=== PATIENT | male | born 1945 | race Caucasian/White ===

== ENCOUNTER 2020-05-30 10:22 | Outpatient (REF) | payer MEDICARE, SELFPAY ==
--- NOTE | ~2020-05-30 | US_ITS ---
EXAMINATION: US RETROPERITONEAL LIMITED (RENAL ONLY) CLINICAL INFORMATION: Cyst of kidney, acquired. COMPARISON: Renal ultrasound 07/13/2018 TECHNIQUE: Real-time imaging of the kidneys. FINDINGS: RIGHT KIDNEY: 12.0 x 6.3 x 5.0 cm (SAG x AP x TRV). The kidney is normal in size, contour, and echogenicity. Renal cortical thickness is normal. No renal calculi or hydronephrosis. There is a heterogeneous exophytic area in the upper pole measuring 1.2 x 1.0 x 0.95 cm avascular question exophytic lesion. It was not seen previously. Cyst seen within the lower pole on the previous exam is not seen at this time. 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 LEFT KIDNEY: 13.3 x 5.9 x 5.7 cm (SAG x AP x TRV). The kidney is normal in size, contour, and echogenicity. Renal cortical thickness is normal. No renal calculi or hydronephrosis. There are 2 anechoic cysts. The midpole cyst measuring 5.1 x 4.5 x 5.3 cm and lower pole cyst measuring 3.1 x 2.9 x 2.9 cm. US/US renal BI IMPRESSION: At least 2 left renal cysts. Heterogenous lesion upper pole right kidney, new. Question complex cyst versus lesion upper pole right kidney. It is avascular. No echogenic stones or hydronephrosis seen.
[2020-05-30 11:47] LABS: Estimated Average Glucose 131 mg/dL; Hemoglobin A1c % 6.2 %
[2020-05-30 12:15] LABS: PSA,Total (Free>4and<10) 2.19 ng/mL (0.00-4.00)
[2020-05-30 12:18] LABS: Alanine Aminotransferase 38 U/L (0-40); Anion Gap 14 (12-20); Aspartate Amino Transferase 27 U/L (5-37); Blood Urea Nitrogen 19 mg/dL (9-16); Calcium 9.2 mg/dL (8.4-10.2); Carbon Dioxide 31 mmol/L (22-29); Chloride 102 mmol/L (96-108); Cholesterol 178 mg/dL; Estimated Glomerular Filt Rate > 60; Glucose Fasting 111 mg/dL (60-99); HDL Cholesterol 45 mg/dL; LDL Cholesterol Calculated 74 mg/dl; Potassium 3.4 mmol/L (3.3-5.1); Sodium 144 mmol/L (135-145); Triglycerides 297 mg/dL
[2020-05-30 12:20] LABS: Creatinine Urine 117.01 mg/dL
== END 2020-05-30 10:23 | disposition home or self-care (01) ==
LOC: HO.HMGCX 10:22
PROVIDERS: PCP Internal Medicine; Visit Provider Internal Medicine
DX: Z12.5 Encounter for screening for malignant neoplasm of prostate (principal); N28.1 Cyst of kidney, acquired
CPT/HCPCS: 36415; 76775; 80048; 80061; 82043; 83036; 84153; 84450; 84460

== ENCOUNTER → 2020-06-21 10:34 | Outpatient (BNVA) | payer MEDICARE, SELFPAY | PROVIDERS: PCP Internal Medicine; Visit Provider Urology | DX: N28.1 Cyst of kidney, acquired (principal) | CPT/HCPCS: 99202 ==

== ENCOUNTER 2020-06-29 14:21 | Outpatient (REF) | payer MEDICARE, SELFPAY ==
--- NOTE | ~2020-06-29 | CT_ITS ---
EXAMINATION: CT ABDOMEN WITHOUT AND WITH CONTRAST CLINICAL INFORMATION: Cyst of kidney. COMPARISON: Renal ultrasound 05/30/2020. TECHNIQUE: Contiguous axial thin section helical images of the abdomen were performed before and after the administration of 76 mL of Omnipaque 350 intravenous contrast. The data set was reformatted in the coronal and sagittal planes and reviewed on an independent workstation. This CT examination was performed using dose optimization techniques as appropriate, variously including the following: *Automated exposure control *Adjustment of mA and/or kV according to patient size (this includes techniques or standardized protocols for targeted exams where dose is matched to indication/reason for exam; i.e. extremities or head) *Use of iterative reconstruction technique DLP: 1001 mGy-cm FINDINGS: LUNG BASES: The lung bases are clear. Coronary artery calcifications are noted. LIVER, GALLBLADDER, AND BILIARY TREE: The liver is normal in size, shape, and attenuation. No biliary ductal dilatation or focal hepatic lesion. Small stones are seen in the gallbladder lumen. No gallbladder wall thickening or pericholecystic fluid. PANCREAS: Normal. SPLEEN: Normal. ADRENAL GLANDS AND KIDNEYS: The right adrenal gland has a 3.2 cm fat attenuation nodule, consistent with a myolipoma. There is a left adrenal gland heterogeneous nodule which is fat attenuation, although has some areas of higher attenuation internally. This measures 7.1 cm. No enhancing component. The kidneys are normal in size, shape, and attenuation. No hydronephrosis or nephrolithiasis. In the left kidney, there is an exophytic upper pole posterior lesion measuring 3 cm. This shows no enhancement, consistent with a cyst. There is a midpole 4.8 cm cyst. There is a right lower pole hypoattenuating lesion. BOWEL LOOPS: The stomach is unremarkable. Normal caliber small bowel. There is no obstruction. Normal appendix. No colonic wall thickening or acute inflammatory change. Scattered colonic diverticulosis without diverticulitis. No free air or free fluid. LYMPH NODES: Normal. VASCULAR: Normal caliber aorta with mild atherosclerotic calcification. BONES: No acute or suspicious osseous abnormality. Altered level degenerative changes of the spine. CT/CT abdomen wo/w con IMPRESSION: No suspicious renal mass. Left renal cysts. Hypoattenuating lesions in the cortex of the right kidney are too small to characterize but likely represent cysts. Fat attenuation lesions are seen in both adrenal glands. The right adrenal lesion measures 3.2 cm and is fairly homogenous, consistent with a myelolipoma. The left adrenal lesion is more complex, also consistent with a myelolipoma, measuring up to 7.1 cm. IR consult could be considered, to evaluate for possibility of increased risk of bleeding.
[2020-06-29] MEDS: iohexoL 350 MG/ML 75 ML INFUS..BTL IV (14:59)
== END 2020-06-29 14:22 | disposition home or self-care (01) ==
LOC: HO.CT 14:21
PROVIDERS: Visit Provider Urology
DX: N28.1 Cyst of kidney, acquired (principal)
CPT/HCPCS: 74170; Q9967

== ENCOUNTER → 2020-07-27 10:43 | Outpatient (BNVA) | payer MEDICARE, SELFPAY | PROVIDERS: PCP Internal Medicine; Visit Provider Urology | CPT/HCPCS: Q3014 ==

== ENCOUNTER 2020-08-10 09:45 | Outpatient (REF) | payer MEDICARE, SELFPAY ==
--- NOTE | ~2020-08-10 | XR_ITS ---
EXAMINATION: XR CLAVICLE, LEFT CLINICAL INFORMATION: Left shoulder pain. COMPARISON: None TECHNIQUE: Two views of the left clavicle. FINDINGS: There is loss of left AC joint space with periarticular spurring. There are small enthesophytes along the lateral acromion. The glenohumeral joint space is normal. The soft tissues are normal. XR/XR clavicle LT IMPRESSION: Mild degenerative changes left AC joint. No visible acute fracture or dislocation left shoulder.
== END 2020-08-10 09:46 | disposition home or self-care (01) ==
LOC: HO.HMGCX 09:45
PROVIDERS: PCP Internal Medicine; Visit Provider Hospitalist
DX: M89.8X1 Other specified disorders of bone, shoulder (principal)
CPT/HCPCS: 73000

== ENCOUNTER 2020-11-21 16:00 | Outpatient (RCR) | payer MEDICARE, SELFPAY ==
[2020-10-09 11:01] VITALS: BP 140/82
--- NOTE | 2020-10-09 12:38 | MHC.PT.EP ---
[facility] [place] Office [place] Office [place] Office [address] Leon Bae [address] [phone] F: [phone] F: [phone] F: [phone] F: [phone] Physical Therapy Plan of Care Date of Evaluation: Date of Surgery: Diagnosis: B shoulder pain Assessment: 75 y/o RHD M referred for B shoulder pain with s/sx consistent with upper crossed syndrome. Pt complains of pain in the R supraclavicular region with lifting overhead, driving, putting shoes on, showering, and golfing, though pt reports pain has decreased significantly over last few weeks. Examination shows limited cervical ROM, limited strength of shoulder flexors/abductors and scapular retractors, increased pectoral tissue tension, and limited active shoulder ROM. Recommend PT 2x/week for 4 weeks to address impairments, implement HEP, and optimize functional mobility. Frequency and Duration: The patient will be seen 2x/week for 4 weeks Short Term Goals: 2 weeks: 1. I with HEP 2. 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 I with HEP and self-management of sx 2. Pt will be able to reach overhead with>3/10 pain in order to complete ADLs 3. Pt will be able to golf for >1 hours with <3/10 Treatment Plan: Modalities to reduce pain, spasms and effusion. Manual therapy to restore motion and function. Therapeutic exercise to improve strength and flexibility. Neuromuscular re-education for posture and balance. Therapeutic activities to return to functional activities of daily living. Electronically signed by: Arabella zuñiga PT Please sign and return to therapist. Thank you for your referral.
--- NOTE | 2020-12-13 13:25 | MHC.PT.DC ---
[facility] [place] Office [place] Office [place] Office [address] Leon Bae [address] [phone] F: [phone] F: [phone] F: [phone] F: [phone] Physical Therapy Discharge Report Diagnosis: B shoulder pain Date of Surgery: N/A Date of Evaluation: 10/09/20 Date of Discharge: 12/13/20 Treatments to Date: 11 Cancellations to Date: 0 No Shows to Date: 0 Discharge Status: Achieved Goals Improved Function Independent with HEP Patient Elected to Stop Discharge Summary: Pt demonstrating a lack in ROM but is functional and has improved his strength. He has an HEP to continue on his own. DC to HEP at this time. Electronically signed by: Mirian Plasencia PT Please sign and return to therapist. Thank you for your referral.
== END 2020-12-13 13:26 | disposition home or self-care (01) ==
LOC: HO.PTCHIC 16:00
PROVIDERS: PCP Internal Medicine; Visit Provider Internal Medicine
DX: M25.511 Pain in right shoulder (principal); M25.512 Pain in left shoulder
CPT/HCPCS: 97110; 97140; 97161

== ENCOUNTER 2020-11-30 06:22 | Outpatient (REF) | payer MEDICARE, SELFPAY ==
[2020-11-30 11:45] LABS: Alanine Aminotransferase 18 U/L (0-40); Anion Gap 15 (12-20); Aspartate Amino Transferase 18 U/L (5-37); Blood Urea Nitrogen 18 mg/dL (9-16); Calcium 9.9 mg/dL (8.4-10.2); Carbon Dioxide 28 mmol/L (22-29); Chloride 103 mmol/L (96-108); Cholesterol 151 mg/dL; Estimated Glomerular Filt Rate > 60; Glucose Fasting 123 mg/dL (60-99); HDL Cholesterol 44 mg/dL; LDL Cholesterol Calculated 74 mg/dl; Potassium 3.7 mmol/L (3.3-5.1); Sodium 142 mmol/L (135-145); Triglycerides 167 mg/dL
[2020-11-30 12:19] LABS: Estimated Average Glucose 131 mg/dL; Hemoglobin A1C 141.5787 umol/L; Hemoglobin A1c % 6.2 %
== END 2020-11-30 06:23 | disposition home or self-care (01) ==
LOC: HO.HMGCLDS 06:22
PROVIDERS: PCP Internal Medicine; Visit Provider Internal Medicine
DX: E11.9 Type 2 diabetes mellitus without complications (principal); E78.5 Hyperlipidemia, unspecified; I10 Essential (primary) hypertension
CPT/HCPCS: 36415; 80048; 80061; 83036; 84450; 84460

== ENCOUNTER 2021-04-26 11:41 | Outpatient (REF) | payer MEDICARE, SELFPAY ==
--- NOTE | ~2021-04-26 | XR_ITS ---
EXAMINATION: XR KNEE, RIGHT CLINICAL INFORMATION: Pain COMPARISON: None TECHNIQUE: Four views of the right knee. FINDINGS: Bone alignment is normal. No fracture or dislocation is seen. Joint spaces are normal. There is no joint effusion. There is an osteophyte at the quadriceps tendon insertion to the patella. XR/XR knee RT 4V IMPRESSION: Osteophyte at the quadriceps tendon insertion to the patella otherwise unremarkable exam.
== END 2021-04-26 11:42 | disposition home or self-care (01) ==
LOC: HO.HMGCX 11:41
PROVIDERS: PCP Internal Medicine; Visit Provider Internal Medicine
DX: M25.561 Pain in right knee (principal)
CPT/HCPCS: 73564

== ENCOUNTER 2021-05-16 11:36 | Outpatient (REF) | payer MEDICARE, SELFPAY ==
--- NOTE | ~2021-05-16 | XR_ITS ---
EXAMINATION: XR KNEE AP STANDING CLINICAL INFORMATION: Knee pain COMPARISON: Knee radiograph 04/26/2021 TECHNIQUE: AP bilateral standing view of the knees was obtained. XR/XR knee standing BI FINDINGS/IMPRESSION: No acute fracture or dislocation. Mild degenerative changes of the right knee with small medial compartment osteophytes and spurring of the tibial spines. Mild degenerative changes of the left knee with spurring of the tibial spines. Joint spaces are maintained. Soft tissues are unremarkable.
== END 2021-05-16 11:37 | disposition home or self-care (01) ==
LOC: HO.HOSX 11:36
PROVIDERS: Visit Provider Physician Assistant
DX: M17.11 Unilateral primary osteoarthritis, right knee (principal)
CPT/HCPCS: 20610; 73565; 99202; J1020

== ENCOUNTER 2021-05-30 08:04 | Outpatient (REF) | payer MEDICARE, SELFPAY ==
[2021-05-30 11:30] LABS: Estimated Average Glucose 148 mg/dL; Hemoglobin A1c % 6.8 %
[2021-05-30 11:55] LABS: Alanine Aminotransferase 34 U/L (0-40); Anion Gap 11 (12-20); Aspartate Amino Transferase 25 U/L (5-37); Blood Urea Nitrogen 15 mg/dL (9-16); Calcium 9.7 mg/dL (8.4-10.2); Carbon Dioxide 33 mmol/L (22-29); Chloride 105 mmol/L (96-108); Cholesterol 197 mg/dL; Estimated Glomerular Filt Rate > 60; Glucose Fasting 124 mg/dL (60-99); HDL Cholesterol 48 mg/dL; LDL Cholesterol Calculated 87 mg/dl; Potassium 3.6 mmol/L (3.3-5.1); Sodium 145 mmol/L (135-145); Triglycerides 310 mg/dL
== END 2021-05-30 08:05 | disposition home or self-care (01) ==
LOC: HO.HMGCLDS 08:04
PROVIDERS: PCP Internal Medicine; Visit Provider Internal Medicine
DX: E11.29 Type 2 diabetes mellitus with other diabetic kidney complication (principal); E78.5 Hyperlipidemia, unspecified; I10 Essential (primary) hypertension
CPT/HCPCS: 36415; 80048; 80061; 83036; 84450; 84460

== ENCOUNTER 2021-06-21 08:12 | Outpatient (REF) | payer MEDICARE, SELFPAY ==
--- NOTE | ~2021-06-21 | CT_ITS ---
EXAMINATION: CT ABDOMEN WITHOUT AND WITH CONTRAST CLINICAL INFORMATION: Kidney cyst. COMPARISON: Previous CT of the abdomen June 2020 TECHNIQUE: Contiguous axial thin section helical images of the abdomen were performed before and after the administration of oral contrast and 85 mL of Omnipaque 350 intravenous contrast. The data set was reformatted in the coronal and sagittal planes and reviewed on an independent workstation. This CT examination was performed using dose optimization techniques as appropriate, variously including the following: *Automated exposure control *Adjustment of mA and/or kV according to patient size (this includes techniques or standardized protocols for targeted exams where dose is matched to indication/reason for exam; i.e. extremities or head) *Use of iterative reconstruction technique DLP: 603 mGy-cm FINDINGS: LUNG BASES: Unremarkable. LIVER, GALLBLADDER, AND BILIARY TREE: Fatty infiltration of the liver. No focal liver lesion or biliary duct dilatation. Small gallstones in the gallbladder. PANCREAS: Unremarkable. SPLEEN: Unremarkable. ADRENAL GLANDS AND KIDNEYS: There are bilateral fatty adrenal lesions on the right measuring 3 cm and on the left measuring 7 cm that are stable. There are left renal simple cysts. There is a 1 cm complex lesion in the lateral mid right kidney. Difficult to visualize precontrast. This may be seen on axial image 79 series 3 with Hounsfield units precontrast measuring 16. This is seen axial image 109 postcontrast and Hounsfield units measure 49 suggestive of minimal enhancement. This is stable from previous CT and may represent a complex cyst. Alternatively, this may represent 2 adjacent small cysts. There is a smaller low-attenuation lesion in the anterior lower pole of the right kidney measuring approximately 0.5 x 1.2 cm axial image 117 series. This is stable as well. Lesions are difficult to characterize due to small size. BOWEL LOOPS: There is diverticulosis of the colon. LYMPH NODES: There are small retroperitoneal and small bowel mesentery lymph nodes. No enlarged lymph nodes are seen. VASCULAR: Unremarkable. BONES: There are degenerative changes of the spine. CT/CT abdomen wo/w con IMPRESSION: Stable bilateral fatty adrenal lesions probably representing myelolipomas. Left renal cysts. Stable smaller low-attenuation lesions in the mid and lower pole of the right kidney. Stable small low-attenuation lesions in the mid and lower pole of the right kidney. Fatty liver. Gallstones. Diverticulosis. Fleischner guidelines were followed.
[2021-06-21] MEDS: iohexoL 350 MG/ML 100 ML INFUS..BTL 85 ML IV (09:24)
== END 2021-06-21 08:13 | disposition home or self-care (01) ==
LOC: HO.CT 08:12
PROVIDERS: PCP Internal Medicine; Visit Provider Urology
DX: N28.1 Cyst of kidney, acquired (principal)
CPT/HCPCS: 74170; Q9967

== ENCOUNTER → 2021-07-10 08:26 | Outpatient (BNVA) | payer MEDICARE, SELFPAY | PROVIDERS: PCP Internal Medicine; Visit Provider Urology | DX: D17.79 Benign lipomatous neoplasm of other sites (principal); N28.1 Cyst of kidney, acquired; E11.29 Type 2 diabetes mellitus with other diabetic kidney complication; I10 Essential (primary) hypertension; E78.5 Hyperlipidemia, unspecified; Z88.4 Allergy status to anesthetic agent | CPT/HCPCS: Q3014 ==

== ENCOUNTER 2021-09-25 06:09 | Outpatient (REF) | payer MEDICARE, SELFPAY ==
[2021-09-25 12:11] LABS: Alanine Aminotransferase 18 U/L (0-40); Anion Gap 13 (12-20); Aspartate Amino Transferase 18 U/L (5-37); Blood Urea Nitrogen 19 mg/dL (9-16); Calcium 9.5 mg/dL (8.4-10.2); Carbon Dioxide 30 mmol/L (22-29); Chloride 105 mmol/L (96-108); Cholesterol 150 mg/dL; Estimated Glomerular Filt Rate > 60; Glucose Fasting 97 mg/dL (60-99); HDL Cholesterol 46 mg/dL; LDL Cholesterol Calculated 66 mg/dl; Potassium 3.5 mmol/L (3.3-5.1); Sodium 144 mmol/L (135-145); Triglycerides 191 mg/dL
[2021-09-25 12:25] LABS: Estimated Average Glucose 128 mg/dL; Hemoglobin A1C 151.5535 umol/L; Hemoglobin A1c % 6.1 %
[2021-09-25 12:52] LABS: Creatinine Urine 110.21 mg/dL; Microalbum/Creatinine Ratio Ur 255.8 ug/mg cr
== END 2021-09-25 06:10 | disposition home or self-care (01) ==
LOC: HO.HMGCLDS 06:09
PROVIDERS: Visit Provider Internal Medicine
DX: E11.29 Type 2 diabetes mellitus with other diabetic kidney complication (principal); E78.5 Hyperlipidemia, unspecified; I10 Essential (primary) hypertension
CPT/HCPCS: 36415; 80048; 80061; 82043; 83036; 84450; 84460

== ENCOUNTER 2022-04-04 08:02 | Outpatient (REF) | payer MEDICARE, SELFPAY ==
[2022-04-04 11:53] LABS: Estimated Average Glucose 140 mg/dL; Hemoglobin A1c % 6.5 %
[2022-04-04 12:13] LABS: Alanine Aminotransferase 23 U/L (0-40); Anion Gap 15 (12-20); Aspartate Amino Transferase 22 U/L (5-37); Blood Urea Nitrogen 24 mg/dL (9-16); Calcium 9.9 mg/dL (8.4-10.2); Carbon Dioxide 29 mmol/L (22-29); Chloride 104 mmol/L (96-108); Cholesterol 177 mg/dL; Estimated Glomerular Filt Rate > 60; Glucose Fasting 130 mg/dL (60-99); HDL Cholesterol 48 mg/dL; LDL Cholesterol Calculated 70 mg/dl; Potassium 3.7 mmol/L (3.3-5.1); Sodium 144 mmol/L (135-145); Triglycerides 297 mg/dL
[2022-04-04 12:19] LABS: Vitamin D 25-OH Total 24.5 ng/mL (>30)
== END 2022-04-04 08:03 | disposition home or self-care (01) ==
LOC: HO.HMGCLDS 08:02
PROVIDERS: PCP Internal Medicine; Visit Provider Internal Medicine
DX: E11.29 Type 2 diabetes mellitus with other diabetic kidney complication (principal); E78.5 Hyperlipidemia, unspecified; I10 Essential (primary) hypertension
CPT/HCPCS: 36415; 80048; 80061; 82306; 83036; 84450; 84460

== ENCOUNTER → 2022-05-08 08:04 | Outpatient (BNVA) | payer MEDICARE, SELFPAY | PROVIDERS: PCP Internal Medicine; Referring Provider Internal Medicine; Visit Provider Internal Medicine | DX: I45.10 Unspecified right bundle-branch block (principal); I49.8 Other specified cardiac arrhythmias; I10 Essential (primary) hypertension; E78.5 Hyperlipidemia, unspecified; E11.29 Type 2 diabetes mellitus with other diabetic kidney complication; R80.9 Proteinuria, unspecified | CPT/HCPCS: 99202 ==

== ENCOUNTER → 2022-05-22 07:49 | Outpatient (REF) | payer MEDICARE, SELFPAY ==
--- NOTE | 2022-05-22 08:01 | CA_ITS ---
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 Study Quality: Fair ECG Rhythm: Sinus Conclusions: - The left ventricular systolic function is normal. The calculated ejection fraction is 64% by biplane method. - Endocardium not very well defined. Probable moderate to severe concentric hypertrophy. - No obvious valvular pathology seen on this study. Findings Left Ventricle Normal left ventricular cavity size. The left ventricular systolic function is normal. The calculated ejection fraction is 64% by biplane method. There is no evidence of regional wall motion abnormalities. Diastolic function is normal for age. Endocardium not very well defined. Probable moderate to severe concentric hypertrophy. Right Ventricle Normal right ventricular cavity size and systolic function. Atria Both atria are normal in size. Aortic Valve There is mild calcification of the aortic valve. There is no aortic valve stenosis. There is no aortic valve regurgitation. Mitral Valve There is mild anterior and posterior mitral leaflet thickening. There is mild mitral annular calcification. There is no mitral valve regurgitation. There is no mitral valve stenosis. Pulmonic Valve The pulmonic valve is likely normal. Tricuspid Valve There is trace tricuspid valve regurgitation. There is no evidence of pulmonary hypertension. Great Vessels The asc aorta is normal in size. Small plaque is seen in the sino tubular ridge. Venous The inferior vena cava is normal in size and collapses greater than 50% with inspiration. Pericardium/Pleural Prominent epicardial adipose tissue noted. There is no evidence of pericardial effusion. Prior Study Comparison Changes noted compared to prior study dated: 08/16/2011. Progression of LVH. Recommendations, Care & Conclusions No obvious valvular pathology seen on this study. Measurements 2D Linear Measurements IVSd: 1.60 0.6-0.9/0.6-1.0 cm LVIDd: 4.36 3.9-5.3/4.2-5.9 cm LVIDd Index: 1.96 2.4-3.2/2.2-3.1 cm/m2 LVIDs: 2.52 2.0-3.6 cm LVPWd: 1.80 0.7-1.1 cm LA Diam: 3.90 2.7-3.8/3.0-4.0 cm LAIDs Index: 1.76 1.5-2.3 cm/m2 LV Mass: 399.78 67-162/88-224 g LV Mass Index: 180.08 43-95/49-115 g/m2 LVOT Diam: 2.10 3.0+(-)1.3 cm 2D Systolic Function EF 4C: 58.60 >55% EF 2C: 66.40 >55% EF BiP: 64.30 >55% Mitral Valve MV Pk E: 0.58 MV PK A: 0.92 MV Decel Time: 338.00 E/A: 0.60 E'Lateral: 6.96 E'Medial: 5.33 E/E' Med: 10.90 E/E' Lat: 8.40 PHT: 99.00 MVA PHT: 2.22 Decel Mitchell: 1.73 Aortic Valve AoV Pk Jerzy: 1.40 AoV Mn Jerzy: 1.00 AoV VTI: 0.26 AoV Pk Grad: 8.00 Aov Mn Grad: 5.00 RICHARD Cont.VTI: 2.73 LVOT LVOT Pk Jerzy: 0.98 LVOT Mn Jerzy: 0.69 LVOT VTI: 0.21 LVOT Pk Grad: 4.00 LVOT Mn Grad: 2.00 LVOT Diam: 2.10 LVOT Area: 3.46 Diastolic Function MV Pk E: 0.58 MV Pk A: 0.92 E/A: 0.60 E'Medial: 5.33 E/E' Med: 10.90 E' Laterial: 6.96 E/E' Lat: 8.40 Right Ventricle TAPSE (mm): 18.30 TVS' Jerzy: 12.70 Tricuspid Valve RA Press: 3.00 Great Vessels Aorta Sinus of Valsalva: 4.30 2.0-3.5 cm Ao Asc: 3.90 2.1-3.4 cm Pulmonary Valve PV Pk Jerzy: 0.90 Peak PV Grad: 3.00 Updated in Other Vendor System with Status of Final Bakari Bingham MD electronically signed on 05/24/2022 4:07:58 PM with status of Final
== END ==
LOC: HO.CARD 07:49
PROVIDERS: PCP Internal Medicine; Visit Provider Internal Medicine
DX: I25.10 Atherosclerotic heart disease of native coronary artery without angina pectoris (principal); I49.8 Other specified cardiac arrhythmias
CPT/HCPCS: 93306

== ENCOUNTER → 2022-05-23 08:00 | Outpatient (REF) | payer MEDICARE, SELFPAY ==
--- NOTE | ~2022-05-23 | NM_ITS ---
Exercise Myocardial perfusion study Indication: Precordial chest pain to evaluate for myocardial ischemia Technique: The patient was brought in for an exercise perfusion study on 05/23/2022. Patient performed exercise as per Melvin protocol and was injected 35 mCi of sestamibi was given intravenously one target HR was achieved. Images were obtained using the SPECT gamma camera interlaced with the gating device. Images were obtained in supine position. Resting perfusion study was performed on 05/24/2022. Patient was administered 35 mCi of sestamibi intravenously at rest. Images were then obtained in supine position. Images obtained with and without CT attenuation. Total DLP 160 mGy-cm. Images were processed with the software and compared side to side in short axis, horizontal long axis and vertical long axis views. Findings: The stress perfusion study showed non attenuated images show mildly reduced uptake in the basal lateral wall of the LV myocardium. Attenuation corrected images also shows minimally to mildly reduced uptake in the basal lateral wall with some thinning.. The gated study shows normal LV systolic function with visually estimated LVEF of greater than 55%. LV cavity is normal in size. The gated study shows normal systolic wall thickening and contraction of all segments. There is no transient ischemic dilation. Resting study shows normal uptake of radiotracer in all segments of LV myocardium. Gating at rest reveals normal systolic wall motion with ejection fraction at 60%. The findings are consistent with small area of mild intensity reversible defect of the basal lateral wall suggestive of ischemia.. NM/NM cardiolite stress test Impression: 1. Mild basal lateral wall ischemia 2. Gated LVEF is 60% 3. Transient ischemic dilatation not present Stress EKG is negative for ischemia
--- NOTE | 2022-05-23 08:03 | CA_ITS ---
Acquisition Time: 2022-05-23 08:23:45 Total Exercise Time: 00:06:42 Test Indications: ABN EKG Medications: SEE CHART Protocol: RADHA Max HR: 153 BPM 105% of Pred: 145 BPM Max BP: 190/048 mmHG Max Work Load: 8.0 METS Exercise stress test using Radha potocol. Total of 6 min 42 seconds, METS 8.00 and TAPHR up to 105%, Pt denies any SOB or CP. Test stopped d/t rapid HR. EKG with RBBB, PAC's and occasional PVC's. No ischemic changes noted. Nucleaar images pending. Hypertensive response to exercise. Test reviewed with Dr. Sharma Referred By: Bakari Bingham Overread By: Ping Mathis NP
== END ==
LOC: HO.CARD 08:00
PROVIDERS: Visit Provider Internal Medicine
DX: R07.2 Precordial pain (principal); I49.8 Other specified cardiac arrhythmias
CPT/HCPCS: 78452; 93017; A9500

== ENCOUNTER 2022-06-10 07:13 | Outpatient (REF) | payer MEDICARE, SELFPAY ==
[2022-06-10 12:18] LABS: Blood Urea Nitrogen 15 mg/dL (9-16); Estimated Glomerular Filt Rate > 60
== END 2022-06-10 07:14 | disposition home or self-care (01) ==
LOC: HO.HMGCLDS 07:13
PROVIDERS: PCP Internal Medicine; Visit Provider Urology
DX: N26.1 Atrophy of kidney (terminal) (principal); N28.1 Cyst of kidney, acquired
CPT/HCPCS: 36415; 82565; 84520

== ENCOUNTER 2022-06-21 07:44 | Outpatient (REF) | payer MEDICARE, SELFPAY ==
--- NOTE | ~2022-06-21 | CT_ITS ---
EXAMINATION: CT ABDOMEN WITHOUT AND WITH CONTRAST CLINICAL INFORMATION: Renal mass COMPARISON: Previous CT of the abdomen and pelvis most recent June 2020 TECHNIQUE: Contiguous axial thin section helical images of the abdomen were performed before and after the administration of oral contrast and 85 mL of Omnipaque 350 intravenous contrast. The data set was reformatted in the coronal and sagittal planes and reviewed on an independent workstation. This CT examination was performed using dose optimization techniques as appropriate, variously including the following: *Automated exposure control *Adjustment of mA and/or kV according to patient size (this includes techniques or standardized protocols for targeted exams where dose is matched to indication/reason for exam; i.e. extremities or head) *Use of iterative reconstruction technique DLP: 725 mGy-cm FINDINGS: LUNG BASES: Unremarkable LIVER, GALLBLADDER, AND BILIARY TREE: Mild fatty infiltration. No focal liver lesion. Gallstones. Normal caliber bile ducts. PANCREAS: Normal SPLEEN: Normal ADRENAL GLANDS AND KIDNEYS: There are bilateral fatty adrenal lesions suggestive of myelolipoma. These measure 2.7 x 3.7 cm on the right and 7 cm on the left. There is a 5 x 10 mm low-attenuation lesion in the lateral lower pole of the right kidney. This is difficult to appreciate precontrast. Hounsfield units postcontrast measure between 15 suggestive of a simple cyst. There may be additional smaller cysts in the lower pole of the right kidney as well. There is a 5 cm simple cyst in the lateral left kidney. There is a 7 mm lesion in the medial lower pole of the left kidney. This is slightly high attenuation precontrast Hounsfield units measuring 57. This does not demonstrate evidence of enhancement and likely represents a hyperdense cyst axial image 90 series 4. There is a 3 cm lesion exophytic to the medial upper pole of the left kidney. This is a small focus of peripheral calcification. Hounsfield units pre and postcontrast measure 50 without evidence of enhancement compatible with a complex cyst. No hydronephrosis or renal mass. BOWEL LOOPS: Diverticulosis of the colon. Large diverticulum adjacent to the pancreas. Small and large bowel is otherwise normal. Normal appendix. Normal stomach. Small umbilical hernia containing fat. LYMPH NODES: Normal. VASCULAR: Unremarkable. BONES: Degenerative changes of the spine. CT/CT abdomen wo/w IV con IMPRESSION: No evidence of enhancing renal mass. Simple and complex bilateral renal cysts similar to previous exam. Bilateral large adrenal myelolipomas. Vascular consultation for increased risk of bleeding should be considered given large size on the left. Gallstones. Diverticulosis. Mild fatty infiltration of the liver. Fleischner guidelines were followed.
[2022-06-21] MEDS: iohexoL 350 MG/ML 100 ML INFUS..BTL IV (08:13)
== END 2022-06-21 07:45 | disposition home or self-care (01) ==
LOC: HO.CT 07:44
PROVIDERS: PCP Internal Medicine; Visit Provider Urology
DX: N28.1 Cyst of kidney, acquired (principal)
CPT/HCPCS: 74170; Q9967

== ENCOUNTER 2022-07-10 06:23 | Outpatient (REF) | payer MEDICARE, SELFPAY ==
[2022-07-10 12:11] LABS: Estimated Average Glucose 143 mg/dL; Hemoglobin A1c % 6.6 %
[2022-07-10 12:12] LABS: Alanine Aminotransferase 33 U/L (0-40); Anion Gap 14 (12-20); Aspartate Amino Transferase 27 U/L (5-37); Blood Urea Nitrogen 16 mg/dL (9-16); Carbon Dioxide 28 mmol/L (22-29); Chloride 104 mmol/L (96-108); Cholesterol 175 mg/dL; Estimated Glomerular Filt Rate > 60; Glucose Fasting 123 mg/dL (60-99); HDL Cholesterol 47 mg/dL; LDL Cholesterol Calculated 79 mg/dl; Potassium 3.3 mmol/L (3.3-5.1); Sodium 143 mmol/L (135-145); Triglycerides 248 mg/dL
[2022-07-10 12:38] LABS: PSA,Total (Free>4and<10) 2.33 ng/mL (0.00-4.00); Vitamin D 25-OH Total 106.6 ng/mL (>30)
== END 2022-07-10 06:24 | disposition home or self-care (01) ==
LOC: HO.HMGCLDS 06:23
PROVIDERS: PCP Internal Medicine; Visit Provider Internal Medicine
DX: D35.00 Benign neoplasm of unspecified adrenal gland (principal); N28.1 Cyst of kidney, acquired; E11.29 Type 2 diabetes mellitus with other diabetic kidney complication; E78.5 Hyperlipidemia, unspecified; I10 Essential (primary) hypertension; Z12.5 Encounter for screening for malignant neoplasm of prostate
CPT/HCPCS: 36415; 80048; 80061; 82306; 83036; 84153; 84450; 84460; 99212

== ENCOUNTER → 2022-07-25 10:16 | Outpatient (BNVA) | payer MEDICARE, SELFPAY | PROVIDERS: PCP Internal Medicine; Referring Provider Internal Medicine; Visit Provider Internal Medicine | DX: I25.10 Atherosclerotic heart disease of native coronary artery without angina pectoris (principal); I49.8 Other specified cardiac arrhythmias; I45.10 Unspecified right bundle-branch block; I10 Essential (primary) hypertension; E11.29 Type 2 diabetes mellitus with other diabetic kidney complication; R80.9 Proteinuria, unspecified; E78.5 Hyperlipidemia, unspecified | CPT/HCPCS: 99212 ==

== ENCOUNTER 2022-08-15 13:23 | Outpatient (AMB) | payer MEDICARE, SELFPAY ==
--- NOTE | 2022-08-15 13:26 | MHC.PC.OV ---
Vital Signs 08/15/22 13:27 Height 5 ft 10 in Weight 233 lb BMI 33.4 BP 146/86 H Blood Pressure Location Lt brachial Position Sitting Pulse 79 Pulse Source Pulse Oximeter Pulse Oximetry (%) 95 Oxygen Delivery Method Room Air Intake Visit Reasons: 5 month follow up Intake Note: Pt is here today for 5 month f/u Allergies diphenhydramine [From BENADRYL ALLERGY] Allergy (Unknown, Verified 12/17/22 13:51) HEART RACING AND TIREDNESS Medication List - Last Reconciled 08/15/22 by Pebbles Mcarthur MD amlodipine 10 mg PO DAILY blood sugar diagnostic As directed blood sugar diagnostic check blood sugar twice a day as directed blood sugar diagnostic (Oceen Ultra Test strips) As directed twice a day ac losartan 100 mg PO DAILY metformin 1,000 mg PO BID simvastatin 20 mg PO BEDTIME triamterene-hydrochlorothiazid 37.5-25 mg 1 tab PO QAM 90 days Tobacco use date assessed: 08/15/22 Fall risk assessment: No Falls in past year Last assessed Fall Risk: 08/15/22 HPI 5 month follow up HPI Details 77-year-old male, here today for follow-up on his hypertension and diabetes and dyslipidemia. Has been feeling well with no complaints at present time. 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 Vitamin D deficiency Right bundle branch block (RBBB) Iglesias esophagus Squamous cell skin cancer, multiple sites Diabetes mellitus with kidney complication, without long-term current use of insulin Dyslipidemia Bilateral renal cysts Actinic keratosis Neuropathic arthritis Essential hypertension Renal cyst, acquired Surgical History Hx of LASIK Hx of colonoscopy Status post Mohs surgery Family History Mother Chronic kidney disease Cardiovascular disease Diabetes mellitus Brother Diabetes mellitus Skin cancer Social History Housing: House Alcohol intake: current Patient Tobacco Use Status: Never used Tobacco e-Cigarette/Vaping Use: Never Used service: No Current occupational status: retired Cognitive needs: No Hearing needs: No Vision needs: Yes Questionnaire PHQ-9 Over the last 2 weeks, how often have you been bothered by any of the following problems? Depression Screening Interpretation: Negative Source: Developed by Drs. Chapincito Livingston, Mynor Stewart and colleagues, with an educational pollo from [employer]. Thrive Questionnaire Date Thrive assessed: 04/15/22 AUDIT C Alcohol Use Questionnaire (AUDIT-C) 1. How often do you have a drink containing alcohol?: Never Total Score: 0 YAMILA-7 AMB Questionnaire YAMILA-7 Date YAMILA - 7 assessed: 04/15/22 Source: Developed by Drs. Chapincito Livingston, Mynor Stewart and colleagues, with an educational pollo from [employer]. Review of Systems Const Reports no additional complaints and Denies fatigue Eyes Reports no additional complaints ENT Reports no additional complaints Card Denies chest pain, Denies rapid heart rate, Denies irregular heart rhythm, Denies lightheadedness, Denies radiating jaw, neck or arm pain, Denies palpitations, Denies dyspnea and Denies dyspnea on exertion Resp Reports no additional complaints, Denies dyspnea and Denies dyspnea on exertion GI Reports no additional complaints Reports as per HPI Musc Reports no additional complaints Skin/Breast Details: Currently being followed by Dermatology, recently had basal cell CA removed from his scalp Neuro Reports no additional complaints Psych Reports no additional complaints Endo Denies fatigue, Denies polyphagia, Denies polydipsia, Denies polyuria and Denies palpitations Kp/Lymph Denies easy bleeding and Denies easy bruising Aller/Immun Reports no additional complaints Physical exam (Primary Care) Vital Signs: Last Vital Signs Pulse 79 08/15/22 13:27 BP 146/86 H 08/15/22 13:27 Pulse Ox 95 08/15/22 13:27 Oxygen Delivery Method Room Air 08/15/22 13:27 BMI result Body Mass Index 33.4 BMI Assessment/Plan discussion: High BMI High, discussed plan: lifestyle, weight reduction, dietary and physical activity Tobacco/Smoking Status: Tobacco use Status Tobacco use date assessed 08/15/22 08/15/22 13:31 Patient Tobacco Use Status Never used Tobacco 08/15/22 13:31 e-Cigarette/Vaping Use Never Used 08/15/22 13:31 Depression Screening Interpretation: Negative Thrive Assessment: Date of Thrive Assessment Date Thrive assessed 04/15/22 08/15/22 13:31 Const Other: Alert oriented x3, no acute distress noted ambulatory Orientation/consciousness: patient oriented x3 [facility] Head: Yes normocephalic Ears: hearing grossly normal bilaterally Face and sinus: Yes face symmetric Mouth: Normal oral and palatal mucosa present and moist mucous membranes Eyes General: appearance normal, both eyes and all related structures Neck Other: Supple, no lymphadenopathy, thyroid gland nonpalpable Resp Auscultation: clear to auscultation bilaterally Cardio Other: S1-S2 present regular rate and rhythm with frequent skipped beats GI Other: Normal bowel sounds, soft, nontender, no mass palpated Neuro General: patient oriented x3, gait normal, tone normal, Normal light touch and pain sensation, no focal motor deficits and CN's II-XI intact bilaterally Extrem General: Yes no joint enlargement, Yes no clubbing, cyanosis or edema, Yes no pedal edema and Yes no calf tenderness Immunizations pneumoc 20-elio conj-dip cr(PF) 0.5 mL IM syringe Performing Provider: Pebbles Mcarthur MD Performing Location: [facility] Administered by: Nubia Leon CMA on 08/15/22 14:56 Dose Route Admin Location Dispensed Lot Number Expiration Date NDC Ocular Care Technician 0.5 mL IM Left Deltoid 0.5 mL [id number] 08/29/23 5200-7015-41 [employer] VIS Given Date VIS Provided VIS Publication Date 08/15/22 Single Vaccine 21 Eligibility Eligibility Date Funding Source Not [facility] Eligible 08/15/22 Private Results Reviewed Results Reviewed: ENTERED: 07/10/22-[address]: ORDERED: Met Prof Fast, AST, ALT, Lipid Panel, PSA W/ REFLEX, Vitamin D 25-OH Test Result Flag Reference Site Sodium 143 135-145 mmol/L Potassium 3.3 3.3-5.1 mmol/L CL 104 96-108 mmol/L CO2 28 22-29 mmol/L Gap 14 12-20 BUN 16 9-16 mg/dL Creat 0.93 0.5-1.4 mg/dL EGFR > 60 NOTE: For -[place] individuals, multiply the result by 1.210. Chronic Kidney Disease: Estimated GFR < 60 mL/min/1.73m2 Severe Kidney Disease: Estimated GFR < 15 mL/min/1.73m2 FBS 123 H 60-99 mg/dL A fasting glucose from 100-125 mg/dl is considered impaired (pre-diabetes). CA 9.0 # 8.4-10.2 mg/dL AST (GOT) 27 5-37 U/L ALT (GPT) 33 0-40 U/L Triglyceride 248 mg/dL Desirable Triglyceride: less than 150 mg/dL Borderline High Triglyceride 150-199 mg/dL High Triglyceride: 200-499 mg/dL Very High Triglyceride: greater than or equal to 5OO mg/dL Chol 175 mg/dL Desirable Cholesterol: less than 200 mg/dL Borderline High Cholesterol: 200-239 mg/dL High Cholesterol: greater than 239 mg/dL LDL Calculated 79 mg/dl Desirable LDL: less than 100 mg/dL Near Optimal/Above Optimal LDL: 110-129 mg/dL Borderline High LDL: 130-159 mg/dL High LDL: 160-189 mg/dL Very High LDL: greater than or equal to 190 mg/dL HDL 47 mg/dL Desirable HDL: greater than 40 mg/dL Note: This HDL assay may give artificially low results in patients with liver disease. PSA W/ REFLEX 2.33 0.00-4.00 ng/mL A Free PSA was not performed: The percentage of Free PSA can be used to enhance the differentiation of prostate cancer from benign prostatic disease in subjects whose PSA levels are between 4.0 and 10.0 ng/mL. For subjects whose PSA levels are below 4.0 or above 10.0 ng/mL, the risk of prostate cancer is determined on the basis of the PSA alone. Therefore the % Free PSA is recommended only for those subjects whose PSA levels are between 4.0 and 10.0 ng/mL. PSA methodology: Schaffer Alinity i Chemiluminescent Microparticle Immunoassay (CMIA) Vit D 25-OH Tot 106.6 >30 ng/mL Health Based Reference Values* < 20 ng/mL Deficient 20-30 ng/mL Insufficient > 30 ng/mL Sufficient Laboratory Tests 07/10/22 06:44 Estimat Average Glucose 143 Hemoglobin A1c % 6.6 Assessment and Plan Assessment & Plan (1) Atherosclerotic cardiovascular disease: Code(s): I25.10 - Atherosclerotic heart disease of [place] coronary artery without angina pectoris Plan: Reinforced importance of controlling diabetes mellitus, blood pressure and cholesterol levels. Continue on present medications and treatment. Continue adherence to healthy eating habits, and getting regular exercise. (2) Diabetes mellitus with kidney complication, without long-term current use of insulin: Code(s): E11.29 - Type 2 diabetes mellitus with other diabetic kidney complication Qualifiers: Diabetes mellitus complication detail: with microalbuminuria Diabetes mellitus type: type 2 Qualified Code(s): E11.29 - Type 2 diabetes mellitus with other diabetic kidney complication; R80.9 - Proteinuria, unspecified Plan: Diabetes mellitus controlled with hemoglobin A1c at 6.6% continued on metformin a 1000 mg 1 tablet twice a day, goes to [facility] in [place] for his diabetes retinopathy screening (3) Dyslipidemia: Code(s): E78.5 - Hyperlipidemia, unspecified Plan: Reviewed recent fasting lipid profile with patient with elevated triglycerides, LDL cholesterol HDL at goal. Will continue on simvastatin 20 mg at bedtime in addition to adherence to low-cholesterol diet and regular exercise, at least 30 minutes 3 to 4 times a week. Advised patient to make healthy food choices, eat more fruits, vegetables, whole grains, wild caught fish and low-fat dairy. Limit amount of meat and fried or fatty food products, as well as processed foods and fast foods. Follow-up scheduled with repeat fasting lipid panel in 4 months. Orders: Orders Alanine Aminotransferase 11/29/22 I25.10 - Atherosclerotic heart disease of [place] coronary artery without angina pectoris, E55.9 - Vitamin D deficiency, unspecified, E11.29 - Type 2 diabetes mellitus with other diabetic kidney complication, E78.5 - Hyperlipidemia, unspecified Aspartate Amino Transferase 11/29/22 I25.10 - Atherosclerotic heart disease of [place] coronary artery without angina pectoris, E55.9 - Vitamin D deficiency, unspecified, E11.29 - Type 2 diabetes mellitus with other diabetic kidney complication, E78.5 - Hyperlipidemia, unspecified Basic Metabolic Panel Fasting 11/29/22 I25.10 - Atherosclerotic heart disease of [place] coronary artery without angina pectoris, E55.9 - Vitamin D deficiency, unspecified, E11.29 - Type 2 diabetes mellitus with other diabetic kidney complication, E78.5 - Hyperlipidemia, unspecified Lipid Panel 11/29/22 I25.10 - Atherosclerotic heart disease of [place] coronary artery without angina pectoris, E55.9 - Vitamin D deficiency, unspecified, E11.29 - Type 2 diabetes mellitus with other diabetic kidney complication, E78.5 - Hyperlipidemia, unspecified Pneumococcal 20 Immunization 08/15/22 Z23 - Encounter for immunization Hemoglobin A1c 11/29/22 I25.10 - Atherosclerotic heart disease of [place] coronary artery without angina pectoris, E55.9 - Vitamin D deficiency, unspecified, E11.29 - Type 2 diabetes mellitus with other diabetic kidney complication, E78.5 - Hyperlipidemia, unspecified Microalbumin, Random (w Creat) 11/29/22 I25.10 - Atherosclerotic heart disease of [place] coronary artery without angina pectoris, E55.9 - Vitamin D deficiency, unspecified, E11.29 - Type 2 diabetes mellitus with other diabetic kidney complication, E78.5 - Hyperlipidemia, unspecified Vitamin D 25-OH Total 11/29/22 I25.10 - Atherosclerotic heart disease of [place] coronary artery without angina pectoris, E55.9 - Vitamin D deficiency, unspecified, E11.29 - Type 2 diabetes mellitus with other diabetic kidney complication, E78.5 - Hyperlipidemia, unspecified Coding Level of Care Code Est Pt Level 3 (91981) Diagnoses Atherosclerotic cardiovascular disease I25.10 Type 2 diabetes mellitus with microalbuminuria, without long-term current use of insulin E11.29; R80.9 Diabetes mellitus complication detail: with microalbuminuria Diabetes mellitus type: type 2 Dyslipidemia E78.5
[2022-08-15 13:27] VITALS: BP 146/86; PULSE 79; O2SAT 95; BMI 33.4
== END 2022-08-15 14:44 | disposition home or self-care (01) ==
LOC: HO.HMGC 13:23
PROVIDERS: PCP Internal Medicine; Visit Provider Internal Medicine
DX: I25.10 Atherosclerotic heart disease of native coronary artery without angina pectoris (principal); E11.29 Type 2 diabetes mellitus with other diabetic kidney complication; R80.9 Proteinuria, unspecified; E78.5 Hyperlipidemia, unspecified; Z23 Encounter for immunization; E55.9 Vitamin D deficiency, unspecified
CPT/HCPCS: 90471; 90677; 99213

== ENCOUNTER 2022-12-10 06:06 | Outpatient (REF) | payer MEDICARE, SELFPAY ==
[2022-12-10 11:47] LABS: Estimated Average Glucose 134 mg/dL; Hemoglobin A1C 151.0168 umol/L; Hemoglobin A1c % 6.3 % (<6.0)
[2022-12-10 12:13] LABS: Alanine Aminotransferase 18 U/L (0-40); Anion Gap 13 (12-20); Aspartate Amino Transferase 19 U/L (5-37); Blood Urea Nitrogen 16 mg/dL (9-16); Calcium 10.2 mg/dL (8.4-10.2); Carbon Dioxide 29 mmol/L (22-29); Chloride 105 mmol/L (96-108); Cholesterol 155 mg/dL (<200); Estimated Glomerular Filt Rate > 60; Glucose Fasting 116 mg/dL (60-99); HDL Cholesterol 44 mg/dL (>40); LDL Cholesterol Calculated 73 mg/dL (<100); Potassium 3.2 mmol/L (3.3-5.1); Sodium 144 mmol/L (135-145); Triglycerides 190 mg/dL (<150)
[2022-12-10 12:14] LABS: Vitamin D 25-OH Total 69.7 ng/mL (>30)
[2022-12-10 12:20] LABS: Creatinine Urine 126.34 mg/dL
== END 2022-12-10 06:07 | disposition home or self-care (01) ==
LOC: HO.HMGCLDS 06:06
PROVIDERS: PCP Internal Medicine; Visit Provider Internal Medicine
DX: I25.10 Atherosclerotic heart disease of native coronary artery without angina pectoris (principal); E55.9 Vitamin D deficiency, unspecified; E11.29 Type 2 diabetes mellitus with other diabetic kidney complication; E78.5 Hyperlipidemia, unspecified
CPT/HCPCS: 36415; 80048; 80061; 82043; 82306; 82570; 83036; 84450; 84460

== ENCOUNTER 2022-12-17 13:00 | Outpatient (AMB) | payer MEDICARE, SELFPAY ==
--- NOTE | 2022-12-17 13:32 | A.OFFPC_ITS ---
Vital Signs 12/17/22 13:34 Height 5 ft 10 in Weight 223 lb BMI 32.0 BP 136/60 Blood Pressure Location Lt brachial Position Sitting Pulse 76 Pulse Source Pulse Oximeter Pulse Oximetry (%) 97 Oxygen Delivery Method Room Air Intake Visit Reasons: 4m follow up dm,lipids,htn Intake Note: Pt is here today for his 4 mo. f/u DM, lipids and HTN Allergies diphenhydramine [From BENADRYL ALLERGY] Allergy (Unknown, Verified 12/17/22 13:51) HEART RACING AND TIREDNESS Medication List - Last Reconciled 12/17/22 by Pebbles Mcarthur MD amlodipine 10 mg PO DAILY blood sugar diagnostic As directed blood sugar diagnostic check blood sugar twice a day as directed blood sugar diagnostic (Inspro Ultra Test strips) As directed twice a day ac losartan 100 mg PO DAILY metformin 1,000 mg PO BID simvastatin 20 mg PO BEDTIME triamterene-hydrochlorothiazid 37.5-25 mg 1 tab PO QAM 90 days Tobacco use date assessed: 12/17/22 Fall risk assessment: No Falls in past year Last assessed Fall Risk: 12/17/22 Dental Screening Dental Screen Date: 12/17/22 Did you have a dental visit in the last 12 months?: Yes Did you have a dental problem in the last 6 months where you did not have access to dental care?: Yes Was dental information given to patient?: Patient has dentist HPI 4m follow up dm,lipids,htn HPI Details 77-year-old male with diabetes mellitus, hypertension, dyslipidemia, here today for his follow-up. He has been feeling well, has no complaints at present time. 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 Jina Reilly referred him to have shave biopsy of lesions on his scalp, Moh's surgery for BCC, and cryotherapy for actinic keratoses. Patient states that he just finished taking prescribed antibiotics a ago, had some diarrhea while taking antibiotics , which has now resolved. He has been compliant with taking his medications, tries to follow recommended diet and stays active. His fasting labs done showed slightly elevated triglycerides with normal LDL cholesterol and normal hemoglobin A1c at 6.3%. His blood pressure has been stable well controlled on present treatment. Noted to have mild hypokalemia on recent labs, likely due to episodes of diarrh ea. Patient denies any numbness tingling, no weakness in extremities reported. 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 Vitamin D deficiency Right bundle branch block (RBBB) Iglesias esophagus Squamous cell skin cancer, multiple sites Diabetes mellitus with kidney complication, without long-term current use of insulin Dyslipidemia Bilateral renal cysts Actinic keratosis Neuropathic arthritis Essential hypertension Renal cyst, acquired Surgical History Hx of LASIK Hx of colonoscopy Status post Mohs surgery Family History Mother Chronic kidney disease Cardiovascular disease Diabetes mellitus Brother Diabetes mellitus Skin cancer Social History Housing: House Alcohol intake: current Patient Tobacco Use Status: Never used Tobacco e-Cigarette/Vaping Use: Never Used service: No Current occupational status: retired Cognitive needs: No Hearing needs: No Vision needs: Yes Questionnaire PHQ-9 Over the last 2 weeks, how often have you been bothered by any of the following problems? Depression Screening Interpretation: Negative Source: Developed by Drs. Chapincito Livingston, Natalie Shaw, Mynor Nino and colleagues, with an educational pollo from [employer] [facility]. Thrive Questionnaire Date Thrive assessed: 04/15/22 YAMILA-7 AMB Questionnaire YAMILA-7 Date YAMILA - 7 assessed: 04/15/22 Source: Developed by Drs. Chapincito Livingston, Natalie Shaw, Mynor Nino and colleagues, with an educational pollo from [facility]. Review of Systems Const Denies weakness Eyes Reports no additional complaints and Denies change in vision ENT Denies dizziness Card Denies chest pain, Denies chest pain with activity, Denies syncope, Denies rapid heart rate, Denies pedal edema, Denies leg edema, Denies lightheadedness, Denies palpitations, Denies dyspnea and Denies dyspnea on exertion Resp Denies cough, Denies dyspnea and Denies dyspnea on exertion GI Denies change in stool character Denies urinary frequency, Denies urinary hesitancy and Denies urinary incontinence Musc Denies abnormal gait, Denies muscle cramps, Denies muscle weakness, Denies numbness, Denies radiating pain into limb and Denies tingling Skin/Breast Reports as per HPI Neuro Denies abnormal gait, Denies dizziness, Denies syncope, Denies numbness, Denies tingling and Denies weakness Endo Denies palpitations Kp/Lymph Denies easy bleeding and Denies easy bruising Physical exam (Primary Care) Vital Signs: Last Vital Signs Pulse 76 12/17/22 13:34 BP 136/60 12/17/22 13:34 Pulse Ox 97 12/17/22 13:34 Oxygen Delivery Method Room Air 12/17/22 13:34 BMI result Body Mass Index 32.0 BMI Assessment/Plan discussion: High BMI High, discussed plan: lifestyle, weight reduction, dietary and physical activity Tobacco/Smoking Status: Tobacco use Status Tobacco use date assessed 12/17/22 12/17/22 13:39 Patient Tobacco Use Status Never used Tobacco 12/17/22 13:32 e-Cigarette/Vaping Use Never Used 12/17/22 13:32 Depression Screening Interpretation: Negative Thrive Assessment: Date of Thrive Assessment Date Thrive assessed 04/15/22 12/17/22 13:32 Const Other: Alert oriented x3, no acute distress noted ambulatory Orientation/consciousness: patient oriented x3 HENMT Head: Yes normocephalic and Yes atraumatic Ears: hearing grossly normal bilaterally Face and sinus: Yes sinuses nontender and Yes face symmetric Mouth: Normal oral and palatal mucosa present and moist mucous membranes Eyes General: appearance normal, both eyes and all related structures Neck Other: Supple, no lymphadenopathy, thyroid gland nonpalpable Resp Auscultation: clear to auscultation bilaterally Cardio Other: S1-S2 present regular rate and rhythm with frequent skipped beats GI Other: Normal bowel sounds, soft, nontender, no mass palpated Neuro General: patient oriented x3, gait normal, tone normal, Normal light touch and pain sensation, no focal motor deficits and CN's II-XI intact bilaterally Extrem General: Yes no joint enlargement, Yes no clubbing, cyanosis or edema, Yes no pedal edema and Yes no calf tenderness Results Reviewed Results Reviewed: COMP: 12/10/22-1214 ENTERED: 12/10/22 OTHR : ORDERED: Met Prof Fast, AST, ALT, Lipid Panel, Vitamin D 25-OH Test Result Flag Reference Site Sodium 144 135-145 mmol/L Potassium 3.2 L 3.3-5.1 mmol/L CL 105 96-108 mmol/L CO2 29 22-29 mmol/L Gap 13 12-20 BUN 16 9-16 mg/dL Creat 0.88 0.5-1.4 mg/dL EGFR > 60 NOTE: For -[place] individuals, multiply the result by 1.210. Chronic Kidney Disease: Estimated GFR < 60 mL/min/1.73m2 Severe Kidney Disease: Estimated GFR < 15 mL/min/1.73 m2 FBS 116 H 60-99 mg/dL A fasting glucose from 100-125 mg/dl is considered impaired (pre-diabetes). CA 10.2 # 8.4-10.2 mg/dL AST (GOT) 19 5-37 U/L ALT (GPT) 18 0-40 U/L Triglyceride 190 H <150 mg/dL Desirable Triglyceride: less than 150 mg/dL Borderline High Triglyceride 150-199 mg/dL High Triglyceride: 200-499 mg/dL Very High Triglyceride: greater than or equal to 5OO mg/dL Cholesterol 155 <200 mg/dL Desirable Cholesterol: less than 200 mg/dL Borderline High Cholesterol: 200-239 mg/dL High Cholesterol: greater than 239 mg/dL LDL Calculated 73 <100 mg/dL Desirable LDL: less than 100 mg/dL Near Optimal/Above Optimal LDL: 110-129 mg/dL Borderline High LDL: 130-159 mg/dL High LDL: 160-189 mg/dL Very High LDL: greater than or equal to 190 mg/dL HDL 44 >40 mg/dL Desirable HDL: greater than 40 mg/dL Note: This HDL assay may give artificially low results in patients with liver disease. Vit D 25-OH Tot 69.7 >30 ng/mL Health Based Reference Values* < 20 ng/mL Deficient 20-30 ng/mL Insufficient > 30 ng/mL Sufficient Laboratory Tests 12/10/22 06:23 Estimat Average Glucose 134 Hemoglobin A1c % 6.3 H Urine Creatinine 126.34 Urine Microalbumin 259.0 Microalb/Creat Ratio 205.0 H Assessment and Plan Assessment & Plan (1) Essential hypertension: Code(s): I10 - Essential (primary) hypertension Plan: Blood pressure at goal of less than 130/80. Continue with losartan, amlodipine, and triamterene-hydrochlorothiazide. Reinforced importance of following a low sodium diet, getting regular exercise, and lowering stress levels. (2) Dyslipidemia: Code(s): E78.5 - Hyperlipidemia, unspecified Plan: Recent fasting lipids showed LDL within normal limits but mildly elevated trigl ycerides. Continue simvastatin 20 mg at bedtime, and reinforced adherence to healthy eating habits and getting regular exercise. (3) Diabetes mellitus with kidney complication, without long-term current use of insulin: Code(s): E11.29 - Type 2 diabetes mellitus with other diabetic kidney complication Qualifiers: Diabetes mellitus type: type 2 Diabetes mellitus complication detail: with microalbuminuria Qualified Code(s): E11.29 - Type 2 diabetes mellitus with other diabetic kidney complication; R80.9 - Proteinuria, unspecified Plan: Recent lab results reviewed with patient, with sugar and hemoglobin A1c stable and at goal. continue with metformin a 1000 mg 1 tablet twice a day, Reinforced diabetic diet and regular exercise with patient. He is up-to-date with his yearly diabetes retinopathy screening. Patient advised to inspect feet daily, for any signs of injury, callus or infection. Compliance with diet and regular exercise again stressed. Blood pressure goal is less than 130/80, goal LDL is less than 100 and goal hemoglobin A1c is less than 7% follow-up appointment made in-6--months, after fasting labs done. (4) Hypokalemia: Code(s): E87.6 - Hypokalemia Plan: Mild hypokalemia likely due to recent episode of diarrhea from antibiotic use. Advised to increase potassium intake for this week, from dietary sources like bananas. 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, E78.5 - Hyperlipidemia, unspecified, I10 - Essential (primary) hypertension Alanine Aminotransferase 05/30/23 E11.29 - Type 2 diabetes mellitus with other diabetic kidney complication, E78.5 - Hyperlipidemia, unspecified, I10 - Essential (primary) hypertension Basic Metabolic Panel Fasting 05/30/23 E11.29 - Type 2 diabetes mellitus with other diabetic kidney complication, E78.5 - Hyperlipidemia, unspecified, I10 - Essential (primary) hypertension Lipid Panel 05/30/23 E11.29 - Type 2 diabetes mellitus with other diabetic kid willi complication, E78.5 - Hyperlipidemia, unspecified, I10 - Essential (primary) hypertension Microalbumin, Random (w Creat) 05/30/23. - Type 2 diabetes mellitus with other diabetic kidney complication, E78.5 - Hyperlipidemia, unspecified, I10 - Essential (primary) hypertension Vitamin D 25-OH Total 05/30/23. - Type 2 diabetes mellitus with other diabetic kidney complication, E78.5 - Hyperlipidemia, unspecified, I10 - Essential (primary) hypertension Coding Level of Care Code Est Pt Level 4 (00272) Diagnoses Essential hypertension I10 Dyslipidemia E78.5 Type 2 diabetes mellitus with microalbuminuria, without long-term current use of insulin E11.; R80.9 Diabetes mellitus type: type 2 Diabetes mellitus complication detail: with microalbuminuria Hypokalemia E87.6
[2022-12-17 13:34] VITALS: BP 136/60; PULSE 76; O2SAT 97; BMI 32.0
== END 2022-12-17 14:14 | disposition home or self-care (01) ==
PROVIDERS: Visit Provider Internal Medicine
DX: I10 Essential (primary) hypertension (principal); E78.5 Hyperlipidemia, unspecified; E11.29 Type 2 diabetes mellitus with other diabetic kidney complication; R80.9 Proteinuria, unspecified; E87.6 Hypokalemia
CPT/HCPCS: 99214

== ENCOUNTER 2023-01-28 10:07 | Outpatient (AMB) | payer MEDICARE, SELFPAY ==
--- NOTE | 2023-01-28 10:24 | A.OFFVIS_ITS ---
Intake Vital Signs 01/28/23 10:25 Height 5 ft 10 in Weight 231 lb 7.766 oz BMI 33.2 BP 130/66 Blood Pressure Location Lt brachial Position Sitting Pulse 86 Intake Visit Reasons: 6 mth f/up Intake Note: 6 month follow up Human Resources Benefits Specialist Required: No Accompanied by: Self / Same As Patient Allergies diphenhydramine [From BENADRYL ALLERGY] Allergy (Unknown, Verified 01/28/23 10:26) HEART RACING AND TIREDNESS Medication List - Last Reconciled 01/28/23 by Bakari Bingham MD amlodipine 10 mg PO DAILY blood sugar diagnostic As directed blood sugar diagnostic check blood sugar twice a day as directed blood sugar diagnostic ([employer] Ultra Test strips) As directed twice a day ac losartan 100 mg PO DAILY metformin 1,000 mg PO BID simvastatin 20 mg PO BEDTIME triamterene-hydrochlorothiazid 37.5-25 mg 1 tab PO QAM HPI HPI Comments History of Present Illness Details Sadiq returns for follow-up. To recall, he was initially seen in consultation regarding abnormal EKG. EKG from primary care physician's office had shown frequent PACs as well as right bundle-branch block and he was referred here. Patient himself does not have any clear cardiac complaints. No angina or shortness of breath within limits of his activity. Multiple cardiovascular risk factors including type 2 diabetes, hypertension, dyslipidemia. No previous history of any coronary artery disease or myocardial infarction or cardiomyopathy. Overall, he is feeling good. No concerns whatsoever. No symptoms. 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 Vitamin D deficiency Right bundle branch block (RBBB) Iglesias esophagus Squamous cell skin cancer, multiple sites Diabetes mellitus with kidney complication, without long-term current use of insulin Dyslipidemia Bilateral renal cysts Actinic keratosis Neuropathic arthritis Essential hypertension Renal cyst, acquired Surgical History Hx of LASIK Hx of colonoscopy Status post Mohs surgery Family History Mother Chronic kidney disease Cardiovascular disease Diabetes mellitus Brother Diabetes mellitus Skin cancer Social History Housing: House Alcohol intake: current Patient Tobacco Use Status: Never used Tobacco e-Cigarette/Vaping Use: Never Used service: No Current occupational status: retired Cognitive needs: No Hearing needs: No Vision needs: Yes Review of Systems Const Denies weakness ENT Denies dizziness Card Denies chest pain, Denies chest pain with activity, Denies syncope, Denies rapid heart rate, Denies pedal edema, Denies edema, Denies leg edema, Denies lightheadedness, Denies palpitations, Denies dyspnea, Denies dyspnea on exertion and Denies orthopnea Resp Denies cough, Denies dyspnea and Denies dyspnea on exertion GI Denies hematochezia and Denies change in stool character Musc Denies abnormal gait, Denies muscle cramps, Denies muscle weakness, Denies numbness, Denies radiating pain into limb and Denies tingling Neuro Denies abnormal gait, Denies dizziness, Denies syncope, Denies numbness, Denies tingling and Denies weakness Endo Denies palpitations Physical Exam Vital Signs: Last Vital Signs Pulse 86 01/28/23 10:25 BP 130/66 01/28/23 10:25 BMI result Body Mass Index 33.2 Const General: comfortable and no acute distress Orientation/consciousness: patient oriented x3 HEENT Other: Unremarkable Head: Yes normal to inspection Neck Neck: Yes normal visual inspection Chest Chest palpation & inspection: normal inspection of the chest Resp Auscultation: clear to auscultation bilaterally Cardio Palpation: normal PMI Heart sounds: S1 normal heart sound present, S2 normal heart sound present, no gallops, no murmurs and no rubs GI Palpation (GI): Soft to palpation Back/Spine/Pelvis Other: unremarkable Skin General skin exam: no rashes or lesions noted Neuro General: patient oriented x3 Extrem General: Yes normal to inspection Psych Mental Status: mental status grossly normal Office Procedures EKG Details: EKG with sinus rhythm at 70/Min; premature supraventricular ectopy; right bundle-branch block pattern; [place] [id number], Complete Assessment & Plan Assessment & Plan (1) Atherosclerotic cardiovascular disease: Code(s): I25.10 - Atherosclerotic heart disease of [place] coronary artery without angina pectoris (2) Atrial arrhythmia: Code(s): I49.8 - Other specified cardiac arrhythmias (3) Right bundle branch block (RBBB): Code(s): I45.10 - Unspecified right bundle-branch block (4) Diabetes mellitus with kidney complication, without long-term current use of insulin: Code(s): E11.29 - Type 2 diabetes mellitus with other diabetic kidney complication Qualifiers: Diabetes mellitus complication detail: with microalbuminuria Diabetes mellitus type: type 2 Qualified Code(s): E11.29 - Type 2 diabetes mellitus with other diabetic kidney complication; R80.9 - Proteinuria, unspecified (5) Essential hypertension: Code(s): I10 - Essential (primary) hypertension (6) Dyslipidemia: Code(s): E78.5 - Hyperlipidemia, unspecified Plan Cardiac studies reviewed. Echocardiogram with LVEF of 65%. Suspected moderate to severe LVH. Mild aortic and mitral calcification. Unremarkable valves. In the perfusion imaging, mild basal lateral wall ischemia. Clinically, no angina whatsoever. Hence, may just remain on medical therapy. Low-dose aspirin; blood pressure medications including amlodipine/losartan; statins. Stable lipids. If any symptoms like chest pain, advised him to contact us. Follow-up in 6 months. Medications: Changed From triamterene-hydrochlorothiazid 37.5-25 mg 1 tab PO QAM 90 tabs 3RF I10 - Essential (primary) hypertension To triamterene-hydrochlorothiazid 37.5-25 mg 1 tab PO QAM I10 - Essential (primary) hypertension Coding Level of Care Code Est Pt Level 4 (61833) Diagnoses Atherosclerotic cardiovascular disease I25.10 Atrial arrhythmia I49.8 Right bundle branch block (RBBB) I45.10 Type 2 diabetes mellitus with microalbuminuria, without long-term current use of insulin E11.29; R80.9 Diabetes mellitus complication detail: with microalbuminuria Diabetes mellitus type: type 2 Essential hypertension I10 Dyslipidemia E78.5 CPT Codes EKG - CPT: 57664-[id number], Complete ([id number])
[2023-01-28 10:25] VITALS: BP 130/66; PULSE 86; BMI 33.2
== END 2023-01-28 10:45 | disposition home or self-care (01) ==
PROVIDERS: Visit Provider Internal Medicine
DX: I25.10 Atherosclerotic heart disease of native coronary artery without angina pectoris (principal); I49.8 Other specified cardiac arrhythmias; I45.10 Unspecified right bundle-branch block; E11.29 Type 2 diabetes mellitus with other diabetic kidney complication; R80.9 Proteinuria, unspecified; I10 Essential (primary) hypertension; E78.5 Hyperlipidemia, unspecified
CPT/HCPCS: 93010; 99214

== ENCOUNTER → 2023-01-28 10:07 | Outpatient (BNVA) | payer MEDICARE, SELFPAY | PROVIDERS: Visit Provider Internal Medicine | DX: I25.10 Atherosclerotic heart disease of native coronary artery without angina pectoris (principal); I49.8 Other specified cardiac arrhythmias; I45.10 Unspecified right bundle-branch block; I10 Essential (primary) hypertension; E78.5 Hyperlipidemia, unspecified; R80.9 Proteinuria, unspecified; E11.29 Type 2 diabetes mellitus with other diabetic kidney complication | CPT/HCPCS: 93005; 99212 ==

== ENCOUNTER 2023-06-03 08:47 | Outpatient (REF) | payer MEDICARE, SELFPAY ==
[2023-06-03 12:04] LABS: Estimated Average Glucose 143 mg/dL; Hemoglobin A1c % 6.6 % (<6.0)
[2023-06-03 12:47] LABS: Creatinine Urine 141.12 mg/dL; Microalbum/Creatinine Ratio Ur 223.9 ug/mg cr (<30)
[2023-06-03 13:20] LABS: Alanine Aminotransferase 30 U/L (0-40); Anion Gap 12 (12-20); Aspartate Amino Transferase 27 U/L (5-37); Blood Urea Nitrogen 15 mg/dL (9-16); Calcium 9.5 mg/dL (8.4-10.2); Carbon Dioxide 31 mmol/L (22-29); Chloride 103 mmol/L (96-108); Cholesterol 170 mg/dL (<200); Estimated Glomerular Filt Rate > 60; Glucose Fasting 122 mg/dL (60-99); HDL Cholesterol 45 mg/dL (>40); LDL Cholesterol Calculated 83 mg/dL (<100); Potassium 2.8 mmol/L (3.3-5.1); Sodium 143 mmol/L (135-145); Triglycerides 212 mg/dL (<150); Vitamin D 25-OH Total 51.4 ng/mL (>30)
== END 2023-06-03 08:48 | disposition home or self-care (01) ==
LOC: HO.HMGCLDS 08:47
PROVIDERS: PCP Internal Medicine; Visit Provider Internal Medicine
DX: E11.29 Type 2 diabetes mellitus with other diabetic kidney complication (principal); E78.5 Hyperlipidemia, unspecified; I10 Essential (primary) hypertension
CPT/HCPCS: 36415; 80048; 80061; 82043; 82306; 82570; 83036; 84450; 84460

== ENCOUNTER 2023-06-06 08:07 | Outpatient (REF) | payer MEDICARE, SELFPAY ==
[2023-06-06 11:50] LABS: Potassium 3.3 mmol/L (3.3-5.1)
== END 2023-06-06 08:08 | disposition home or self-care (01) ==
LOC: HO.HMGCLDS 08:07
PROVIDERS: PCP Internal Medicine; Visit Provider Internal Medicine
DX: E87.6 Hypokalemia (principal)
CPT/HCPCS: 36415; 84132

== ENCOUNTER 2023-06-17 08:19 | Outpatient (AMB) | payer MEDICARE, SELFPAY ==
--- NOTE | 2023-06-17 08:39 | MHC.PC.OV ---
Vital Signs 06/17/23 08:50 Height 5 ft 10 in Weight 231 lb BMI 33.1 BP 164/70 H Blood Pressure Location Lt brachial Position Sitting Pulse 98 Pulse Source Pulse Oximeter Pulse Oximetry (%) 96 Oxygen Delivery Method Room Air Intake Visit Reasons: Annual PE Intake Note: Pt is here today for his PE: last cologuard 05/21/18 Allergies diphenhydramine [From BENADRYL ALLERGY] Allergy (Unknown, Verified 06/17/23 09:17) HEART RACING AND TIREDNESS Medication List - Last Reconciled 06/17/23 by Pebbles Mcarthur MD amlodipine 10 mg PO DAILY blood sugar diagnostic As directed blood sugar diagnostic check blood sugar twice a day as directed blood sugar diagnostic ([employer] Ultra Test strips) As directed twice a day ac losartan 100 mg PO DAILY metformin 1,000 mg PO BID simvastatin 20 mg PO BEDTIME Tobacco use date assessed: 06/17/23 Fall risk assessment: No Falls in past year Last assessed Fall Risk: 06/17/23 Dental Screening Dental Screen Date: 06/17/23 Did you have a dental visit in the last 12 months?: Yes Did you have a dental problem in the last 6 months where you did not have access to dental care?: No Was dental information given to patient?: Patient has dentist HPI Annual PE HPI Details 78-year-old male with diabetes mellitus, macular degeneration, osteoarthritis, dyslipidemia, essential hypertension, and history of squamous cell CA of skin with atherosclerotic cardiovascular disease with atrial arrhythmia, here today for physical exam. He has been feeling well, compliant with his medications and diet. Admits however not getting any regular exercise this past few months. Latest fasting labs showed a hemoglobin A1c at 6.6%, potassium now within normal limits after receiving potassium replacements. Fasting lipids, serum electrolytes, renal function are within normal limits except for elevated triglycerides. He has been feeling well otherwise with no complaints at present time. He had a negative Cologuard screening test done in 2019. Blood pressure noted to be elevated on this visit. Denies any accompanying chest pain, no headache or lightheadedness, no shortness of breath, palpitations . 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, without long-term current use of insulin Dyslipidemia Bilateral renal cysts Actinic keratosis Neuropathic arthritis Essential hypertension Surgical History Hx of LASIK Hx of colonoscopy Status post Mohs surgery Family History Mother Chronic kidney disease Cardiovascular disease Diabetes mellitus Brother Diabetes mellitus Skin cancer Social History Housing: House Alcohol intake: current Patient Tobacco Use Status: Never used Tobacco e-Cigarette/Vaping Use: Never Used service: No Current occupational status: retired Cognitive needs: No Hearing needs: No Vision needs: Yes Questionnaire PHQ-9 Over the last 2 weeks, how often have you been bothered by any of the following problems? 1. Little interest or pleasure in doing things: not at all 2. Feeling down, depressed, or hopeless: not at all 3. Trouble falling or staying asleep, or sleeping too much: not at all 4. Feeling tired or having little energy: not at all 5. Poor appetite or overeating: not at all 6. Feeling bad about yourself - or that you are a failure or have let yourself or your family down: not at all 7. Trouble concentrating on things, such as reading the newspaper or watching television: not at all 8. Moving or speaking so slowly that other people could have noticed. Or the opposite - being so fidgety or restless that you have been moving around a lot more than usual: not at all 9. Thoughts that you would be better off or of hurting yourself in some way: not at all Total score: 0 Depression Screening Interpretation: Negative Depression Screening Done: Yes 90798 - PHQ-9 Billing: Yes Source: Developed by Drs. Chapincito Livingston, Natalie Shaw, Mynor Nino and colleagues, with an educational pollo from [employer]. Thrive Questionnaire Date Thrive assessed: 06/17/23 I am a: Patient What is your living situation today?: I have a steady place to live Within the past 12 months, did the food you bought not last and you didn't have the money to get more?: Never true Within the past 12 months, did you worry whether your food would run out before you got money to buy more?: Never true Do you have trouble paying for medicines?: No Do you have trouble getting transportation to medical appointments?: No Do you have trouble paying your heating and electricity bill?: No Do you have trouble taking care of your child, family member or friend?: No Do you have trouble with day-to-day activities such as bathing, preparing meals, shopping, managing finances, etc.?: No Are you currently unemployed and looking for a job?: No Are you interested in more education?: No THRIVE Score: 0 AUDIT C Alcohol Use Questionnaire (AUDIT-C) 1. How often do you have a drink containing alcohol?: Monthly or less 2. How many drinks containing alcohol do you have on a typical day when you are drinking?: 1 or 2 3. How often do you have six or more drinks on one occasion?: Never Total Score: 1 YAMILA-7 AMB Questionnaire YAMILA-7 Date YAMILA - 7 assessed: 06/17/23 Feeling nervous, anxious, or on edge: 0 = Not at all Not being able to stop or control worryin = Not at all Worrying too much about different things: 0 = Not at all Trouble relaxin = Not at all Being so restless that it is hard to sit still: 0 = Not at all Becoming easily annoyed or irritable: 0 = Not at all Feeling afraid as if something awful might happen: 0 = Not at all Total YAMILA-7 score (0-4 normal; 5-9 mild; 10-14 moderate; 15-21 severe): 0 Source: Developed by Drs. Chapincito Livingston, Natalie Shaw, Mynor Nino and colleagues, with an educational pollo from [employer]. YAMILA-7 Assessment Billing YAMILA-7 Assessment Tool: YAMILA-7 Assessment 22005 Review of Systems Const Denies headache(s) and Denies weakness Eyes Denies change in vision ENT Denies dizziness and Denies headache(s) Card Denies chest pain, Denies chest pain with activity, Denies syncope, Denies rapid heart rate, Denies pedal edema, Denies lightheadedness, Denies palpitations, Denies dyspnea and Denies dyspnea on exertion Resp Denies cough, Denies dyspnea and Denies dyspnea on exertion GI Reports no additional complaints Reports no additional complaints Musc Denies abnormal gait, Denies muscle cramps, Denies muscle weakness, Denies numbness, Denies radiating pain into limb, Reports stiffness and Denies tingling Skin/Breast Details: Followed yearly by Dr. Allen Reports system reviewed and no additional complaints, except as documented Neuro Denies abnormal gait, Denies dizziness, Denies syncope, Denies headache(s), Denies numbness, Denies tingling and Denies weakness Psych Reports no additional complaints Endo Denies palpitations Kp/Lymph Reports no additional complaints Aller/Immun Reports no additional complaints Physical exam (Primary Care) Vital Signs: Last Vital Signs Pulse 98 06/17/23 08:50 BP 164/70 H 06/17/23 08:50 Pulse Ox 96 06/17/23 08:50 Oxygen Delivery Method Room Air 06/17/23 08:50 BMI result Body Mass Index 33.1 BMI Assessment/Plan discussion: High BMI High, discussed plan: lifestyle, weight reduction, dietary and physical activity Tobacco/Smoking Status: Tobacco use Status Tobacco use date assessed 06/17/23 06/17/23 08:41 Patient Tobacco Use Status Never used Tobacco 06/17/23 08:39 e-Cigarette/Vaping Use Never Used 06/17/23 08:39 Depression Screening Interpretation: Negative Thrive Assessment: Date of Thrive Assessment Date Thrive assessed 04/15/22 06/17/23 08:39 Const Other: Alert oriented x3, no acute distress noted ambulatory Orientation/consciousness: patient oriented x3 [facility] Head: Yes normocephalic and Yes atraumatic Ears: hearing grossly normal bilaterally Face and sinus: Yes face symmetric Mouth: Normal oral and palatal mucosa present and moist mucous membranes Eyes General: appearance normal, both eyes and all related structures Neck Other: Supple, no lymphadenopathy, thyroid gland nonpalpable Chest Chest palpation & inspection: normal inspection of the chest and normal palpation of entire chest wall Resp Auscultation: clear to auscultation bilaterally Cardio Other: S1-S2 present regular rate and rhythm with frequent skipped beats GI Other: Normal bowel sounds, soft, nontender, no mass palpated General: Yes no CVA tenderness Back/Spine/Pelvis Back: no CVA tenderness Neuro General: patient oriented x3, gait normal, tone normal, Normal light touch and pain sensation, no focal motor deficits and CN's II-XI intact bilaterally Extrem General: Yes no joint enlargement, Yes no clubbing, cyanosis or edema, Yes no pedal edema and Yes no calf tenderness Psych Appearance: grossly normal and well kempt Mental Status: mental status grossly normal Speech and movement: Normal speech and movement present Affect: normal affect Results Reviewed Results Reviewed: Laboratory Tests 06/03/23 06/03/23 06/06/23 08:51 08:57 08:14 Potassium 3.3 Estimat Average Glucose 143 Hemoglobin A1c % 6.6 H Urine Creatinine 141.12 Urine Microalbumin 316.0 Microalb/Creat Ratio 223.9 H Name: Sadiq Middleton Age/Sex: 78/M : 1945 Unit#: [id number] Attend Dr: Pebbles Mcarthur MD Re06/03/23 Status: DEP REF Location: [facility] Disch: SPEC : [id number] SUMMER: 06/03/23 STATUS: COMP REQ : [id number] RECD: 06/03/23-[address]: Pebbles Mcarthur MD COMP: 06/03/23-1319 ENTERED: 06/03/23-[address]: ORDERED: Met Prof Fast, AST, ALT, Lipid Panel, Vitamin D 25-OH Test Result Flag Reference Sodium 143 135-145 mmol/L Potassium 2.8 *L 3.3-5.1 mmol/L Critical value for test(s): POTASSIUM Results called to and read back by:VINCENT Person calling:BRANDEN Date:06/03/23 Time:1319 CL 103 96-108 mmol/L CO2 31 H 22-29 mmol/L Gap 12 12-20 BUN 15 9-16 mg/dL Creat 0.92 0.5-1.4 mg/dL EGFR > 60 NOTE: For -[place] individuals, multiply the result by 1.210. Chronic Kidney Disease: Estimated GFR < 60 mL/min/1.73m2 Severe Kidney Disease: Estimated GFR < 15 mL/min/1.73m2 FBS 122 H 60-99 mg/dL A fasting glucose from 100-125 mg/dl is considered impaired (pre-diabetes). CA 9.5 # 8.4-10.2 mg/dL AST (GOT) 27 5-37 U/L ALT (GPT) 30 0-40 U/L Triglyceride 212 H <150 mg/dL Desirable Triglyceride: less than 150 mg/dL Borderline High Triglyceride 150-199 mg/dL High Triglyceride: 200-499 mg/dL Very High Triglyceride: greater than or equal to 5OO mg/dL Cholesterol 170 <200 mg/dL Desirable Cholesterol: less than 200 mg/dL Borderline High Cholesterol: 200-239 mg/dL High Cholesterol: greater than 239 mg/dL LDL Calculated 83 <100 mg/dL Desirable LDL: less than 100 mg/dL Near Optimal/Above Optimal LDL: 110-129 mg/dL Borderline High LDL: 130-159 mg/dL High LDL: 160-189 mg/dL Very High LDL: greater than or equal to 190 mg/dL HDL 45 >40 mg/dL Desirable HDL: greater than 40 mg/dL Note: This HDL assay may give artificially low results in patients with liver disease. Vit D 25-OH Tot 51.4 >30 ng/mL Health Based Reference Values* < 20 ng/mL Deficient 20-30 ng/mL Insufficient > 30 ng/mL Sufficient Assessment and Plan Assessment & Plan (1) Annual visit for general adult medical examination with abnormal findings: Code(s): Z00.01 - Encounter for general adult medical examination with abnormal findings Plan: Recent fasting labs reviewed with patient. Continue with regular dental visit every 6 months and regular eye exam. Take adequate calcium in diet and vitamin-D 3 at 2000 IU per cap once a day, in addition to weight-bearing exercises to help maintain good muscle tone and weight control. Instructed to do self testicular exam to check for any mass. Up-to-date with all his vaccinations, repeat Cologuard testing ordered (2) Essential hypertension: Code(s): I10 - Essential (primary) hypertension Plan: Blood pressure elevated today, will add metoprolol succinate ER 25 mg take 1 tablet at the night in addition to losartan 100 mg once a day and amlodipine 10 mg daily. Scheduled visit with nurse navigator in 2 weeks to check blood pressure Maxzide was discontinued due to development of hypokalemia, (3) Diabetes mellitus with kidney complication, without long-term current use of insulin: Code(s): E11.29 - Type 2 diabetes mellitus with other diabetic kidney complication Qualifiers: Diabetes mellitus type: type 2 Diabetes mellitus complication detail: with microalbuminuria Qualified Code(s): E11.29 - Type 2 diabetes mellitus with other diabetic kidney complication; R80.9 - Proteinuria, unspecified Plan: Recent lab results reviewed with patient, with sugar and hemoglobin A1c stable and at goal. Continue with metformin 1000 mg per tablet taken 1 tablet twice a day with meals, continue to check fasting blood sugar at home, maintain log and bring to next appointment for review. Reinforced diabetic diet and regular exercise with patient. Up-to-date with his yearly diabetes retinopathy screening. Patient advised to inspect feet daily, for any signs of injury, callus or infection. Compliance with diet and regular exercise again stressed. Blood pressure goal is less than 130/80, goal LDL is less than 100 and goal hemoglobin A1c is less than 7% follow-up appointment made in--4-months, after fasting labs done. 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 Code(s): H35.3190 - Nonexudative age-related macular degeneration, unspecified eye, stage unspecified Plan: Followed by Dr. Haq at [facility] (6) Atherosclerotic cardiovascular disease: Code(s): I25.10 - Atherosclerotic heart disease of [place] coronary artery without angina pectoris Plan: Continue low-dose aspirin and current blood pressure medication. Followed by cardiology Orders: Referrals Cologuard Test Z12.11 - Encounter for screening for malignant neoplasm of colon, Z12.12 - Encounter for screening for malignant neoplasm of rectum Medications: New metoprolol succinate ER 25 mg PO DAILY 30 tabs 0RF Coding Level of Care Code Est Pt Prev Care >65y(44852) Diagnoses Annual visit for general adult medical examination with abnormal findings Z00.01 Essential hypertension I10 Type 2 diabetes mellitus with microalbuminuria, without long-term current use of insulin E11.29; R80.9 Diabetes mellitus type: type 2 Diabetes mellitus complication detail: with microalbuminuria Dyslipidemia E78.5 Dry age-related macular degeneration H35.3190 Atherosclerotic cardiovascular disease I25.10 Additional Codes YAMILA-7 Assessment Billing - YAMILA-7 Assessment Tool: YAMILA-7 Assessment 31029 ([id number])
[2023-06-17 08:50] VITALS: BP 164/70; PULSE 98; O2SAT 96; BMI 33.1
== END 2023-06-17 09:36 | disposition home or self-care (01) ==
PROVIDERS: PCP Internal Medicine; Visit Provider Internal Medicine
DX: Z00.01 Encounter for general adult medical examination with abnormal findings (principal); I10 Essential (primary) hypertension; E11.29 Type 2 diabetes mellitus with other diabetic kidney complication; R80.9 Proteinuria, unspecified; E78.5 Hyperlipidemia, unspecified; H35.3190 Nonexudative age-related macular degeneration, unspecified eye, stage unspecified; I25.10 Atherosclerotic heart disease of native coronary artery without angina pectoris
CPT/HCPCS: 99397

== ENCOUNTER 2023-07-14 14:31 | Outpatient (REF) | payer MEDICARE, SELFPAY ==
--- NOTE | ~2023-07-14 | MR_ITS ---
EXAMINATION: MR ABDOMEN WITHOUT AND WITH CONTRAST CLINICAL INFORMATION: Renal cyst COMPARISON: CT abdomen 06/21/2022 TECHNIQUE: MRI of the abdomen before and after the IV administration of 10 mL of Gadavist was obtained using routine sequences. FINDINGS: LUNG BASES: The visualized lung bases are unremarkable. KIDNEYS AND URETERS: Bosniak 1 bilateral renal cysts and a Bosniak 2 intermediate T1 signal left renal cyst measuring 3.4 cm, previously 3.4 cm, no follow-up imaging recommended for Bosniak 1 and 2 renal cysts. GALLBLADDER: Cholelithiasis without evidence of acute cholecystitis. LIVER AND BILIARY TREE: Loss of signal on opposed phase imaging compatible with hepatic steatosis. No intra or extrahepatic biliary duct dilatation. PANCREAS: Unremarkable SPLEEN: Unremarkable ADRENAL GLANDS: A 3.8 cm macroscopic fat containing right adrenal nodule and a 7.5 cm macroscopic fat-containing left adrenal nodule compatible with adrenal myelolipomas, previously 3.4 cm and 7.4 cm respectively. GASTROINTESTINAL TRACT: Colonic diverticulosis without evidence of diverticulitis. LYMPH NODES: No lymphadenopathy. VASCULAR: Unremarkable ABDOMINAL WALL: 1.8 cm T2 bright exophytic subcutaneous lesion in the left paraspinal soft tissues which may reflect a sebaceous cyst. OSSEOUS STRUCTURES: T2 bright lesion in the L1 vertebral body which saturates out on fat suppressed sequences suggesting focal fat. MR/MR abdomen wo/w con IMPRESSION: 1. Bosniak 1 bilateral renal cysts and a Bosniak 2 left renal cyst, no follow-up imaging recommended for Bosniak 1 and 2 renal cysts. 2. A 3.8 cm macroscopic fat containing right adrenal nodule and a 7.5 cm macroscopic fat-containing left adrenal nodule compatible with adrenal myelolipomas, as detailed above. Recommend surgical consultation given the size of the largest nodule. Consider biochemical lab evaluation for functional status and pheochromocytoma prior to resection. 3. Hepatic steatosis. 4. Cholelithiasis without evidence of acute cholecystitis.
[2023-07-14] MEDS: gadobutroL 10 ML VIAL IVPUSH (15:10)
== END 2023-07-14 14:32 | disposition home or self-care (01) ==
LOC: HO.MRI 14:31
PROVIDERS: PCP Internal Medicine; Visit Provider Urology
DX: N28.1 Cyst of kidney, acquired (principal)
CPT/HCPCS: 74183; A9585

== ENCOUNTER 2023-07-22 14:51 | Outpatient (AMB) | payer MEDICARE, SELFPAY ==
--- NOTE | 2023-07-22 14:53 | MHC.OFFVIS ---
Intake Visit Reasons: 1Y MRI(set)Confirmed Intake Note: Patient is Present for Telephone Follow Up Urology Med: Home Antibiotic Allergy: None Blood Thinner: None Allergies diphenhydramine [From BENADRYL ALLERGY] Allergy (Unknown, Verified 07/22/23 14:54) HEART RACING AND TIREDNESS HPI Comments Details: Sadiq is a pleasant male. He is a patient of Dr. Mcarthur. He is seen for the following urologic conditions - renal cyst - adrenal myelolipoma Telemedicine Evaluation 15 min Consultation [employer] [place] [facility] finding - stable compared to prior imaging Follow-up p.r.n. 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, without long-term current use of insulin Dyslipidemia Bilateral renal cysts Actinic keratosis Neuropathic arthritis Essential hypertension Surgical History Hx of LASIK Hx of colonoscopy Status post Mohs surgery Family History Mother Chronic kidney disease Cardiovascular disease Diabetes mellitus Brother Diabetes mellitus Skin cancer Social History Housing: House Alcohol intake: current Patient Tobacco Use Status: Never used Tobacco e-Cigarette/Vaping Use: Never Used service: No Current occupational status: retired Cognitive needs: No Hearing needs: No Vision needs: Yes Review of Systems Const All systems reviewed & are unremarkable except as noted in HPI and below Reports no additional complaints Resp Reports no additional complaints GI Reports no additional complaints Reports as per HPI Musc Reports no additional complaints Physical Exam Telemedicine evaluation Appropriate responses Regular breathing rate and rhythm HEENT Head: Yes normal to inspection Ears: hearing grossly normal bilaterally Eyes General: appearance normal, both eyes and all related structures Neck Neck: Yes normal visual inspection Chest Chest palpation & inspection: normal inspection of the chest Resp Effort & Inspection: normal respiratory effort and able to speak in complete sentences Telehealth Telehealth Location of provider rendering services: practice address Location of patient: address on file Patient Identification confirmed using: Name, : Yes Telehealth method: video Patient verbally consented to treatment: Yes Patient verbally consented to billing insurance company: Yes Patient informed of any privacy concerns related to visit: Yes Minutes spent on Phone/Video with Pt.: 15 Assessment & Plan Assessment & Plan (1) Adrenal benign neoplasm: Code(s): D35.00 - Benign neoplasm of unspecified adrenal gland Category: Medical (2) Bilateral renal cysts: Comment: 2020 CT - left 7 cm myelolipoma adrenal, cyst left kidney Code(s): N28.1 - Cyst of kidney, acquired Category: Medical Plan P.r.n. follow-up Patient Instructions: Imaging studies, laboratory and physical exam results were discussed and reviewed in detail. No major barriers to patient understanding were identified. An opportunity to ask questions regarding the treatment plan was provided. All questions were answered. The patient expressed understanding and agreement with the above treatment plan. The patient is aware they should contact our office by phone for worsening of their current condition or the appearance of new urologic symptoms. Compliance is encouraged with any medications and followup testing that is ordered. It is a privilege to participate in the urologic care of your patient. If you have any questions or concerns regarding treatment for the above conditions, or other urologic issues, please do not hesitate to contact me. The office telephone contact is [phone]. This note is constructed using voice recognition software. While every effort has been made to ensure accuracy green chain off bearer errors may have been included. Yours sincerely, Dr Sony Villafana MD, [facility] - Urology Providers of Expert, Compassionate Care for the Genitourinary System Coding Level of Care Code Tele Est Pt Level 4 (88655) Diagnoses Adrenal benign neoplasm D35.00 Bilateral renal cysts N28.1
== END 2023-07-22 15:22 | disposition home or self-care (01) ==
LOC: HO.HUSH 14:52
PROVIDERS: PCP Internal Medicine; Visit Provider Urology
DX: D35.00 Benign neoplasm of unspecified adrenal gland (principal); N28.1 Cyst of kidney, acquired
CPT/HCPCS: 99213

== ENCOUNTER → 2023-07-22 14:51 | Outpatient (BNVA) | payer MEDICARE, SELFPAY | PROVIDERS: PCP Internal Medicine; Visit Provider Urology ==

== ENCOUNTER 2023-08-11 08:43 | Outpatient (AMB) | payer MEDICARE, SELFPAY ==
[2023-08-11 08:47] VITALS: BP 150/72; PULSE 78; O2SAT 99; BMI 33.2
--- NOTE | 2023-08-11 08:47 | MHC.OFFVIS ---
Vital Signs 08/11/23 08:47 Height 5 ft 10 in Weight 231 lb 7.766 oz BMI 33.2 BP 150/72 H Blood Pressure Location Lt brachial Position Sitting Pulse 78 Pulse Source Pulse Oximeter Pulse Oximetry (%) 99 Oxygen Delivery Method Room Air Intake Visit Reasons: 6 mth fu Allergies diphenhydramine [From BENADRYL ALLERGY] Allergy (Unknown, Verified 07/22/23 14:54) HEART RACING AND TIREDNESS Medication List - Last Reconciled 08/11/23 by Bakari Bingham MD amlodipine 10 mg PO DAILY blood sugar diagnostic As directed blood sugar diagnostic check blood sugar twice a day as directed blood sugar diagnostic (AmpliSenseuch Ultra Test strips) As directed twice a day ac losartan 100 mg PO DAILY metformin 1,000 mg PO BID simvastatin 20 mg PO BEDTIME triamterene-hydrochlorothiazid 37.5-25 mg 1 cap PO DAILY vitamins A,C,D-jbeu-xmjgsp 4,296 mcg-226 mg-90 mg (PreserVision AREDS) 1 cap PO BID HPI Comments Details: Sadiq returns for follow-up. To recall, he was initially seen in consultation regarding abnormal EKG. EKG from primary care physician's office had shown frequent PACs as well as right bundle-branch block and he was referred here. Patient himself does not have any clear cardiac complaints. No angina or shortness of breath within limits of his activity. Multiple cardiovascular risk factors including type 2 diabetes, hypertension, dyslipidemia. No previous history of any coronary artery disease or myocardial infarction or cardiomyopathy. Overall, blood pressure still seems to be an issue. Home diary shows that readings are on the higher side. Otherwise, no clear-cut symptoms. 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, without long-term current use of insulin Dyslipidemia Bilateral renal cysts Actinic keratosis Neuropathic arthritis Essential hypertension Surgical History Hx of LASIK Hx of colonoscopy Status post Mohs surgery Family History Mother Chronic kidney disease Cardiovascular disease Diabetes mellitus Brother Diabetes mellitus Skin cancer Social History Housing: House Alcohol intake: current Patient Tobacco Use Status: Never used Tobacco e-Cigarette/Vaping Use: Never Used service: No Current occupational status: retired Cognitive needs: No Hearing needs: No Vision needs: Yes Review of Systems Const Denies weakness ENT Denies dizziness Card Denies chest pain, Denies chest pain with activity, Denies syncope, Denies rapid heart rate, Denies pedal edema, Denies edema, Denies leg edema, Denies lightheadedness, Denies palpitations, Denies dyspnea, Denies dyspnea on exertion and Denies orthopnea Resp Denies cough, Denies dyspnea and Denies dyspnea on exertion GI Denies hematochezia and Denies change in stool character Musc Denies abnormal gait, Denies muscle cramps, Denies muscle weakness, Denies numbness, Denies radiating pain into limb and Denies tingling Neuro Denies abnormal gait, Denies dizziness, Denies syncope, Denies numbness, Denies tingling and Denies weakness Endo Denies palpitations Physical Exam Vital Signs: Last Vital Signs Pulse 78 08/11/23 08:47 BP 150/72 H 08/11/23 08:47 Pulse Ox 99 08/11/23 08:47 Oxygen Delivery Method Room Air 08/11/23 08:47 BMI result Body Mass Index 33.2 Const General: comfortable and no acute distress Orientation/consciousness: patient oriented x3 HEENT Other: Unremarkable Head: Yes normal to inspection Neck Neck: Yes normal visual inspection Chest Chest palpation & inspection: normal inspection of the chest Resp Auscultation: clear to auscultation bilaterally Cardio Palpation: normal PMI Heart sounds: S1 normal heart sound present, S2 normal heart sound present, no gallops, no murmurs and no rubs GI Palpation (GI): Soft to palpation Back/Spine/Pelvis Other: unremarkable Skin General skin exam: no rashes or lesions noted Neuro General: patient oriented x3 Extrem General: Yes normal to inspection Psych Mental Status: mental status grossly normal Assessment & Plan Assessment & Plan (1) Atherosclerotic cardiovascular disease: Code(s): I25.10 - Atherosclerotic heart disease of [place] coronary artery without angina pectoris Category: Medical (2) Atrial arrhythmia: Code(s): I49.8 - Other specified cardiac arrhythmias Category: Medical (3) Right bundle branch block (RBBB): Code(s): I45.10 - Unspecified right bundle-branch block Category: Medical (4) Diabetes mellitus with kidney complication, without long-term current use of insulin: Code(s): E11.29 - Type 2 diabetes mellitus with other diabetic kidney complication Category: Medical Qualifiers: Diabetes mellitus complication detail: with microalbuminuria Diabetes mellitus type: type 2 Qualified Code(s): E11.29 - Type 2 diabetes mellitus with other diabetic kidney complication; R80.9 - Proteinuria, unspecified (5) Essential hypertension: Code(s): I10 - Essential (primary) hypertension Category: Medical (6) Dyslipidemia: Code(s): E78.5 - Hyperlipidemia, unspecified Category: Medical Plan Cardiac studies reviewed. Echocardiogram with LVEF of 65%. Suspected moderate to severe LVH. Mild aortic and mitral calcification. Unremarkable valves. In the perfusion imaging, mild basal lateral wall ischemia. Clinically, he has got absolutely no angina. Hence we will treat this as stable coronary disease. Continue low-dose aspirin. With regard to blood pressure, still high. Currently on amlodipine/losartan. He states he tried beta-blockers through his own PCP but had a lot of side effects and had to stop. Hence try carvedilol. In the abdominal MRI, there is a question of pheochromocytoma. It seems nephrology appointment is pending for this week. With regard to the atrial arrhythmias, obtain Holter. We will also obtain a screening sleep study. He states he used to have sleep apnea several years ago but not been recently checked. Not on CPAP. Also referred to pulmonology to address this. Follow-up after the above. Plan discussed with significant other. Orders: Orders ECG 3 day holter monitor Today I49.8 - Other specified cardiac arrhythmias RT home sleep study Today G47.33 - Obstructive sleep apnea (adult) (pediatric) Referrals Pulmonary Medicine Referral G47.9 - Sleep disorder, unspecified Medications: New carvedilol (Coreg) must administer with a meal/food 6.25 mg PO BID 180 tabs 3RF 90 days Coding Level of Care Code Est Pt Level 4 (77699) Diagnoses Atherosclerotic cardiovascular disease I25.10 Atrial arrhythmia I49.8 Right bundle branch block (RBBB) I45.10 Type 2 diabetes mellitus with microalbuminuria, without long-term current use of insulin E11.29; R80.9 Diabetes mellitus complication detail: with microalbuminuria Diabetes mellitus type: type 2 Essential hypertension I10 Dyslipidemia E78.5
== END 2023-08-11 09:20 | disposition home or self-care (01) ==
PROVIDERS: PCP Internal Medicine; Visit Provider Internal Medicine
DX: I25.10 Atherosclerotic heart disease of native coronary artery without angina pectoris (principal); I49.8 Other specified cardiac arrhythmias; I45.10 Unspecified right bundle-branch block; E11.29 Type 2 diabetes mellitus with other diabetic kidney complication; R80.9 Proteinuria, unspecified; I10 Essential (primary) hypertension; E78.5 Hyperlipidemia, unspecified
CPT/HCPCS: 99214

== ENCOUNTER → 2023-08-11 08:43 | Outpatient (BNVA) | payer MEDICARE, SELFPAY | PROVIDERS: PCP Internal Medicine; Visit Provider Internal Medicine | DX: I25.10 Atherosclerotic heart disease of native coronary artery without angina pectoris (principal); I49.8 Other specified cardiac arrhythmias; I45.10 Unspecified right bundle-branch block; I10 Essential (primary) hypertension; E11.29 Type 2 diabetes mellitus with other diabetic kidney complication; R80.9 Proteinuria, unspecified; E78.5 Hyperlipidemia, unspecified | CPT/HCPCS: 99212 ==

== ENCOUNTER 2023-08-12 09:38 | Outpatient (AMB) | payer MEDICARE, SELFPAY ==
[2023-08-12 09:43] VITALS: BP 152/74; PULSE 70; O2SAT 97; BMI 33.0
--- NOTE | 2023-08-12 09:43 | HO.NEPHOV ---
Vital Signs 08/12/23 09:43 Height 5 ft 10 in Weight 230 lb BMI 33.0 BP 152/74 H Blood Pressure Location Rt brachial Position Sitting Pulse 70 Pulse Source Pulse Oximeter Pulse Oximetry (%) 97 Oxygen Delivery Method Room Air Intake Visit Reasons: Hypertension/ Confirmed Physical Therapist Technician Required: No Accompanied by: Spouse Allergies diphenhydramine [From BENADRYL ALLERGY] Allergy (Unknown, Verified 08/12/23 09:44) HEART RACING AND TIREDNESS HPI Comments Details: Sadiq is a pleasant 78-year-old man with a history of hypertension for several years. Galen is on 3 anti hypertensives Until about 6 months ago, BP was acceptable Recently BP has been difficult to control Home SBP is aroud 150-160 mmHG Metoprolol was switched to Coreg yesterday due to nightmares Other meds include Amlodipine 10 mg and Losartan 100 mg QD He was on triamterene and this was stopped recently he has a h/o bilateral adrenal adenoma measuring 7.4 and 3.6 cm This was being followe dby urology for the past 4 years There has been a mild increase in size over the past few years Did not under go any biochemical work up thus far Interestingly he has unprovoked hypokalemia of 2.6 mmol in May 2023 with Alkalosis of 31 One episode of sweating while on Metoprolol. 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, without long-term current use of insulin Dyslipidemia Bilateral renal cysts Actinic keratosis Neuropathic arthritis Essential hypertension Surgical History Hx of LASIK Hx of colonoscopy Status post Mohs surgery Family History Mother Chronic kidney disease Cardiovascular disease Diabetes mellitus Brother Diabetes mellitus Skin cancer Social History Housing: House Alcohol intake: current Patient Tobacco Use Status: Never used Tobacco e-Cigarette/Vaping Use: Never Used service: No Current occupational status: retired Cognitive needs: No Hearing needs: No Vision needs: Yes Physical Exam Vital Signs: Last Vital Signs Pulse 70 08/12/23 09:43 BP 152/74 H 08/12/23 09:43 Pulse Ox 97 08/12/23 09:43 Oxygen Delivery Method Room Air 08/12/23 09:43 BMI result Body Mass Index 33.0 Const General: comfortable Nutritional Appearance: well nourished Orientation/consciousness: patient oriented x3 HEENT Head: No normal to inspection Mouth: moist mucous membranes Neck Neck: Yes supple and Yes no JVD Resp Auscultation: clear to auscultation bilaterally, no rales and rub present Cardio Jugular venous distension: no JVD Palpation: no palpable S3 and no palpable S4 Heart sounds: no rubs GI Palpation (GI): Soft to palpation and nontender Percussion: No Fluid wave present General: Yes no CVA tenderness Back/Spine/Pelvis Back: no CVA tenderness Skin General skin exam: no rashes or lesions noted Neuro General: patient oriented x3 Extrem General: Yes no pedal edema and No clubbing Results Reviewed Nephrology Results: Sodium 142 mmol/L (135-145) 08/12/23 Potassium 3.3 mmol/L (3.3-5.1) 08/12/23 Chloride 102 mmol/L (96-108) 08/12/23 Carbon Dioxide 30 mmol/L (22-29) H 08/12/23 BUN 13 mg/dL (9-16) 08/12/23 Creatinine 0.94 mg/dL (0.5-1.4) 08/12/23 Calcium 10.0 mg/dL (8.4-10.2) 08/12/23 Urine Creatinine 88.79 mg/dL 08/12/23 Assessment & Plan Assessment & Plan (1) Uncontrolled hypertension: Code(s): I10 - Essential (primary) hypertension Category: Medical (2) Adrenal adenoma: Code(s): D35.00 - Benign neoplasm of unspecified adrenal gland Category: Medical Plan Sadiq has longstanding hypertension. He is bilateral adrenal adenoma. The adenomas have gradually increased in size over the last 4 years. It is unclear if these renal masses or biochemically active. Interestingly he has had spontaneous hypokalemia and metabolic alkalosis in the setting of hypertension. This raises the suspicion for primary hyperaldosteronism. Pheochromocytoma seems less likely based on the clinical picture I have initiated a workup We will start with a spot urine test along with basic metabolic profile. If he continues to have hypokalemia with alkalosis and also based on the plasma renin and plasma aldosterone levels we might have to hold the losartan and recheck PA/PRA ratio. If aldosterone is elevated or if the PA/PRA ratio is elevated he would require adrenal vein sampling. Today I have not made any changes to his antihypertensive medications we will continue with the same. Further management will be based on the outcome of the above investigations. Orders: Orders Sodium Urine Random Today I10 - Essential (primary) hypertension, N18.9 - Chronic kidney disease, unspecified Creatinine Urine Today I10 - Essential (primary) hypertension, N05.9 - Unspecified nephritic syndrome with unspecified morphologic changes Renin Today I10 - Essential (primary) hypertension VMA Today I10 - Essential (primary) hypertension Potassium Urine Random Today I10 - Essential (primary) hypertension Chloride Urine Random Today I10 - Essential (primary) hypertension Comprehensive Met. Panel Today I10 - Essential (primary) hypertension, N18.9 - Chronic kidney disease, unspecified Osmolality, Serum Today I10 - Essential (primary) hypertension Osmolality Urine Today I10 - Essential (primary) hypertension Aldost/Renin Today I10 - Essential (primary) hypertension Aldosterone Today I10 - Essential (primary) hypertension Coding Level of Care Code New Pt Level 4 (10426) Diagnoses Uncontrolled hypertension I10 Adrenal adenoma D35.00
== END 2023-08-12 10:17 | disposition home or self-care (01) ==
PROVIDERS: PCP Internal Medicine; Referring Provider Internal Medicine; Visit Provider Internal Medicine Hypertension Specialist
DX: I10 Essential (primary) hypertension (principal); D35.00 Benign neoplasm of unspecified adrenal gland
CPT/HCPCS: 99204

== ENCOUNTER 2023-08-12 10:21 | Outpatient (REF) | payer MEDICARE, SELFPAY ==
[2023-08-12 11:36] LABS: Creatinine Urine 88.79 mg/dL; Potassium Urine Random 23.3 mmol/L
[2023-08-12 11:48] LABS: Alanine Aminotransferase 20 U/L (0-40); Albumin Level 4.4 g/dL (3.5-5.0); Alkaline Phosphatase 40 U/L (39-117); Anion Gap 13 (12-20); Aspartate Amino Transferase 20 U/L (5-37); Bilirubin Total 0.4 mg/dL (0.0-1.0); Blood Urea Nitrogen 13 mg/dL (9-16); Carbon Dioxide 30 mmol/L (22-29); Chloride 102 mmol/L (96-108); Estimated Glomerular Filt Rate > 60; Glucose Random 179 mg/dL (60-115); Potassium 3.3 mmol/L (3.3-5.1); Sodium 142 mmol/L (135-145); Total Protein 7.6 g/dL (6.5-8.0)
[2023-08-12 13:13] LABS: Osmolality, Serum 308 mosm/kg (281-305)
[2023-08-12 13:13] LABS: Osmolality Urine 423 mosm/kg (373-1093)
[2023-08-16 13:38] LABS: Renin 0.27 ng/mL/h (0.25-5.82)
[2023-08-16 17:44] LABS: Aldosterone/Renin Ratio 51.9 Ratio (0.9-28.9); Plasma Renin Activity 0.27 ng/mL/h (0.25-5.82)
== END 2023-08-12 10:22 | disposition home or self-care (01) ==
LOC: HO.LAB 10:21
PROVIDERS: Visit Provider Internal Medicine Hypertension Specialist
DX: I12.9 Hypertensive chronic kidney disease with stage 1 through stage 4 chronic kidney disease, or unspecified chronic kidney disease (principal); N18.9 Chronic kidney disease, unspecified; D35.00 Benign neoplasm of unspecified adrenal gland; Z79.899 Other long term (current) drug therapy
CPT/HCPCS: 36415; 80053; 82088; 82436; 82570; 83930; 83935; 84133; 84244; 84300; 99202

== ENCOUNTER 2023-08-14 11:32 | Outpatient (REF) | payer MEDICARE, SELFPAY ==
[2023-08-15 13:53] LABS: Gliadin Deamidated IgA Ab <1.0 U/mL; Gliadin Deamidated IgG Ab <1.0 U/mL; Transglutaminase Ab IgG <1.0 U/mL; Transglutaminase IgA <1.0 U/mL
[2023-08-15 18:08] LABS: Immunoglobulin A 398 mg/dL (70-320)
[2023-08-17 15:29] LABS: Endomysial IgA Antibody Negative (Negative)
== END 2023-08-14 11:33 | disposition home or self-care (01) ==
LOC: HO.10HDL 11:32
PROVIDERS: Visit Provider Internal Medicine
DX: K52.9 Noninfective gastroenteritis and colitis, unspecified (principal)
CPT/HCPCS: 36415; 82784; 86231; 86258; 86364

== ENCOUNTER 2023-08-19 11:23 | Outpatient (AMB) | payer MEDICARE, SELFPAY ==
--- NOTE | 2023-08-19 11:36 | HO.NEPHOV_ITS ---
Vital Signs 08/19/23 11:37 Height 5 ft 10 in Weight 232 lb BMI 33.3 BP 158/80 H Blood Pressure Location Lt brachial Position Sitting Pulse 68 Pulse Source Pulse Oximeter Pulse Oximetry (%) 98 Oxygen Delivery Method Room Air Intake Visit Reasons: Hypertension/ 1 week fu/ LVM Cooling Room Attendant Required: No Accompanied by: Spouse Allergies diphenhydramine [From BENADRYL ALLERGY] Allergy (Unknown, Verified 08/19/23 11:38) HEART RACING AND TIREDNESS HPI Comments Details: Sadiq is a pleasant 78-year-old man with a history of hypertension for several years. Galen is on 3 anti hypertensives Until about 6 months ago, BP was acceptable Recently BP has been difficult to control Home SBP is aroud 150-160 mmHG Metoprolol was switched to Coreg yesterday due to nightmares Other meds include Amlodipine 10 mg and Losartan 100 mg QD He was on triamterene and this was stopped recently he has a h/o bilateral adrenal adenoma measuring 7.4 and 3.6 cm This was being followe dby urology for the past 4 years There has been a mild increase in size over the past few years Did not under go any biochemical work up thus far Interestingly he has unprovoked hypokalemia of 2.6 mmol in May 2023 with Alkalosis of 31 One episode of sweating while on Metoprolol. No significant palpitations or unexplained sweating h/o occational lightheadedness No h/o smoking Retired , used to work for [employer] 08/19/2023 Overall doing well from his previous visit. He has been monitoring blood pressure at home. Systolic blood pressure is I40 - 150 mm Hg despite 3 antihypertensives. 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, without long-term current use of insulin Dyslipidemia Bilateral renal cysts Actinic keratosis Neuropathic arthritis Essential hypertension Surgical History Hx of LASIK Hx of colonoscopy Status post Mohs surgery Family History Mother Chronic kidney disease Cardiovascular disease Diabetes mellitus Brother Diabetes mellitus Skin cancer Social History Housing: House Alcohol intake: current Patient Tobacco Use Status: Never used Tobacco e-Cigarette/Vaping Use: Never Used service: No Current occupational status: retired Cognitive needs: No Hearing needs: No Vision needs: Yes Physical Exam Vital Signs: Last Vital Signs Pulse 68 08/19/23 11:37 BP 158/80 H 08/19/23 11:37 Pulse Ox 98 08/19/23 11:37 Oxygen Delivery Method Room Air 08/19/23 11:37 BMI result Body Mass Index 33.3 Const General: comfortable Nutritional Appearance: well nourished Orientation/consciousness: patient oriented x3 HEENT Head: No normal to inspection Mouth: moist mucous membranes Neck Neck: Yes supple and Yes no JVD Resp Auscultation: clear to auscultation bilaterally, no rales and rub present Cardio Jugular venous distension: no JVD Palpation: no palpable S3 and no palpable S4 Heart sounds: no rubs GI Palpation (GI): Soft to palpation and nontender Percussion: No Fluid wave present General: Yes no CVA tenderness Back/Spine/Pelvis Back: no CVA tenderness Skin General skin exam: no rashes or lesions noted Neuro General: patient oriented x3 Extrem General: Yes no pedal edema and No clubbing Results Reviewed Results Reviewed: Plasma aldosterone is 14 Plasma renin activity 0.27 PA/PRA is 52 Nephrology Results: Sodium 142 mmol/L (135-145) 08/12/23 Potassium 3.3 mmol/L (3.3-5.1) 08/12/23 Chloride 102 mmol/L (96-108) 08/12/23 Carbon Dioxide 30 mmol/L (22-29) H 08/12/23 BUN 13 mg/dL (9-16) 08/12/23 Creatinine 0.94 mg/dL (0.5-1.4) 08/12/23 Calcium 10.0 mg/dL (8.4-10.2) 08/12/23 Urine Creatinine 88.79 mg/dL 08/12/23 Assessment & Plan Assessment & Plan (1) Adrenal adenoma: Code(s): D35.00 - Benign neoplasm of unspecified adrenal gland Category: Medical (2) Hypokalemia: Code(s): E87.6 - Hypokalemia Category: Medical (3) Uncontrolled hypertension: Code(s): I10 - Essential (primary) hypertension Category: Medical Plan Sadiq has longstanding hypertension. He is bilateral adrenal adenoma. The adenomas have gradually increased in size over the last 4 years. He has spontaneous hypokalemia and metabolic alkalosis in the setting of hypertension. PA/PRA is 52 ( elevated) suspicious for primary hyperaldosteronism. Pheochromocytoma seems less likely based on the clinical picture Aldosterone is elevated and PA/PRA ratio is elevated ; would require adrenal vein sampling to see if there is any lateralization. However since he has ad enomas on both sides I am not sure if this will be of any clinical relevance. At this point I would try an aldosterone omega and monitor the adrenal adenomas closely. He has tenderness on the left breast therefore I will not add spironolactone. I have started eplerenone 25 mg once a day. Decrease amlodipine from 10 mg to 5 mg daily. Monitor blood pressure at home and we should be able to lower amlodipine further. scheduled for colonoscopy next week Further treatment plan will be based on the outcome of the colonoscopy as well. I have answered all his questions Orders: Orders Complete Blood Count Auto Diff Today D35.00 - Benign neoplasm of unspecified adrenal gland, E87.6 - Hypokalemia, N18.30 - Chronic kidney disease, stage 3 unspecified Basic Metabolic Panel Today D35.00 - Benign neoplasm of unspecified adrenal gland, E87.6 - Hypokalemia Medications: New eplerenone 25 mg PO DAILY 30 tabs 0RF Coding Level of Care Code Est Pt Level 4 (62146) Diagnoses Adrenal adenoma D35.00 Hypokalemia E87.6 Uncontrolled hypertension I10
[2023-08-19 11:37] VITALS: BP 158/80; PULSE 68; O2SAT 98; BMI 33.3
== END 2023-08-19 12:06 | disposition home or self-care (01) ==
PROVIDERS: PCP Internal Medicine; Visit Provider Internal Medicine Hypertension Specialist
DX: D35.00 Benign neoplasm of unspecified adrenal gland (principal); E87.6 Hypokalemia; I10 Essential (primary) hypertension
CPT/HCPCS: 99214

== ENCOUNTER → 2023-08-19 11:23 | Outpatient (BNVA) | payer MEDICARE, SELFPAY | PROVIDERS: PCP Internal Medicine; Visit Provider Internal Medicine Hypertension Specialist | DX: D35.00 Benign neoplasm of unspecified adrenal gland (principal); E87.6 Hypokalemia; I10 Essential (primary) hypertension | CPT/HCPCS: 99212 ==

== ENCOUNTER 2023-08-26 06:20 | Outpatient (REF) | payer MEDICARE, SELFPAY ==
[2023-08-26 10:22] LABS: MANUAL DIFF FLAG NO
[2023-08-26 10:39] LABS: Basophils Percent Auto 0.6 % (0-2); Eosinophils Absolute Auto 0.1 X10*3/uL (0.0-0.4); Imm Gran Abs Auto 0.02 X10*3/uL (0.00-0.03); Imm Gran Pct Auto 0.3 % (0.0-0.4); Lymphocytes Absolute Auto 0.9 X10*3/uL (1.2-4.9); Lymphocytes Percent Auto 14.1 % (20-40); Mean Corpuscular HGB Conc 34.2 g/dl (31.0-36.0); Mean Corpuscular Hemoglobin 31.9 pg (27.0-33.0); Mean Corpuscular Volume 93.1 fL (80.0-98.0); Mean Platelet Volume 9.6 fL (9.4-12.4); Monocytes Absolute Auto 0.7 X10*3/uL (0.1-1.2); Monocytes Percent Auto 10.1 % (2-11); Neutrophils Absolute Auto 4.7 x10*3/uL (2.0-8.3); Neutrophils Percent Auto 72.9 % (45-73); Platelet Count 291 X10*3/uL (160-400); Red Blood Count 4.08 X10*6/uL (4.60-5.80); Red Cell Distribution Width 13.1 % (11.0-16.0); White Blood Count 6.5 X10*3/uL (4.8-10.8)
[2023-08-26 10:58] LABS: Anion Gap 13 (12-20); Blood Urea Nitrogen 14 mg/dL (9-16); Calcium 9.4 mg/dL (8.4-10.2); Carbon Dioxide 27 mmol/L (22-29); Chloride 107 mmol/L (96-108); Estimated Glomerular Filt Rate > 60; Glucose Random 115 mg/dL (60-115); Potassium 3.5 mmol/L (3.3-5.1); Sodium 143 mmol/L (135-145)
== END 2023-08-26 06:21 | disposition home or self-care (01) ==
LOC: HO.HMGCLDS 06:20
PROVIDERS: PCP Internal Medicine; Visit Provider Internal Medicine Hypertension Specialist
DX: D35.00 Benign neoplasm of unspecified adrenal gland (principal); E87.6 Hypokalemia; I12.9 Hypertensive chronic kidney disease with stage 1 through stage 4 chronic kidney disease, or unspecified chronic kidney disease; N18.30 Chronic kidney disease, stage 3 unspecified
CPT/HCPCS: 36415; 80048; 85025

== ENCOUNTER 2023-08-28 06:17 | Day surgery (SDC) | payer MEDICARE, SELFPAY ==
[2023-08-26 09:01] VITALS: BMI 73.9
--- NOTE | 2023-08-27 09:35 | HO.ANESPROP2 ---
Documented by User: Sherrill Jorge NP 08/27/23 09:37 HPI - Anesthesia Eval Consult details Narrative: 78yo M for?Colonoscopy Cardiac cleared Follows [facility] cardiology for hx abnormal EKG. Echocardiogram with LVEF of 65%. Suspected moderate to severe LVH. Mild aortic and mitral calcification. Unremarkable valves. In the perfusion imaging, mild basal lateral wall ischemia. Clinically, he has got absolutely no angina. Hence we will treat this as stable coronary disease. 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 (Acute) Right bundle branch block (RBBB) (Acute) Diabetes mellitus with kidney complication, without long-term current use of insulin (Acute) Dyslipidemia (Acute) Bilateral renal cysts (Acute) Actinic keratosis (Acute) Neuropathic arthritis (Acute) Essential hypertension (Acute) Past Medical History Medical History Sleep apnea History of ETT Kidney stones Diverticulosis Uncontrolled hypertension Positive colorectal cancer screening using Cologuard test 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 Right bundle branch block (RBBB) 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, without long-term current use of insulin Dyslipidemia Bilateral renal cysts Actinic keratosis Neuropathic arthritis Essential hypertension Family History Family History Mother Chronic kidney disease Cardiovascular disease Diabetes mellitus Brother Diabetes mellitus Skin cancer Surgical History Surgical History Hx of bilateral cataract extraction Hx of cervical discectomy History of esophagogastroduodenoscopy (EGD) Hx of LASIK Hx of colonoscopy Status post Mohs surgery Social History Social History Housing: House Alcohol intake: current Patient Tobacco Use Status: Never used Tobacco e-Cigarette/Vaping Use: Never Used Use of substances other than those prescribed or required for medical reasons: No Are you DNR?: No Advance Directives: No Advance Directives Information Provided: Yes service: No Current occupational status: retired Cognitive needs: No Hearing needs: No Vision needs: Yes Meds Allergies Allergy/AdvReac Type Severity Reaction Status Date / Time diphenhydramine Allergy Unknown HEART Verified 08/19/23 11:38 [From BENADRYL ALLERGY] RACING AND TIREDNESS Home Medications ?Medication ?Instructions ?Recorded ?Confirmed ?Last Taken ?Type blood sugar diagnostic #10 ea 05/29/20 07/03/23 Unknown History vitamins A,C,M-scgy-yxdqnp 4,296 1 cap PO BID 07/03/23 08/11/23 Unknown History mcg-226 mg-90 mg capsule (PreserVision AREDS) amlodipine 10 mg tablet 5 mg PO DAILY 08/26/23 08/26/23 08/28/23 History metformin 1,000 mg tablet 1,000 mg PO DAILY 08/26/23 08/26/23 Unknown History Exam Height,Weight and Vital Signs: Height 5 ft 9.75 in Weight 232 kg Assessment and Plan Assessment Anesthesia Assessment: Chart Reviewed Documented by User: Zana Yusuf MD 08/28/23 07:32 [facility] Past Medical History Medical History Sleep apnea History of ETT Kidney stones Diverticulosis Uncontrolled hypertension Positive colorectal cancer screening using Cologuard test 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 Right bundle branch block (RBBB) 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, without long-term current use of insulin Dyslipidemia Bilateral renal cysts Actinic keratosis Neuropathic arthritis Essential hypertension Family History Family History Mother Chronic kidney disease Cardiovascular disease Diabetes mellitus Brother Diabetes mellitus Skin cancer Family history of problems with anesthesia: No Surgical History Surgical History Hx of bilateral cataract extraction Hx of cervical discectomy History of esophagogastroduodenoscopy (EGD) Hx of LASIK Hx of colonoscopy Status post Mohs surgery History of Problems with Anesthesia: No Social History Social History Housing: House Alcohol intake: current Patient Tobacco Use Status: Never used Tobacco e-Cigarette/Vaping Use: Never Used Use of substances other than those prescribed or required for medical reasons: No Are you DNR?: No Advance Directives: No Advance Directives Information Provided: Yes service: No Current occupational status: retired Cognitive needs: No Hearing needs: No Vision needs: Yes Meds Allergies Allergy/AdvReac Type Severity Reaction Status Date / Time diphenhydramine Allergy Unknown HEART Verified 08/19/23 11:38 [From BENADRYL ALLERGY] RACING AND TIREDNESS Home Medications ?Medication ?Instructions ?Recorded ?Confirmed ?Last Taken ?Type blood sugar diagnostic #10 ea 05/29/20 07/03/23 Unknown History vitamins A,C,A-zidl-nfrcqe 4,296 1 cap PO BID 07/03/23 08/11/23 Unknown History mcg-226 mg-90 mg capsule (PreserVision AREDS) amlodipine 10 mg tablet 5 mg PO DAILY 08/26/23 08/26/23 08/28/23 History metformin 1,000 mg tablet 1,000 mg PO DAILY 08/26/23 08/26/23 Unknown History Exam Airway Mallampati Class: IV TM Dist: <=3cm Neck ROM: Full Loose/Missing/Broken Teeth: No Heart: rrr Lungs: cta Assessment and Plan Assessment Anesthesia Assessment: Anesthesia Plan Discussed Final Anesthetic Review Family History of Problems with Anesthesia: No History of Problems with Anesthesia: No NPO: Yes ASA Class: III Final Preanesthetic Review: No Changes in Pt Med Stat, Meds/Allgs Chart Reviewed, Consent Obtained/Reviewed and Anes Risks/Benef Reviewed Patient Risk: Intermediate Procedure Risk: Intermediate Anesthetic Plan Anesthetic Plan: TIVA Disposition: Standard PACU
[2023-08-28 06:45] VITALS: BP 157/92; PULSE 65; RESP 18; TEMP 36.1; O2SAT 98; BMI 32.1
[2023-08-28 08:33] VITALS: BP 147/87; PULSE 70; RESP 18; TEMP 36.6; O2SAT 95
--- NOTE | 2023-08-28 08:41 | P.BOP_ITS ---
Brief Operative Note Date of Service: 08/28/23 Pre-op diagnosis: + Cologuard Post-op diagnosis: other (Polyps) Procedure: Colonoscopy to the cecum and TI with hot snare polypectomy x 2, and biopsies Surgeon: Chapincito Rico MD Anesthesia: MAC Was an Technical Cable Jointer used for this Procedure?: No Estimated blood loss (mL): 2.0 Pathology: other (A. Ascending colon polyps B. Biopsy from ICV C. Ascending colon biopsies D. Descending colon biopsies) Condition: stable Disposition: PACU
[2023-08-28 08:48] VITALS: BP 150/90; PULSE 55; RESP 16; TEMP 36.6; O2SAT 96
[2023-08-28 09:01] LABS: Glucose, Whole Blood 100 mg/dL (60-115)
--- NOTE | 2023-08-28 09:16 | OP_ITS ---
DATE OF SERVICE: 08/28/2023 SURGEON: Chapincito Rico MD INDICATIONS: The patient presents for evaluation of a positive Cologuard test and diarrhea. Full consent has been obtained from him for this, including risks of bleeding and perforation. PREOPERATIVE DIAGNOSIS: POSTOPERATIVE DIAGNOSIS: PROCEDURE PERFORMED: Colonoscopy to the cecum and terminal ileum with hot snare polypectomy x2, and biopsies. ESTIMATED BLOOD LOSS: COMPLICATIONS: ANESTHESIA: Monitored anesthesia care. ASSISTANTS: SPECIMENS: PREOPERATIVE DIAGNOSES: Positive Cologuard test and diarrhea. POSTOPERATIVE DIAGNOSES: Positive Cologuard test, diarrhea, colon polyps, probable lipomatous ileocecal valve, rule out microscopic colitis, diverticulosis, and internal hemorrhoids. DESCRIPTION OF PROCEDURE: The patient was placed in the left lateral decubitus position. The digital rectal exam revealed a somewhat tight anal sphincter, which limited the exam. There was no perianal disease. The [employer] video pediatric colonoscope was then entered into the rectum and advanced easily to the cecum. Once in the cecum, I did identify normal-appearing cecal pouch with appendiceal orifice. The terminal ileum was cannulated and appeared normal. The scope was withdrawn back in the colon. The ileocecal valve appeared normal other than some portions of it that appeared to be somewhat lipomatous and quite soft when probed with a biopsy forceps. Biopsies were obtained from that area. The scope was then slowly withdrawn assessing all mucosal surfaces carefully. Preparation was excellent. In the ascending colon, were 2 approximately 8 to 10 mm polyps, which were both removed by hot snare polypectomy and recovered by suction. Both polypectomy sites appeared clean, without any sign of residual polyp nor bleeding. I did not visualize any other polyps, colitis, nor angiodysplasia. Biopsies were obtained in the ascending and descending colon. There was a moderate amount of diverticulosis in the sigmoid colon. In the rectum, scope was retroflexed, visualizing internal hemorrhoids, but no other pathology. The rectal mucosa appeared normal. The scope was straightened and withdrawn from the patient. He tolerated the procedure well and was returned to the recovery area in stable condition. IMPRESSION: 1. Colon polyps. 2. Diverticulosis. 3. Rule out microscopic colitis. 4. Lipomatous ileocecal valve. 5. Small internal hemorrhoids. PLAN: The results of the biopsies will be checked. Given these findings and his age, I do not think he would need any further screening colonoscopies. He was advised not to use any aspirin and NSAIDs for at least 1 week. He was advised to start using Imodium as needed for diarrhea to see if that helps. He was advised to try to limit his caffeine and dairy. He was advised that if the diarrhea persists, he should speak with his primary care physician regarding perhaps switching the metformin to another medication in the event metformin is causing some diarrhea. He will be seen in followup as well. This has all been discussed with his . MD DELL Farrell/HAZEL / [phone]
== END 2023-08-28 09:17 | disposition home or self-care (01) ==
PROVIDERS: PCP Internal Medicine; Visit Provider Internal Medicine
PROC: 0DJD8ZZ Inspection of Lower Intestinal Tract, Via Natural or Artificial Opening Endoscopic (ICD-10-PCS; CPT 45378; principal; 2023-08-28 07:30)
DX: R19.5 Other fecal abnormalities (principal); K52.9 Noninfective gastroenteritis and colitis, unspecified; D12.2 Benign neoplasm of ascending colon; D13.30 Benign neoplasm of unspecified part of small intestine; K57.30 Diverticulosis of large intestine without perforation or abscess without bleeding; K64.8 Other hemorrhoids; Z86.010 Personal history of colon polyps; I10 Essential (primary) hypertension; E11.9 Type 2 diabetes mellitus without complications; Z79.84 Long term (current) use of oral hypoglycemic drugs; Z79.899 Other long term (current) drug therapy
CPT/HCPCS: 45385; 45380; 82947; 88305; J2704

== ENCOUNTER → 2023-09-01 08:15 | Outpatient (REF) | payer MEDICARE, SELFPAY ==
--- NOTE | 2023-09-01 08:18 | HM_ITS ---
Conclusion: 1. Patient was monitored for total period of 3 days 2. Baseline was normal sinus rhythm with average heart of 64 beats 3. Short run of SVT noted which could represent very short episode of atrial fibrillation 4. Frequent PACs noted with total burden of about 2% 5. Frequent PVCs noted with total burden of 1.1% 6. No patient reported events MTDD
== END ==
LOC: HO.CARD 08:15
PROVIDERS: PCP Internal Medicine; Visit Provider Internal Medicine
DX: I49.8 Other specified cardiac arrhythmias (principal)
CPT/HCPCS: 93242

== ENCOUNTER → 2023-09-01 08:18 | Outpatient (BNV) | payer MEDICARE, SELFPAY | PROVIDERS: PCP Internal Medicine; Visit Provider Internal Medicine Cardiovascular Disease | DX: I49.1 Atrial premature depolarization (principal); I49.3 Ventricular premature depolarization | CPT/HCPCS: 93244 ==

== ENCOUNTER 2023-09-08 09:33 | Outpatient (AMB) | payer MEDICARE, SELFPAY ==
[2023-09-08 09:45] VITALS: BP 156/78; PULSE 66; O2SAT 97; BMI 32.8
--- NOTE | 2023-09-08 09:45 | MHC.OFFVIS ---
Vital Signs 09/08/23 09:45 Height 5 ft 9.75 in Weight 227 lb BMI 32.8 BP 156/78 H Blood Pressure Location Rt brachial Position Sitting Pulse 66 Pulse Source Doppler Pulse Oximetry (%) 97 Oxygen Delivery Method Room Air Intake Visit Reasons: sleep disorder Allergies diphenhydramine [From BENADRYL ALLERGY] Allergy (Unknown, Verified 09/08/23 09:48) HEART RACING AND TIREDNESS HPI HPI sleep disorder: Details: 78-year-old gentleman, nonsmoker, with prior history of TAURUS with last sleep study over 20 years prior, currently not on CPAP, referred by Cardiology for evaluation of likely underlying obstructive sleep apnea component to resistant hypertension. Patient is interested in retrying CPAP therapy. [facility] Medical History Sleep apnea History of ETT Kidney stones Diverticulosis Uncontrolled hypertension Positive colorectal cancer screening using Cologuard test 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 Right bundle branch block (RBBB) 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, without long-term current use of insulin Dyslipidemia Bilateral renal cysts Actinic keratosis Neuropathic arthritis Essential hypertension Surgical History Hx of bilateral cataract extraction Hx of cervical discectomy History of esophagogastroduodenoscopy (EGD) Hx of LASIK Hx of colonoscopy Status post Mohs surgery Family History Mother Chronic kidney disease Cardiovascular disease Diabetes mellitus Brother Diabetes mellitus Skin cancer Social History Housing: House Alcohol intake: current Patient Tobacco Use Status: Never used Tobacco e-Cigarette/Vaping Use: Never Used service: No Current occupational status: retired Cognitive needs: No Hearing needs: No Vision needs: Yes Review of Systems Const Denies daytime sleepiness, Denies excessive sweating, Denies fatigue, Denies fever(s), Denies lethargy, Denies malaise, Denies night sweats, Denies snoring and Denies weight loss Eyes Denies blurry vision and Denies itchy eyes ENT Denies nasal congestion, Denies post nasal drip, Denies sinus pain, Denies sinus pressure and Denies other ( Thrush) Card Denies chest pain, Denies pedal edema, Denies dyspnea, Denies orthopnea and Denies paroxysmal nocturnal dyspnea Resp Denies cough, Denies hemoptysis, Denies excessive phlegm production, Denies dyspnea, Denies snoring and Denies wheezing GI Denies abdominal pain and Denies heartburn Musc Denies myalgias, Denies arthralgias and Denies joint swelling Skin/Breast Denies rash Neuro Denies memory loss and Denies seizure-like activity Psych Denies abnormal sleep pattern, Denies anxiety and Denies memory loss Endo Denies excessive sweating, Denies fatigue and Denies heat intolerance Kp/Lymph Denies easy bruising Aller/Immun Denies itchy eyes, Denies seasonal rhinorrhea and Denies wheezing Physical Exam Vital Signs: Last Vital Signs Pulse 66 09/08/23 09:45 BP 156/78 H 09/08/23 09:45 Pulse Ox 97 09/08/23 09:45 Oxygen Delivery Method Room Air 09/08/23 09:45 BMI result Body Mass Index 32.8 Const General: no acute distress and alert Nutritional Appearance: obese Orientation/consciousness: Other orientation findings ( oriented) HEENT Head: Yes atraumatic Eyes General: appearance normal, both eyes and all related structures Sclerae: sclerae normal EOM: EOMs intact bilaterally Neck Neck: Yes supple Lymphatic: no lymphadenopathy noted Resp Effort & Inspection: normal respiratory effort and no use of accessory muscles Auscultation: clear to auscultation bilaterally Cardio Rate: regular rate Rhythm: regular rhythm Heart sounds: no gallops, no murmurs and no rubs Skin General skin exam: other ( warm) Extrem General: No clubbing, No cyanosis and No edema Assessment & Plan Assessment & Plan (1) TAURUS (obstructive sleep apnea): Code(s): G47.33 - Obstructive sleep apnea (adult) (pediatric) Category: Medical Plan: Daytime somnolence, unrestful sleep. Likely underlying obstructive sleep apnea. Ravenel Sleepiness Scale score of 14. Will obtain home sleep study. Orders: Orders RT home sleep study Today G47.33 - Obstructive sleep apnea (adult) (pediatric) Coding Level of Care Code New Pt Level 3 (80228) Diagnoses TAURUS (obstructive sleep apnea) G47.33
== END 2023-09-08 10:05 | disposition home or self-care (01) ==
PROVIDERS: PCP Internal Medicine; Referring Provider Internal Medicine; Visit Provider Internal Medicine Pulmonary Disease
DX: G47.33 Obstructive sleep apnea (adult) (pediatric) (principal)
CPT/HCPCS: 99203

== ENCOUNTER → 2023-09-08 09:33 | Outpatient (BNVA) | payer MEDICARE, SELFPAY | PROVIDERS: PCP Internal Medicine; Referring Provider Internal Medicine; Visit Provider Internal Medicine Pulmonary Disease | DX: G47.33 Obstructive sleep apnea (adult) (pediatric) (principal) | CPT/HCPCS: 99202 ==

== ENCOUNTER 2023-09-09 11:31 | Outpatient (AMB) | payer MEDICARE, SELFPAY ==
[2023-09-09 11:33] VITALS: BP 144/70; PULSE 67; O2SAT 99; BMI 32.7
--- NOTE | 2023-09-09 11:33 | HO.NEPHOV_ITS ---
Vital Signs 09/09/23 11:33 Height 5 ft 9.75 in Weight 226 lb BMI 32.7 BP 144/70 H Blood Pressure Location Lt brachial Position Sitting Pulse 67 Pulse Source Pulse Oximeter Pulse Oximetry (%) 99 Oxygen Delivery Method Room Air Intake Visit Reasons: Hypertension/ 3 weeks fu/ Conf [employer] Person Required: No Accompanied by: Spouse Allergies diphenhydramine [From BENADRYL ALLERGY] Allergy (Unknown, Verified 09/09/23 11:35) HEART RACING AND TIREDNESS Medication List - Last Reconciled 09/09/23 by Jin Sun MD amlodipine 5 mg PO DAILY blood sugar diagnostic As directed blood sugar diagnostic check blood sugar twice a day as directed blood sugar diagnostic ([employer] Ultra Test strips) As directed twice a day ac carvedilol (Coreg) 6.25 mg PO BID 90 days eplerenone 25 mg PO BID losartan 100 mg PO DAILY metformin 1,000 mg PO DAILY simvastatin 20 mg PO BEDTIME vitamins A,C,K-pxkn-yvwjoj 4,296 mcg-226 mg-90 mg (PreserVision AREDS) 1 cap PO BID HPI Comments Details: Sadiq is a pleasant 78-year-old man with a history of hypertension for several years. Galen is on 3 anti hypertensives Until about 6 months ago, BP was acceptable Recently BP has been difficult to control Home SBP is aroud 150-160 mmHG Metoprolol was switched to Coreg yesterday due to nightmares Other meds include Amlodipine 10 mg and Losartan 100 mg QD He was on triamterene and this was stopped recently he has a h/o bilateral adrenal adenoma measuring 7.4 and 3.6 cm This was being followe dby urology for the past 4 years There has been a mild increase in size over the past few years Did not under go any biochemical work up thus far Interestingly he has unprovoked hypokalemia of 2.6 mmol in May 2023 with Alkalosis of 31 One episode of sweating while on Metoprolol. No significant palpitations or unexplained sweating h/o occational lightheadedness No h/o smoking Retired , used to work for [employer] 08/19/2023 Overall doing well from his previous visit. He has been monitoring blood pressure at home. Systolic blood pressure is I40 - 150 mm Hg despite 3 antihypertensives. 09/09/2023. Home blood pressure readings revealed systolic blood pressure in the range of 140-150. He is on eplerenone 25 mg. He underwent colonoscopy. Metformin has been decreased to 1000 mg a day. Diarrhea is improved. Colonoscopy did reveal microscopic colitis. 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 Right bundle branch block (RBBB) 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, without long-term current use of insulin Dyslipidemia Bilateral renal cysts Actinic keratosis Neuropathic arthritis Essential hypertension Surgical History Hx of bilateral cataract extraction Hx of cervical discectomy History of esophagogastroduodenoscopy (EGD) Hx of LASIK Hx of colonoscopy Status post Mohs surgery Family History Mother Chronic kidney disease Cardiovascular disease Diabetes mellitus Brother Diabetes mellitus Skin cancer Social History Housing: House Alcohol intake: current Patient Tobacco Use Status: Never used Tobacco e-Cigarette/Vaping Use: Never Used service: No Current occupational status: retired Cognitive needs: No Hearing needs: No Vision needs: Yes Physical Exam Vital Signs: Last Vital Signs Pulse 67 09/09/23 11:33 BP 144/70 H 09/09/23 11:33 Pulse Ox 99 09/09/23 11:33 Oxygen Delivery Method Room Air 09/09/23 11:33 BMI result Body Mass Index 32.7 Const General: no acute distress and alert Nutritional Appearance: obese Orientation/consciousness: Other orientation findings ( oriented) HEENT Head: Yes atraumatic Eyes General: appearance normal, both eyes and all related structures Sclerae: sclerae normal EOM: EOMs intact bilaterally Neck Neck: Yes supple Lymphatic: no lymphadenopathy noted Resp Effort & Inspection: normal respiratory effort and no use of accessory muscles Auscultation: clear to auscultation bilaterally Cardio Rate: regular rate Rhythm: regular rhythm Heart sounds: no gallops, no murmurs and no rubs Skin General skin exam: other ( warm) Extrem General: No clubbing, No cyanosis and No edema Results Reviewed Nephrology Results: Hgb 13.0 g/dl (14.0-18.0) L 08/26/23 WBC 6.5 X10*3/uL (4.8-10.8) 08/26/23 Plt Count 291 X10*3/uL (160-400) 08/26/23 Sodium 143 mmol/L (135-145) 08/26/23 Potassium 3.5 mmol/L (3.3-5.1) 08/26/23 Chloride 107 mmol/L (96-108) 08/26/23 Carbon Dioxide 27 mmol/L (22-29) 08/26/23 BUN 14 mg/dL (9-16) 08/26/23 Creatinine 0.83 mg/dL (0.5-1.4) 08/26/23 Calcium 9.4 mg/dL (8.4-10.2) 08/26/23 Urine Creatinine 88.79 mg/dL 08/12/23 Assessment & Plan Assessment & Plan (1) Adrenal adenoma: Code(s): D35.00 - Benign neoplasm of unspecified adrenal gland Category: Medical (2) Hypokalemia: Code(s): E87.6 - Hypokalemia Category: Medical (3) Uncontrolled hypertension: Code(s): I10 - Essential (primary) hypertension Category: Medical Plan Sadiq has longstanding hypertension. He is bilateral adrenal adenoma. The adenomas have gradually increased in size over the last 4 years. He has spontaneous hypokalemia and metabolic alkalosis in the setting of hy pertension. PA/PRA is 52 ( elevated) suspicious for primary hyperaldosteronism. Pheochromocytoma seems less likely based on the clinical picture Aldosterone is elevated and PA/PRA ratio is elevated ; would require adrenal vein sampling to see if there is any lateralization. However since he has adenomas on both sides I am not sure if this will be of any clinical relevance. At this point I would try an aldosterone omega and monitor the adrenal adenomas closely. He has tenderness on the left breast therefore I will not use spironolactone. Based on home blood pressure readings I would increase eplerenone to 25 mg twice a day He has been taking amlodipine 10 mg a day since he was unable to break it. He still has some edema. Decrease amlodipine from 10 mg to 5 mg daily. Monitor blood pressure at home and we should be able to lower amlodipine further. Orders: Orders Basic Metabolic Panel 6 Weeks E87.6 - Hypokalemia, I10 - Essential (primary) hypertension Hemoglobin A1c 6 Weeks E87.6 - Hypokalemia, I10 - Essential (primary) hypertension Medications: Changed From eplerenone 25 mg PO DAILY 30 tabs 0RF To eplerenone 25 mg PO BID 180 tabs 1RF From amlodipine 5 mg PO DAILY To amlodipine 5 mg PO DAILY 90 tabs 0RF Coding Level of Care Code Est Pt Level 4 (25179) Diagnoses Adrenal adenoma D35.00 Hypokalemia E87.6 Uncontrolled hypertension I10
== END 2023-09-09 11:52 | disposition home or self-care (01) ==
PROVIDERS: PCP Internal Medicine; Visit Provider Internal Medicine Hypertension Specialist
DX: D35.00 Benign neoplasm of unspecified adrenal gland (principal); E87.6 Hypokalemia; I10 Essential (primary) hypertension
CPT/HCPCS: 99214

== ENCOUNTER → 2023-09-09 11:31 | Outpatient (BNVA) | payer MEDICARE, SELFPAY | PROVIDERS: PCP Internal Medicine; Visit Provider Internal Medicine Hypertension Specialist | DX: I10 Essential (primary) hypertension (principal); D35.00 Benign neoplasm of unspecified adrenal gland; E87.6 Hypokalemia | CPT/HCPCS: 99212 ==

== ENCOUNTER 2023-09-30 06:12 | Outpatient (REF) | payer MEDICARE, SELFPAY ==
[2023-09-30 11:04] LABS: MANUAL DIFF FLAG NO
[2023-09-30 11:17] LABS: Basophils Percent Auto 0.5 % (0-2); Eosinophils Absolute Auto 0.1 X10*3/uL (0.0-0.4); Eosinophils Percent Auto 1.8 % (0-4); Hematocrit 38.5 % (42.0-52.0); Imm Gran Abs Auto 0.02 X10*3/uL (0.00-0.03); Imm Gran Pct Auto 0.3 % (0.0-0.4); Lymphocytes Percent Auto 16.6 % (20-40); Mean Corpuscular HGB Conc 33.8 g/dl (31.0-36.0); Mean Corpuscular Hemoglobin 31.6 pg (27.0-33.0); Mean Corpuscular Volume 93.4 fL (80.0-98.0); Mean Platelet Volume 9.9 fL (9.4-12.4); Monocytes Absolute Auto 0.7 X10*3/uL (0.1-1.2); Monocytes Percent Auto 11.5 % (2-11); Neutrophils Absolute Auto 4.3 x10*3/uL (2.0-8.3); Neutrophils Percent Auto 69.3 % (45-73); Platelet Count 246 X10*3/uL (160-400); Red Blood Count 4.12 X10*6/uL (4.60-5.80); Red Cell Distribution Width 12.9 % (11.0-16.0); White Blood Count 6.2 X10*3/uL (4.8-10.8)
[2023-09-30 11:27] LABS: Alanine Aminotransferase 17 U/L (0-40); Anion Gap 14 (12-20); Aspartate Amino Transferase 20 U/L (5-37); Blood Urea Nitrogen 18 mg/dL (9-16); Carbon Dioxide 27 mmol/L (22-29); Chloride 106 mmol/L (96-108); Cholesterol 170 mg/dL (<200); Estimated Glomerular Filt Rate > 60; Glucose Fasting 139 mg/dL (60-99); Glucose Random 139 mg/dL (60-115); HDL Cholesterol 48 mg/dL (>40); LDL Cholesterol Calculated 86 mg/dL (<100); Potassium 3.9 mmol/L (3.3-5.1); Sodium 143 mmol/L (135-145); Triglycerides 181 mg/dL (<150)
[2023-09-30 11:45] LABS: Vitamin D 25-OH Total 59.7 ng/mL (>30)
[2023-09-30 11:54] LABS: Estimated Average Glucose 140 mg/dL; Hemoglobin A1c % 6.5 % (<6.0)
== END 2023-09-30 06:13 | disposition home or self-care (01) ==
LOC: HO.HMGCLDS 06:12
PROVIDERS: PCP Internal Medicine; Referring Provider Internal Medicine; Visit Provider Internal Medicine Hypertension Specialist
DX: E11.29 Type 2 diabetes mellitus with other diabetic kidney complication (principal); E87.6 Hypokalemia; I10 Essential (primary) hypertension; E78.5 Hyperlipidemia, unspecified
CPT/HCPCS: 36415; 80048; 80061; 82306; 83036; 84450; 84460; 85025

== ENCOUNTER 2023-10-07 10:51 | Outpatient (AMB) | payer MEDICARE, SELFPAY ==
[2023-10-07 10:49] VITALS: BP 146/70; PULSE 67; O2SAT 97; BMI 32.4
--- NOTE | 2023-10-07 10:49 | HO.NEPHOV ---
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 Accompanied by: Spouse Allergies diphenhydramine [From BENADRYL ALLERGY] Allergy (Unknown, Verified 10/07/23 10:52) HEART RACING AND TIREDNESS Medication List - Last Reconciled 10/07/23 by Jin Sun MD amlodipine 5 mg PO DAILY blood sugar diagnostic As directed blood sugar diagnostic check blood sugar twice a day as directed blood sugar diagnostic ([employer] Ultra Test strips) As directed twice a day ac carvedilol (Coreg) 6.25 mg PO BID 90 days eplerenone 50 mg PO BID losartan 100 mg PO DAILY metformin 1,000 mg PO DAILY simvastatin 20 mg PO BEDTIME vitamins A,C,V-vmwk-ulvbce 4,296 mcg-226 mg-90 mg (PreserVision AREDS) 1 cap PO BID HPI Comments Details: Sadiq is a pleasant 78-year-old man with a history of hypertension for several years. Galen is on 3 anti hypertensives Until about 6 months ago, BP was acceptable Recently BP has been difficult to control Home SBP is aroud 150-160 mmHG Metoprolol was switched to Coreg yesterday due to nightmares Other meds include Amlodipine 10 mg and Losartan 100 mg QD He was on triamterene and this was stopped recently he has a h/o bilateral adrenal adenoma measuring 7.4 and 3.6 cm This was being followe dby urology for the past 4 years There has been a mild increase in size over the past few years Did not under go any biochemical work up thus far Interestingly he has unprovoked hypokalemia of 2.6 mmol in May 2023 with Alkalosis of 31 One episode of sweating while on Metoprolol. No significant palpitations or unexplained sweating h/o occational lightheadedness No h/o smoking Retired , used to work for [employer] 08/19/2023 Overall doing well from his previous visit. He has been monitoring blood pressure at home. Systolic blood pressure is I40 -150 mm Hg despite 3 antihypertensives. 09/09/2023. Home blood pressure readings revealed systolic blood pressure in the range of 140-150. He is on eplerenone 25 mg. He underwent colonoscopy. Metformin has been decreased to 1000 mg a day. Diarrhea is improved. Colonoscopy did reveal microscopic colitis. 10/07/2023. Overall is doing well. Tolerating eplerenone 25 mg twice a day. Potassium is in normal range. All home blood pressure readings were reviewed in average systolic blood pressure around 140 mm Hg. 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 Right bundle branch block (RBBB) 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, without long-term current use of insulin Dyslipidemia Bilateral renal cysts Actinic keratosis Neuropathic arthritis Essential hypertension Surgical History Hx of bilateral cataract extraction Hx of cervical discectomy History of esophagogastroduodenoscopy (EGD) Hx of LASIK Hx of colonoscopy Status post Mohs surgery Family History Mother Chronic kidney disease Cardiovascular disease Diabetes mellitus Brother Diabetes mellitus Skin cancer Social History Housing: House Alcohol intake: current Patient Tobacco Use Status: Never used Tobacco e-Cigarette/Vaping Use: Never Used service: No Current occupational status: retired Cognitive needs: No Hearing needs: No Vision needs: Yes Physical Exam Vital Signs: Last Vital Signs Pulse 67 10/07/23 10:49 BP 146/70 H 10/07/23 10:49 Pulse Ox 97 10/07/23 10:49 Oxygen Delivery Method Room Air 10/07/23 10:49 BMI result Body Mass Index 32.4 Const General: comfortable; No acute distress Orientation/consciousness: patient oriented x3 Eyes General: appearance normal, both eyes and all related structures Visual Dillon: normal visual dillon by confrontation Neck Neck: Yes supple and Yes no JVD Resp Effort & Inspection: normal respiratory effort and respiratory effort not decreased Auscultation: rhonchi Cardio Palpation: no palpable S3 and no palpable S4 Heart sounds: no rubs GI Inspection: Yes normal to inspection Palpation (GI): Soft to palpation Percussion: Yes normal to percussion Auscultation: normal bowel sounds General: Yes no CVA tenderness Back/Spine/Pelvis Back: no CVA tenderness Skin General skin exam: no petechiae and no purpura Neuro General: patient oriented x3 and no focal motor deficits Extrem General: No clubbing and No edema Results Reviewed Nephrology Results: Hgb 13.0 g/dl (14.0-18.0) L 09/30/23 WBC 6.2 X10*3/uL (4.8-10.8) 09/30/23 Plt Count 246 X10*3/uL (160-400) 09/30/23 Sodium 143 mmol/L (135-145) 09/30/23 Potassium 3.9 mmol/L (3.3-5.1) 09/30/23 Chloride 106 mmol/L (96-108) 09/30/23 Carbon Dioxide 27 mmol/L (22-29) 09/30/23 BUN 18 mg/dL (9-16) H 09/30/23 Creatinine 1.02 mg/dL (0.5-1.4) 09/30/23 Calcium 10.0 mg/dL (8.4-10.2) 09/30/23 Urine Creatinine 88.79 mg/dL 08/12/23 Assessment & Plan Assessment & Plan (1) Adrenal adenoma: Code(s): D35.00 - Benign neoplasm of unspecified adrenal gland Category: Medical (2) Hypokalemia: Code(s): E87.6 - Hypokalemia Category: Medical (3) Uncontrolled hypertension: Code(s): I10 - Essential (primary) hypertension Category: Medical Plan Sadiq has longstanding hypertension. He is bilateral adrenal adenoma. The adenomas have gradually increased in size over the last 4 years. He has spontaneous hypokalemia and metabolic alkalosis in the setting of hypertension. PA/PRA is 52 ( elevated) suspicious for primary hyperaldosteronism. Pheochromocytoma seems less likely based on the clinical picture Aldosterone is elevated and PA/PRA ratio is elevated ; would require adrenal vein sampling to see if there is any lateralization. However since he has adenomas on both sides I am not sure if this will be of any clinical relevance. At this point I would try an aldosterone omega and monitor the adrenal adenomas closely. He has tenderness on the left breast therefore I will not use spironolactone. Based on home blood pressure readings I would increase eplerenone to 50 mg twice a day Leg edema due to amlodipine 10 mg. Edema significantly improved after lowering to 5 mg. Keep amlodipine at 5 mg daily. Monitor blood pressure at home and we should be able to lower amlodipine further since I have increased the eplerenone. Shall will monitor potassium in the next few weeks Orders: Orders Basic Metabolic Panel 4 Weeks D35.00 - Benign neoplasm of unspecified adrenal gland, E87.6 - Hypokalemia Medications: Changed From eplerenone 25 mg PO BID 180 tabs 1RF To eplerenone 50 mg PO BID Coding Level of Care Code Est Pt Level 4 (63461) Diagnoses Adrenal adenoma D35.00 Hypokalemia E87.6 Uncontrolled hypertension I10
== END 2023-10-07 11:08 | disposition home or self-care (01) ==
PROVIDERS: PCP Internal Medicine; Visit Provider Internal Medicine Hypertension Specialist
DX: D35.00 Benign neoplasm of unspecified adrenal gland (principal); E87.6 Hypokalemia; I10 Essential (primary) hypertension
CPT/HCPCS: 99214

== ENCOUNTER → 2023-10-07 10:51 | Outpatient (BNVA) | payer MEDICARE, SELFPAY | PROVIDERS: PCP Internal Medicine; Visit Provider Internal Medicine Hypertension Specialist | DX: I10 Essential (primary) hypertension (principal); E87.6 Hypokalemia; D35.01 Benign neoplasm of right adrenal gland; D35.02 Benign neoplasm of left adrenal gland | CPT/HCPCS: 99212 ==

== ENCOUNTER 2023-10-14 10:35 | Outpatient (AMB) | payer MEDICARE, SELFPAY ==
[2023-10-14 10:48] VITALS: BP 146/70; PULSE 61; O2SAT 96; BMI 32.4
--- NOTE | 2023-10-14 10:48 | MHC.PC.OV ---
Vital Signs 10/14/23 10:48 Height 5 ft 9.75 in Weight 224 lb BMI 32.4 BP 146/70 H Blood Pressure Location Lt brachial Position Sitting Pulse 61 Pulse Source Pulse Oximeter Pulse Oximetry (%) 96 Oxygen Delivery Method Room Air Intake Visit Reasons: Follow up Intake Note: Pt is here today for his f/u DM Allergies diphenhydramine [From BENADRYL ALLERGY] Allergy (Unknown, Verified 10/14/23 11:11) HEART RACING AND TIREDNESS Medication List - Last Reconciled 10/14/23 by Pebbles Mcarthur MD amlodipine 5 mg PO DAILY blood sugar diagnostic As directed blood sugar diagnostic check blood sugar twice a day as directed blood sugar diagnostic ([employer] Ultra Test strips) As directed twice a day ac carvedilol (Coreg) 6.25 mg PO BID 90 days eplerenone 50 mg PO BID losartan 100 mg PO DAILY metformin 1,000 mg PO DAILY simvastatin 20 mg PO BEDTIME vitamins A,C,V-wkzt-pvknkt 4,296 mcg-226 mg-90 mg (PreserVision AREDS) 1 cap PO BID Tobacco use date assessed: 10/14/23 Fall risk assessment: No Falls in past year Last assessed Fall Risk: 10/14/23 Dental Screening Dental Screen Date: 10/14/23 Did you have a dental visit in the last 12 months?: Yes Did you have a dental problem in the last 6 months where you did not have access to dental care?: Yes Was dental information given to patient?: Patient has dentist HPI Follow up HPI Details 78-year-old male here today for follow-up on his diabetes mellitus. He is currently taking metformin a 1000 mg 1 tablet twice a day, with latest hemoglobin A1c at 6.7%. Fasting lipids are also within normal limits. Has been feeling well with no complaints at present time. Currently being seen by up-to-date for uncontrolled hypertension, recently started on eplerenone 50 mg 1 tablet twice a day in addition to his losartan 100 mg daily and amlodipine 5 mg daily. 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, without long-term current use of insulin Dyslipidemia Bilateral renal cysts Actinic keratosis Neuropathic arthritis Essential hypertension Surgical History Hx of bilateral cataract extraction Hx of cervical discectomy History of esophagogastroduodenoscopy (EGD) Hx of LASIK Hx of colonoscopy Status post Mohs surgery Family History Mother Chronic kidney disease Cardiovascular disease Diabetes mellitus Brother Diabetes mellitus Skin cancer Social History Housing: House Alcohol intake: current Patient Tobacco Use Status: Never used Tobacco e-Cigarette/Vaping Use: Never Used service: No Current occupational status: retired Cognitive needs: No Hearing needs: No Vision needs: Yes Questionnaire PHQ-9 Over the last 2 weeks, how often have you been bothered by any of the following problems? 1. Little interest or pleasure in doing things: not at all 2. Feeling down, depressed, or hopeless: not at all 3. Trouble falling or staying asleep, or sleeping too much: not at all 4. Feeling tired or having little energy: not at all 5. Poor appetite or overeating: not at all 6. Feeling bad about yourself - or that you are a failure or have let yourself or your family down: not at all 7. Trouble concentrating on things, such as reading the newspaper or watching television: not at all 8. Moving or speaking so slowly that other people could have noticed. Or the opposite - being so fidgety or restless that you have been moving around a lot more than usual: not at all 9. Thoughts that you would be better off or of hurting yourself in some way: not at all Total score: 0 Depression Screening Interpretation: Negative Depression Screening Done: Yes Source: Developed by Drs. Chapincito Livingston, Natalie Shaw, Mynor Nino and colleagues, with an educational pollo from [employer]. Thrive Questionnaire Date Thrive assessed: 10/14/23 I am a: Patient What is your living situation today?: I have a steady place to live Within the past 12 months, did the food you bought not last and you didn't have the money to get more?: I choose not to answer this question Within the past 12 months, did you worry whether your food would run out before you got money to buy more?: I choose not to answer this question Do you have trouble paying for medicines?: I choose not to answer this question Do you have trouble getting transportation to medical appointments?: No Do you have trouble paying your heating and electricity bill?: No Do you have trouble taking care of your child, family member or friend?: No Do you have trouble with day-to-day activities such as bathing, preparing meals, shopping, managing finances, etc.?: No Are you currently unemployed and looking for a job?: No Are you interested in more education?: No Please select the resources that you would like help with: Housing/Nursing Home Currently or been in a relationship where the following occur: No concerns reported THRIVE Score: 0 AUDIT C Alcohol Use Questionnaire (AUDIT-C) 1. How often do you have a drink containing alcohol?: Monthly or less 2. How many drinks containing alcohol do you have on a typical day when you are drinking?: 1 or 2 3. How often do you have six or more drinks on one occasion?: Never Total Score: 1 YAMILA-7 AMB Questionnaire YAMILA-7 Date YAMILA - 7 assessed: 10/14/23 Feeling nervous, anxious, or on edge: 0 = Not at all Not being able to stop or control worryin = Not at all Worrying too much about different things: 0 = Not at all Trouble relaxin = Not at all Being so restless that it is hard to sit still: 0 = Not at all Becoming easily annoyed or irritable: 0 = Not at all Feeling afraid as if something awful might happen: 0 = Not at all Total YAMILA-7 score (0-4 normal; 5-9 mild; 10-14 moderate; 15-21 severe): 0 Source: Developed by Drs. Chapincito Livingston, Natalie Shaw, Mynor Nino and colleagues, with an educational pollo from [employer]. Review of Systems Const Denies headache(s) and Denies weakness Eyes Denies change in vision ENT Denies dizziness and Denies headache(s) Card Denies chest pain, Denies chest pain with activity, Denies syncope, Denies rapid heart rate, Denies pedal edema, Denies lightheadedness, Denies palpitations, Denies dyspnea and Denies dyspnea on exertion Resp Denies cough, Denies dyspnea and Denies dyspnea on exertion GI Reports no additional complaints Reports no additional complaints Musc Denies abnormal gait, Denies muscle cramps, Denies muscle weakness, Denies numbness, Denies radiating pain into limb, Reports stiffness and Denies tingling Skin/Breast Details: Followed yearly by Dr. Allen Reports system reviewed and no additional complaints, except as documented Neuro Denies abnormal gait, Denies dizziness, Denies syncope, Denies headache(s), Denies numbness, Denies tingling and Denies weakness Psych Reports no additional complaints Endo Denies palpitations Kp/Lymph Reports no additional complaints Aller/Immun Reports no additional complaints Physical exam (Primary Care) Vital Signs: Last Vital Signs Pulse 61 10/14/23 10:48 BP 146/70 H 10/14/23 10:48 Pulse Ox 96 10/14/23 10:48 Oxygen Delivery Method Room Air 10/14/23 10:48 BMI result Body Mass Index 32.4 Tobacco/Smoking Status: Tobacco use Status Tobacco use date assessed 10/14/23 10/14/23 10:54 Patient Tobacco Use Status Never used Tobacco 10/14/23 10:54 e-Cigarette/Vaping Use Never Used 10/14/23 10:54 PHQ-9: PHQ-9 Score PHQ-9: Total score 0 10/14/23 11:12 Depression Screening Interpretation: Negative Thrive Assessment: Date of Thrive Assessment Date Thrive assessed 10/14/23 10/14/23 10:54 Currently or been in a relationship where the following occur: No concerns reported Const Other: Alert oriented x3, no acute distress noted ambulatory Orientation/consciousness: patient oriented x3 [facility] Head: Yes normocephalic and Yes atraumatic Ears: hearing grossly normal bilaterally Face and sinus: Yes face symmetric Mouth: Normal oral and palatal mucosa present and moist mucous membranes Eyes General: appearance normal, both eyes and all related structures Neck Other: Supple, no lymphadenopathy, thyroid gland nonpalpable Resp Auscultation: clear to auscultation bilaterally Cardio Other: S1-S2 present regular rate and rhythm with frequent skipped beats GI Other: Normal bowel sounds, soft, nontender, no mass palpated General: Yes no CVA tenderness Back/Spine/Pelvis Back: no CVA tenderness Skin General skin exam: no rashes or lesions noted Neuro General: patient oriented x3, gait normal, tone normal, Normal light touch and pain sensation, no focal motor deficits and CN's II-XI intact bilaterally Extrem General: Yes no joint enlargement, Yes no clubbing, cyanosis or edema, Yes no pedal edema and Yes no calf tenderness Psych Appearance: grossly normal and well kempt Mental Status: mental status grossly normal Speech and movement: Normal speech and movement present Affect: normal affect Results Reviewed Results Reviewed: Laboratory Tests 09/30/23 06:42 Estimat Average Glucose 140 Hemoglobin A1c % 6.5 H Name: Sadiq Middleton Jr Age/Sex: 78/M : 1945 Unit#: [id number] Attend Dr: Jni Sun MD Re09/30/23 Status: DEP REF Location: [facility] Disch: SPEC : [id number] SUMMER: 09/30/23 STATUS: COMP REQ : [id number] RECD: 09/30/23-[address]: Jin Sun MD COMP: 09/30/23 ENTERED: 09/30/23-[address]: Pebbles Mcarthur MD ORDERED: BMP, Met Prof Fast, AST, ALT, Lipid Panel Test Result Flag Reference Sodium 143 135-145 mmol/L Potassium 3.9 3.3-5.1 mmol/L CL 106 96-108 mmol/L CO2 27 22-29 mmol/L Gap 14 12-20 BUN 18 H 9-16 mg/dL Creat 1.02 0.5-1.4 mg/dL EGFR > 60 NOTE: For -[place] individuals, multiply the result by 1.210. Chronic Kidney Disease: Estimated GFR < 60 mL/min/1.73m2 Severe Kidney Disease: Estimated GFR < 15 mL/min/1.73m2 Glucose, Random 139 H 60-115 mg/dL FBS 139 H 60-99 mg/dL A fasting glucose of 126 mg/dl or greater on more than one occasion is considered diagnostic of diabetes. CA 10.0 # 8.4-10.2 mg/dL AST (GOT) 20 5-37 U/L ALT (GPT) 17 0-40 U/L Triglyceride 181 H <150 mg/dL Desirable Triglyceride: less than 150 mg/dL Borderline High Triglyceride 150-199 mg/dL High Triglyceride: 200-499 mg/dL Very High Triglyceride: greater than or equal to 5OO mg/dL Cholesterol 170 <200 mg/dL Desirable Cholesterol: less than 200 mg/dL Borderline High Cholesterol: 200-239 mg/dL High Cholesterol: greater than 239 mg/dL LDL Calculated 86 <100 mg/dL Desirable LDL: less than 100 mg/dL Near Optimal/Above Optimal LDL: 110-129 mg/dL Borderline High LDL: 130-159 mg/dL High LDL: 160-189 mg/dL Very High LDL: greater than or equal to 190 mg/dL HDL 48 >40 mg/dL Desirable HDL: greater than 40 mg/dL Note: This HDL assay may give artificially low results in patients with liver disease. Assessment and Plan Assessment & Plan (1) Dyslipidemia: Code(s): E78.5 - Hyperlipidemia, unspecified Plan: Lipids are within normal limits continue with simvastatin 20 mg daily (2) Diabetes mellitus with kidney complication, without long-term current use of insulin: Code(s): E11.29 - Type 2 diabetes mellitus with other diabetic kidney complication Qualifiers: Diabetes mellitus complication detail: with microalbuminuria Diabetes mellitus type: type 2 Qualified Code(s): E11.29 - Type 2 diabetes mellitus with other diabetic kidney complication; R80.9 - Proteinuria, unspecified Plan: Hemoglobin A1c is at 6.5 %, will continue on metformin 1000 mg 1 tablet twice a day Orders: Orders Hemoglobin A1c 01/30/24 E11.29 - Type 2 diabetes mellitus with other diabetic kidney complication, E78.5 - Hyperlipidemia, unspecified, R80.9 - Proteinuria, unspecified Aspartate Amino Transferase 01/30/24 E11.29 - Type 2 diabetes mellitus with other diabetic kidney complication, E78.5 - Hyperlipidemia, unspecified, R80.9 - Proteinuria, unspecified Lipid Panel 01/30/24 E11.29 - Type 2 diabetes mellitus with other diabetic kidney complication, E78.5 - Hyperlipidemia, unspecified, R80.9 - Proteinuria, unspecified Alanine Aminotransferase 01/30/24 E11.29 - Type 2 diabetes mellitus with other diabetic kidney complication, E78.5 - Hyperlipidemia, unspecified, R80.9 - Proteinuria, unspecified Coding Level of Care Code Est Pt Level 4 (45509) Complex EM visit Add On G2211 Diagnoses Dyslipidemia E78.5 Type 2 diabetes mellitus with microalbuminuria, without long-term current use of insulin E11.29; R80.9 Diabetes mellitus complication detail: with microalbuminuria Diabetes mellitus type: type 2
== END 2023-10-14 11:57 | disposition home or self-care (01) ==
PROVIDERS: PCP Internal Medicine; Visit Provider Internal Medicine
DX: E78.5 Hyperlipidemia, unspecified (principal); E11.29 Type 2 diabetes mellitus with other diabetic kidney complication; R80.9 Proteinuria, unspecified
CPT/HCPCS: 99214; G2211

== ENCOUNTER 2023-11-13 06:04 | Outpatient (REF) | payer MEDICARE, SELFPAY ==
[2023-11-13 10:19] LABS: Anion Gap 14 (12-20); Blood Urea Nitrogen 18 mg/dL (9-16); Calcium 9.9 mg/dL (8.4-10.2); Carbon Dioxide 24 mmol/L (22-29); Chloride 106 mmol/L (96-108); Estimated Glomerular Filt Rate > 60; Glucose Random 129 mg/dL (60-115); Sodium 140 mmol/L (135-145)
== END 2023-11-13 06:05 | disposition home or self-care (01) ==
LOC: HO.HMGCLDS 06:04
PROVIDERS: PCP Internal Medicine; Visit Provider Internal Medicine Hypertension Specialist
DX: E87.6 Hypokalemia (principal); D35.00 Benign neoplasm of unspecified adrenal gland; E87.5 Hyperkalemia
CPT/HCPCS: 36415; 80048

== ENCOUNTER 2023-11-17 08:51 | Outpatient (AMB) | payer MEDICARE, SELFPAY ==
[2023-11-17 09:05] VITALS: BP 138/60; PULSE 62; BMI 32.8
--- NOTE | 2023-11-17 09:05 | MHC.OFFVIS ---
Vital Signs 11/17/23 09:05 Height 5 ft 9 in Weight 222 lb BMI 32.8 BP 138/60 Blood Pressure Location Lt brachial Position Sitting Pulse 62 Pulse Source Pulse Oximeter Intake Visit Reasons: 3m follow up Allergies diphenhydramine [From BENADRYL ALLERGY] Allergy (Unknown, Verified 10/14/23 11:11) HEART RACING AND TIREDNESS Medication List - Last Reconciled 11/17/23 by Bakari Bingham MD amlodipine 5 mg PO DAILY aspirin (Adult Aspirin Regimen) 81 mg PO DAILY blood sugar diagnostic As directed blood sugar diagnostic check blood sugar twice a day as directed blood sugar diagnostic ([email or web address] Ultra Test strips) As directed twice a day ac carvedilol (Coreg) 6.25 mg PO BID 90 days eplerenone 50 mg (2 x 25 mg) PO BID 90 days losartan 100 mg PO DAILY metformin 1,000 mg PO DAILY simvastatin 20 mg PO BEDTIME vitamins A,C,V-wvau-htomxp 4,296 mcg-226 mg-90 mg (PreserVision AREDS) 1 cap PO BID HPI Comments Details: Sadiq returns for follow-up. To recall, he was initially seen in consultation regarding abnormal EKG. EKG from primary care physician's office had shown frequent PACs as well as right bundle-branch block and he was referred here. Patient himself does not have any clear cardiac complaints. No angina or shortness of breath within limits of his activity. He even plays golf regularly, several times a week with absolutely no issues. Multiple cardiovascular risk factors including type 2 diabetes, hypertension, dyslipidemia. No previous history of any coronary artery disease or myocardial infarction or cardiomyopathy. With regard to blood pressure, seems slightly better but still not ideal. It seems that he is seeing Nephrology and has been diagnosed with possibly primary hyperaldosteronism. 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, without long-term current use of insulin Dyslipidemia Bilateral renal cysts Actinic keratosis Neuropathic arthritis Essential hypertension Surgical History Hx of bilateral cataract extraction Hx of cervical discectomy History of esophagogastroduodenoscopy (EGD) Hx of LASIK Hx of colonoscopy Status post Mohs surgery Family History Mother Chronic kidney disease Cardiovascular disease Diabetes mellitus Brother Diabetes mellitus Skin cancer Social History Housing: House Alcohol intake: current Patient Tobacco Use Status: Never used Tobacco e-Cigarette/Vaping Use: Never Used service: No Current occupational status: retired Cognitive needs: No Hearing needs: No Vision needs: Yes Review of Systems Const Denies weakness ENT Denies dizziness Card Denies chest pain, Denies chest pain with activity, Denies syncope, Denies rapid heart rate, Denies pedal edema, Denies edema, Denies leg edema, Denies lightheadedness, Denies palpitations, Denies dyspnea, Denies dyspnea on exertion and Denies orthopnea Resp Denies cough, Denies dyspnea and Denies dyspnea on exertion GI Denies hematochezia and Denies change in stool character Musc Denies abnormal gait, Denies muscle cramps, Denies muscle weakness, Denies numbness, Denies radiating pain into limb and Denies tingling Neuro Denies abnormal gait, Denies dizziness, Denies syncope, Denies numbness, Denies tingling and Denies weakness Endo Denies palpitations Physical Exam Vital Signs: Last Vital Signs Pulse 62 11/17/23 09:05 BP 138/60 11/17/23 09:05 BMI result Body Mass Index 32.8 Const General: comfortable and no acute distress Orientation/consciousness: patient oriented x3 HEENT Other: Unremarkable Head: Yes normal to inspection Neck Neck: Yes normal visual inspection Chest Chest palpation & inspection: normal inspection of the chest Resp Auscultation: clear to auscultation bilaterally Cardio Palpation: normal PMI Heart sounds: S1 normal heart sound present, S2 normal heart sound present, no gallops, no murmurs and no rubs GI Palpation (GI): Soft to palpation Back/Spine/Pelvis Other: unremarkable Skin General skin exam: no rashes or lesions noted Neuro General: patient oriented x3 Extrem General: Yes normal to inspection Psych Mental Status: mental status grossly normal Assessment & Plan Assessment & Plan (1) Atherosclerotic cardiovascular disease: Code(s): I25.10 - Atherosclerotic heart disease of [place] coronary artery without angina pectoris Category: Medical (2) Atrial arrhythmia: Code(s): I49.8 - Other specified cardiac arrhythmias Category: Medical (3) Right bundle branch block (RBBB): Code(s): I45.10 - Unspecified right bundle-branch block Category: Medical (4) Diabetes mellitus with kidney complication, without long-term current use of insulin: Code(s): E11.29 - Type 2 diabetes mellitus with other diabetic kidney complication Category: Medical Qualifiers: Diabetes mellitus complication detail: with microalbuminuria Diabetes mellitus type: type 2 Qualified Code(s): E11.29 - Type 2 diabetes mellitus with other diabetic kidney complication; R80.9 - Proteinuria, unspecified (5) Essential hypertension: Code(s): I10 - Essential (primary) hypertension Category: Medical (6) Dyslipidemia: Code(s): E78.5 - Hyperlipidemia, unspecified Category: Medical Plan Cardiac studies reviewed. Echocardiogram with LVEF of 65%. Suspected moderate to severe LVH. Mild aortic and mitral calcification. Unremarkable valves. In the perfusion imaging, mild basal lateral wall ischemia. Holter monitor shows underlying sinus rhythm with an average rate of 64/Min. Frequent PACs and PVCs. Very short run of SVT thought to be possible atrial fibrillation-seems to be rather a short run of possibly just PACs. Clinically, he has got absolutely no angina. Hence we will treat this as stable coronary disease. Continue low-dose aspirin. With regard to blood pressure, nephrology notes reviewed. There is suspicion for primary hyperaldosteronism. Current meds listed include amlodipine, carvedilol, eplerenone, losartan. No changes. We also ordered a sleep study but he would rather not do it as it is apparently costing at least 100s of dollars even to get the test. He is not willing to pursue. Follow-up in 6 months. In the interim, he will call with concerns. Coding Level of Care Code Est Pt Level 4 (87315) Diagnoses Atherosclerotic cardiovascular disease I25.10 Atrial arrhythmia I49.8 Right bundle branch block (RBBB) I45.10 Type 2 diabetes mellitus with microalbuminuria, without long-term current use of insulin E11.29; R80.9 Diabetes mellitus complication detail: with microalbuminuria Diabetes mellitus type: type 2 Essential hypertension I10 Dyslipidemia E78.5
== END 2023-11-17 09:30 | disposition home or self-care (01) ==
PROVIDERS: PCP Internal Medicine; Referring Provider Internal Medicine; Visit Provider Internal Medicine
DX: I25.10 Atherosclerotic heart disease of native coronary artery without angina pectoris (principal); I49.8 Other specified cardiac arrhythmias; I45.10 Unspecified right bundle-branch block; E11.29 Type 2 diabetes mellitus with other diabetic kidney complication; R80.9 Proteinuria, unspecified; I10 Essential (primary) hypertension; E78.5 Hyperlipidemia, unspecified
CPT/HCPCS: 99214

== ENCOUNTER → 2023-11-17 08:51 | Outpatient (BNVA) | payer MEDICARE, SELFPAY | PROVIDERS: PCP Internal Medicine; Visit Provider Internal Medicine | DX: I10 Essential (primary) hypertension (principal); I25.10 Atherosclerotic heart disease of native coronary artery without angina pectoris; I49.8 Other specified cardiac arrhythmias; I45.10 Unspecified right bundle-branch block; E11.29 Type 2 diabetes mellitus with other diabetic kidney complication; E78.5 Hyperlipidemia, unspecified; R80.9 Proteinuria, unspecified | CPT/HCPCS: 99212 ==

== ENCOUNTER 2023-11-18 15:37 | Outpatient (AMB) | payer MEDICARE, SELFPAY ==
[2023-11-18 15:51] VITALS: BP 148/88; PULSE 67; O2SAT 96; BMI 33.5
--- NOTE | 2023-11-18 15:51 | HO.NEPHOV ---
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 by: Self / Same As Patient Allergies diphenhydramine [From BENADRYL ALLERGY] Allergy (Unknown, Verified 11/18/23 15:52) HEART RACING AND TIREDNESS Medication List - Last Reconciled 11/18/23 by Jin Sun MD amlodipine 5 mg PO DAILY aspirin (Adult Aspirin Regimen) 81 mg PO DAILY blood sugar diagnostic As directed blood sugar diagnostic check blood sugar twice a day as directed blood sugar diagnostic ([employer] Ultra Test strips) As directed twice a day ac carvedilol (Coreg) 6.25 mg PO BID 90 days losartan 100 mg PO DAILY metformin 1,000 mg PO DAILY simvastatin 20 mg PO BEDTIME vitamins A,C,A-pixa-ezfqix 4,296 mcg-226 mg-90 mg (PreserVision AREDS) 1 cap PO BID HPI Comments Details: Sadiq is a pleasant 78-year-old man with a history of hypertension for several years. Galen is on 3 anti hypertensives Until about 6 months ago, BP was acceptable Recently BP has been difficult to control Home SBP is aroud 150-160 mmHG Metoprolol was switched to Coreg yesterday due to nightmares Other meds include Amlodipine 10 mg and Losartan 100 mg QD He was on triamterene and this was stopped recently he has a h/o bilateral adrenal adenoma measuring 7.4 and 3.6 cm This was being followe dby urology for the past 4 years There has been a mild increase in size over the past few years Did not under go any biochemical work up thus far Interestingly he has unprovoked hypokalemia of 2.6 mmol in May 2023 with Alkalosis of 31 One episode of sweating while on Metoprolol. No significant palpitations or unexplained sweating h/o occational lightheadedness No h/o smoking Retired , used to work for [employer] 08/19/2023 Overall doing well from his previous visit. He has been monitoring blood pressure at home. Systolic blood pressure is I40 -150 mm Hg despite 3 antihypertensives. 09/09/2023. Home blood pressure readings revealed systolic blood pressure in the range of 140-150. He is on eplerenone 25 mg. He underwent colonoscopy. Metformin has been decreased to 1000 mg a day. Diarrhea is improved. Colonoscopy did reveal microscopic colitis. 10/07/2023. Overall is doing well. Tolerating eplerenone 25 mg twice a day. Potassium is in normal range. All home blood pressure readings were reviewed in average systolic blood pressure around 140 mm Hg. COUNTS INCLUDE 234 BEDS AT THE [facility] Medical History (Updated 10/14/23 @ 11:33 by Pebbles Mcarthur MD) Age-related macular degeneration, wet, right eye Sleep apnea History of ETT Kidney stones Diverticulosis Uncontrolled hypertension Positive colorectal cancer screening using Cologuard test 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 Right bundle branch block (RBBB) 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, without long-term current use of insulin Dyslipidemia Bilateral renal cysts Actinic keratosis Neuropathic arthritis Essential hypertension Surgical History Hx of bilateral cataract extraction Hx of cervical discectomy History of esophagogastroduodenoscopy (EGD) Hx of LASIK Hx of colonoscopy Status post Mohs surgery Family History Mother Chronic kidney disease Cardiovascular disease Diabetes mellitus Brother Diabetes mellitus Skin cancer Social History Housing: House Alcohol intake: current Patient Tobacco Use Status: Never used Tobacco e-Cigarette/Vaping Use: Never Used service: No Current occupational status: retired Cognitive needs: No Hearing needs: No Vision needs: Yes Physical Exam Vital Signs: Last Vital Signs Pulse 67 11/18/23 15:51 BP 148/88 H 11/18/23 15:51 Pulse Ox 96 11/18/23 15:51 Oxygen Delivery Method Room Air 11/18/23 15:51 BMI result Body Mass Index 33.5 Const General: comfortable; No acute distress Orientation/consciousness: patient oriented x3 Eyes General: appearance normal, both eyes and all related structures Visual Dillon: normal visual dillon by confrontation Neck Neck: Yes supple and Yes no JVD Resp Effort & Inspection: normal respiratory effort and respiratory effort not decreased Auscultation: rhonchi Cardio Palpation: no palpable S3 and no palpable S4 Heart sounds: no rubs GI Inspection: Yes normal to inspection Palpation (GI): Soft to palpation Percussion: Yes normal to percussion Auscultation: normal bowel sounds General: Yes no CVA tenderness Back/Spine/Pelvis Back: no CVA tenderness Skin General skin exam: no petechiae and no purpura Neuro General: patient oriented x3 and no focal motor deficits Extrem General: No clubbing and No edema Results Reviewed Nephrology Results: Hgb 13.0 g/dl (14.0-18.0) L 09/30/23 WBC 6.2 X10*3/uL (4.8-10.8) 09/30/23 Plt Count 246 X10*3/uL (160-400) 09/30/23 Sodium 140 mmol/L (135-145) 11/13/23 Potassium 4.0 mmol/L (3.3-5.1) 11/13/23 Chloride 106 mmol/L (96-108) 11/13/23 Carbon Dioxide 24 mmol/L (22-29) 11/13/23 BUN 18 mg/dL (9-16) H 11/13/23 Creatinine 1.08 mg/dL (0.5-1.4) 11/13/23 Calcium 9.9 mg/dL (8.4-10.2) 11/13/23 Assessment & Plan Assessment & Plan (1) Adrenal adenoma: Code(s): D35.00 - Benign neoplasm of unspecified adrenal gland Category: Medical (2) Hypokalemia: Code(s): E87.6 - Hypokalemia Category: Medical (3) Uncontrolled hypertension: Code(s): I10 - Essential (primary) hypertension Category: Medical Plan Sadiq has longstanding hypertension. He is bilateral adrenal adenoma. The adenomas have gradually increased in size over the last 4 years. He has spontaneous hypokalemia and metabolic alkalosis in the setting of hypertension. PA/PRA is 52 ( elevated) suspicious for primary hyperaldosteronism. Pheochromocytoma seems less likely based on the clinical picture Aldosterone is elevated and PA/PRA ratio is elevated ; would require adrenal vein sampling to see if there is any lateralization. However since he has adenomas on both sides I am not sure if this will be of any clinical relevance. At this point I would try an aldosterone omega and monitor the adrenal adenomas closely. He has tenderness on the left breast therefore I will not use spironolactone. Based on home blood pressure readings Keep Eplerenone 50 mg twice a day Leg edema due to amlodipine 10 mg. Edema significantly improved after lowering to 5 mg. Keep amlodipine at 5 mg daily. Monitor blood pressure at home and we should be able to lower amlodipine further since I have increased the eplerenone. Shall will monitor potassium in the next few weeks Orders: Orders Basic Metabolic Panel 6 Weeks D35.00 - Benign neoplasm of unspecified adrenal gland Medications: New eplerenone 50 mg PO BID 180 tabs 3RF Coding Level of Care Code Est Pt Level 4 (39578) Diagnoses Adrenal adenoma D35.00 Hypokalemia E87.6 Uncontrolled hypertension I10
== END 2023-11-18 16:07 | disposition home or self-care (01) ==
PROVIDERS: PCP Internal Medicine; Visit Provider Internal Medicine Hypertension Specialist
DX: D35.00 Benign neoplasm of unspecified adrenal gland (principal); E87.6 Hypokalemia; I10 Essential (primary) hypertension
CPT/HCPCS: 99214

== ENCOUNTER → 2023-11-18 15:37 | Outpatient (BNVA) | payer MEDICARE, SELFPAY | PROVIDERS: PCP Internal Medicine; Visit Provider Internal Medicine Hypertension Specialist | DX: D35.01 Benign neoplasm of right adrenal gland (principal); D35.02 Benign neoplasm of left adrenal gland; I10 Essential (primary) hypertension; E87.6 Hypokalemia; E87.3 Alkalosis | CPT/HCPCS: 99212 ==

== ENCOUNTER 2024-01-19 07:22 | Outpatient (REF) | payer MEDICARE, SELFPAY ==
[2024-01-19 11:24] LABS: Alanine Aminotransferase 22 U/L (0-40); Anion Gap 12 (12-20); Aspartate Amino Transferase 28 U/L (5-37); Blood Urea Nitrogen 18 mg/dL (9-16); Calcium 9.9 mg/dL (8.4-10.2); Carbon Dioxide 23 mmol/L (22-29); Chloride 109 mmol/L (96-108); Cholesterol 160 mg/dL (<200); Estimated Glomerular Filt Rate > 60; Glucose Random 126 mg/dL (60-115); HDL Cholesterol 40 mg/dL (>40); LDL Cholesterol Calculated 84 mg/dL (<100); Potassium 4.2 mmol/L (3.3-5.1); Sodium 140 mmol/L (135-145); Triglycerides 184 mg/dL (<150)
[2024-01-19 11:50] LABS: Estimated Average Glucose 140 mg/dL; Hemoglobin A1C 152.4391 umol/L; Hemoglobin A1c % 6.5 % (<6.0); Total Hemoglobin (HGBA1C) 3216.9909 umol/L
== END 2024-01-19 07:23 | disposition home or self-care (01) ==
LOC: HO.HMGCLDS 07:22
PROVIDERS: PCP Internal Medicine; Referring Provider Internal Medicine Hypertension Specialist; Visit Provider Internal Medicine
DX: E11.29 Type 2 diabetes mellitus with other diabetic kidney complication (principal); E78.5 Hyperlipidemia, unspecified; R80.9 Proteinuria, unspecified; D35.00 Benign neoplasm of unspecified adrenal gland
CPT/HCPCS: 36415; 80048; 80061; 83036; 84450; 84460

== ENCOUNTER 2024-01-22 14:39 | Outpatient (AMB) | payer MEDICARE, SELFPAY ==
--- NOTE | 2024-01-22 14:42 | HO.NEPHOV ---
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 Galen is on 3 anti hypertensives Until about 6 months ago, BP was acceptable Recently BP has been difficult to control Home SBP is aroud 150-160 mmHG Metoprolol was switched to Coreg yesterday due to nightmares Other meds include Amlodipine 10 mg and Losartan 100 mg QD He was on triamterene and this was stopped recently he has a h/o bilateral adrenal adenoma measuring 7.4 and 3.6 cm This was being followe dby urology for the past 4 years There has been a mild increase in size over the past few years Did not under go any biochemical work up thus far Interestingly he has unprovoked hypokalemia of 2.6 mmol in May 2023 with Alkalosis of 31 One episode of sweating while on Metoprolol. No significant palpitations or unexplained sweating h/o occational lightheadedness No h/o smoking Retired , used to work for [employer] 08/19/2023 Overall doing well from his previous visit. He has been monitoring blood pressure at home. Systolic blood pressure is I40 -150 mm Hg despite 3 antihypertensives. 09/09/2023. Home blood pressure readings revealed systolic blood pressure in the range of 140-150. He is on eplerenone 25 mg. He underwent colonoscopy. Metformin has been decreased to 1000 mg a day. Diarrhea is improved. Colonoscopy did reveal microscopic colitis. 10/07/2023. Overall is doing well. Tolerating eplerenone 25 mg twice a day. Potassium is in normal range. All home blood pressure readings were reviewed in average systolic blood pressure around 140 mm Hg. [facility] Medical History (Updated 10/14/23 @ 11:33 by Pebbles Mcarthur MD) Age-related macular degeneration, wet, right eye Sleep apnea History of ETT Kidney stones Diverticulosis Uncontrolled hypertension Positive colorectal cancer screening using Cologuard test 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 Right bundle branch block (RBBB) 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, without long-term current use of insulin Dyslipidemia Bilateral renal cysts Actinic keratosis Neuropathic arthritis Essential hypertension Surgical History Hx of bilateral cataract extraction Hx of cervical discectomy History of esophagogastroduodenoscopy (EGD) Hx of LASIK Hx of colonoscopy Status post Mohs surgery Family History Mother Chronic kidney disease Cardiovascular disease Diabetes mellitus Brother Diabetes mellitus Skin cancer Social History Housing: House Alcohol intake: current Patient Tobacco Use Status: Never used Tobacco e-Cigarette/Vaping Use: Never Used service: No Current occupational status: retired Cognitive needs: No Hearing needs: No Vision needs: Yes Physical Exam Vital Signs: Last Vital Signs Pulse 70 01/22/24 14:43 BP 138/78 01/22/24 14:43 Pulse Ox 96 01/22/24 14:43 Oxygen Delivery Method Room Air 01/22/24 14:43 BMI result Body Mass Index 33.5 Const General: comfortable; No acute distress Orientation/consciousness: patient oriented x3 Eyes General: appearance normal, both eyes and all related structures Visual Dillon: normal visual dillon by confrontation Neck Neck: Yes supple and Yes no JVD Resp Effort & Inspection: normal respiratory effort and respiratory effort not decreased Auscultation: rhonchi Cardio Palpation: no palpable S3 and no palpable S4 Heart sounds: no rubs GI Inspection: Yes normal to inspection Palpation (GI): Soft to palpation Percussion: Yes normal to percussion Auscultation: normal bowel sounds General: Yes no CVA tenderness Back/Spine/Pelvis Back: no CVA tenderness Skin General skin exam: no petechiae and no purpura Neuro General: patient oriented x3 and no focal motor deficits Extrem General: No clubbing and No edema Results Reviewed Nephrology Results: Hgb 13.0 g/dl (14.0-18.0) L 09/30/23 WBC 6.2 X10*3/uL (4.8-10.8) 09/30/23 Plt Count 246 X10*3/uL (160-400) 09/30/23 Sodium 140 mmol/L (135-145) 01/19/24 Potassium 4.2 mmol/L (3.3-5.1) 01/19/24 Chloride 109 mmol/L (96-108) H 01/19/24 Carbon Dioxide 23 mmol/L (22-29) 01/19/24 BUN 18 mg/dL (9-16) H 01/19/24 Creatinine 1.02 mg/dL (0.5-1.4) 01/19/24 Calcium 9.9 mg/dL (8.4-10.2) 01/19/24 Assessment & Plan Assessment & Plan (1) Adrenal adenoma: Code(s): D35.00 - Benign neoplasm of unspecified adrenal gland Category: Medical (2) Hypokalemia: Code(s): E87.6 - Hypokalemia Category: Medical (3) Uncontrolled hypertension: Code(s): I10 - Essential (primary) hypertension Category: Medical (4) Essential hypertension: Code(s): I10 - Essential (primary) hypertension Category: Medical Plan Sadiq has longstanding hypertension. He is bilateral adrenal adenoma. The adenomas have gradually increased in size over the last 4 years. He has spontaneous hypokalemia and metabolic alkalosis in the setting of hypertension. PA/PRA is 52 ( elevated) suspicious for primary hyperaldosteronism. Pheochromocytoma seems less likely based on the clinical picture Aldosterone is elevated and PA/PRA ratio is elevated ; would require adrenal vein sampling to see if there is any lateralization. However since he has adenomas on both sides I am not sure if this will be of any clinical relevance. At this point I would try an aldosterone omega and monitor the adrenal adenomas closely. He has tenderness on the left breast therefore I will not use spironolactone. Based on home blood pressure readings Keep Eplerenone 50 mg twice a day Leg edema due to amlodipine 10 mg. Edema significantly improved after lowering to 5 mg. Keep amlodipine at 5 mg daily. Monitor blood pressure at home and we should be able to lower amlodipine further since I have increased the eplerenone. Shall will monitor potassium in the next few weeks Orders: Orders Basic Metabolic Panel 4 Months D35.00 - Benign neoplasm of unspecified adrenal gland, I10 - Essential (primary) hypertension Coding Level of Care Code Est Pt Level 4 (10589) Diagnoses Adrenal adenoma D35.00 Hypokalemia E87.6 Uncontrolled hypertension I10 Essential hypertension I10
[2024-01-22 14:43] VITALS: BP 138/78; PULSE 70; O2SAT 96; BMI 33.5
== END 2024-01-22 14:55 | disposition home or self-care (01) ==
PROVIDERS: PCP Internal Medicine; Visit Provider Internal Medicine Hypertension Specialist
DX: D35.00 Benign neoplasm of unspecified adrenal gland (principal); E87.6 Hypokalemia; I10 Essential (primary) hypertension
CPT/HCPCS: 99214

== ENCOUNTER → 2024-01-22 14:39 | Outpatient (BNVA) | payer MEDICARE, SELFPAY | PROVIDERS: PCP Internal Medicine; Visit Provider Internal Medicine Hypertension Specialist | DX: I10 Essential (primary) hypertension (principal); D35.00 Benign neoplasm of unspecified adrenal gland; E87.6 Hypokalemia | CPT/HCPCS: 99212 ==

== ENCOUNTER 2024-02-04 11:21 | Outpatient (AMB) | payer MEDICARE, SELFPAY ==
[2024-02-04 12:40] VITALS: BP 132/80; PULSE 60; O2SAT 97; BMI 33.4
--- NOTE | 2024-02-04 12:40 | A.OFFPC_ITS ---
Vital Signs 02/04/24 12:40 Height 5 ft 9 in Weight 226 lb BMI 33.4 BP 132/80 Blood Pressure Location Lt brachial Position Sitting Pulse 60 Pulse Source Pulse Oximeter Pulse Oximetry (%) 97 Oxygen Delivery Method Room Air Intake Visit Reasons: F/U Intake Note: Pt is here today for his f/u DM Allergies diphenhydramine [From BENADRYL ALLERGY] Allergy (Unknown, Verified 02/04/24 12:53) HEART RACING AND TIREDNESS Medication List - Last Reconciled 02/04/24 by Pebbles Mcarthur MD amlodipine 5 mg PO DAILY aspirin (Adult Aspirin Regimen) 81 mg PO DAILY blood sugar diagnostic As directed blood sugar diagnostic check blood sugar twice a day as directed blood sugar diagnostic ([employer] Ultra Test strips) As directed twice a day ac carvedilol (Coreg) 6.25 mg PO BID 90 days eplerenone 50 mg PO BID losartan 100 mg PO DAILY metformin 1,000 mg PO DAILY simvastatin 20 mg PO BEDTIME vitamins A,C,Q-lieq-sucflp 4,296 mcg-226 mg-90 mg (PreserVision AREDS) 1 cap PO BID Tobacco use date assessed: 10/14/23 Fall risk assessment: No Falls in past year Last assessed Fall Risk: 02/04/24 Dental Screening Dental Screen Date: 02/04/24 Did you have a dental visit in the last 12 months?: Yes Did you have a dental problem in the last 6 months where you did not have access to dental care?: Yes Was dental information given to patient?: Patient has dentist HPI F/U HPI Details 78-year-old male here today for follow-u p on his diabetes mellitus and dyslipidemia. Currently taking metformin a 1000 mg 1 tablet once a day and simvastatin 20 mg at bedtime. Has been feeling well, compliant with taking his medications, up-to-date with his diabetes retinopathy screening. 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, without long-term current use of insulin Dyslipidemia Bilateral renal cysts Actinic keratosis Neuropathic arthritis Essential hypertension Surgical History Hx of bilateral cataract extraction Hx of cervical discectomy History of esophagogastroduodenoscopy (EGD) Hx of LASIK Hx of colonoscopy Status post Mohs surgery Family History Mother Chronic kidney disease Cardiovascular disease Diabetes mellitus Brother Diabetes mellitus Skin cancer Social History Housing: House Alcohol intake: current Patient Tobacco Use Status: Never used Tobacco e-Cigarette/Vaping Use: Never Used service: No Current occupational status: retired Cognitive needs: No Hearing needs: No Vision needs: Yes Questionnaire Thrive Questionnaire Date Thrive assessed: 10/14/23 I am a: Patient What is your living situation today?: I have a steady place to live Within the past 12 months, did the food you bought not last and you didn't have the money to get more?: I choose not to answer this question Within the past 12 months, did you worry whether your food would run out before you got money to buy more?: I choose not to answer this question Do you have trouble paying for medicines?: I choose not to answer this question Do you have trouble getting transportation to medical appointments?: No Do you have trouble paying your heating and electricity bill?: No Do you have trouble taking care of your child, family member or friend?: No Do you have trouble with day-to-day activities such as bathing, preparing meals, shopping, managing finances, etc.?: No Are you currently unemployed and looking for a job?: No Are you interested in more education?: No Please select the resources that you would like help with: None Currently or been in a relationship where the following occur: No concerns reported THRIVE Score: 0 YAMILA-7 AMB Questionnaire YAMILA-7 Date YAMILA - 7 assessed: 10/14/23 Source: Developed by Drs. Chapincito Livingston, Natalie Shaw, Mynor Nino and colleagues, with an educational pollo from [employer]. Review of Systems Const Denies weakness Eyes Reports no additional complaints ENT Denies dizziness Card Denies chest pain, Denies chest pain with activity, Denies syncope, Denies rapid heart rate, Denies pedal edema, Denies edema, Denies leg edema, Denies lightheadedness, Denies dyspnea, Denies dyspnea on exertion and Denies orthopnea Resp Denies cough, Denies dyspnea and Denies dyspnea on exertion GI Denies hematochezia and Denies change in stool character Reports no additional complaints Musc Denies abnormal gait, Denies muscle cramps, Denies muscle weakness, Denies numbness, Denies radiating pain into limb and Denies tingling Neuro Denies abnormal gait, Denies dizziness, Denies syncope, Denies numbness, Denies tingling and Denies weakness Endo Reports no additional complaints Physical exam (Primary Care) Vital Signs: Last Vital Signs Pulse 60 02/04/24 12:40 BP 132/80 02/04/24 12:40 Pulse Ox 97 02/04/24 12:40 Oxygen Delivery Method Room Air 02/04/24 12:40 BMI result Body Mass Index 33.4 Tobacco/Smoking Status: Tobacco use Status Tobacco use date assessed 10/14/23 02/04/24 12:43 Patient Tobacco Use Status Never used Tobacco 02/04/24 12:43 e-Cigarette/Vaping Use Never Used 02/04/24 12:43 Thrive Assessment: Date of Thrive Assessment Date Thrive assessed 10/14/23 02/04/24 12:43 Currently or been in a relationship where the following occur: No concerns reported Const Other: Alert oriented x3, no acute distress noted ambulatory [facility] Head: Yes normocephalic Face and sinus: Yes face symmetric Mouth: Normal oral and palatal mucosa present and moist mucous membranes Eyes General: appearance normal, both eyes and all related structures Neck Other: Supple, no lymphadenopathy, thyroid gland nonpalpable Resp Auscultation: clear to auscultation bilaterally Cardio Other: S1-S2 present regular rate and rhythm with frequent skipped beats GI Other: Normal bowel sounds, soft, nontender, no mass palpated General: Yes no CVA tenderness Back/Spine/Pelvis Back: no CVA tenderness Skin Other: Scaly, nodular lesion on finger Neuro General: gait normal, tone normal, Normal light touch and pain sensation, no focal motor deficits and CN's II-XI intact bilaterally Extrem General: Yes no joint enlargement, Yes no clubbing, cyanosis or edema, Yes no pedal edema and Yes no calf tenderness Results Reviewed Results Reviewed: Name: Sadiq Middleton Jr Age/Sex: 78/M : 1945 [facility] [id number] Unit#: [id number] Attend Dr: Pebbles Mcarthur MD Re01/19/24 Status: DEP REF Location: [facility] Disch: SPEC : [id number] SUMMER: 01/19/24 STATUS: COMP REQ : [id number] RECD: 01/19/[address]: Jin Sun MD COMP: 01/19/24 ENTERED: 01/19/[address]: Pebbles Mcarthur MD ORDERED: BMP, AST, ALT, Lipid Panel Test Result Flag Reference Sodium 140 135-145 mmol/L Potassium 4.2 3.3-5.1 mmol/L CL 109 H 96-108 mmol/L CO2 23 22-29 mmol/L Gap 12 12-20 BUN 18 H 9-16 mg/dL Creat 1.02 0.5-1.4 mg/dL EGFR > 60 NOTE: For -Swazi individuals, multiply the result by 1.210. Chronic Kidney Disease: Estimated GFR < 60 mL/min/1.73m2 Severe Kidney Disease: Estimated GFR < 15 mL/min/1.73m2 Glucose, Random 126 H 60-115 mg/dL CA 9.9 8.4-10.2 mg/dL AST (GOT) 28 5-37 U/L ALT (GPT) 22 0-40 U/L Triglyceride 184 H <150 mg/dL Desirable Triglyceride: less than 150 mg/dL Borderline High Triglyceride 150-199 mg/dL High Triglyceride: 200-499 mg/dL Very High Triglyceride: greater than or equal to 5OO mg/dL Cholesterol 160 <200 mg/dL Desirable Cholesterol: less than 200 mg/dL Borderline High Cholesterol: 200-239 mg/dL High Cholesterol: greater than 239 mg/dL LDL Calculated 84 <100 mg/dL Desirable LDL: less than 100 mg/dL Near Optimal/Above Optimal LDL: 110-129 mg/dL Borderline High LDL: 130-159 mg/dL High LDL: 160-189 mg/dL Very High LDL: greater than or equal to 190 mg/dL HDL 40 L >40 mg/dL Desirable HDL: greater than 40 mg/dL Note: This HDL assay may give artificially low results in patients with liver disease. Laboratory Tests 01/19/24 07:32 Estimat Average Glucose 140 Hemoglobin A1c % 6.5 H Coding Level of Care Code Est Pt Level 4 (89375) Complex EM visit Add On G2211 Diagnoses Dyslipidemia E78.5 Type 2 diabetes mellitus with microalbuminuria, without long-term current use of insulin E11.29; R80.9 Diabetes mellitus complication detail: with microalbuminuria Diabetes mellitus type: type 2 Skin lesion of hand L98.9 Essential hypertension I10 Encounter for screening for malignant neoplasm of prostate Z12.5 Assessment & Plan Assessment & Plan (1) Dyslipidemia: Code(s): E78.5 - Hyperlipidemia, unspecified Category: Medical Plan: Reviewed recent fasting lipid profile with patient with levels within normal limits except for a slightly elevated triglycerides. . Continue simvastatin 20 mg at bedtime , in addition to adherence to low-cholesterol diet and regular exercise, at least 30 minutes 3 to 4 times a week. Advised patient to make healthy food choices, eat more fruits, vegetables, whole grains, wild caught fish and low-fat dairy. Limit amount of meat and fried or fatty food products, as well as processed foods and fast foods. Follow-up scheduled with repeat fasting lipid panel in 4 months. (2) Diabetes mellitus with kidney complication, without long-term current use of insulin: Code(s): E11.29 - Type 2 diabetes mellitus with other diabetic kidney complication Category: Medical Qualifiers: Diabetes mellitus complication detail: with microalbuminuria Diabetes mellitus type: type 2 Qualified Code(s): E11.29 - Type 2 diabetes mellitus with other diabetic kidney complication; R80.9 - Proteinuria, unspecified Plan: Recent lab results reviewed with patient, with sugar and hemoglobin A1c stable and at goal. Continue with metformin 1000 mg once a day. Reinforced diabetic diet and regular exercise with patient. Continue with yearly diabetes retinopathy screening. Patient advised to inspect feet daily, for any signs of injury, callus or infection. Compliance with diet and regular exercise again stressed. Blood pressure goal is less than 130/80, goal LDL is less than 100 and goal hemoglobin A1c is less than 7% follow-up appointment made in-4--months, after fasting labs done. (3) Skin lesion of hand: Code(s): L98.9 - Disorder of the skin and subcutaneous tissue, unspecified Plan: General surgery consult ordered (4) Essential hypertension: Code(s): I10 - Essential (primary) hypertension Category: Medical Plan: Blood pressure at goal of less than 130/80. Continue with current medication. Followed by Nephrology, (5) Encounter for screening for malignant neoplasm of prostate: Code(s): Z12.5 - Encounter for screening for malignant neoplasm of prostate Plan: Ordered total PSA on next visit Orders: Orders Lipid Panel 05/29/24 E11.29 - Type 2 diabetes mellitus with other diabetic kidney complication, E78.5 - Hyperlipidemia, unspecified, I10 - Essential (primary) hypertension, R80.9 - Proteinuria, unspecified Hemoglobin A1c 05/29/24. - Type 2 diabetes mellitus with other diabetic kidney complication, E78.5 - Hyperlipidemia, unspecified, I10 - Essential (primary) hypertension, R80.9 - Proteinuria, unspecified Vitamin D 25-OH Total 05/29/24 E11.29 - Type 2 diabetes mellitus with other diabetic kidney complication, E78.5 - Hyperlipidemia, unspecified, I10 - Essential (primary) hypertension, R80.9 - Proteinuria, unspecified Alanine Aminotransferase 05/29/24 E11.29 - Type 2 diabetes mellitus with other diabetic kidney complication, E78.5 - Hyperlipidemia, unspecified, I10 - Essential (primary) hypertension, R80.9 - Proteinuria, unspecified Aspartate Amino Transferase 05/29/24 E11.29 - Type 2 diabetes mellitus with other diabetic kidney complication, E78.5 - Hyperlipidemia, unspecified, I10 - Essential (primary) hypertension, R80.9 - Proteinuria, unspecified Basic Metabolic Panel Fasting 05/29/24 E11.29 - Type 2 diabetes mellitus with other diabetic kidney complication, E78.5 - Hyperlipidemia, unspecified, I10 - Essential (primary) hypertension, R80.9 - Proteinuria, unspecified Microalbumin, Random (w Creat) 05/29/24.29 - Type 2 diabetes mellitus with other diabetic kidney complication, E78.5 - Hyperlipidemia, unspecified, I10 - Essential (primary) hypertension, R80.9 - Proteinuria, unspecified PSA,Total (Free>4and<10) 05/29/24 Z12.5 - Encounter for screening for malignant neoplasm of prostate Referrals General Surgery Referral L98.9 - Disorder of the skin and subcutaneous tissue, unspecified Medications: Refilled simvastatin 20 mg PO BEDTIME 90 tabs 4RF E78.5 - Hyperlipidemia, unspecified
== END 2024-02-04 14:20 | disposition home or self-care (01) ==
LOC: HO.HMCC 11:22
PROVIDERS: PCP Internal Medicine; Visit Provider Internal Medicine
DX: E78.5 Hyperlipidemia, unspecified (principal); E11.29 Type 2 diabetes mellitus with other diabetic kidney complication; R80.9 Proteinuria, unspecified; L98.9 Disorder of the skin and subcutaneous tissue, unspecified; I10 Essential (primary) hypertension; Z12.5 Encounter for screening for malignant neoplasm of prostate

== ENCOUNTER → 2024-02-04 11:21 | Outpatient (BNVA) | payer MEDICARE, SELFPAY | PROVIDERS: PCP Internal Medicine; Visit Provider Internal Medicine | DX: E78.5 Hyperlipidemia, unspecified (principal); E11.29 Type 2 diabetes mellitus with other diabetic kidney complication; L98.9 Disorder of the skin and subcutaneous tissue, unspecified; I10 Essential (primary) hypertension | CPT/HCPCS: 99212 ==

== ENCOUNTER 2024-02-09 09:08 | Outpatient (AMB) | payer MEDICARE, SELFPAY ==
--- NOTE | 2024-02-09 09:09 | A.OFFVIS_ITS ---
Vital Signs 02/09/24 09:10 Height 5 ft 9 in Weight 226 lb 0.004 oz BMI 33.4 Intake Visit Reasons: Enlarging skin lesioin Intake Note: This patient presents for enlarging skin lesion. Pt c/o; right hand, reports pain and burning sensation. 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 Accompanied by: Self / Same As Patient Allergies diphenhydramine [From BENADRYL ALLERGY] Allergy (Unknown, Verified 02/09/24 09:15) HEART RACING AND TIREDNESS Medication List - Last Reconciled 02/09/24 by Pedro Barrientos MD amlodipine 5 mg PO DAILY aspirin (Adult Aspirin Regimen) 81 mg PO DAILY blood sugar diagnostic As directed blood sugar diagnostic check blood sugar twice a day as directed blood sugar diagnostic ([employer] Ultra Test strips) As directed twice a day ac carvedilol (Coreg) 6.25 mg PO BID 90 days eplerenone 50 mg PO BID losartan 100 mg PO DAILY metformin 1,000 mg PO DAILY simvastatin 20 mg PO BEDTIME vitamins A,C,D-xwbm-ubsqtx 4,296 mcg-226 mg-90 mg (PreserVision AREDS) 1 cap PO BID HPI HPI Enlarging skin lesioin: Details: 78-year-old male referred for a skin lesion on the right hand. He says he has had multiple skin cancers for the past 20 years. He usually follows [facility] for his many squamous cell carcinomas in the past He says he has had this lesion on the right hand he which she has noticed for about 2-3 months now. This has been increasing in size. He therefore wants this removed. He says that this has been painful and has been bothering him. 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, without long-term current use of insulin Dyslipidemia Bilateral renal cysts Actinic keratosis Neuropathic arthritis Essential hypertension Surgical History Hx of bilateral cataract extraction Hx of cervical discectomy History of esophagogastroduodenoscopy (EGD) Hx of LASIK Hx of colonoscopy Status post Mohs surgery Family History Mother Chronic kidney disease Cardiovascular disease Diabetes mellitus Brother Diabetes mellitus Skin cancer Social History Housing: House Alcohol intake: current Patient Tobacco Use Status: Never used Tobacco e-Cigarette/Vaping Use: Never Used service: No Current occupational status: retired Cognitive needs: No Hearing needs: No Vision needs: Yes Review of Systems Const Denies chills and Denies fever(s) Card Denies chest pain, Denies dyspnea and Denies dyspnea on exertion Resp Denies cough, Denies dyspnea and Denies dyspnea on exertion GI Denies hematochezia and Denies change in bowel habits Denies hematuria and Denies difficulty urinating Musc Denies back pain and Denies limited range of motion Neuro Denies focal weakness and Denies convulsions Psych Denies depression and Denies mood swings Physical Exam Vital Signs: BMI result Body Mass Index 33.4 Const General: comfortable and no acute distress Orientation/consciousness: patient oriented x3 Neck Neck: Yes no lymphadenopathy Resp Auscultation: clear to auscultation bilaterally Cardio Rhythm: regular rhythm GI Palpation (GI): Soft to palpation, nontender and no guarding Neuro General: patient oriented x3 Extrem Other: On the posterior aspect of the right hand is note of a skin lesion, minimally elevated, with ulceration in the middle, with the lesion about 1 cm in diameter, irregular Assessment & Plan Assessment & Plan (1) Skin lesion of hand: Code(s): L98.9 - Disorder of the skin and subcutaneous tissue, unspecified Category: Medical Plan: He has this in lesion on the right hand as described above. He wants to proceed with excision. I explained the technique of excision under local anesthesia. I reviewed the risks including but not limited to bleeding and infection, as well as the benefits and alternatives. He wants to proceed. This will be done in [facility] office under local anesthesia on his next visit. Coding Level of Care Code New Pt Level 3 (83276) Diagnoses Skin lesion of hand L98.9
[2024-02-09 09:10] VITALS: BMI 33.4
== END 2024-02-09 09:43 | disposition home or self-care (01) ==
PROVIDERS: PCP Internal Medicine; Visit Provider Surgery
DX: L98.9 Disorder of the skin and subcutaneous tissue, unspecified (principal)
CPT/HCPCS: 99203

== ENCOUNTER → 2024-02-09 09:08 | Outpatient (BNVA) | payer MEDICARE, SELFPAY | PROVIDERS: PCP Internal Medicine; Visit Provider Surgery | DX: L98.499 Non-pressure chronic ulcer of skin of other sites with unspecified severity (principal); Z85.828 Personal history of other malignant neoplasm of skin | CPT/HCPCS: 99202 ==

== ENCOUNTER 2024-02-12 08:09 | Outpatient (REF) | payer MEDICARE, SELFPAY | END 2024-02-12 08:10 | disposition home or self-care (01) | LOC: HO.LNP 08:09 | PROVIDERS: PCP Internal Medicine; Visit Provider Surgery | DX: C44.622 Squamous cell carcinoma of skin of right upper limb, including shoulder (principal) | CPT/HCPCS: 11603; 88304; 88305 ==

== ENCOUNTER 2024-02-12 08:09 | Outpatient (AMB) | payer MEDICARE, SELFPAY ==
--- NOTE | 2024-02-12 08:15 | MHC.OFFVIS ---
Intake Visit Reasons: excision lesion on (R) hand Intake Note: Office procedure: excision lesion right hand. [employer] Consultant Required: No Accompanied by: Self / Same As Patient Allergies diphenhydramine [From BENADRYL ALLERGY] Allergy (Unknown, Verified 02/12/24 08:15) HEART RACING AND TIREDNESS HPI HPI excision lesion on (R) hand: Details: He is here for excision of a lesion in the right hand [facility] Medical History Skin lesion of hand Age-related macular degeneration, wet, right eye Sleep apnea History of ETT Kidney stones Diverticulosis Uncontrolled hypertension Positive colorectal cancer screening using Cologuard test 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 Right bundle branch block (RBBB) 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, without long-term current use of insulin Dyslipidemia Bilateral renal cysts Actinic keratosis Neuropathic arthritis Essential hypertension Surgical History Hx of bilateral cataract extraction Hx of cervical discectomy History of esophagogastroduodenoscopy (EGD) Hx of LASIK Hx of colonoscopy Status post Mohs surgery Family History Mother Chronic kidney disease Cardiovascular disease Diabetes mellitus Brother Diabetes mellitus Skin cancer Social History Housing: House Alcohol intake: current Patient Tobacco Use Status: Never used Tobacco e-Cigarette/Vaping Use: Never Used service: No Current occupational status: retired Cognitive needs: No Hearing needs: No Vision needs: Yes Office Procedures Excision Details: He was in reclining position. The area of the skin lesion of the right hand was prepped and draped. This was on the posterior aspect of the hand. This was flat with irregular borders, non pigmented, with flaking and dermatitic changes. Lidocaine 1% was used for local anesthesia. I made an elliptical incision on the skin surrounding this skin lesion. I carried this down through the full-thickness of the skin to excise this entire area. This was sent as a specimen. I closed the incision with multiple nylon 3-0 simple interrupted sutures. The area excised was about 2.8 cm x 1.8 cm Dressings were applied. The procedure was completed. He tolerated procedure well. There were no immediate complications. 79274-mvsve/arms/legs 2.1-3cm Procedure code (CPT) selection complete Assessment & Plan Assessment & Plan (1) Skin lesion of hand: Code(s): L98.9 - Disorder of the skin and subcutaneous tissue, unspecified Category: Medical Plan: Excision was done without under local anesthesia here in the office. He was given wound care instructions. I will see him in the office in about 2 weeks for removal of sutures. Coding Level of Care Code Procedure Only Diagnoses Skin lesion of hand L98.9 CPT Codes Trunk/Arms/Legs - CPT: 56437-kgxqa/arms/legs 2.1-3cm ([id number])
== END 2024-02-12 08:55 | disposition home or self-care (01) ==
PROVIDERS: PCP Internal Medicine; Visit Provider Surgery
DX: C44.622 Squamous cell carcinoma of skin of right upper limb, including shoulder (principal)
CPT/HCPCS: 11603

== ENCOUNTER 2024-03-01 11:08 | Outpatient (AMB) | payer MEDICARE, SELFPAY ==
--- NOTE | 2024-03-01 11:13 | A.OFFVIS_ITS ---
Vital Signs 03/01/24 11:14 Height 5 ft 9 in Weight 226 lb 0.004 oz BMI 33.4 Intake Visit Reasons: s/p excision lesion on (R) hand suture removal Intake Note: This patient presents for suture removal status post excision lesion right hand (02/12/2024). Pt c/o; reports no complaints. Assisted Living Manager Required: No Accompanied by: Self / Same As Patient Allergies diphenhydramine [From BENADRYL ALLERGY] Allergy (Unknown, Verified 03/01/24 11:14) HEART RACING AND TIREDNESS HPI HPI s/p excision lesion on (R) hand suture removal: Details: He underwent excision of a skin lesion for an bright hand under local anesthesia last 02/13/2024. He tolerated the procedure well and currently denies significant complaints. 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, without long-term current use of insulin Dyslipidemia Bilateral renal cysts Actinic keratosis Neuropathic arthritis Essential hypertension Surgical History History of surgical removal of skin lesion (~02/12/24) Hx of bilateral cataract extraction Hx of cervical discectomy History of esophagogastroduodenoscopy (EGD) Hx of LASIK Hx of colonoscopy Status post Mohs surgery Family History Mother Chronic kidney disease Cardiovascular disease Diabetes mellitus Brother Diabetes mellitus Skin cancer Social History Housing: House Alcohol intake: current Patient Tobacco Use Status: Never used Tobacco e-Cigarette/Vaping Use: Never Used service: No Current occupational status: retired Cognitive needs: No Hearing needs: No Vision needs: Yes Review of Systems Const Denies chills and Denies fever(s) Physical Exam Vital Signs: BMI result Body Mass Index 33.4 Const General: comfortable and no acute distress Resp Effort & Inspection: normal respiratory effort Extrem Other: Excision site on the right hand is well healed, not infected, sutures intact Assessment & Plan Assessment & Plan (1) Skin cancer, upper extremity: Code(s): C44.601 - Unspecified malignant neoplasm of skin of unspecified upper limb, including shoulder Category: Medical Plan: Status post excision of a skin lesion from the right hand. 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 His incision is well healed. His sutures were removed. He can follow up on a p.r.n. basis. Coding Level of Care Code Global (42201) Diagnoses Skin cancer, upper extremity C44.601
[2024-03-01 11:14] VITALS: BMI 33.4
== END 2024-03-01 11:31 | disposition home or self-care (01) ==
PROVIDERS: PCP Internal Medicine; Visit Provider Surgery
DX: C44.601 Unspecified malignant neoplasm of skin of unspecified upper limb, including shoulder (principal)
CPT/HCPCS: 99024

== ENCOUNTER → 2024-03-01 11:08 | Outpatient (BNVA) | payer MEDICARE, SELFPAY | PROVIDERS: PCP Internal Medicine; Visit Provider Surgery | DX: C44.601 Unspecified malignant neoplasm of skin of unspecified upper limb, including shoulder (principal); Z48.02 Encounter for removal of sutures; Z98.890 Other specified postprocedural states | CPT/HCPCS: 99212 ==

== ENCOUNTER 2024-05-17 07:43 | Outpatient (REF) | payer MEDICARE, SELFPAY ==
--- OUTSIDE RECORDS SUMMARY | 2024-05-17 07:48 | XMS_ITS ---
Author Organization [facility] Address [address] [place] [address] Care Team Providers Care Mixer Blender Name Role Phone Lyubov PICKARD, Pebbles Primary Care Provider [place] Charles Unavailable [phone] REASON FOR VISIT positive cologuard PROBLEMS Problem Type ICD Code Onset Dates Problem Status W/U Status Risk SNOMED Code Notes Problem Diverticulosis of large intestine without perforation or abscess without bleeding (K57.30) Active confirmed Diverticul ar disease of colon (641908172) Encounters Encounter Location Date Provider Diagnosis [facility] Outpatient [address] [place] [phone] 08/28/2023 [place] Rico Colon polyps K63.5 ; Heme positive stool R19.5 ; Diarrhea R19.7 ; Diverticulosis of large intestine without perforation or abscess without bleeding K57.30 and Other hemorrhoids K64.8 ASSESSMENTS Encounter Date Diagnosis Assessment Notes Treatment Notes Treatment Clinical Notes 08/28/2023 Colon polyps (ICD-10 - K63.5) 08/28/2023 Heme positive stool (ICD-10 - R19.5) 08/28/2023 Diarrhea (ICD-10 - R19.7) 08/28/2023 Diverticulosis of large intestine without perforation or abscess without bleeding (ICD-10 - K57.30) 08/28/2023 Other hemorrhoids (ICD-10 - K64.8) PLAN OF TREATMENT No Information
--- OUTSIDE RECORDS SUMMARY | 2024-05-17 07:48 | XMS_ITS | Patient Health Record ---
Author Organization [facility] Address [address] [place] [address] Care Team Providers Care Nuclear Medicine Technologist Name Role Phone Lyubov PICKARD, Pebbles Primary Care Provider [place] Charles [phone] ALLERGIES Allergen (clinical drug ingredient) Drug/Non Drug Allergy documented on EMR Reaction Allergy Type Onset Date Status diphenhydramine Benadryl (uncoded) Unknown Allergy Active RESULTS Component Value Reference Range Notes Immunoglobulin A Reviewed date:08/18/2023 09:34:54 PM Interpretation: Performing Lab:[address] [phone] Notes/Report: Immunoglobulin A 398 70-320 mg/dL THIS TEST WAS PERFORMED AT: [facility] [address] [place] [phone] LIAM BRYSON MD Transglutaminase Ab IgG Reviewed date:08/18/2023 09:35:27 PM Interpretation: Performing Lab:[address] [address] Notes/Report: Transglutaminase Ab IgG <1.0 Value Interpretation ----- <15.0 Antibody not detected > or = 15.0 Antibody detected THIS TEST WAS PERFORMED AT: [facility] [address] [place] [phone] LIAM BRYSON MD Transglutaminase IgA Reviewed date:08/18/2023 09:35:34 PM Interpretation: Performing Lab:[address], [place] [address] Notes/Report: Transglutaminase IgA <1.0 Value Interpretation ----- <15.0 Antibody not detected > or = 15.0 Antibody detected THIS TEST WAS PERFORMED AT: [facility] [address] [place] [phone] LIAM BRYSON MD Gliadin Ab Panel Reviewed date:08/18/2023 09:35:46 PM Interpretation: Performing Lab:[facility], [address] [place] [phone] Notes/Report: Gliadin Deamidated IgA Ab <1.0 Value Interpretation ----- <15.0 Antibody not detected > or = 15.0 Antibody detected Gliadin Deamidated IgG Ab <1.0 Value Interpretation ----- <15.0 Antibody not detected > or = 15.0 Antibody detected THIS TEST WAS PERFORMED AT: [facility] [address] [place] [phone] LIAM BRYSON MD Endomysial IgA rflx Titer Reviewed date:08/25/2023 04:00:09 PM Interpretation: Performing Lab:[facility], [address] [place] [phone] Notes/Report: Endomysial IgA Antibody Negative Negative THIS TEST WAS PERFORMED AT: [facility]/[address] [address] LASHAWN DICKSON MD,PHD Endomysial Titer TNP Glucose, Whole Blood Reviewed date:08/28/2023 11:08:36 AM Interpretation: Performing Lab:[facility], [address] [place] [phone] Notes/Report: Glucose, Whole Blood 100 60-115 mg/dL METER # : [id number] Pathology Reviewed date:09/08/2023 08:50:30 AM Interpretation: Performing Lab:[address] [address] Notes/Report: REASON FOR REFERRAL No Information MEDICATIONS Medication SIG (Take, Route, Frequency, Duration) Notes Start Date End Date Status Losartan Potassium 100 MG 1 tablet Orally Once a day Active Simvastatin 20 MG 1 tablet in the even ing Orally Once a day Active amLODIPine Besylate 5 MG 1 tablet Orally Once a day Active Eplerenone 25 MG 1 tablet Orally Once a day for 30 day(s) Active Carvedilol 6.25 MG 1 tablet with food O rally Twice a day Active metFORMIN HCl 1000 MG 1 tablet with a me al Orally Once a day Active SOCIAL HISTORY Sex Assigned At : Social History Observation Description Sex Assigned At Unknown PROBLEMS Problem Type ICD Code Onset Dates Problem Status W/U Status Risk SNOMED Code Notes Problem Gastro-esophageal reflux disease without esophagitis (K21.9) Active confirmed 941379532 Problem Encounter for screening for malignant neoplasm of colon (Z12.11) Active confirmed 843314403 Problem History of adenomatous polyp of colon (Z86.010) Active confirmed 090390954 Problem Diverticulosis of large intestine without perforation or abscess without bleeding (K57.30) Active confirmed Diverticul ar disease of colon (449104173) Problem Preprocedural examination (Z01.818) Active confirmed 600164242125085 Problem Barretts esophagus without dysplasia (K22.70) Active confirmed 308903344 Problem Hx of adenomatous colonic polyps (Z86.010) Active confirmed 203565955 Problem Chronic diarrhea (K52.9) Active confirmed Chronic diarrhe a (315373869) Problem Positive colorectal cancer screening using Cologuard test (R19.5) Active confirmed Abnormal feces (035121882) VITAL SIGNS Blood pressure diastolic 00 mm Hg 01/29/2024 Height 69.75 in 01/29/2024 Blood pressure systolic 00 mm Hg 01/29/2024 Weight 229 lbs 01/29/2024 BMI 33.09 kg/m2 01/29/2024 Encounters Encounter Location Date Provider Diagnosis [facility] Out[facility] [address] [place], [place] [phone] 08/28/2023 [place] Rico Colon polyps K63.5 ; Heme positive stool R19.5 ; Diarrhea R19.7 ; Diverticulosis of large intestine without perforation or abscess without bleeding K57.30 and Other hemorrhoids K64.8 [facility] [address] [place] [address] 08/14/2023 [place] Rico Chronic diarrhea K52 .9 and Positive colorectal cancer screening using Cologuard test R19.5 [facility] [address] [place] [phone] 01/29/2024 [place] Rico Colon polyps K63.5 a nd Diarrhea R19.7 [facility] [address] [place] [phone] 08/12/2023 Chap[place] Rico [facility] [address] [place] [phone] 08/14/2023 [place] Rico [facility] [address] [place] [phone] 09/02/2023 Chap[place] Rico ASSESSMENTS Encounter Date Diagnosis Assessment Notes Treatment Notes Treatment Clinical Notes 08/28/2023 Colon polyps (ICD-10 - K63.5) 08/28/2023 Heme positive stool (ICD-10 - R19.5) 08/14/2023 Chronic diarrhea (ICD-10 - K52.9) Don't use any Metformin the night before nor on the morning of the colonoscopy 08/14/2023 Positive colorectal cancer screening using Cologuard test (ICD-10 - R19.5) 01/29/2024 Diarrhea (ICD-10 - R19.7) 01/29/2024 Colon polyps (ICD-10 - K63.5) Call if the diarrhea recurs 08/28/2023 Diarrhea (ICD-10 - R19.7) 08/28/2023 Diverticulosis of large intestine without perforation or abscess without bleeding (ICD-10 - K57.30) 08/28/2023 Other hemorrhoids (ICD-10 - K64.8) PLAN OF TREATMENT Pending Test Test Name Order Date IRON + IBC (FE) 10/25/2011 FERRITIN 10/25/2011 VITAMIN B12 AND FOLATE 10/25/2011 CBC w DIFF 10/25/2011 Celiac Panel 10 08/14/2023 Future Test Test Name Order Date UPPER GI ENDOSCOPY 03/16/2015 COLONOSCOPY 12/11/2017 COLONOSCOPY 08/14/2023 Insurance Providers Payer Name Payer Address Payer Phone Subscriber Number Group Number Insured Name Patient Relationship to Insured Coverage Start Date Coverage End Date [employer] [address] [place] [phone] [id number] KERI SANTIAGO Self - patient is the insured MEDICAL (GENERAL) HISTORY Medical History History ICD Code Tubular adenoma removed in --neg. colonoscopies in 2000 and 2005 except for hyperplastic polyps. Diverticulosis HTN Hyperlipidemia NIDDM Skin cancers-basal cell/squa mous cell-required XRT for one on the back of his neck Denies [place],CVA,Lung disease,renal disease Kidney stones Negative ETT in 09/[address] Lakhani Sleep apnea-has CPAP machine, but doesn' t use it EGD 12/2011--small hiatal he rnia, small area of Iglesias's esophagus without dysplasia, H. pylori, normal duodenal biopsies, and no evidence of ulcer disease or gastritis--- the H. pylori was not treated Colonoscopy in 12/2011--nega tive except for diverticulosis and internal hemorrhoids EGD in 03/2015--minimal HH, no Iglesias's, no esophagitis RIGHT BUNDLE RANCH BLOCK Sees Renal for HTN-- Atrial fibrillation Diarrhea in relation to metf ormin 2023; laboratories were negative for celiac disease Colonoscopy in July of 2023 r evealed a lipomatous ileocecal valve and 2 tubular adenomas that were removed, but no evidence of any inflammatory bowel disease or microscopic colitis in relation to his diarrhea at that time. The diarrhea resolved by decreasing his dose of metformin. Asymptomatic gallstones seen June 2023 MRI. Surgical History Surgery Date(Month/Year) Neck surgery-C--spine disc Skin cancers on face, neck, and ear Left cataract 02/2015 and th e right is scheduled in 03/2015-Dr. Hernandez
--- OUTSIDE RECORDS SUMMARY | 2024-05-17 07:48 | XMS_ITS ---
Author Organization [facility] Address [address] [place] [phone] Care Team Providers Care Children'S Attendant Name Role Phone Lyubov PICKARD, Pebbles Primary Care Provider [place] Charles [phone] REASON FOR VISIT please schedule f/u with Dr. Rico Encounters Encounter Location Date Provider Diagnosis [facility] [address] [place] [address] 09/02/2023 Chap[place]ito Rico PLAN OF TREATMENT No Information
--- OUTSIDE RECORDS SUMMARY | 2024-05-17 07:48 | XMS_ITS ---
Author Organization [facility] Address [address] [place] [phone] Care Team Providers Care Avionics Systems Engineer Name Role Phone Lyubov PICKARD, Pebbles Primary Care Provider [place] Charles [phone] ALLERGIES Allergen (clinical drug ingredient) Drug/Non Drug Allergy documented on EMR Reaction Allergy Type Onset Date Status diphenhydramine Benadryl (uncoded) Unknown Allergy Active REASON FOR VISIT Patient presents today for a hx of colon polyps MEDICATIONS Medication SIG (Take, Route, Frequency, Duration) [...] me al Orally Once a day Active VITAL SIGNS BMI 33.09 kg/m2 01/29/2024 Blood pressure systolic 00 mm Hg 01/29/20 24 Blood pressure diastolic 00 mm Hg 024 Height 69.75 in 01/29/2024 Weight 229 lbs 01/29/2024 Encounters Encounter Location Date Provider Diagnosis [facility] [address] [place] [phone] 01/29/2024 Chap[place]ito Rico Colon polyps K63.5 and Diarrhea R19.7 ASSESSMENTS Encounter Date Diagnosis Assessment Notes Treatment Notes Treatment Clinical Notes 01/29/2024 Colon polyps (ICD-10 - K63.5) Call if the diarrhea recurs 01/29/2024 Diarrhea (ICD-10 - R19.7) PLAN OF TREATMENT Treatment Notes Assessment Notes Colon polyps Call if the diarrhea recurs Next Appt Details Follow Up: prn, Reason: Progress Notes * Examination Category Sub-Category Detail Notes General Examination GENERAL APPEARANCE: pleasant , well nourished, well developed, in no acute distress EYES: sclera non-icteric NECK/THYROID: no cervical lymphade nopathy, neck supple HEART: S1, S2 normal LUNGS: clear to auscultatio n bilaterally ABDOMEN: normal bowel sounds, no guarding or rigidity, no hepatosplenomegaly, no masses palpable, soft, nontender, nondistended. NEUROLOGIC: alert and oriented SKIN: nonjaundiced, no spi gerson angiomata. EXTREMITIES: no edema ORAL CAVITY: mucosa moist
[2024-05-17 10:35] LABS: Anion Gap 14 (12-20); Blood Urea Nitrogen 27 mg/dL (9-16); Calcium 9.4 mg/dL (8.4-10.2); Carbon Dioxide 24 mmol/L (22-29); Chloride 108 mmol/L (96-108); Estimated Glomerular Filt Rate > 60; Glucose Random 134 mg/dL (60-115); Potassium 4.1 mmol/L (3.3-5.1); Sodium 142 mmol/L (135-145)
== END 2024-05-17 07:44 | disposition home or self-care (01) ==
LOC: HO.HMGCLDS 07:43
PROVIDERS: PCP Internal Medicine; Visit Provider Internal Medicine Hypertension Specialist
DX: I10 Essential (primary) hypertension (principal); D35.00 Benign neoplasm of unspecified adrenal gland
CPT/HCPCS: 36415; 80048

== ENCOUNTER 2024-05-24 10:11 | Outpatient (AMB) | payer MEDICARE, SELFPAY ==
--- NOTE | 2024-05-24 10:11 | HO.NEPHOV_ITS ---
Vital Signs 05/24/24 10:12 Height 5 ft 9 in Weight 232 lb BMI 34.3 BP 132/70 Blood Pressure Location Lt brachial Position Sitting Pulse 70 Pulse Source Pulse Oximeter Pulse Oximetry (%) 95 Oxygen Delivery Method Room Air Intake Visit Reasons: Adrenal adenoma Supervisor Travel Information Center Required: No Accompanied by: Self / Same As Patient Allergies diphenhydramine [From BENADRYL ALLERGY] Allergy (Unknown, Verified 05/24/24 10:13) HEART RACING AND TIREDNESS Medication List - Last Reconciled 05/24/24 by Jin Sun MD amlodipine 5 mg PO DAILY aspirin (Adult Aspirin Regimen) 81 mg PO DAILY blood sugar diagnostic As directed blood sugar diagnostic check blood sugar twice a day as directed blood sugar diagnostic (Contemporary Analysis Ultra Test strips) As directed twice a day ac carvedilol (Coreg) 6.25 mg PO BID 90 days eplerenone 50 mg PO BID losartan 100 mg PO DAILY metformin 1,000 mg PO DAILY simvastatin 20 mg PO BEDTIME vitamins A,C,L-eqdt-mnpwcw 4,296 mcg-226 mg-90 mg (PreserVision AREDS) 1 cap PO BID HPI Comments Details: Sadiq is a pleasant 78-year-old man with a history of hypertension for several years. Galen is on 3 anti hypertensives Until about 6 months ago, BP was acceptable Recently BP has been difficult to control Home SBP is aroud 150-160 mmHG Metoprolol was switched to Coreg yesterday due to nightmares Other meds include Amlodipine 10 mg and Losartan 100 mg QD He was on triamterene and this was stopped recently he has a h/o bilateral adrenal adenoma measuring 7.4 and 3.6 cm This was being followe dby urology for the past 4 years There has been a mild increase in size over the past few years Did not under go any biochemical work up thus far Interestingly he has unprovoked hypokalemia of 2.6 mmol in May 2023 with Alkalosis of 31 One episode of sweating while on Metoprolol. No significant palpitations or unexplained sweating h/o occational lightheadedness No h/o smoking Retired , used to work for [employer] 08/19/2023 Overall doing well from his previous visit. He has been monitoring blood pressure at home. Systolic blood pressure is I40 - 150 mm Hg despite 3 antihypertensives. 09/09/2023. Home blood pressure readings revealed systolic blood pressure in the range of 140-150. He is on eplerenone 25 mg. He underwent colonoscopy. Metformin has been decreased to 1000 mg a day. Diarrhea is improved. Colonoscopy did reveal microscopic colitis. 10/07/2023. Overall is doing well. Tolerating eplerenone 25 mg twice a day. Potassium is in normal range. All home blood pressure readings were reviewed in average systolic blood pressure around 140 mm Hg. [facility] Medical History (Updated 03/01/24 @ 11:24 by Pedro Barrientos MD) Skin cancer, upper extremity Skin lesion of hand Age-related macular degeneration, wet, right eye Sleep apnea History of ETT Kidney stones Diverticulosis Uncontrolled hypertension Positive colorectal cancer screening using Cologuard test 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 Right bundle branch block (RBBB) 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, without long-term current use of insulin Dyslipidemia Bilateral renal cysts Actinic keratosis Neuropathic arthritis Essential hypertension Surgical History History of surgical removal of skin lesion (~02/12/24) Hx of bilateral cataract extraction Hx of cervical discectomy History of esophagogastroduodenoscopy (EGD) Hx of LASIK Hx of colonoscopy Status post Mohs surgery Family History Mother Chronic kidney disease Cardiovascular disease Diabetes mellitus Brother Diabetes mellitus Skin cancer Social History Housing: House Alcohol intake: current Patient Tobacco Use Status: Never used Tobacco e-Cigarette/Vaping Use: Never Used service: No Current occupational status: retired Cognitive needs: No Hearing needs: No Vision needs: Yes Physical Exam Vital Signs: Last Vital Signs Pulse 70 05/24/24 10:12 BP 132/70 05/24/24 10:12 Pulse Ox 95 05/24/24 10:12 Oxygen Delivery Method Room Air 05/24/24 10:12 BMI result Body Mass Index 34.3 Const General: comfortable; No acute distress Orientation/consciousness: patient oriented x3 Eyes General: appearance normal, both eyes and all related structures Visual Dillon: normal visual dillon by confrontation Neck Neck: Yes supple and Yes no JVD Resp Effort & Inspection: normal respiratory effort and respiratory effort not decreased Auscultation: rhonchi Cardio Palpation: no palpable S3 and no palpable S4 Heart sounds: no rubs GI Inspection: Yes normal to inspection Palpation (GI): Soft to palpation Percussion: Yes normal to percussion Auscultation: normal bowel sounds General: Yes no CVA tenderness Back/Spine/Pelvis Back: no CVA tenderness Skin General skin exam: no petechiae and no purpura Neuro General: patient oriented x3 and no focal motor deficits Extrem General: No clubbing and No edema Results Reviewed Nephrology Results: Sodium 142 mmol/L (135-145) 05/17/24 Potassium 4.1 mmol/L (3.3-5.1) 05/17/24 Chloride 108 mmol/L (96-108) 05/17/24 Carbon Dioxide 24 mmol/L (22-29) 05/17/24 BUN 27 mg/dL (9-16) H 05/17/24 Creatinine 1.07 mg/dL (0.5-1.4) 05/17/24 Calcium 9.4 mg/dL (8.4-10.2) 05/17/24 Assessment & Plan Assessment & Plan (1) Adrenal adenoma: Code(s): D35.00 - Benign neoplasm of unspecified adrenal gland Category: Medical (2) Hypokalemia: Code(s): E87.6 - Hypokalemia Category: Medical (3) Uncontrolled hypertension: Code(s): I10 - Essential (primary) hypertension Category: Medical (4) Essential hypertension: Code(s): I10 - Essential (primary) hypertension Category: Medical Plan Sadiq has longstanding hypertension. He is bilateral adrenal adenoma. The adenomas have gradually increased in size over the last 4 years. He has spontaneous hypokalemia and metabolic alkalosis in the setting of hypertension. PA/PRA is 52 ( elevated) suspicious for primary hyperaldosteronism. Pheochromocytoma seems less likely based on the clinical picture Aldosterone is elevated and PA/PRA ratio is elevated ; would require adrenal vein sampling to see if there is any lateralization. However since he has adenomas on both sides I am not sure if this will be of any clinical relevance. At this point I would try an aldosterone omega and monitor the adrenal adenomas closely. He has tenderness on the left breast therefore I will not use spironolactone. Based on home blood pressure readings Keep Eplerenone 50 mg twice a day Leg edema due to amlodipine 10 mg. Edema significantly improved after lowering to 5 mg. Keep amlodipine at 5 mg daily. Orders: Orders Basic Metabolic Panel 6 Months D35.00 - Benign neoplasm of unspecified adrenal gland, I10 - Essential (primary) hypertension Coding Level of Care Code Est Pt Level 4 (21686) Diagnoses Adrenal adenoma D35.00 Hypokalemia E87.6 Uncontrolled hypertension I10 Essential hypertension I10
[2024-05-24 10:12] VITALS: BP 132/70; PULSE 70; O2SAT 95; BMI 34.3
--- OUTSIDE RECORDS SUMMARY | 2024-05-24 11:22 | XMS_ITS | Patient Health Record ---
Author Organization [facility] Address [address] [place] [address] Care Team Providers Care Senior Cyber Intelligence Analyst Name Role Phone Lyubov IPCKARD, Pebbles Primary Care Provider Chapincito Charles [phone] ALLERGIES Allergen (clinical drug ingredient) Drug/Non Drug Allergy documented on EMR Reaction Allergy Type Onset Date Status diphenhydramine Benadryl (uncoded) Unknown Allergy Active RESULTS Component Value Reference Range Notes Immunoglobulin A Reviewed date:08/18/2023 09:34:54 PM Interpretation: Performing Lab:[address] [address] Notes/Report: Immunoglobulin A 398 70-320 mg/dL THIS TEST WAS PERFORMED AT: [facility] [address] [place] [phone] LIAM BRYSON MD Transglutaminase Ab IgG Reviewed date:08/18/2023 09:35:27 PM Interpretation: Performing Lab:[address] [address] Notes/Report: Transglutaminase Ab IgG <1.0 Value Interpretation ----- <15.0 Antibody not detected > or = 15.0 Antibody detected THIS TEST WAS PERFORMED AT: [facility] [address] [place] [phone] LIAM BRYSON MD Transglutaminase IgA Reviewed date:08/18/2023 09:35:34 PM Interpretation: Performing Lab:[address], [place] [address] Notes/Report: Transglutaminase IgA <1.0 Value Interpretation ----- <15.0 Antibody not detected > or = 15.0 Antibody detected THIS TEST WAS PERFORMED AT: [facility] [address] [place] [phone] LIAM BRYSON MD Gliadin Ab Panel Reviewed date:08/18/2023 09:35:46 PM Interpretation: Performing Lab:[facility], [address] [place] [phone] Notes/Report: Gliadin Deamidated IgA Ab <1.0 Value Interpretation ----- <15.0 Antibody not detected > or = 15.0 Antibody detected Gliadin Deamidated IgG Ab <1.0 Value Interpretation ----- <15.0 Antibody not detected > or = 15.0 Antibody detected THIS TEST WAS PERFORMED AT: [facility] [address] [place] [phone] LIAM BRYSON MD Endomysial IgA rflx Titer Reviewed date:08/25/2023 04:00:09 PM Interpretation: Performing Lab:[facility], [address] [place] [phone] Notes/Report: Endomysial IgA Antibody Negative Negative THIS TEST WAS PERFORMED AT: [employer]/[address] [address] LASHAWN DICKSON MD,PHD Endomysial Titer TNP Glucose, Whole Blood Reviewed date:08/28/2023 11:08:36 AM Interpretation: Performing Lab:[facility], [address] [place] [phone] Notes/Report: Glucose, Whole Blood 100 60-115 mg/dL METER # : [id number] Pathology Reviewed date:09/08/2023 08:50:30 AM Interpretation: Performing Lab:[address] [address] Notes/Report: REASON FOR REFERRAL No Information MEDICATIONS [...] reflux disease without esophagitis (K21.9) Active confirmed 381827232 Problem Encounter for screening for malignant neoplasm of colon (Z12.11) Active confirmed 224528204 Problem History of adenomatous polyp of colon (Z86.010) Active confirmed 555578487 Problem Diverticulosis of large intestine without perforation or abscess without bleeding (K57.30) Active confirmed Diverticul ar disease of colon (808301955) Problem Preprocedural examination (Z01.818) Active confirmed 331655421590655 Problem Barretts esophagus without dysplasia (K22.70) Active confirmed 681537133 Problem Hx of adenomatous colonic polyps (Z86.010) Active confirmed 957307884 Problem Chronic diarrhea (K52.9) Active confirmed Chronic diarrhe a (097703929) Problem Positive colorectal cancer screening using Cologuard test (R19.5) Active confirmed Abnormal feces (327743917) VITAL SIGNS Blood pressure diastolic 00 mm Hg 01/29/2024 Height 69.75 in 01/29/2024 Blood pressure systolic 00 mm Hg 01/29/2024 Weight 229 lbs 01/29/2024 BMI 33.09 kg/m2 01/29/2024 Encounters Encounter Location Date Provider Diagnosis [facility] [place] [address] [place], [place] [phone] 08/28/2023 [place] Rico Colon polyps K63.5 ; Heme positive stool R19.5 ; Diarrhea R19.7 ; Diverticulosis of large intestine without perforation or abscess without bleeding K57.30 and Other hemorrhoids K64.8 [facility] [address] [place] [address] 08/14/2023 Chapincito Rico Chronic diarrhea K52 .9 and Positive colorectal cancer screening using Cologuard test R19.5 [facility] [address] [place] [address] 01/29/2024 Chapincito Rico Colon polyps K63.5 a nd Diarrhea R19.7 [facility] [address] [place] [address] 08/12/2023 Chapincito Rico [facility] [address] [place] [address] 08/14/2023 Chapincito Rico [facility] [address] [place] [address] 09/02/2023 Chapincito Rico ASSESSMENTS Encounter Date Diagnosis [...] Date [employer] [address] [place] [phone] [id number] KERI SANTIAGO Self - patient is the insured MEDICAL (GENERAL) HISTORY Medical History History ICD Code Tubular adenoma removed in --neg. colonoscopies in 2000 and 2005 except for hyperplastic polyps. Diverticulosis HTN Hyperlipidemia NIDDM Skin cancers-basal cell/squa mous cell-required XRT for one on the back of his neck Denies [place],CVA,Lung disease,renal disease Kidney stones Negative ETT in [...]
--- OUTSIDE RECORDS SUMMARY | 2024-05-24 11:22 | XMS_ITS ---
Author Organization [facility] Address [address] [place] [address] Care Team Providers Care Psych Therapist Name Role Phone Lyubov PICKARD, Pebbles Primary Care Provider Chapincito Charles [phone] ALLERGIES Allergen (clinical drug ingredient) Drug/Non Drug [...] Orally Once a day Active VITAL SIGNS Blood pressure systolic 00 mm Hg 01/29/20 24 Blood pressure diastolic 00 mm Hg 024 Height 69.75 in 01/29/2024 Weight 229 lbs 01/29/2024 BMI 33.09 kg/m2 01/29/2024 Encounters Encounter Location Date Provider Diagnosis [facility] [address] [place] [phone] 01/29/2024 Chapincito Rico Colon polyps K63.5 and [...]
== END 2024-05-24 10:24 | disposition home or self-care (01) ==
PROVIDERS: PCP Internal Medicine; Visit Provider Internal Medicine Hypertension Specialist
DX: D35.00 Benign neoplasm of unspecified adrenal gland (principal); E87.6 Hypokalemia; I10 Essential (primary) hypertension
CPT/HCPCS: 99214

== ENCOUNTER → 2024-05-24 10:11 | Outpatient (BNVA) | payer MEDICARE, SELFPAY | PROVIDERS: PCP Internal Medicine; Visit Provider Internal Medicine Hypertension Specialist | DX: D35.01 Benign neoplasm of right adrenal gland (principal); D35.02 Benign neoplasm of left adrenal gland; E87.6 Hypokalemia; I10 Essential (primary) hypertension | CPT/HCPCS: 99212 ==

== ENCOUNTER 2024-06-17 07:50 | Outpatient (REF) | payer MEDICARE, SELFPAY ==
--- OUTSIDE RECORDS SUMMARY | 2024-06-17 07:52 | XMS_ITS ---
Author Organization [facility] Address [address] [place] [address] Care Team Providers Care Chip Mucker Name Role Phone Lyubov PICKARD, Pebbles Primary Care Provider Chapincito Charles [phone] REASON FOR VISIT positive cologuard Problems Problem Type SNOMED Code ICD Code Onset Dates Problem Status W/U Status Risk Notes Problem Diverticular disease of colon (100325179) Diverticulosis of large intestine without perforation or abscess without bleeding (K57.30) Active confirmed Encounters Encounter Location Date Provider Diagnosis [facility] [place] [address] [place], [place] [phone] 08/28/2023 Chapincito Rico Colon polyps K63.5 ; [...] KERI SANTIAGO JrDOB: [birth year] (79 yo M)Acc No.[id number]:08/28/2023 COLON WITH MAC Patient:?KERI SANTIAGO Jr Provider:?Chapincito Rico MD :1945???Age:78 Y???Sex:Male Obey e:08/28/2023 Address:[address] [place] [address] Pcp:Pebbles Mcarthur MD Subjective: * Chief Complaints: * ???1. Positive cologuard. * Medical History:? Objective: * Vitals:? Assessment: * Assessment: 1.?Colon polyps - K63.5 (Mireya justin)???2.?Heme positive stool - R19.5???3.?Diarrhea - R19.7???4.?Diverticulosis of large intestine without perforation or abscess without bleeding - K57.30???5.?Other hemorrhoids - K64.8??? Plan: * Treatment: * Procedure Codes:?15283 LESIO N REMOVAL COLONOSCOPY, Modifiers: PT , 85070 COLONOSCOPY AND BIOPSY, Modifiers: 59 , PT, 0529F INTRVL 3+YRS PTS CLNSCP DOCD, Modifiers: 8P , 0528F RCMND FLW-UP 10 YRS DOCD, Modifiers: 1P * * The named appointment provid er may or may not be the originator of this progress note, and it is not deemed complete until electronically signed by the appointment provider. Sign off status: Pending * Provider:?Chapincito Rico MD Date:? 024 Generated for Bigg jovel/Zamzam/eTransmitting on:?06/17/2024 07:52 AM EDT
--- OUTSIDE RECORDS SUMMARY | 2024-06-17 07:52 | XMS_ITS | Patient Health Record ---
Author Organization [facility] Address [address] [place] [address] Care Team Providers Care Filler Shredder Helper Name Role Phone Lyubov PICKARD, Pebbles Primary Care Provider Chapincito Charles [phone] Allergies Allergen (clinical drug ingredient) Drug/Non Drug Allergy documented on EMR Reaction Allergy Type Onset Date Status diphenhydramine Benadryl (uncoded) Unknown Allergy Active Results Component Value Reference Range Notes Immunoglobulin A Reviewed date:08/18/2023 09:34:54 PM Interpretation: Performing Lab:[address] [address] Notes/Report: Immunoglobulin A 398 70-320 mg/dL THIS TEST WAS PERFORMED AT: [facility] [address] [place] [phone] LIAM BRYSON MD Transglutaminase Ab IgG Reviewed date:08/18/2023 09:35:27 PM Interpretation: Performing Lab:[address] [address] Notes/Report: Transglutaminase Ab IgG <1.0 Value Interpretation ----- <15.0 Antibody not detected > or = 15.0 Antibody detected THIS TEST WAS PERFORMED AT: [facility] [address] [place] [phone] LIAM BRYSON MD Transglutaminase IgA Reviewed date:08/18/2023 09:35:34 PM Interpretation: Performing Lab:[address], [place] [address] Notes/Report: Transglutaminase IgA <1.0 Value Interpretation ----- <15.0 Antibody not detected > or = 15.0 Antibody detected THIS TEST WAS PERFORMED AT: [facility] [address] [place] [phone] LIAM BRYSON MD Gliadin Ab Panel Reviewed date:08/18/2023 09:35:46 PM Interpretation: Performing Lab:[facility], [address] [place] [phone] Notes/Report: Gliadin Deamidated IgA Ab <1.0 Value Interpretation ----- <15.0 Antibody not detected > or = 15.0 Antibody detected Gliadin Deamidated IgG Ab <1.0 Value Interpretation ----- <15.0 Antibody not detected > or = 15.0 Antibody detected THIS TEST WAS PERFORMED AT: [facility] [address] [place] [phone] LIAM BRYSON MD Endomysial IgA rflx Titer Reviewed date:08/25/2023 04:00:09 PM Interpretation: Performing Lab:[facility], [address] [place] [phone] Notes/Report: Endomysial IgA Antibody Negative Negative THIS TEST WAS PERFORMED AT: [facility]/[address] [address] LASHAWN DICKSON MD,PHD Endomysial Titer TNP Glucose, Whole Blood Reviewed date:08/28/2023 11:08:36 AM Interpretation: Performing Lab:[facility], [address] [place] [phone] Notes/Report: Glucose, Whole Blood 100 60-115 mg/dL METER # : [id number] Pathology Reviewed date:09/08/2023 08:50:30 AM Interpretation: Performing Lab:[facility], [address] [place] [phone] Notes/Report: ---- Name: Sadiq Middleton Age/Sex: 78/M : 1945 Unit#: [id number] Attend Dr: Chapincito Rico Re08/28/23 Status : [facility] Location: [facility] Disch: ---- SPEC : [id number] RECD : 08/28/23 STATUS: [facility] NUM: [id number] SUMMER: 08/28/23-[address] [facility] [address]: Chapincito Rico ENTERED: 08/28/23- 14 SP TYPE: Surgical OTHR DR: Pebbles Mcarthur MD ORDERED: HE Stain/12 , Gross Micro L4/4 Diagnosis A. Colon, ascending, polypectomies: Fragments of tubular adenomata; negative for high- grade dysplasia or carcinoma. B. Ileocecal valve, biopsy: Ileocolonic mucosa within normal limits. C. Colon, ascending, biopsy: Colonic mucosa within normal limits; negative for microscopic colitis. D. Colon, descending , biopsy: Colonic mucosa within normal limits; negative for microscopic colitis. Clinical History Pre-Op Dx: Noninfect alejandra gastroenteritis and colitis, unspecified Post-Op Dx: Diverticulosis, polyps, hemorrhoids Microscopic Description A-D. Microscopic sections reviewed. Material Received A. Ascending colon polyps B. Ileocecal valve bx's C. Ascending colon, r/o microscopic colitis D. Descending colon, r/o microscopic colitis Gross Description Received in four parts. Part A: Received in formalin labeled ?ascending colon polyps? are 6 quijano-pink and quijano-red irregular and papula r tissue fragments ranging from 0.25 to 0.45 cm, submitted in toto in a cassette labeled A. Part B: Received in formalin labeled ?ileocecal valve bx's? are 2 quijano-pink irregular tissue fragments measuring 0.15 and 0.25 cm, submitted in toto in a cassette labeled B. Part C: Received in formalin labeled ?ascending colon, rule out microscopic colitis? are 4 quijano irregular tissue fragments ranging from 0.1-0.2 cm, submitted in toto in a cassette labeled C. CONTINUED ON NEXT PAGE ---- Name: EmiSadiq Age/Sex: 78/M : 1945 Unit#: [id number] Attend Dr: Chapincito Rico Re08/28/23 Status : [facility] Location: [facility] Disch: ---- SPEC : [id number] RECD : 08/28/23 STATUS: [facility] NUM: [id number] SUMMER: 08/28/[address] [facility] [address]: Chapincito Rico ENTERED: 08/28/23- 14 SP TYPE: Surgical OTHR DR: Pebbles Mcarthur MD ORDERED: HE Stain/12 , Gross Micro L4/4 Gross Description (Continued) Part D: Received in formalin labeled ?descending colon, rule out microscopic colitis are 2 quijano irregular tissue fragments each measuring 0.3 cm, submitted in toto in a cassette labeled D. CEDS Copies To: Pebbles Mcarthur MD [address] [place], [place] [id number] [address] [place], [place] [phone] ---- Signed (signature on file) Suhas Allison MD 09/01/23 0957 ---- END OF REPORT Reason For Referral No Information Medications Medication SIG (Take, Route, Frequency, Duration) Notes [...] me al Orally Once a day Active Problems Problem Type SNOMED Code ICD Code Onset Dates Problem Status W/U Status Risk Notes Problem 523063117 Gastro-esophagea l reflux disease without esophagitis (K21.9) Active confirmed Problem 627696224 Encounter for screening for malignant neoplasm of colon (Z12.11) Active confirmed Problem 743114547 History of adenomatous polyp of colon (Z86.010) Active confirmed Problem Diverticular disease of colon (375252047) Diverticulosis of large intestine without perforation or abscess without bleeding (K57.30) Active confirmed Problem 758997678266104 Preprocedural examination (Z01.818) Active confirmed Problem 047690423 Barretts esophagus without dysplasia (K22.70) Active confirmed Problem 264244828 Hx of adenomatou s colonic polyps (Z86.010) Active confirmed Problem Chronic diarrhea (154949176) Chronic diarrhea (K52.9) Active confirmed Problem Abnormal feces (607516864) Positive colorectal cancer screening using Cologuard test (R19.5) Active confirmed Vital Signs Blood pressure diastolic 00 mm Hg 01/29/2024 Height 69.75 in 01/29/2024 Blood pressure systolic 00 mm Hg 01/29/2024 Weight 229 lbs 01/29/2024 BMI 33.09 kg/m2 01/29/2024 Encounters Encounter Location Date Provider Diagnosis [facility] [place] [address] [place] [phone] 08/28/2023 Chapincito Rico Colon polyps K63.5 ; Heme positive stool R19.5 ; Diarrhea R19.7 ; Diverticulosis of large intestine without perforation or abscess without bleeding K57.30 and Other hemorrhoids K64.8 [facility] [address] [place] [phone] 08/14/2023 Chapincito Rico Chronic diarrhea K52 .9 and Positive colorectal cancer screening using Cologuard test R19.5 [facility] [address] [place] [phone] 01/29/2024 Chapincito Rico Colon polyps K63.5 a nd Diarrhea R19.7 [facility] [address] [place] [phone] 08/12/2023 Chapincito Rico [facility] [address] [place] [phone] 08/14/2023 Chapincito Rico [facility] [address] [place] [phone] 09/02/2023 Chapincito Rico Assessments Encounter Date Diagnosis (ICD Code) Assessment Notes Treatment Notes Treatment Clinical Notes Section Notes 08/28/2023 Colon polyps (ICD-10 - K63.5) 08/28/2023 Heme positive stool (ICD-10 - R19.5) 08/14/2023 Chronic diarrhea (ICD-10 - K52.9) Don't use any Metformin the night before nor on the morning of the colonoscopy Overall, Mr. Middleton appears well. However, given his persistent change in bowel habits and the recent positive Cologuard test, I did recommend a colonoscopy for evaluation to rule out anything such as inflammatory bowel disease, colorectal cancer, or microscopic colitis. Full consent was obtained from him for this, including risks of bleeding and perforation. I shall check laboratories for celiac disease in the meantime. He was given the below instructions regarding adjustment of his metformin for the procedure. We did review that metformin can cause diarrhea but that would be unlikely in this case given that he has been on it for many years without previous problems. We did discuss that if the workup of the diarrhea is completely negative and symptoms persist then we might need to have the metformin changed to a different medication to see if that would give him any relief. Mr. Middleton and his were comfortable with this plan. Thank you again for allowing me to participate in Mr. Middleton's care. I shall continue to keep you advised of his progress. 08/14/2023 Positive colorectal cancer screening using Cologuard test (ICD-10 - R19.5) Overall, Mr. Middleton appears well. However, given his persistent change in bowel habits and the recent positive Cologuard test, I did recommend a colonoscopy for evaluation to rule out anything such as inflammatory bowel disease, colorectal cancer, or microscopic colitis. Full consent was obtained from him for this, including risks of bleeding and perforation. I shall check laboratories for celiac disease in the meantime. He was given the below instructions regarding adjustment of his metformin for the procedure. We did review that metformin can cause diarrhea but that would be unlikely in this case given that he has been on it for many years without previous problems. We did discuss that if the workup of the diarrhea is completely negative and symptoms persist then we might need to have the metformin changed to a different medication to see if that would give him any relief. Mr. Middleton and his were comfortable with this plan. Thank you again for allowing me to participate in Mr. Middleton's care. I shall continue to keep you advised of his progress. 01/29/2024 Diarrhea (ICD-10 - R19.7) Overall, Mr. Middleton appears quite well. He is no longer having any significant or worrisome GI complaints. It does appear that having been able to decrease his metformin has given him good relief of the previous diarrhea. As such, he does not need any particular treatment or further workup of that issue. I did advise him to let me know if it becomes problematic again. Given the findings of the small tubular adenomas on a colonoscopy earlier this year and his age, I don't think he will need any further screening colonoscopies. At this point, if things are stable, I advised him to see me on a p.r.n. basis Mr. Middleton was comfortable with this plan. Thank you again for allowing me to have participated in Mr. Middleton's care. Please do not hesitate to contact me if I can be of any further assistance in the future. 01/29/2024 Colon polyps (ICD-10 - K63.5) Call if the diarrhea recurs Overall, Mr. Middleton appears quite well. He is no longer having any significant or worrisome GI complaints. It does appear that having been able to decrease his metformin has given him good relief of the previous diarrhea. As such, he does not need any particular treatment or further workup of that issue. I did advise him to let me know if it becomes problematic again. Given the findings of the small tubular adenomas on a colonoscopy earlier this year and his age, I don't think he will need any further screening colonoscopies. At this point, if things are stable, I advised him to see me on a p.r.n. basis Mr. Middleton was comfortable with this plan. Thank you again for allowing me to have participated in Mr. Middleton's care. Please do not hesitate to contact me if I can be of any further assistance in the future. 08/28/2023 Diarrhea (ICD-10 - R19.7) 08/28/2023 Diverticulosis of large intestine without perforation or abscess without bleeding (ICD-10 - K57.30) 08/28/2023 Other hemorrhoids (ICD-10 - K64.8) Plan Of Treatment Pending Test Test Name Order Date IRON [...] Date [employer] [address] [place] [phone] [id number] SADIQ MIDDLETON Self - patient is the insured Medical (General) History Medical History History ICD Code Tubular adenoma removed in --neg. colonoscopies in 2000 and 2005 except for hyperplastic polyps. 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
--- OUTSIDE RECORDS SUMMARY | 2024-06-17 07:53 | XMS_ITS ---
Author Organization [facility] Address [address] [place] [phone] Care Team Providers Care Ground Mixer Name Role Phone Lyubov PICKARD, Pebbles Primary Care Provider [place] Charles [phone] Allergies Allergen (clinical drug ingredient) Drug/Non Drug Allergy documented on EMR Reaction Allergy Type Onset Date Status diphenhydramine Benadryl (uncoded) Unknown Allergy Active REASON FOR VISIT Patient presents today for a hx of colon polyps Medications Medication SIG (Take, Route, Frequency, Duration) [...] me al Orally Once a day Active Vital Signs Blood pressure systolic 00 mm Hg 01/29/20 24 Blood pressure diastolic 00 mm Hg 024 Height 69.75 in 01/29/2024 Weight 229 lbs 01/29/2024 BMI 33.09 kg/m2 01/29/2024 Encounters Encounter Location Date Provider Diagnosis [facility] [address] [place] [phone] 01/29/2024 Chapincito Rico Colon polyps K63.5 and Diarrhea R19.7 Assessments Encounter Date Diagnosis (ICD Code) Assessment Notes Treatment Notes Treatment Clinical Notes Section Notes 01/29/2024 Colon polyps (ICD-10 - K63.5) [...] any further assistance in the future. 01/29/2024 Diarrhea (ICD-10 - R19.7) Overall, Mr. [...] of any further assistance in the future. Plan Of Treatment Treatment Notes Assessment Notes Colon polyps Call if the diarrhea recurs Next Appt Details Follow Up: prn, Reason: Progress Notes * MIDDLETON, KERI J JrDOB: [birth year] (78 yo M)Acc No.[id number]:01/29/2024 Progress Notes Patient:?JACK KERI Glynn Provider:?Chapincito Rico MD :1945???Age:78 Y???Sex:Male Obey e:01/29/2024 Address:[address] [place], [place] [phone] Pcp:Pebbles Mcarthur MD Subjective: * Chief Complaints: * ???Patient presents today fo r a hx of colon polyps * HPI: ???incontinence:? I saw Mr. Middleton followup today in regard to his previous diarrhea. ?I last saw Mr. Middleton in July, at which time he underwent a colonoscopy for evaluation of his ongoing issues with diarrhea. This revealed some tubular adenomas that were removed, but there was no evidence for inflammatory bowel disease and biopsies were negative for microscopic colitis. His previous workup included negative laboratories for celiac disease. After his colonoscopy I advised to try using Imodium on a p.r.n. basis and I advised him to speak with you about either decreasing or stopping the metformin. He advised me that he was able to decrease the metformin and this significantly helped his diarrhea and he is no longer no longer having any problems. He never needed to use the Imodium once he decreased his metformin. He currently reports his bowel movements have been regular and formed. There's been no sign of bleeding. He enjoys a good appetite and denies any significant heartburn or dysphagia. He denies abdominal pain, jaundice, nor unintentional weight loss. * ROS:?General/Constitutional:?Change in appetite?denies.?Chills?denies.?Fatigue?denies.?Ophthalmologic:?Patient denies? Negative..?ENT:?Patient denies?Negative..?Respiratory:?Patient denies?No coughing/hemoptysis..?Cardiovascular:?Patient denies? No chest pain/orthopnea..?Gastrointestinal:?Comments?See HPI for details.?Genitourinary:?Patient denies? No dysuria/hematuria..?Musculoskeletal:?Patient denies? No specific arthralgias/myalgias..?Skin:?Patient denies?No rash/pruritus..?Neurologic:?Patient denies? No headaches/seizures..?Psychiatric:?Patient denies?Negative..? * Medical History:? * Surgical History:?Neck surge ry-C--spine disc Skin cancers on face, neck, and ear Left cataract 02/2015 and the right is scheduled in 03/2015-Dr. Hernandez * Hospitalization/Major Diagno stic Procedure:?No Hospitalization History. * Family History:?Father: dece ased, bleeding ulcers /heartattack, diagnosed with Heart disease.?Mother: , diabetes/dialosis.? No family history of colorectal cancer, IBD, celiac disease. * Social History:?Tobacco Use:?Tobacco Use/Smoking?Are you a: nonsmoker.?Drugs/Alcohol:?Alcohol Screen?Points: 1, Interpretation: Negative.?Miscellaneous:?Marital status: . 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 ???Nonsmoker; 1 Beer QD. * Medications:?TakingEplerenon e 25 MG Tablet 1 tablet Orally Once a dayamLODIPine Besylate 5 MG Tablet 1 tablet Orally Once a daySimvastatin 20 MG Tablet 1 tablet in the evening Orally Once a dayLosartan Potassium 100 MG Tablet 1 tablet Orally Once a daymetFORMIN HCl 1000 MG Tablet 1 tablet with a meal Orally Once a dayCarvedilol 6.25 MG Tablet 1 tablet with food Orally Twice a dayMedication List reviewed and reconciled with the patientTaking Eplerenone 25 MG Tablet 1 tablet Orally Once a dayTaking amLODIPine Besylate 5 MG Tablet 1 tablet Orally Once a dayTaking Simvastatin 20 MG Tablet 1 tablet in the evening Orally Once a dayTaking Losartan Potassium 100 MG Tablet 1 tablet Orally Once a dayTaking metFORMIN HCl 1000 MG Tablet 1 tablet with a meal Orally Once a dayTaking Carvedilol 6.25 MG Tablet 1 tablet with food Orally Twice a dayMedication List reviewed and reconciled with the patient * Allergies:?Benadrylyes[Aller gies Verified] Objective: * Vitals:?Wt: 229 lbs, Ht: 69. 75 in, BMI:33.09 Index, BP: 00/00 mm Hg. * Examination: ???General Examination: ?GENERAL APPEARANCE:?pleasant, well nourished, well developed, in no acute distress.?EYES:?sclera non-icteric.?ORAL CAVITY:?mucosa moist.?NECK/THYROID:?no cervical lymphadenopathy, neck supple.?SKIN:?nonjaundiced, no spider angiomata..?HEART:?S1, S2 normal.?LUNGS:?clear to auscultation bilaterally.?ABDOMEN:?normal bowel sounds, no guarding or rigidity, no hepatosplenomegaly, no masses palpable, soft, nontender, nondistended..?EXTREMITIES:?no edema.?NEUROLOGIC:?alert and oriented.? Assessment: * Assessment: 1.?Diarrhea - R19.7 (Primary )?2.?Colon polyps - K63.5? Overall, Mr. Middleton appears qu ite well. He is no longer having any [...] of any further assistance in the future. Plan: * Treatment: * Procedure Codes:?1036F TOBAC CO [id number] BP SCR NOT PRFRM REC REASON NOS * Preventive Medicine:? ??Counseling:?Care goal follow-up plan:?Above Normal BMI Follow-up?Giving encouragement to exercise,?BMI management provided?Yes.? ??Screenings:?Fall Risk Screening?Fall Risk Assessment:?No falls in the past year,?Screening:?No falls in the past year,?Assessment:?Not performed, no reason specified,?Plan of Care:?Not documented, no reason specified.? * Follow Up:?prn * * Sign off status: Completed true * Provider:?Chapincito Rico MD Date:? 024 Generated for Bigg jovel/Zamzam/Genesis on:?06/17/2024 07:52 AM EDT History and Physical Notes * HPI (History of Present Illness) Category Sub-Category Detail Notes Category Not es incontinence I saw Mr. Middleton followup today in regard to his previous diarrhea. I last saw Mr. Middleton in July, at which time he underwent a colonoscopy for evaluation of his ongoing issues with diarrhea. This revealed some tubular adenomas that were removed, but there was no evidence for inflammatory bowel disease and biopsies were negative for microscopic colitis. His previous workup included negative laboratories for celiac disease. After his colonoscopy I advised to try using Imodium on a p.r.n. basis and I advised him to speak with you about either decreasing or stopping the metformin. He advised me that he was able to decrease the metformin and this significantly helped his diarrhea and he is no longer no longer having any problems. He never needed to use the Imodium once he decreased his metformin. He currently reports his bowel movements have been regular and formed. There's been no sign of bleeding. He enjoys a good appetite and denies any significant heartburn or dysphagia. He denies abdominal pain, jaundice, nor unintentional weight loss. Examination Category Sub-Category Detail Notes Category Not es General Examination GENERAL APPEARANCE: pleasant , well [...]
--- OUTSIDE RECORDS SUMMARY | 2024-06-17 07:53 | XMS_ITS ---
Author Organization [facility] Address [address] [place] [phone] Care Team Providers Care Environment Friendly Landscape Designer Name Role Phone Lyubov PICKARD, Pebbles Primary Care Provider Chap[place]ito Charles [phone] REASON FOR VISIT please schedule f/u with Dr. Rico Encounters Encounter Location Date Provider Diagnosis [facility] [address] [place] [phone] 09/02/2023 Chapincito Rico Plan Of Treatment No Information Progress Notes * KERI SANTIAGO JrDOB: [birth year] (78 yo M)Acc No.[id number]:09/02/2023 Patient:?KERI SANTIAGO :1945???Age:78 Y???Sex:Male Address:[address] [place] [phone] * true * Date:? Generated for Bigg jovel/Zamzam/eTransmitting on:?06/17/2024 07:52 AM EDT
[2024-06-17 10:25] LABS: Estimated Average Glucose 146 mg/dL; Hemoglobin A1C 176.8139 umol/L; Hemoglobin A1c % 6.7 % (<6.0); Total Hemoglobin (HGBA1C) 3561.5218 umol/L
[2024-06-17 10:42] LABS: Alanine Aminotransferase 23 U/L (0-40); Anion Gap 12 (12-20); Aspartate Amino Transferase 30 U/L (5-37); Blood Urea Nitrogen 16 mg/dL (9-16); Carbon Dioxide 27 mmol/L (22-29); Chloride 106 mmol/L (96-108); Cholesterol 171 mg/dL (<200); Estimated Glomerular Filt Rate > 60; Glucose Fasting 129 mg/dL (60-99); HDL Cholesterol 40 mg/dL (>40); LDL Cholesterol Calculated 87 mg/dL (<100); Sodium 141 mmol/L (135-145); Triglycerides 224 mg/dL (<150)
[2024-06-17 10:58] LABS: Creatinine Urine 120.94 mg/dL; Microalbum/Creatinine Ratio Ur 55.3 ug/mg cr (<30); PSA,Total (Free>4and<10) 2.86 ng/mL (0.00-4.00)
[2024-06-17 10:59] LABS: Vitamin D 25-OH Total 36.1 ng/mL (>30)
== END 2024-06-17 07:51 | disposition home or self-care (01) ==
LOC: HO.HMGCLDS 07:50
PROVIDERS: PCP Internal Medicine; Visit Provider Internal Medicine
DX: Z12.5 Encounter for screening for malignant neoplasm of prostate (principal); E11.29 Type 2 diabetes mellitus with other diabetic kidney complication; R80.9 Proteinuria, unspecified; I10 Essential (primary) hypertension; E78.5 Hyperlipidemia, unspecified
CPT/HCPCS: 36415; 80048; 80061; 82043; 82306; 82570; 83036; 84153; 84450; 84460

== ENCOUNTER 2024-06-24 10:45 | Outpatient (REF) | payer MEDICARE, SELFPAY ==
--- NOTE | ~2024-06-24 | XR_ITS ---
EXAMINATION: XR KNEE, LEFT CLINICAL INFORMATION: M25.562 - Pain in left knee COMPARISON: May 16, 2021 TECHNIQUE: Four views of the left knee. FINDINGS: Joint space narrowing involving mostly the medial compartment. Sclerosis of the articular surface of the medial tibial plateau. Subtle chondrocalcinosis in the lateral compartment. Exostosis at the quadriceps tendon insertion and the patellar tendon. No suprapatellar bursa joint effusion. 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 Probable CPPD. Enthesopathy/tendinopathy, patella and quadriceps tendon. Electronically signed by: Dangelo Luke MD 06/25/2024 08:06 AM EDT
== END 2024-06-24 10:46 | disposition home or self-care (01) ==
LOC: HO.HMGCX 10:45
PROVIDERS: PCP Internal Medicine; Visit Provider Internal Medicine
DX: Z00.01 Encounter for general adult medical examination with abnormal findings (principal); M25.562 Pain in left knee; E78.5 Hyperlipidemia, unspecified; E11.29 Type 2 diabetes mellitus with other diabetic kidney complication; R80.9 Proteinuria, unspecified; I10 Essential (primary) hypertension; D35.01 Benign neoplasm of right adrenal gland; D35.02 Benign neoplasm of left adrenal gland; H35.3210 Exudative age-related macular degeneration, right eye, stage unspecified; Z85.828 Personal history of other malignant neoplasm of skin; Z79.84 Long term (current) use of oral hypoglycemic drugs; Z79.899 Other long term (current) drug therapy; Z71.89 Other specified counseling
CPT/HCPCS: 73564; 96127; 99212; 99497

== ENCOUNTER 2024-06-24 10:45 | Outpatient (AMB) | payer MEDICARE, SELFPAY ==
[2024-06-24 11:33] VITALS: BP 134/72; PULSE 66; RESP 14; TEMP 36.7; O2SAT 97; BMI 34.3
--- NOTE | 2024-06-24 11:33 | A.OFFPC_ITS ---
Vital Signs 06/24/24 11:33 Height 5 ft 9 in Weight 232 lb BMI 34.3 BP 134/72 Blood Pressure Location Lt brachial Position Sitting Respiration 14 Pulse 66 Pulse Source Pulse Oximeter Temp 98.0 F Temp Source Oral Pulse Oximetry (%) 97 Oxygen Delivery Method Room Air Intake Visit Reasons: Annual PE Intake Note: Pt is here today for his PE Allergies diphenhydramine [From BENADRYL ALLERGY] Allergy (Unknown, Verified 06/27/24 15:18) HEART RACING AND TIREDNESS Medication List - Last Reconciled 06/27/24 by Pebbles Mcarthur MD amlodipine 5 mg PO DAILY aspirin (Adult Aspirin Regimen) 81 mg PO DAILY blood sugar diagnostic As directed blood sugar diagnostic check blood sugar twice a day as directed blood sugar diagnostic ([employer] Ultra Test strips) As directed twice a day ac carvedilol (Coreg) 6.25 mg PO BID 90 days eplerenone 50 mg PO BID losartan 100 mg PO DAILY metformin 1,000 mg PO DAILY simvastatin 20 mg PO BEDTIME vitamins A,C,X-mpqj-vbibiz 4,296 mcg-226 mg-90 mg (PreserVision AREDS) 1 cap PO BID Tobacco use date assessed: 06/24/24 Fall risk assessment: No Falls in past year Last assessed Fall Risk: 06/24/24 Dental Screening Dental Screen Date: 06/24/24 HPI Annual PE HPI Details 9-year-old male with history of diabetes mellitus, dyslipidemia, hypertension , bilateral adenoma, suspicious for primary hyperaldosteronism followed by Nephrology, microscopic colitis seen on colonoscopy, history of skin cancer followed by dermatology, age related macular degeneration wet on right eye and dry AMD on left eye followed by [facility], here today for his physical exam. Blood pressure is better controlled now on present treatment currently on amlodipine 5 mg daily, eplerenone 50 mg 1 tablet twice a day, carvedilol 6.25 mg twice a day and losartan 100 mg daily. Latest fasting labs showed hemoglobin A1c at 6.7% with presence of microalbuminuria, currently on metformin a 1000 mg twice a day, and fasting lipids, electrolytes renal function and vitamin-D level are within normal limits except for elevated triglycerides. Patient currently on simvastatin 20 mg at bedtime. He has been feeling well except for recurrent pain and stiffness in left knee joint. No history of trauma. 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, without long-term current use of insulin Dyslipidemia Bilateral renal cysts Actinic keratosis Neuropathic arthritis Essential hypertension Surgical History History of surgical removal of skin lesion (~02/12/24) Hx of bilateral cataract extraction Hx of cervical discectomy History of esophagogastroduodenoscopy (EGD) Hx of LASIK Hx of colonoscopy Status post Mohs surgery Family History Mother Chronic kidney disease Cardiovascular disease Diabetes mellitus Brother Diabetes mellitus Skin cancer Social History Housing: House Alcohol intake: current Patient Tobacco Use Status: Never used Tobacco e-Cigarette/Vaping Use: Never Used service: No Current occupational status: retired Cognitive needs: No Hearing needs: No Vision needs: Yes Questionnaire PHQ-9 Over the last 2 weeks, how often have you been bothered by any of the following problems? 1. Little interest or pleasure in doing things: not at all 2. Feeling down, depressed, or hopeless: not at all 3. Trouble falling or staying asleep, or sleeping too much: not at all 4. Feeling tired or having little energy: not at all 5. Poor appetite or overeating: not at all 6. Feeling bad about yourself - or that you are a failure or have let yourself or your family down: not at all 7. Trouble concentrating on things, such as reading the newspaper or watching television: not at all 8. Moving or speaking so slowly that other people could have noticed. Or the opposite - being so fidgety or restless that you have been moving around a lot more than usual: not at all 9. Thoughts that you would be better off or of hurting yourself in some way: not at all Total score: 0 Depression Screening Interpretation: Negative Depression Screening Done: Yes 22412 - PHQ-9 Billing: Yes Source: Developed by Drs. Chapincito Livingston, Natalie Shaw, Mynor Nino and colleagues, with an educational pollo from [employer]. Thrive Questionnaire Date Thrive assessed: 06/17/24 I am a: Patient What is your living situation today?: I have a steady place to live Within the past 12 months, did the food you bought not last and you didn't have the money to get more?: Never true Within the past 12 months, did you worry whether your food would run out before you got money to buy more?: Never true Do you have trouble paying for medicines?: No Do you have trouble getting transportation to medical appointments?: No Do you have trouble paying your heating and electricity bill?: No Do you have trouble taking care of your child, family member or friend?: No Do you have trouble with day-to-day activities such as bathing, preparing meals, shopping, managing finances, etc.?: No Are you currently unemployed and looking for a job?: No Are you interested in more education?: No Please select the resources that you would like help with: None Currently or been in a relationship where the following occur: No concerns reported THRIVE Score: 0 AUDIT C Alcohol Use Questionnaire (AUDIT-C) 1. How often do you have a drink containing alcohol?: Monthly or less 2. How many drinks containing alcohol do you have on a typical day when you are drinking?: 1 or 2 3. How often do you have six or more drinks on one occasion?: Never Total Score: 1 YAMILA-7 AMB Questionnaire YAMILA-7 Date YAMILA - 7 assessed: 06/24/24 Feeling nervous, anxious, or on edge: 0 = Not at all Not being able to stop or control worryin = Not at all Worrying too much about different things: 0 = Not at all Trouble relaxin = Not at all Being so restless that it is hard to sit still: 0 = Not at all Becoming easily annoyed or irritable: 0 = Not at all Feeling afraid as if something awful might happen: 0 = Not at all Total YAMILA-7 score (0-4 normal; 5-9 mild; 10-14 moderate; 15-21 severe): 0 Source: Developed by Drs. Chapincito Livingston, Natalie Shaw, Mynor Nino and colleagues, with an educational pollo from [employer]. YAMILA-7 Assessment Billing YAMILA-7 Assessment Tool: YAMILA-7 Assessment 00176 Review of Systems Const Denies weakness Eyes Reports no additional complaints ENT Denies dizziness Card Denies chest pain, Denies syncope, Denies rapid heart rate, Denies pedal edema, Denies edema, Denies leg edema, Denies lightheadedness, Denies dyspnea, Denies dyspnea on exertion and Denies orthopnea Resp Denies cough, Denies dyspnea and Denies dyspnea on exertion GI Denies hematochezia and Denies change in stool character Reports no additional complaints Musc Reports as per HPI, Denies abnormal gait, Denies muscle cramps, Denies muscle weakness, Denies numbness, Denies radiating pain into limb and Denies tingling Skin/Breast Details: Followed by dermatology for skin cancer screening, no new lesion Neuro Denies abnormal gait, Denies dizziness, Denies syncope, Denies numbness, Denies tingling and Denies weakness Psych Reports no additional complaints Endo Reports no additional complaints Kp/Lymph Reports no additional complaints Aller/Immun Reports no additional complaints Physical exam (Primary Care) Vital Signs: Last Vital Signs Temp 98.0 F 06/24/24 11:33 Pulse 66 06/24/24 11:33 Resp 14 06/24/24 11:33 BP 134/72 06/24/24 11:33 Pulse Ox 97 06/24/24 11:33 Oxygen Delivery Method Room Air 06/24/24 11:33 BMI result Body Mass Index 34.3 Tobacco/Smoking Status: Tobacco use Status Tobacco use date assessed 06/24/24 06/24/24 11:36 Patient Tobacco Use Status Never used Tobacco 06/24/24 11:36 e-Cigarette/Vaping Use Never Used 06/24/24 11:36 PHQ-9: PHQ-9 Score PHQ-9: Total score 0 06/24/24 12:28 Depression Screening Interpretation: Negative Thrive Assessment: Date of Thrive Assessment Date Thrive assessed 06/17/24 06/24/24 11:36 Currently or been in a relationship where the following occur: No concerns reported Advance Care Planning discussion: Completed/Scanned Date of discussion: 06/24/24 Who was present: Patient Forms completed: Health Care Proxy and MOLST Time spent: 16-45 minutes Actual minutes spent: 3 Const Other: Alert oriented x3, no acute distress noted ambulatory [facility] Head: Yes normocephalic Face and sinus: Yes face symmetric Mouth: Normal oral and palatal mucosa present and moist mucous membranes Eyes General: appearance normal, both eyes and all related structures Neck Other: Supple, no lymphadenopathy, thyroid gland nonpalpable Resp Auscultation: clear to auscultation bilaterally Cardio Other: S1-S2 present regular rate and rhythm with frequent skipped beats GI Other: Normal bowel sounds, soft, nontender, no mass palpated General: Yes no CVA tenderness Back/Spine/Pelvis Back: no CVA tenderness Skin General skin exam: no rashes or lesions noted Neuro General: gait normal, tone normal, Normal light touch and pain sensation, no focal motor deficits and CN's II-XI intact bilaterally Extrem Other: Slight tenderness on palpation over medial aspect of left knee joint, positive crepitus, no joint effusion seen General: Yes no joint enlargement, Yes no clubbing, cyanosis or edema, Yes no pedal edema and Yes no calf tenderness Results Reviewed Results Reviewed: Name: Sadiq Middleton Jr Age/Sex: 79/M : 1945 Unit#: [id number] Attend Dr: Pebbles Mcarthur MD Re06/17/24 Status: DEP REF Location: [facility] Disch: SPEC : [id number] SUMMER: 06/17/24 STATUS: COMP REQ : [id number] RECD: 06/17/24-[address]: Pebbles Mcarthur MD COMP: 06/17/24-1058 ENTERED: 06/17/24-[address]: ORDERED: Met Prof Fast, AST, ALT, Lipid Panel, Vitamin D 25-OH Test Result Flag Reference Sodium 141 135-145 mmol/L Potassium 4.0 3.3-5.1 mmol/L CL 106 96-108 mmol/L CO2 27 22-29 mmol/L Gap 12 12-20 BUN 16 9-16 mg/dL Creat 0.89 0.5-1.4 mg/dL eGFR > 60 Chronic Kidney Disease: Estimated GFR < 60 mL/min/1.73m2 Severe Kidney Disease: Estimated GFR < 15 mL/min/1.73m2 FBS 129 H 60-99 mg/dL A fasting glucose of 126 mg/dl or greater on more than one occasion is considered diagnostic of diabetes. CA 10.0 # 8.4-10.2 mg/dL AST (GOT) 30 5-37 U/L ALT (GPT) 23 0-40 U/L Triglyceride 224 H <150 mg/dL Desirable Triglyceride: less than 150 mg/dL Borderline High Triglyceride 150-199 mg/dL High Triglyceride: 200-499 mg/dL Very High Triglyceride: greater than or equal to 5OO mg/dL Cholesterol 171 <200 mg/dL Desirable Cholesterol: less than 200 mg/dL Borderline High Cholesterol: 200-239 mg/dL High Cholesterol: greater than 239 mg/dL LDL Calculated 87 <100 mg/dL Desirable LDL: less than 100 mg/dL Near Optimal/Above Optimal LDL: 110-129 mg/dL Borderline High LDL: 130-159 mg/dL High LDL: 160-189 mg/dL Very High LDL: greater than or equal to 190 mg/dL HDL 40 L >40 mg/dL Desirable HDL: greater than 40 mg/dL Note: This HDL assay may give artificially low results in patients with liver disease. Vitamin D 25-OH 36.1 >30 ng/mL Health Based Reference Values* < 20 ng/mL Deficient 20-30 ng/mL Insufficient > 30 ng/mL Sufficient Laboratory Tests 01/19/24 06/17/24 07:32 07:59 Estimat Average Glucose 140 146 Hemoglobin A1c % 6.5 H 6.7 H Urine Creatinine 120.94 Urine Microalbumin 67.0 Microalb/Creat Ratio 55.3 H Coding Level of Care Code Est Pt Level 4 (12553) Complex EM visit Add On G2211 Diagnoses Annual visit for general adult medical examination with abnormal findings Z00.01 Left medial knee pain M25.562 Dyslipidemia E78.5 Type 2 diabetes mellitus with microalbuminuria, without long-term current use of insulin E11.29; R80.9 Diabetes mellitus complication detail: with microalbuminuria Diabetes mellitus type: type 2 Advanced directives, counseling/discussion Z71.89 Essential hypertension I10 Bilateral adrenal adenomas D35.01; D35.02 Age-related macular degeneration, wet, right eye H35.3210 History of squamous cell carcinoma of skin Z85.828 Additional Codes PHQ-9 - 33855 - PHQ-9 Billing: Yes ([id number]) Vital Signs *Quality* - Advance Care Planning discussion: Completed/Scanned ([id number]) Vital Signs *Quality* - Time spent: 16-45 minutes ([id number]) YAMILA-7 Assessment Billing - YAMILA-7 Assessment Tool: YAMILA-7 Assessment 50710 ([id number]) Assessment & Plan Assessment & Plan (1) Annual visit for general adult medical examination with abnormal findings: Code(s): Z00.01 - Encounter for general adult medical examination with abnormal findings Plan: Recent fasting lab results discussed with patient. Continue regular. dental visit every 6 months and regular eye exam currently followed at [facility]. Take adequate calcium in diet and vitamin-D 3 at 2000 IU per cap once a day, in addition to weight-bearing exercises to help maintain good muscle tone and weight control. Up-to-date with his screening colonoscopy and vaccines (2) Left medial knee pain: Code(s): M25.562 - Pain in left knee Category: Medical Plan: Ordered x-ray of left knee, referred to orthopedics for further evaluation management, no improvement with conservative measures (3) Dyslipidemia: Code(s): E78.5 - Hyperlipidemia, unspecified Category: Medical Plan: Reviewed recent fasting lipid profile with patient with levels within normal limits except for elevated triglycerides . Continue simvastatin 20 mg at bedtime , in addition to adherence to low-cholesterol diet and regular exercise, at least 30 minutes 3 to 4 times a week. Advised patient to make healthy food choices, eat more fruits, vegetables, whole grains, wild caught fish and low-fat dairy. Limit amount of meat and fried or fatty food products, as well as processed foods and fast foods. Follow-up scheduled with repeat fasting lipid panel in October 2024. (4) Diabetes mellitus with kidney complication, without long-term current use of insulin: Code(s): E11.29 - Type 2 diabetes mellitus with other diabetic kidney complication Category: Medical Qualifiers: Diabetes mellitus complication detail: with microalbuminuria Diabetes mellitus type: type 2 Qualified Code(s): E11.29 - Type 2 diabetes mellitus with other diabetic kidney complication; R80.9 - Proteinuria, unspecified Plan: Recent lab results reviewed with patient, with sugar and hemoglobin A1c stable and at goal . Continue metformin 1000 mg once a day, continue to check fasting blood sugar at home. Reinforced diabetic diet and regular exercise with patient. Counseled regarding importance of yearly diabetes retinopathy screening, currently up-to-date and followed at [facility] Patient advised to inspect feet daily, for any signs of injury, callus or infection. Compliance with diet and regular exercise again stressed. Repeat labs in October 2024 (5) Advanced directives, counseling/discussion: Code(s): Z71.89 - Other specified counseling Plan: Initiated the conversation about Advanced Directives. Advanced Directives help patients prepare for current and future decisions about their medical treatment and place of care. Discussed with patient that it is a process where a patients current condition and prognosis are reviewed, their wishes for information regarding their illness are elicited, and likely medical dilemmas are presented and options discussed. Healthcare proxy form and MOLST form, discussed 10 completed on this visit. These forms can be amended as needed, reviewed yearly and make changes as needed (6) Essential hypertension: Code(s): I10 - Essential (primary) hypertension Category: Medical Plan: Followed by Nephrology, currently on carvedilol 6.25 mg 1 tablet twice a day, upload in on 50 mg 1 tablet twice a day, amlodipine 5 mg daily and losartan 100 mg once a day (7) Bilateral adrenal adenomas: Comment: Followed by Nephrology Code(s): D35.01 - Benign neoplasm of right adrenal gland; D35.02 - Benign neoplasm of left adrenal gland Category: Medical Plan: Followed by Nephrology (8) Age-related macular degeneration, wet, right eye: Comment: Currently [facility] [place] by Dr. Haq Code(s): H35.3210 - Exudative age-related macular degeneration, right eye, stage unspecified Category: Medical Plan: Followed at [facility], status post Avastin treatment (9) History of squamous cell carcinoma of skin: Comment: Followed by Dr. Allen Code(s): Z85.828 - Personal history of other malignant neoplasm of skin Category: Medical Plan: Followed by Dr. Allen for skin cancer screen Orders: Orders XR knee LT 4V 06/24/24 M25.562 - Pain in left knee Hemoglobin A1c 10/29/24 E11.29 - Type 2 diabetes mellitus with other diabetic kidney complication, E78.5 - Hyperlipidemia, unspecified, R80.9 - Proteinuria, unspecified Alanine Aminotransferase 10/29/24 E11. - Type 2 diabetes mellitus with other diabetic kidney complication, E78.5 - Hyperlipidemia, unspecified, R80.9 - Proteinuria, unspecified Basic Metabolic Panel Fasting 10/29/24 E11. - Type 2 diabetes mellitus with other diabetic kidney complication, E78.5 - Hyperlipidemia, unspecified, R80.9 - Proteinuria, unspecified Lipid Panel 10/29/24 E11.29 - Type 2 diabetes mellitus with other diabetic kidney complication, E78.5 - Hyperlipidemia, unspecified, R80.9 - Proteinuria, unspecified Aspartate Amino Transferase 10/29/24.29 - Type 2 diabetes mellitus with other diabetic kidney complication, E78.5 - Hyperlipidemia, unspecified, R80.9 - Proteinuria, unspecified Referrals Orthopedics Referral M25.562 - Pain in left knee
== END 2024-06-24 12:28 | disposition home or self-care (01) ==
LOC: HO.HMCC 10:46
PROVIDERS: PCP Internal Medicine; Visit Provider Internal Medicine
DX: Z00.01 Encounter for general adult medical examination with abnormal findings (principal); M25.562 Pain in left knee; E78.5 Hyperlipidemia, unspecified; E11.29 Type 2 diabetes mellitus with other diabetic kidney complication; R80.9 Proteinuria, unspecified; Z71.89 Other specified counseling; I10 Essential (primary) hypertension; D35.01 Benign neoplasm of right adrenal gland; D35.02 Benign neoplasm of left adrenal gland; H35.3210 Exudative age-related macular degeneration, right eye, stage unspecified; Z85.828 Personal history of other malignant neoplasm of skin

== ENCOUNTER → 2024-06-24 14:42 | Outpatient (BNV) | payer MEDICARE, SELFPAY | PROVIDERS: PCP Internal Medicine; Visit Provider Radiology Diagnostic Radiology | DX: M17.12 Unilateral primary osteoarthritis, left knee (principal) | CPT/HCPCS: 73564 ==

== ENCOUNTER 2024-06-28 13:26 | Outpatient (AMB) | payer MEDICARE, SELFPAY ==
[2024-06-28 13:32] VITALS: BP 138/68; PULSE 65; BMI 34.2
--- NOTE | 2024-06-28 13:32 | A.OFFVIS_ITS ---
Vital Signs 06/28/24 13:32 Height 5 ft 9 in Weight 231 lb 7.766 oz BMI 34.2 BP 138/68 Blood Pressure Location Lt brachial Position Sitting Pulse 65 Pulse Source Monitor Intake Visit Reasons: 6 mth f/'up Allergies diphenhydramine [From BENADRYL ALLERGY] Allergy (Unknown, Verified 06/27/24 15:18) HEART RACING AND TIREDNESS Medication List - Last Reconciled 06/28/24 by Bakari Bingham MD amlodipine 5 mg PO DAILY aspirin (Adult Aspirin Regimen) 81 mg PO DAILY blood sugar diagnostic As directed blood sugar diagnostic check blood sugar twice a day as directed blood sugar diagnostic (BioIQuch Ultra Test strips) As directed twice a day ac carvedilol (Coreg) 6.25 mg PO BID 90 days eplerenone 25 mg PO BID losartan 100 mg PO DAILY metformin 1,000 mg PO DAILY simvastatin 20 mg PO BEDTIME vitamins A,C,I-vbku-geammh 4,296 mcg-226 mg-90 mg (PreserVision AREDS) 1 cap PO BID HPI Comments Details: Sadiq returns for follow-up. To recall, he was initially seen in consultation regarding abnormal EKG. EKG from primary care physician's office had shown fr equent PACs as well as right bundle-branch block and he was referred here. Patient himself does not have any clear cardiac complaints. No angina or shortness of breath within limits of his activity. He even plays golf regularly, several times a week with absolutely no issues. Multiple cardiovascular risk factors including type 2 diabetes, hypertension, dyslipidemia. No previous history of any coronary artery disease or myocardial infarction or cardiomyopathy. Overall, he feels pretty good. No specific complaints like angina or shortness of breath or in fact anything cardiac sounding. He states he is getting along fine. 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, without long-term current use of insulin Dyslipidemia Bilateral renal cysts Actinic keratosis Neuropathic arthritis Essential hypertension Surgical History History of surgical removal of skin lesion (~02/12/24) Hx of bilateral cataract extraction Hx of cervical discectomy History of esophagogastroduodenoscopy (EGD) Hx of LASIK Hx of colonoscopy Status post Mohs surgery Family History Mother Chronic kidney disease Cardiovascular disease Diabetes mellitus Brother Diabetes mellitus Skin cancer Social History Housing: House Alcohol intake: current Patient Tobacco Use Status: Never used Tobacco e-Cigarette/Vaping Use: Never Used service: No Current occupational status: retired Cognitive needs: No Hearing needs: No Vision needs: Yes Review of Systems Const Denies weakness ENT Denies dizziness Card Denies chest pain, Denies chest pain with activity, Denies syncope, Denies rapid heart rate, Denies pedal edema, Denies edema, Denies leg edema, Denies lightheadedness, Denies palpitations, Denies dyspnea, Denies dyspnea on exertion and Denies orthopnea Resp Denies cough, Denies dyspnea and Denies dyspnea on exertion GI Denies hematochezia and Denies change in stool character Musc Denies abnormal gait, Denies muscle cramps, Denies muscle weakness, Denies numbness, Denies radiating pain into limb and Denies tingling Neuro Denies abnormal gait, Denies dizziness, Denies syncope, Denies numbness, Denies tingling and Denies weakness Endo Denies palpitations Physical Exam Vital Signs: Last Vital Signs Pulse 65 06/28/24 13:32 BP 138/68 06/28/24 13:32 BMI result Body Mass Index 34.2 Const General: comfortable and no acute distress Orientation/consciousness: patient oriented x3 HEENT Other: Unremarkable Head: Yes normal to inspection Neck Neck: Yes normal visual inspection Chest Chest palpation & inspection: normal inspection of the chest Resp Auscultation: clear to auscultation bilaterally Cardio Palpation: normal PMI Heart sounds: S1 normal heart sound present, S2 normal heart sound present, no gallops, no murmurs and no rubs GI Palpation (GI): Soft to palpation Back/Spine/Pelvis Other: unremarkable Skin General skin exam: no rashes or lesions noted Neuro General: patient oriented x3 Extrem General: Yes normal to inspection Psych Mental Status: mental status grossly normal Assessment & Plan Assessment & Plan (1) Atherosclerotic cardiovascular disease: Code(s): I25.10 - Atherosclerotic heart disease of [place] coronary artery without angina pectoris Category: Medical (2) Atrial arrhythmia: Code(s): I49.8 - Other specified cardiac arrhythmias Category: Medical (3) Right bundle branch block (RBBB): Code(s): I45.10 - Unspecified right bundle-branch block Category: Medical (4) Diabetes mellitus with kidney complication, without long-term current use of insulin: Code(s): E11.29 - Type 2 diabetes mellitus with other diabetic kidney complication Category: Medical Qualifiers: Diabetes mellitus complication detail: with microalbuminuria Diabetes mellitus type: type 2 Qualified Code(s): E11.29 - Type 2 diabetes mellitus with other diabetic kidney complication; R80.9 - Proteinuria, unspecified (5) Essential hypertension: Code(s): I10 - Essential (primary) hypertension Category: Medical (6) Dyslipidemia: Code(s): E78.5 - Hyperlipidemia, unspecified Category: Medical Plan Cardiac studies reviewed. Echocardiogram with LVEF of 65%. Suspected moderate to severe LVH. Mild aortic and mitral calcification. Unremarkable valves. In the perfusion imaging, mild basal lateral wall ischemia. Holter monitor shows underlying sinus rhythm with an average rate of 64/Min. Frequent PACs and PVCs. Very short run of SVT thought to be possible atrial fibrillation-seems to be rather a short run of possibly just PACs. In terms of symptoms, he has got none. Feels good. Hence treat as stable coronary disease. Continue aspirin. Blood pressure management and per Nephrology could be primary hyperaldosteronism. Meds accordingly. Otherwise, sleep study discussed in the past but not completed as patient believes it is too expensive to even do the test. Follow-up in one year. In the interim, he will call with any concerns. Medications: Changed From eplerenone 50 mg PO BID 180 tabs 3RF To eplerenone 25 mg PO BID Coding Level of Care Code Est Pt Level 4 (21097) Complex EM visit Add On G2211 Diagnoses Atherosclerotic cardiovascular disease I25.10 Atrial arrhythmia I49.8 Right bundle branch block (RBBB) I45.10 Type 2 diabetes mellitus with microalbuminuria, without long-term current use of insulin E11.29; R80.9 Diabetes mellitus complication detail: with microalbuminuria Diabetes mellitus type: type 2 Essential hypertension I10 Dyslipidemia E78.5
--- OUTSIDE RECORDS SUMMARY | 2024-06-28 15:08 | XMS_ITS ---
Author Organization [facility] Address [address] [place] [address] Care Team Providers Care Rn Endocrinology Name Role Phone Lyubov PICKARD, Pebbles Primary Care Provider Chap[place]ito Charles [phone] REASON FOR VISIT positive cologuard Problems Problem Type SNOMED Code ICD Code Onset Dates Problem Status W/U Status Risk Notes Problem Diverticular disease of colon (481060929) Diverticulosis of large intestine without perforation or abscess without bleeding (K57.30) Active confirmed Encounters Encounter Location Date Provider Diagnosis [facility] Outpatient [address] [place], [place] [id number] 08/28/2023 Chapincito Rico Colon polyps K63.5 ; [...] KERI SANTIAGO JrDOB: [birth year] (79 yo M)Acc No.[id number]:08/28/2023 COLON WITH MAC Patient:?KERI SANTIAGO Jr Provider:?Chapincito Rico MD :1945???Age:78 Y???Sex:Male Obey e:08/28/2023 Address:[address] [place] [address] Pcp:Pebbles Mcarthur MD Subjective: * Chief Complaints: * ???1. Positive cologuard. * Medical History:? Objective: * Vitals:? Assessment: * Assessment: 1.?Colon polyps - K63.5 (Mireya justin)???2.?Heme positive stool - R19.5???3.?Diarrhea - R19.7???4.?Diverticulosis of large intestine without perforation or abscess without bleeding - K57.30???5.?Other hemorrhoids - K64.8??? Plan: * Treatment: * Procedure Codes:?90592 LESIO N REMOVAL COLONOSCOPY, Modifiers: PT , [address] COLONOSCOPY AND BIOPSY, Modifiers: 59 , PT, [...] Rico MD Date:? 024 Generated for Bigg jovel/Zamzam/eTmarciasmitting on:?06/28/2024 03:08 PM EDT
--- OUTSIDE RECORDS SUMMARY | 2024-06-28 15:09 | XMS_ITS ---
Author Organization [facility] Address [address] [place] [phone] Care Team Providers Care Head Baggage Porter Name Role Phone Lyubov PICKARD, Pebbles Primary Care Provider Chapincito Charles [phone] Allergies Allergen (clinical drug ingredient) Drug/Non Drug [...] 01/29/2024 Encounters Encounter Location Date Provider Diagnosis [facility] [address] [place] [address] 01/29/2024 Chapincito Rico Colon polyps K63.5 and [...] KERI J JrDOB: [birth year] (78 yo M)Acc No.[id number]:01/29/2024 Progress Notes Patient:?JACK KERI Glynn Provider:?Chapincito Rico MD :1945???Age:78 Y???Sex:Male Obey e:01/29/2024 Address:[address] [place], [place] [phone] Pcp:Pebbles Mcarthur MD Subjective: * Chief Complaints: [...] . 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 ???Nonsmoker; 1 Beer QD. * Medications:?TakingEplerenon e [...] * Treatment: * Procedure Codes:?1036F TOBAC CO NON-TPKBD1681 BP SCR NOT PRFRM REC REASON NOS [...] MD Date:? 024 Generated for Bigg jovel/Zamzam/Genesis on:?06/28/2024 03:08 PM EDT History and Physical Notes * HPI [...]
--- OUTSIDE RECORDS SUMMARY | 2024-06-28 15:09 | XMS_ITS | Patient Health Record ---
Author Organization [facility] Address [address] [place] [address] Care Team Providers Care Bet Taker Name Role Phone Lyubov PICKARD, Pebbles Primary Care Provider Chapincito Charles [phone] Allergies Allergen (clinical drug ingredient) Drug/Non Drug Allergy documented on EMR Reaction Allergy Type Onset Date Status diphenhydramine Benadryl (uncoded) Unknown Allergy Active Results Component Value Reference Range Notes Immunoglobulin A Reviewed date:08/18/2023 09:34:54 PM Interpretation: Performing Lab:[address] [address] Notes/Report: Immunoglobulin A 398 70-320 mg/dL THIS TEST WAS PERFORMED AT: [facility] [address] [place] [phone] LIAM BRYSON MD Transglutaminase Ab IgG Reviewed date:08/18/2023 09:35:27 PM Interpretation: Performing Lab:[address] [address] Notes/Report: Transglutaminase Ab IgG <1.0 Value Interpretation ----- <15.0 Antibody not detected > or = 15.0 Antibody detected THIS TEST WAS PERFORMED AT: [facility] [address] [place] [phone] LIAM BRYSON MD Transglutaminase IgA Reviewed date:08/18/2023 09:35:34 PM Interpretation: Performing Lab:[address], [place] [address] Notes/Report: Transglutaminase IgA <1.0 Value Interpretation ----- <15.0 Antibody not detected > or = 15.0 Antibody detected THIS TEST WAS PERFORMED AT: [facility] [address] [place] [address] LIAM BRYSON MD Gliadin Ab Panel Reviewed date:08/18/2023 09:35:46 PM Interpretation: Performing Lab:[facility], [address] [place] [phone] Notes/Report: Gliadin Deamidated IgA Ab <1.0 Value Interpretation ----- <15.0 Antibody not detected > or = 15.0 Antibody detected Gliadin Deamidated IgG Ab <1.0 Value Interpretation ----- <15.0 Antibody not detected > or = 15.0 Antibody detected THIS TEST WAS PERFORMED AT: [facility] [address] [place] [phone] LIAM BRYSON MD Endomysial IgA rflx Titer Reviewed date:08/25/2023 04:00:09 PM Interpretation: Performing Lab:[facility], [address] [place] [address] Notes/Report: Endomysial IgA Antibody Negative Negative THIS TEST WAS PERFORMED AT: [email or web address] [address] LASHAWN DICKSON MD,PHD Endomysial Titer TNP Glucose, Whole Blood Reviewed date:08/28/2023 11:08:36 AM Interpretation: Performing Lab:[facility], [address] [place] [phone] Notes/Report: Glucose, Whole Blood 100 60-115 mg/dL METER # : [id number] Pathology Reviewed date:09/08/2023 08:50:30 AM Interpretation: Performing Lab:[facility], [address] [place] [phone] Notes/Report: ---- Name: Sadiq Middleton Age/Sex: 78/M : 1945 Unit#: [id number] Attend Dr: Chapincito Rico Re08/28/23 Status : [facility] Location: [facility] Disch: ---- SPEC : [id number] RECD : 08/28/23 STATUS: [facility] NUM: [id number] SUMMER: 08/28/23-[address] [facility] [address]: Chapincito Rico ENTERED: 08/28/23- 14 SP [...] Name: EmiSadiq Age/Sex: 78/M : 1945 Unit#: [id number] Attend Dr: Chapincito Rico Re08/28/23 Status : [facility] Location: [facility] Disch: ---- SPEC : [id number] RECD : 08/28/23 STATUS: [facility] NUM: [id number] SUMMER: 08/28/[address] [facility] [address]: Chapincito Rico ENTERED: 08/28/23- 14 SP TYPE: Surgical OTHR DR: Pebbles Mcarthur MD ORDERED: HE Stain/12 , Gross Micro L4/4 Gross Description (Continued) Part D: Received in formalin labeled ?descending colon, rule out microscopic colitis are 2 quijano irregular tissue fragments each measuring 0.3 cm, submitted in toto in a cassette labeled D. CEDS Copies To: Pebbles Mcarthur MD [address] [place], [place] [address] [address] [place], [place] [address] [phone] ---- Signed (signature on file) Suhas Allison [...] Problem Status W/U Status Risk Notes Problem 182235876 Gastro-esophagea l reflux disease without esophagitis (K21.9) Active confirmed Problem 809319480 Encounter for screening for malignant neoplasm of colon (Z12.11) Active confirmed Problem 879947040 History of adenomatous polyp of colon (Z86.010) Active confirmed Problem Diverticular disease of colon (836274720) Diverticulosis of large intestine without perforation or abscess without bleeding (K57.30) Active confirmed Problem 992888765216510 Preprocedural examination (Z01.818) Active confirmed Problem 267615231 Barretts esophagus without dysplasia (K22.70) Active confirmed Problem 358418718 Hx of adenomatou s colonic polyps (Z86.010) Active confirmed Problem Chronic diarrhea (540606955) Chronic diarrhea (K52.9) Active confirmed Problem Abnormal feces (455540957) Positive colorectal cancer screening using Cologuard test (R19.5) Active confirmed Vital Signs Blood pressure diastolic 00 mm Hg 01/29/2024 Height 69.75 in 01/29/2024 Blood pressure systolic 00 mm Hg 01/29/2024 Weight 229 lbs 01/29/2024 BMI 33.09 kg/m2 01/29/2024 Encounters Encounter Location Date Provider Diagnosis [facility] [place] [address] [place] [phone] 08/28/2023 Chapincito Rico Colon polyps K63.5 ; Heme positive stool R19.5 ; Diarrhea R19.7 ; Diverticulosis of large intestine without perforation or abscess without bleeding K57.30 and Other hemorrhoids K64.8 [facility] [address] [place] [phone] 08/14/2023 Chapincito Rico Chronic diarrhea K52 .9 and Positive colorectal cancer screening using Cologuard test R19.5 [facility] [address] [place] [phone] 01/29/2024 Chapincito Rico Colon polyps K63.5 a nd Diarrhea R19.7 [facility] [address] [place] [phone] 08/12/2023 Chapincito Rico [facility] [address] [place] [phone] 08/14/2023 Chapincito Rico [facility] [address] [place] [phone] 09/02/2023 Chapincito Rico Assessments Encounter Date Diagnosis [...] Date [employer] [address] [place] [address] [id number] SADIQ MIDDLETON Self - patient is the insured Medical (General) History Medical History History ICD Code Tubular adenoma removed in --neg. colonoscopies in 2000 and 2005 except for hyperplastic polyps. Diverticulosis HTN Hyperlipidemia NIDDM Skin cancers-basal cell/squa mous cell-required XRT for one on the back of his neck Denies [place],CVA,Lung disease,renal disease Kidney stones Negative ETT in [...]
--- OUTSIDE RECORDS SUMMARY | 2024-06-28 15:09 | XMS_ITS ---
Author Organization [facility] Address [address] [place] [phone] Care Team Providers Care Scallop Dredger Name Role Phone Lyubov PICKARD, Pebbles Primary Care Provider Chapincito Charles [phone] REASON FOR VISIT please schedule f/u with Dr. Rico Encounters Encounter Location Date Provider Diagnosis [facility] [address] [place] [phone] 09/02/2023 Chapincito Rico Plan Of Treatment No Information Progress Notes * KERI SANTIAGO JrDOB: [birth year] (78 yo M)Acc No.[id number]:09/02/2023 Patient:?KERI SANTIAGO :1945???Age:78 Y???Sex:Male Address:[address] [place] [address] * true * Date:? Generated for Bigg jovel/Zamzam/eTransmitting on:?06/28/2024 03:08 PM EDT
== END 2024-06-28 13:50 | disposition home or self-care (01) ==
PROVIDERS: PCP Internal Medicine; Visit Provider Internal Medicine
DX: I25.10 Atherosclerotic heart disease of native coronary artery without angina pectoris (principal); I49.8 Other specified cardiac arrhythmias; I45.10 Unspecified right bundle-branch block; E11.29 Type 2 diabetes mellitus with other diabetic kidney complication; R80.9 Proteinuria, unspecified; I10 Essential (primary) hypertension; E78.5 Hyperlipidemia, unspecified
CPT/HCPCS: 93010; 99214; G2211

== ENCOUNTER → 2024-06-28 13:26 | Outpatient (BNVA) | payer MEDICARE, SELFPAY | PROVIDERS: PCP Internal Medicine; Visit Provider Internal Medicine | DX: I10 Essential (primary) hypertension (principal); I25.10 Atherosclerotic heart disease of native coronary artery without angina pectoris; I49.8 Other specified cardiac arrhythmias; I45.10 Unspecified right bundle-branch block; E78.5 Hyperlipidemia, unspecified; E11.29 Type 2 diabetes mellitus with other diabetic kidney complication | CPT/HCPCS: 93005; 99212 ==

== ENCOUNTER 2024-07-19 08:23 | Outpatient (REF) | payer MEDICARE, SELFPAY ==
--- OUTSIDE RECORDS SUMMARY | 2024-07-19 09:00 | XMS_ITS ---
Author Organization [facility] Address [address] [place] [phone] Care Team Providers Care Legger Press Operator Name Role Phone Lyubov PICKARD, Pebbles Primary Care Provider Chapincito Charles [phone] Allergies Allergen (clinical drug ingredient) Drug/Non Drug [...] 01/29/2024 Encounters Encounter Location Date Provider Diagnosis [facility] [address] [place] [phone] 01/29/2024 Chapincito Rico Colon polyps K63.5 and [...] KERI J JrDOB: [birth year] (78 yo M)Acc No.[id number]:01/29/2024 Progress Notes Patient:?JACK KERI Glynn Provider:?Chapincito Rico MD :1945???Age:78 Y???Sex:Male Obey e:01/29/2024 Address:[address] [place], [place] [phone] Pcp:Pebbles Mcarthur MD Subjective: * Chief Complaints: [...] . 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 ???Nonsmoker; 1 Beer QD. * Medications:?TakingEplerenon e [...] * Treatment: * Procedure Codes:?1036F TOBAC CO NON-[id number] BP SCR NOT PRFRM REC REASON NOS [...] MD Date:? 024 Generated for Bigg jovel/Zamzam/Genesis on:?07/19/2024 09:00 AM EDT History and Physical Notes * [...]
--- OUTSIDE RECORDS SUMMARY | 2024-07-19 09:00 | XMS_ITS ---
Author Organization [facility] Address [address] [place] [phone] Care Team Providers Care Station Inspector Name Role Phone Lyubov PICKARD, Pebbles Primary Care Provider Chapincito Charles [phone] REASON FOR VISIT please schedule f/u with Dr. Rico Encounters Encounter Location Date Provider Diagnosis [facility] [address] [place] [phone] 09/02/2023 Chapincito Rico Plan Of Treatment No Information Progress Notes * KERI SANTIAGO JrDOB: [birth year] (78 yo M)Acc No.[id number]:09/02/2023 Patient:?KERI SANTIAGO :1945???Age:78 Y???Sex:Male Address:[address] [place] [address] * true * Date:? Generated for Bigg jovel/Zamzam/eTransmitting on:?07/19/2024 09:00 AM EDT
--- OUTSIDE RECORDS SUMMARY | 2024-07-19 09:00 | XMS_ITS ---
Author Organization [facility] Address [address] [place] [address] Care Team Providers Care Distribution Field Engineer Name Role Phone Lyubov PICKARD, Pebbles Primary Care Provider Chapincito Charles [phone] REASON FOR VISIT positive cologuard Problems Problem Type SNOMED Code ICD Code Onset Dates Problem Status W/U Status Risk Notes Problem Diverticular disease of colon (068277259) Diverticulosis of large intestine without perforation or abscess without bleeding (K57.30) Active confirmed Encounters Encounter Location Date Provider Diagnosis [facility] Outpatient [address] [place], [place] [phone] 08/28/2023 Chapincito Rico Colon polyps K63.5 ; [...] KERI SANTIAGO JrDOB: [birth year] (79 yo M)Acc No.[id number]:08/28/2023 COLON WITH MAC Patient:?KERI SANTIAGO Jr Provider:?Chapincito Rico MD :1945???Age:78 Y???Sex:Male Obey e:08/28/2023 Address:[address] [place] [address] Pcp:Pebbles Mcarthur MD Subjective: * Chief Complaints: * ???1. Positive cologuard. * Medical History:? Objective: * Vitals:? Assessment: * Assessment: 1.?Colon polyps - K63.5 (Mireya justin)???2.?Heme positive stool - R19.5???3.?Diarrhea - R19.7???4.?Diverticulosis of large intestine without perforation or abscess without bleeding - K57.30???5.?Other hemorrhoids - K64.8??? Plan: * Treatment: * Procedure Codes:?03598 LESIO N REMOVAL COLONOSCOPY, Modifiers: PT , 69579 COLONOSCOPY AND BIOPSY, Modifiers: 59 , PT, [...] MD Date:? 024 Generated for Bigg jovel/Zamzam/eTransmitting on:?07/19/2024 09:00 AM EDT
--- OUTSIDE RECORDS SUMMARY | 2024-07-19 09:00 | XMS_ITS | Patient Health Record ---
Author Organization [facility] Address [address] [place] [address] Care Team Providers Care Rn Visiting Name Role Phone Lyubov PICKARD, Pebbles Primary Care Provider Chapincito Charles [phone] Allergies Allergen (clinical drug ingredient) Drug/Non Drug Allergy documented on EMR Reaction Allergy Type Onset Date Status diphenhydramine Benadryl (uncoded) Unknown Allergy Active Results Component Value Reference Range Notes Immunoglobulin A Reviewed date:08/18/2023 09:34:54 PM Interpretation: Performing Lab:[address] [address] Notes/Report: Immunoglobulin A 398 70-320 mg/dL THIS TEST WAS PERFORMED AT: [facility] [address] [place] [address] LIAM BRYSON MD Transglutaminase Ab IgG Reviewed date:08/18/2023 09:35:27 PM Interpretation: Performing Lab:[address] [address] Notes/Report: Transglutaminase Ab IgG <1.0 Value Interpretation ----- <15.0 Antibody not detected > or = 15.0 Antibody detected THIS TEST WAS PERFORMED AT: [facility] [address] [place] [address] LIAM BRYSON MD Transglutaminase IgA Reviewed date:08/18/2023 09:35:34 PM Interpretation: Performing Lab:[address], [place] [address] Notes/Report: Transglutaminase IgA <1.0 Value Interpretation ----- <15.0 Antibody not detected > or = 15.0 Antibody detected THIS TEST WAS PERFORMED AT: [facility] [address] [place] [address] LIAM BRYSON MD Gliadin Ab Panel Reviewed date:08/18/2023 09:35:46 PM Interpretation: Performing Lab:[facility], [address] [place] [address] Notes/Report: Gliadin Deamidated IgA Ab <1.0 Value Interpretation ----- <15.0 Antibody not detected > or = 15.0 Antibody detected Gliadin Deamidated IgG Ab <1.0 Value Interpretation ----- <15.0 Antibody not detected > or = 15.0 Antibody detected THIS TEST WAS PERFORMED AT: [facility] [address] [place] [address] LIAM BRYSON MD Endomysial IgA rflx Titer Reviewed date:08/25/2023 04:00:09 PM Interpretation: Performing Lab:[facility], [address] [place] [address] Notes/Report: Endomysial IgA Antibody Negative Negative THIS TEST WAS PERFORMED AT: [facility]/[address] [address] LASHAWN DICKSON MD,PHD Endomysial Titer TNP Glucose, Whole Blood Reviewed date:08/28/2023 11:08:36 AM Interpretation: Performing Lab:[facility], [address] [place] [address] Notes/Report: Glucose, Whole Blood 100 60-115 mg/dL METER # : [id number] Pathology Reviewed date:09/08/2023 08:50:30 AM Interpretation: Performing Lab:[facility], [address] [place] [address] Notes/Report: ---- Name: Sadiq Middleton Age/Sex: 78/M : 1945 Unit#: [id number] Attend Dr: Chapincito Rico Re08/28/23 Status : [facility] Location: [facility] Disch: ---- SPEC : [id number] RECD : 08/28/23 STATUS: [facility] NUM: [id number] SUMMER: 08/28/23-754 [facility] DR: Chapincito Rico ENTERED: 08/28/23- 14 SP [...] Name: EmiSadiq Age/Sex: 78/M : 1945 Unit#: [id number] Attend Dr: Chapincito Rico Re08/28/23 Status : [facility] Location: [facility] Disch: ---- SPEC : [id number] RECD : 08/28/23 STATUS: [facility] NUM: [id number] SUMMER: 08/28/235 [facility] DR: Chapincito Rico ENTERED: 08/28/23- 14 SP TYPE: Surgical OTHR DR: Pebbles Mcarthur MD ORDERED: HE Stain/12 , Gross Micro L4/4 Gross Description (Continued) Part D: Received in formalin labeled ?descending colon, rule out microscopic colitis are 2 quijano irregular tissue fragments each measuring 0.3 cm, submitted in toto in a cassette labeled D. CEDS Copies To: Pebbles Mcarthur MD [address] [facility] [address] [place], [place] [address] [address] [place], [place] [id number] [phone] ---- Signed (signature on file) Suhas Allison [...] Problem Status W/U Status Risk Notes Problem 005107083 Gastro-esophagea l reflux disease without esophagitis (K21.9) Active confirmed Problem 311357869 Encounter for screening for malignant neoplasm of colon (Z12.11) Active confirmed Problem 932708720 History of adenomatous polyp of colon (Z86.010) Active confirmed Problem Diverticular disease of colon (331472997) Diverticulosis of large intestine without perforation or abscess without bleeding (K57.30) Active confirmed Problem 641235341024333 Preprocedural examination (Z01.818) Active confirmed Problem 760563071 Barretts esophagus without dysplasia (K22.70) Active confirmed Problem 978399199 Hx of adenomatou s colonic polyps (Z86.010) Active confirmed Problem Chronic diarrhea (014255421) Chronic diarrhea (K52.9) Active confirmed Problem Abnormal feces (896936176) Positive colorectal cancer screening using Cologuard test (R19.5) Active confirmed Vital Signs Blood pressure diastolic 00 mm Hg 01/29/2024 Height 69.75 in 01/29/2024 Blood pressure systolic 00 mm Hg 01/29/2024 Weight 229 lbs 01/29/2024 BMI 33.09 kg/m2 01/29/2024 Encounters Encounter Location Date Provider Diagnosis [facility] Outpatient [address] [place] [phone] 08/28/2023 Chapincito Rico Colon polyps K63.5 ; Heme positive stool R19.5 ; Diarrhea R19.7 ; Diverticulosis of large intestine without perforation or abscess without bleeding K57.30 and Other hemorrhoids K64.8 [facility] [address] [place] [phone] 08/14/2023 Chapincito Rico Chronic diarrhea K52 .9 and Positive colorectal cancer screening using Cologuard test R19.5 [facility] [address] [place] [phone] 01/29/2024 Chapincito Rico Colon polyps K63.5 a nd Diarrhea R19.7 [facility] [address] [place] [phone] 08/12/2023 Chapincito Rico [facility] [address] [place] [phone] 08/14/2023 Chapincito Rico [facility] [address] [place] [phone] 09/02/2023 Chapincito Rico Assessments Encounter Date Diagnosis [...] Date [employer] [address] [place] [phone] [id number] SADIQ MIDDLETON Self - patient is the insured Medical (General) History Medical History History ICD Code Tubular adenoma removed in --neg. colonoscopies in 2000 and 2005 except for hyperplastic polyps. Diverticulosis HTN Hyperlipidemia NIDDM Skin cancers-basal cell/squa mous cell-required XRT for one on the back of his neck Denies [place],CVA,Lung disease,renal disease Kidney stones Negative ETT in [...]
[2024-07-19 11:37] LABS: Influenza A PCR NEGATIVE (Negative); Influenza B PCR NEGATIVE (Negative); Resp Syncy Virus RNA Qual PCR NEGATIVE (Negative); SARS COV2 PCR INHOUSE NEGATIVE (Negative)
== END 2024-07-19 08:24 | disposition home or self-care (01) ==
LOC: HO.LNP 08:23
PROVIDERS: PCP Internal Medicine; Visit Provider Nurse Practitioner Family
DX: J06.9 Acute upper respiratory infection, unspecified (principal)
CPT/HCPCS: 0241U; 99212

== ENCOUNTER 2024-07-19 08:23 | Outpatient (AMB) | payer MEDICARE, SELFPAY ==
--- NOTE | 2024-07-19 08:25 | MHC.OFFWIV ---
Intake Vital Signs 07/19/24 08:27 Height 5 ft 9 in Weight 232 lb BMI 34.3 BP 140/82 H Blood Pressure Location Rt brachial Position Sitting Pulse 104 H Pulse Source Pulse Oximeter Temp 98.7 F Temp Source Oral Pulse Oximetry (%) 94 Oxygen Delivery Method Room Air Intake Visit Reasons: EP-chest congestion, cough Intake Note: Patient here for cough and chest congestion that has been present for about 1 week. his is also sick with same sx and was given a z-rosalba Patient Tobacco Use Status: Never used Tobacco Allergies diphenhydramine [From BENADRYL ALLERGY] Allergy (Unknown, Verified 07/19/24 08:28) HEART RACING AND TIREDNESS Do you need a note to return to daycare/school/sports/work: No HPI HPI Comments History of Present Illness Details 79 y/o Male patient who presents to the walk in clinic with c/o cough and chest congestion that has been present for about 1 week. His is also sick with similar Symptoms. 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, without long-term current use of insulin Dyslipidemia Bilateral renal cysts Actinic keratosis Neuropathic arthritis Essential hypertension Surgical History History of surgical removal of skin lesion (~02/12/24) Hx of bilateral cataract extraction Hx of cervical discectomy History of esophagogastroduodenoscopy (EGD) Hx of LASIK Hx of colonoscopy Status post Mohs surgery Family History Mother Chronic kidney disease Cardiovascular disease Diabetes mellitus Brother Diabetes mellitus Skin cancer Social History Housing: House Alcohol intake: current Patient Tobacco Use Status: Never used Tobacco e-Cigarette/Vaping Use: Never Used service: No Current occupational status: retired Cognitive needs: No Hearing needs: No Vision needs: Yes Review of Systems Const All systems reviewed & are unremarkable except as noted in HPI and below Physical Exam Vital Signs: Last Vital Signs Temp 98.7 F 07/19/24 08:27 Pulse 104 H 07/19/24 08:27 BP 140/82 H 07/19/24 08:27 Pulse Ox 94 07/19/24 08:27 Oxygen Delivery Method Room Air 07/19/24 08:27 BMI result Body Mass Index 34.3 Const General: no acute distress Nutritional Appearance: obese Orientation/consciousness: patient oriented x3 HEENT Head: Yes normocephalic Ears: external ears normal and TM abnormal obstructed by cerumen bilateral General nose exam: Nasal discharge present Face and sinus: Yes sinuses nontender Mouth: moist mucous membranes and Abnormal oral and palatal mucosa present erythematous Throat: Yes uvula midline Resp Effort & Inspection: normal respiratory effort, able to speak in complete sentences, no audible wheezes and Actively coughing Auscultation: clear to auscultation bilaterally, no crackles, no rales, no rhonchi and no wheezes Cardio Heart sounds: S1 normal heart sound present and S2 normal heart sound present Neuro General: patient oriented x3 Assessment & Plan Assessment & Plan (1) Acute respiratory disease: Code(s): J06.9 - Acute upper respiratory infection, unspecified Plan: Ordered Z-pack Ordered SARs OTC Cold/cough remedies Rest and hydrate well with warm fluids. Acetaminophen for pain relief. Orders: Orders SARS-CoV2/FLU/RSV Today J06.9 - Acute upper respiratory infection, unspecified Medications: New azithromycin 500 mg PO DAILY 3 days 3 tabs 0RF cough J06.9 - Acute upper respiratory infection, unspecified, R05.9 - Cough, unspecified benzonatate 200 mg (2 x 100 mg) PO BID 60 caps 0RF cough J06.9 - Acute upper respiratory infection, unspecified, R05.9 - Cough, unspecified Coding Level of Care Code Est Pt Level 4 (10427) Diagnoses Acute respiratory disease J06.9 Time Spent (min) 20
[2024-07-19 08:27] VITALS: BP 140/82; PULSE 104; TEMP 37.1; O2SAT 94; BMI 34.3
== END 2024-07-19 09:08 | disposition home or self-care (01) ==
PROVIDERS: PCP Internal Medicine; Visit Provider Nurse Practitioner Family
DX: J06.9 Acute upper respiratory infection, unspecified (principal)

== ENCOUNTER 2024-08-11 09:37 | Outpatient (REF) | payer MEDICARE, SELFPAY ==
--- NOTE | ~2024-08-11 | XR_ITS ---
EXAMINATION: XR KNEE AP STANDING CLINICAL INFORMATION: M25.561 - Pain in right knee COMPARISON: None available. TECHNIQUE: AP bilateral standing view of the knees was obtained. FINDINGS: RIGHT KNEE: Normal alignment. No bone lesion. Minimal medial compartment joint space narrowing. Preserved lateral compartment. Cannot exclude extremely subtle chondrocalcinosis. Minimal spurring of the tibial spines. Normal soft tissues. LEFT KNEE: Normal alignment. No bone lesion. Mild medial compartment joint space narrowing. Preserved lateral compartment. Cannot exclude extremely subtle chondrocalcinosis. Minimal spurring of the tibial spines. Normal soft tissues. XR/XR knee standing BI IMPRESSION: 1. No acute bony abnormalities. 2. Early degenerative arthritis in the medial compartments of the left greater than right knees. Electronically signed by: Jacoby Washington MD 08/12/2024 08:42 AM EDT
--- OUTSIDE RECORDS SUMMARY | 2024-08-12 10:26 | XMS_ITS ---
Author Organization [facility] Address [address] [place] [address] Care Team Providers Care Earth Science Technical Officer Name Role Phone Lyubov PICKARD, Pebbles Primary Care Provider Chapincito Charles [phone] REASON FOR VISIT positive cologuard Problems Problem Type SNOMED Code ICD Code Onset Dates Problem Status W/U Status Risk Notes Problem Diverticular disease of colon (992315238) Diverticulosis of large intestine without perforation or abscess without bleeding (K57.30) Active confirmed Encounters Encounter Location Date Provider Diagnosis [facility] Outpatient [address] [place], [place] [id number] 08/28/2023 Chapincito Rico Colon polyps K63.5 ; [...] KERI SANTIAGO JrDOB: [birth year] (79 yo M)Acc No.[id number]:08/28/2023 COLON WITH MAC Patient:?KERI SANTIAGO Jr Provider:?Chapincito Rico MD :1945???Age:78 Y???Sex:Male Obey e:08/28/2023 Address:[address] [place] [address] Pcp:Pebbles Mcarthur MD Subjective: * Chief Complaints: * ???1. Positive cologuard. * Medical History:? Objective: * Vitals:? Assessment: * Assessment: 1.?Colon polyps - K63.5 (Mireya justin)???2.?Heme positive stool - R19.5???3.?Diarrhea - R19.7???4.?Diverticulosis of large intestine without perforation or abscess without bleeding - K57.30???5.?Other hemorrhoids - K64.8??? Plan: * Treatment: * Procedure Codes:?86644 LESIO N REMOVAL COLONOSCOPY, Modifiers: PT , 61618 COLONOSCOPY AND BIOPSY, Modifiers: 59 , PT, [...] MD Date:? 024 Generated for Bigg jovel/Zamzam/eTransmitting on:?08/12/2024 10:26 AM EDT
--- OUTSIDE RECORDS SUMMARY | 2024-08-12 10:27 | XMS_ITS ---
Author Organization [facility] Address [address] [place] [phone] Care Team Providers Care Supervisor Wheel Shop Name Role Phone Lyubov PICKARD, Pebbles Primary Care Provider Chapincito Charles [phone] Allergies Allergen (clinical drug ingredient) Drug/Non Drug [...] 01/29/2024 Encounters Encounter Location Date Provider Diagnosis [facility] [address] [place] [phone] 01/29/2024 Chapincito Rico Colon polyps K63.5 and [...] KERI J JrDOB: [birth year] (78 yo M)Acc No.[id number]:01/29/2024 Progress Notes Patient:?JACK KERI Glynn Provider:?Chapincito Rico MD :1945???Age:78 Y???Sex:Male Obey e:01/29/2024 Address:[address] [place], [place] [id number] Pcp:Pebbles Mcarthur MD Subjective: * Chief Complaints: [...] . 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 ???Nonsmoker; 1 Beer QD. * Medications:?TakingEplerenon e [...] * Treatment: * Procedure Codes:?1036F TOBAC CO NON-BTMMI4328 BP SCR NOT PRFRM REC REASON NOS [...] MD Date:? 024 Generated for Bigg jovel/Zamzam/Genesis on:?08/12/2024 10:26 AM EDT History and Physical Notes * [...]
--- OUTSIDE RECORDS SUMMARY | 2024-08-12 10:27 | XMS_ITS | Patient Health Record ---
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 Name Role Phone Lyubov PICKARD, Pebbles Primary Care Provider Chapincito Charles [phone] Allergies Allergen (clinical drug ingredient) Drug/Non Drug Allergy documented on EMR Reaction Allergy Type Onset Date Status diphenhydramine Benadryl (uncoded) Unknown Allergy Active Results Component Value Reference Range Notes Immunoglobulin A Reviewed date:08/18/2023 09:34:54 PM Interpretation: Performing Lab:[address] [address] Notes/Report: Immunoglobulin A 398 70-320 mg/dL THIS TEST WAS PERFORMED AT: [facility] [address] [place] [phone] LIAM BRYSON MD Transglutaminase Ab IgG Reviewed date:08/18/2023 09:35:27 PM Interpretation: Performing Lab:[address] [address] Notes/Report: Transglutaminase Ab IgG <1.0 Value Interpretation ----- <15.0 Antibody not detected > or = 15.0 Antibody detected THIS TEST WAS PERFORMED AT: [facility] [address] [place] [phone] LIAM BRYSON MD Transglutaminase IgA Reviewed date:08/18/2023 09:35:34 PM Interpretation: Performing Lab:[address], [place] [address] Notes/Report: Transglutaminase IgA <1.0 Value Interpretation ----- <15.0 Antibody not detected > or = 15.0 Antibody detected THIS TEST WAS PERFORMED AT: [facility] [address] [place] [phone] LIAM BRYSON MD Gliadin Ab Panel Reviewed date:08/18/2023 09:35:46 PM Interpretation: Performing Lab:[facility], [address] [place] [phone] Notes/Report: Gliadin Deamidated IgA Ab <1.0 Value Interpretation ----- <15.0 Antibody not detected > or = 15.0 Antibody detected Gliadin Deamidated IgG Ab <1.0 Value Interpretation ----- <15.0 Antibody not detected > or = 15.0 Antibody detected THIS TEST WAS PERFORMED AT: [facility] [address] [place] [phone] LIAM BRYSON MD Endomysial IgA rflx Titer Reviewed date:08/25/2023 04:00:09 PM Interpretation: Performing Lab:[facility], [address] [place] [phone] Notes/Report: Endomysial IgA Antibody Negative Negative THIS TEST WAS PERFORMED AT: [facility]/[address] [address] LASHAWN DICKSON MD,PHD Endomysial Titer TNP Glucose, Whole Blood Reviewed date:08/28/2023 11:08:36 AM Interpretation: Performing Lab:[facility], [address] [place] [phone] Notes/Report: Glucose, Whole Blood 100 60-115 mg/dL METER # : [id number] Pathology Reviewed date:09/08/2023 08:50:30 AM Interpretation: Performing Lab:[facility], [address] [place] [phone] Notes/Report: ---- Name: Sadiq Middleton Age/Sex: 78/M : 1945 Unit#: [id number] Attend Dr: Chapincito Rico Re08/28/23 Status : [facility] Location: [facility] Disch: ---- SPEC : [id number] RECD : 08/28/23 STATUS: [facility] NUM: [id number] SUMMER: 08/28/23-[address] [facility] [address]: Chapincito Rico ENTERED: 08/28/23- 14 [...] Name: EmiSadiq Age/Sex: 78/M : 1945 Unit#: [id number] Attend Dr: Chapincito Rico Re08/28/23 Status : [facility] Location: [facility] Disch: ---- SPEC : [id number] RECD : 08/28/23 STATUS: [facility] NUM: [id number] SUMMER: 08/28/[address] [facility] [address]: Chapincito Rico ENTERED: 08/28/23- 14 SP TYPE: Surgical OTHR DR: Pebbles Mcarthur MD ORDERED: HE Stain/12 , Gross Micro L4/4 Gross Description (Continued) Part D: Received in formalin labeled ?descending colon, rule out microscopic colitis are 2 quijano irregular tissue fragments each measuring 0.3 cm, submitted in toto in a cassette labeled D. CEDS Copies To: Pebbles Mcarthur MD [address] [place], [place] [id number] [address] [place], [place] [id number] ---- Signed (signature on file) Suhas Allison [...] Problem Status W/U Status Risk Notes Problem 172566851 Gastro-esophagea l reflux disease without esophagitis (K21.9) Active confirmed Problem 963150658 Encounter for screening for malignant neoplasm of colon (Z12.11) Active confirmed Problem 122871699 History of adenomatous polyp of colon (Z86.010) Active confirmed Problem Diverticulosis o f large intestine without perforation or abscess without bleeding (K57.30) Active confirmed Problem 496550030565730 Preprocedural examination (Z01.818) Active confirmed Problem 337982966 Barretts esophagus without dysplasia (K22.70) Active confirmed Problem 737820337 Hx of adenomatou s colonic polyps (Z86.010) Active confirmed Problem Chronic diarrhea (337897170) Chronic diarrhea (K52.9) Active confirmed Problem Abnormal feces (315845134) Positive colorectal cancer screening using Cologuard test (R19.5) Active confirmed Vital Signs Blood pressure diastolic 00 mm Hg 01/29/2024 Height 69.75 in 01/29/2024 Blood pressure systolic 00 mm Hg 01/29/2024 Weight 229 lbs 01/29/2024 BMI 33.09 kg/m2 01/29/2024 Encounters Encounter Location Date Provider Diagnosis [facility] Outpatient [address] [place] [phone] 08/28/2023 Chapincito Rico Colon polyps K63.5 ; Heme positive stool R19.5 ; Diarrhea R19.7 ; Diverticulosis of large intestine without perforation or abscess without bleeding K57.30 and Other hemorrhoids K64.8 [facility] [address] [place] [phone] 08/14/2023 Chapincito Rico Chronic diarrhea K52 .9 and Positive colorectal cancer screening using Cologuard test R19.5 [facility] [address] [place] [phone] 01/29/2024 Chapincito Rico Colon polyps K63.5 a nd Diarrhea R19.7 [facility] [address] [place] [phone] 08/14/2023 Chapincito Rico [facility] [address] [place] [phone] 09/02/2023 Chapincito Rico Assessments Encounter Date Diagnosis [...] Date [facility] [address] [place] [phone] [id number] SADIQ MIDDLETON Self - patient is the [...]
--- OUTSIDE RECORDS SUMMARY | 2024-08-12 10:27 | XMS_ITS ---
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 Rico Encounters Encounter Location Date Provider Diagnosis [facility] [address] [place] [phone] 09/02/2023 Chapincito Rico Plan Of Treatment No Information Progress Notes * KERI SANTIAGO JrDOB: [birth year] (78 yo M)Acc No.[id number]:09/02/2023 Patient:?KERI SANTIAGO :1945???Age:78 Y???Sex:Male Address:[address] [place] [address] * true * Date:? Generated for Jigari med/Zamzam/eTransmitting on:?08/12/2024 10:26 AM EDT
== END 2024-08-11 09:38 | disposition home or self-care (01) ==
LOC: HO.HOSX 09:37
PROVIDERS: Visit Provider Physician Assistant
DX: M25.561 Pain in right knee (principal); M25.562 Pain in left knee; M17.12 Unilateral primary osteoarthritis, left knee
CPT/HCPCS: 20610; 73565; 99212; J1010; J2003

== ENCOUNTER 2024-08-11 13:52 | Outpatient (AMB) | payer MEDICARE, SELFPAY ==
--- OUTSIDE RECORDS SUMMARY | 2024-08-11 13:55 | XMS_ITS ---
Author Organization [facility] Address [address] [place] [address] Care Team Providers Care Swing Grinder Name Role Phone Lyubov PICKARD, Pebbles Primary Care Provider Chapincito Charles [phone] REASON FOR VISIT positive cologuard Problems Problem Type SNOMED Code ICD Code Onset Dates Problem Status W/U Status Risk Notes Problem Diverticular disease of colon (814064716) Diverticulosis of large intestine without perforation or abscess without bleeding (K57.30) Active confirmed Encounters Encounter Location Date Provider Diagnosis [facility] Outpatient [address] [place], [place] [phone] 08/28/2023 Chapincito Rico Colon polyps K63.5 ; [...] KERI SANTIAGO JrDOB: [birth year] (79 yo M)Acc No.[id number]:08/28/2023 COLON WITH MAC Patient:?KERI SANTIAGO Jr Provider:?Chapincito Rico MD :1945???Age:78 Y???Sex:Male Obey e:08/28/2023 Address:[address] [place] [address] Pcp:Pebbles Mcarthur MD Subjective: * Chief Complaints: * ???1. Positive cologuard. * Medical History:? Objective: * Vitals:? Assessment: * Assessment: 1.?Colon polyps - K63.5 (Mireya justin)???2.?Heme positive stool - R19.5???3.?Diarrhea - R19.7???4.?Diverticulosis of large intestine without perforation or abscess without bleeding - K57.30???5.?Other hemorrhoids - K64.8??? Plan: * Treatment: * Procedure Codes:?11740 LESIO N REMOVAL COLONOSCOPY, Modifiers: PT , 32560 COLONOSCOPY AND BIOPSY, Modifiers: 59 , PT, [...] MD Date:? 024 Generated for Bigg jovel/Zamzam/eTransmitting on:?08/11/2024 01:55 PM EDT
--- OUTSIDE RECORDS SUMMARY | 2024-08-11 13:55 | XMS_ITS | Patient Health Record ---
Author Organization [facility] Address [address] [place] [address] Care Team Providers Care Prenatal Teacher Name Role Phone Lyubov PICKARD, Pebbles Primary Care Provider Chapincito Charles [phone] Allergies Allergen (clinical drug ingredient) Drug/Non Drug Allergy documented on EMR Reaction Allergy Type Onset Date Status diphenhydramine Benadryl (uncoded) Unknown Allergy Active Results Component Value Reference Range Notes Immunoglobulin A Reviewed date:08/18/2023 09:34:54 PM Interpretation: Performing Lab:[address] [address] Notes/Report: Immunoglobulin A 398 70-320 mg/dL THIS TEST WAS PERFORMED AT: [facility] [address] [place] [phone] LIAM BRYSON MD Transglutaminase Ab IgG Reviewed date:08/18/2023 09:35:27 PM Interpretation: Performing Lab:[address] [address] Notes/Report: Transglutaminase Ab IgG <1.0 Value Interpretation ----- <15.0 Antibody not detected > or = 15.0 Antibody detected THIS TEST WAS PERFORMED AT: [facility] [address] [place] [phone] LIAM BRYSON MD Transglutaminase IgA Reviewed date:08/18/2023 09:35:34 PM Interpretation: Performing Lab:[address], [place] [address] Notes/Report: Transglutaminase IgA <1.0 Value Interpretation ----- <15.0 Antibody not detected > or = 15.0 Antibody detected THIS TEST WAS PERFORMED AT: [facility] [address] [place] [phone] LIAM BRYSON MD Gliadin Ab Panel Reviewed date:08/18/2023 09:35:46 PM Interpretation: Performing Lab:[facility], [address] [place] [phone] Notes/Report: Gliadin Deamidated IgA Ab <1.0 Value Interpretation ----- <15.0 Antibody not detected > or = 15.0 Antibody detected Gliadin Deamidated IgG Ab <1.0 Value Interpretation ----- <15.0 Antibody not detected > or = 15.0 Antibody detected THIS TEST WAS PERFORMED AT: [facility] [employer] [address] [place] [phone] LIAM BRYSON MD Endomysial IgA rflx Titer Reviewed date:08/25/2023 04:00:09 PM Interpretation: Performing Lab:[facility], [address] [place] [phone] Notes/Report: Endomysial IgA Antibody Negative Negative THIS TEST WAS PERFORMED AT: [employer]/[address] [address] LASHAWN DICKSON MD,PHD Endomysial Titer TNP Glucose, Whole Blood Reviewed date:08/28/2023 11:08:36 AM Interpretation: Performing Lab:[facility], [address] [place] [phone] Notes/Report: Glucose, Whole Blood 100 60-115 mg/dL METER # : [id number] Pathology Reviewed date:09/08/2023 08:50:30 AM Interpretation: Performing Lab:[facility], [address] [place] [phone] Notes/Report: ---- Name: Sadiq Middleton Age/Sex: 78/M : 1945 Unit#: [id number] Attend Dr: Chapincito Rico Re08/28/23 Status : [facility] Location: [facility] Disch: ---- SPEC : [id number] RECD : 08/28/23 STATUS: [facility] NUM: [id number] SUMMER: 08/28/23-754 [facility] [address]: Chapincito Rico ENTERED: 08/28/23- 14 [...] Name: EmiSadiq Age/Sex: 78/M : 1945 Unit#: [id number] Attend Dr: Chapincito Rico Re08/28/23 Status : [facility] Location: [facility] Disch: ---- SPEC : [id number] RECD : 08/28/23 STATUS: [facility] NUM: [id number] SUMMER: 08/28/[address] [facility] [address]: Chapincito Rico ENTERED: 08/28/23- 14 SP TYPE: Surgical OTHR DR: Pebbles Mcarthur MD ORDERED: HE Stain/12 , Gross Micro L4/4 Gross Description (Continued) Part D: Received in formalin labeled ?descending colon, rule out microscopic colitis are 2 quijano irregular tissue fragments each measuring 0.3 cm, submitted in toto in a cassette labeled D. CEDS Copies To: Pebbles Mcarthur MD [address] [facility] [address] [place], [place] [address] [address] [place], [place] [address] ---- Signed (signature on file) Suhas Allison [...] Problem Status W/U Status Risk Notes Problem 387655123 Gastro-esophagea l reflux disease without esophagitis (K21.9) Active confirmed Problem 075610509 Encounter for screening for malignant neoplasm of colon (Z12.11) Active confirmed Problem 194782816 History of adenomatous polyp of colon (Z86.010) Active confirmed Problem Diverticulosis o f large intestine without perforation or abscess without bleeding (K57.30) Active confirmed Problem 689589819787329 Preprocedural examination (Z01.818) Active confirmed Problem 767774490 Barretts esophagus without dysplasia (K22.70) Active confirmed Problem 143420452 Hx of adenomatou s colonic polyps (Z86.010) Active confirmed Problem Chronic diarrhea (417044377) Chronic diarrhea (K52.9) Active confirmed Problem Abnormal feces (120036134) Positive colorectal cancer screening using Cologuard test (R19.5) Active confirmed Vital Signs Blood pressure diastolic 00 mm Hg 01/29/2024 Height 69.75 in 01/29/2024 Blood pressure systolic 00 mm Hg 01/29/2024 Weight 229 lbs 01/29/2024 BMI 33.09 kg/m2 01/29/2024 Encounters Encounter Location Date Provider Diagnosis [facility] Outpatient [address] [place] [phone] 08/28/2023 Chapincito Rico Colon polyps K63.5 ; Heme positive stool R19.5 ; Diarrhea R19.7 ; Diverticulosis of large intestine without perforation or abscess without bleeding K57.30 and Other hemorrhoids K64.8 [facility] [address] [place] [phone] 08/14/2023 Chapincito Rico Chronic diarrhea K52 .9 and Positive colorectal cancer screening using Cologuard test R19.5 [facility] [address] [place] [phone] 01/29/2024 Chapincito Rico Colon polyps K63.5 a nd Diarrhea R19.7 [facility] [address] [place] [phone] 08/12/2023 Chapincito Rico [facility] [address] [place] [phone] 08/14/2023 Chapincito Rico [facility] [address] [place] [phone] 09/02/2023 Chapincito Rico Assessments Encounter Date Diagnosis [...] Date [employer] [address] [place] [phone] [id number] SADIQ MIDDLETON Self - patient is the insured Medical (General) History Medical History History ICD Code Tubular adenoma removed in --neg. colonoscopies in 2000 and 2005 except for hyperplastic polyps. Diverticulosis HTN Hyperlipidemia NIDDM Skin cancers-basal cell/squa mous cell-required XRT for one on the back of his neck Denies [place],CVA,Lung disease,renal disease Kidney stones Negative ETT in [...]
--- OUTSIDE RECORDS SUMMARY | 2024-08-11 13:56 | XMS_ITS ---
Author Organization [facility] Address [address] [place] [address] Care Team Providers Care Electronic Components Assembler Name Role Phone Lyubov PICKARD, Pebbles Primary Care Provider Chapincito Charles [phone] REASON FOR VISIT please schedule f/u with Dr. Rico Encounters Encounter Location Date Provider Diagnosis [facility] [address] [place] [phone] 09/02/2023 Chapincito Rico Plan Of Treatment No Information Progress Notes * KERI SANTIAGO JrDOB: [birth year] (78 yo M)Acc No.[id number]:09/02/2023 Patient:?KERI SANTIAGO :1945???Age:78 Y???Sex:Male Address:[address] [place] [address] * true * Date:? Generated for Bigg jovel/Zamzam/eTransmitting on:?08/11/2024 01:55 PM EDT
--- OUTSIDE RECORDS SUMMARY | 2024-08-11 13:56 | XMS_ITS ---
Author Organization [facility] Address [address] [place] [address] Care Team Providers Care Misdraw Hand Name Role Phone Lyubov PICKARD, Pebbles Primary Care Provider Chapincito Charles [phone] Allergies Allergen (clinical drug ingredient) Drug/Non Drug [...] 01/29/2024 Encounters Encounter Location Date Provider Diagnosis [facility] [address] [place] [phone] 01/29/2024 Chapincito Rico Colon polyps K63.5 and [...] KERI J JrDOB: [birth year] (78 yo M)Acc No.[id number]:01/29/2024 Progress Notes Patient:?JACK KERI Glynn Provider:?Chapincito Rico MD :1945???Age:78 Y???Sex:Male Obey e:01/29/2024 Address:[address] [place], [place] [id number] Pcp:Pebbles Mcarthur MD Subjective: * Chief Complaints: [...] . 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 ???Nonsmoker; 1 Beer QD. * Medications:?TakingEplerenon e [...] * Treatment: * Procedure Codes:?1036F TOBAC CO NON-[id number] BP SCR NOT PRFRM REC REASON NOS [...] MD Date:? 024 Generated for Bigg jovel/Zamzam/Genesis on:?08/11/2024 01:55 PM EDT History and Physical Notes * [...]
--- NOTE | 2024-08-11 14:00 | A.OFFVIS_ITS ---
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 Patient was previously seen in office for his right knee OA on 05/16/21, he was given an injection. Patient reports injection to his right knee in the past provided him with relief. His pain has been present in both of his knees for about a year with his left knee being the worse. No relief with conservative measures, such as Tylenol and ibuprofen, as well as heat and ice. Denies injury. 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 He denies recent injury however he continues to have discomfort with prolonged standing walking and stair climbing. He states the pain is along the medial aspect of the knee. [facility] Medical History (Updated 08/11/24 @ 14:22 by Pat Haney PA-C) Cough Acute respiratory disease Bilateral adrenal adenomas Age-related macular degeneration, wet, right eye Sleep apnea History of ETT Kidney stones Diverticulosis Positive colorectal cancer screening using Cologuard test 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 Right bundle branch block (RBBB) 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, without long-term current use of insulin Dyslipidemia Bilateral renal cysts Actinic keratosis Neuropathic arthritis Essential hypertension Surgical History History of surgical removal of skin lesion (~02/12/24) Hx of bilateral cataract extraction Hx of cervical discectomy History of esophagogastroduodenoscopy (EGD) Hx of LASIK Hx of colonoscopy Status post Mohs surgery Family History Mother Chronic kidney disease Cardiovascular disease Diabetes mellitus Brother Diabetes mellitus Skin cancer Social History Housing: House Alcohol intake: current Patient Tobacco Use Status: Never used Tobacco e-Cigarette/Vaping Use: Never Used service: No Current occupational status: retired Cognitive needs: No Hearing needs: No Vision needs: Yes Review of Systems Const All systems reviewed & are unremarkable except as noted in HPI and below Physical Exam Const General: cooperative and no acute distress Orientation/consciousness: patient oriented x3 Resp Effort & Inspection: normal respiratory effort and able to speak in complete sentences Cardio Peripheral pulses: Peripheral pulses 2+ throughout Neuro General: patient oriented x3 Extrem Other: Left knee skin intact, no erythema or joint effusion. Tenderness along the medial joint line. ROM full with crepitus. Negative steinmans. No ligamentous laxity. NVI. Office Procedures AMB Joint Injection/Aspiration Joint Injection/Aspiration Primary Site: left knee Prep: site was prepped using aseptic technique, ethochloride spray was applied and injection warnings given Injected: 40 mg of, DepoMedrol, with 8 mL of, 1% plain lidocaine and in the joint Approach Used: anterolateral Procedure: The patient tolerated the procedure well and there was some relief with the local anesthesia Coding 16540 - Glenohumeral/Tronchanteric Bursa/Intraarticular Procedure code (CPT) selection complete Results Reviewed Results Reviewed: Xrays were obtained in the office today and personally reviewed by me of the left knee show medial compartment oa with pf oa Assessment & Plan Assessment & Plan (1) Osteoarthritis of left knee: Code(s): M17.12 - Unilateral primary osteoarthritis, left knee Category: Medical Plan: We discussed options today, which include steroid injection. The patient did consent to move forward with the injection, which was tolerated well.? I recommended rest, ice and elevation and OTC antiinflammatories prn for discomfort. If symptoms persist over the next 6-8 weeks, they will contact our office, otherwise, prn We also discussed their diabetes and the effect the steroid can have on thier blood glucose levels; therefore, they will continue to monitor these very closely over the next 72 hours Orders: Orders XR knee standing BI Today M25.561 - Pain in right knee, M25.562 - Pain in left knee Coding Level of Care Code Est Pt Level 3 (29943) Complex EM visit Add On G2211 Diagnoses Osteoarthritis of left knee M17.12 CPT Codes Coding - Joint 7: 47127 - Glenohumeral/Tronchanteric Bursa/Intraarticular (58592 03565)
== END 2024-08-11 14:31 | disposition home or self-care (01) ==
LOC: HO.HOS 13:53
PROVIDERS: PCP Internal Medicine; Visit Provider Physician Assistant
DX: M17.12 Unilateral primary osteoarthritis, left knee (principal)
CPT/HCPCS: 20610; 99213

== ENCOUNTER → 2024-08-11 13:55 | Outpatient (BNV) | payer MEDICARE, SELFPAY | PROVIDERS: Visit Provider Radiology Diagnostic Radiology | DX: M25.561 Pain in right knee (principal) | CPT/HCPCS: 73565 ==

== ENCOUNTER 2024-11-10 09:31 | Outpatient (AMB) | payer MEDICARE, SELFPAY ==
--- OUTSIDE RECORDS SUMMARY | 2023-08-28 03:30 | XMS_ITS ---
Author Organization [facility] Address [address] [place] [address] Care Team Providers Care Swimming Pool Attendant Name Role Phone Lyubov PICKARD, Pebbles Primary Care Provider [place] Charles [phone] REASON FOR VISIT positive cologuard Problems Problem Type SNOMED Code ICD Code Onset Dates Problem Status W/U Status Risk Notes Problem Diverticular disease of colon (082542064) Diverticulosis of large intestine without perforation or abscess without bleeding (K57.30) Active confirmed Encounters Encounter Location Date Provider Diagnosis [facility] [place] [address] [place], [place] [phone] 08/28/2023 Chap[place] Rico Colon polyps K63.5 ; [...] KERI SANTIAGO JrDOB: [birth year] (79 yo M)Acc No.[id number]:08/28/2023 COLON WITH MAC Patient: KERI SAUL Jr Provider: Lamonte Rico MD :1945 A ge:78 Y S ex:Male Date:08/28/2023 Address:[address] [place], [place] [phone] Pcp:Pebbles Mcarthur MD Subjective: * Chief Complaints: [...] 5385 LESION REMOVAL COLONOSCOPY, Modifiers: PT , [address] COLONOSCOPY AND BIOPSY, Modifiers: 59 , PT, [...] 08/28/2023 Generated for Bigg jovel/Zamzam/Claraitting on: 0 11/10/2024 10:00 AM EDT
--- NOTE | 2024-11-10 09:37 | A.OFFVIS_ITS ---
Vital Signs 11/10/24 09:40 Height 5 ft 9 in Weight 232 lb BMI 34.3 Intake Visit Reasons: INJ- left knee pain last inj 08/11/24 Intake Note: Sadiq is a 79 year old male who presents today for a left knee injection, last injection on 08/11/24. Patient reports injection provided some relief, about 50%. Patient would like to discuss sciatica pain he is having at his left buttock area, describes his discomfort as sharp pains. Allergies diphenhydramine (From BENADRYL ALLERGY) Allergy (Unknown, Verified 11/10/24 09:38) HEART RACING AND TIREDNESS Medication List - Last Reconciled 11/10/24 by Pat Haney PA-C amlodipine 5 mg PO DAILY blood sugar diagnostic As directed blood sugar diagnostic check blood sugar twice a day as directed blood sugar diagnostic (Olive MediaTouch Ultra Test strips) As directed twice a day ac carvedilol (Coreg) 6.25 mg PO BID 90 days eplerenone 50 mg PO BID losartan 100 mg PO DAILY metformin 1,000 mg PO DAILY simvastatin 20 mg PO BEDTIME vitamins A,C,J-tfwb-qitsum 4,296 mcg-226 mg-90 mg (PreserVision AREDS) 1 cap PO BID HPI HPI INJ- left knee pain last inj 08/11/24: Details: 79-year-old gentleman presents to the office today for a follow-up left knee pain. He had a previous injection on 08/11/2024. The injection was somewhat helpful. He is also complaining of left buttock type pain. He states this is limiting his ability to play golf. There is also pain at night when he is trying to sleep. He denies numbness or tingling or any radiation down the leg. [facility] Medical History (Updated 11/10/24 @ 10:04 by Pat Haney PA-C) Cough Acute respiratory disease Bilateral adrenal adenomas Age-related macular degeneration, wet, right eye Sleep apnea History of ETT Kidney stones Diverticulosis Positive colorectal cancer screening using Cologuard test 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 Right bundle branch block (RBBB) 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, without long-term current use of insulin Dyslipidemia Bilateral renal cysts Actinic keratosis Neuropathic arthritis Essential hypertension Surgical History History of surgical removal of skin lesion (~02/12/24) Hx of bilateral cataract extraction Hx of cervical discectomy History of esophagogastroduodenoscopy (EGD) Hx of LASIK Hx of colonoscopy Status post Mohs surgery Family History Mother Chronic kidney disease Cardiovascular disease Diabetes mellitus Brother Diabetes mellitus Skin cancer Social History Housing: House Alcohol intake: current Patient Tobacco Use Status: Never used Tobacco e-Cigarette/Vaping Use: Never Used service: No Current occupational status: retired Cognitive needs: No Hearing needs: No Vision needs: Yes Review of Systems Const All systems reviewed & are unremarkable except as noted in HPI and below Physical Exam Vital Signs: BMI result Body Mass Index 34.3 Extrem Other: Left knee is normal to inspection no effusion. Full range of motion with mild tenderness over the medial joint line. Left hip range of motion is full without pain. No pain over the SI joint. Mild tenderness over the gluteal muscle. Mild discomfort over the greater troch. No pain with end range internal or externally. Neurovascularly intact Office Procedures AMB Joint Injection/Aspiration Joint Injection/Aspiration Primary Site: left knee Prep: site was prepped using aseptic technique, ethochloride spray was applied and injection warnings given Injected: 40 mg of, DepoMedrol, with 8 mL of, 1% plain lidocaine and in the joint Approach Used: anterolateral Procedure: The patient tolerated the procedure well and there was some relief with the local anesthesia Coding 73763 - Glenohumeral/Tronchanteric Bursa/Intraarticular Procedure code (CPT) selection complete Assessment & Plan Assessment & Plan (1) Osteoarthritis of left knee: Code(s): M17.12 - Unilateral primary osteoarthritis, left knee Category: Medical (2) Gluteal tendinitis, left hip: Code(s): M76.02 - Gluteal tendinitis, left hip Category: Medical Plan We discussed options today which includes injection of the left knee as he has had relief with this in the past. Patient tolerated left knee injection well today. I also explained weakness within the glute muscles can cause some associated pain and also pain that radiates down the leg. I recommend a course of physical therapy to work on strengthening and conditioning exercises. I explained this may also help his knee pain. An order was placed today and he was given information to contact them directly to make an appointment. He will see me back as needed for his left knee. We also discussed their diabetes and the effect the steroid can have on thier blood glucose levels; therefore, they will continue to monitor these very closely over the next 72 hours Coding Level of Care Code Est Pt Level 3 (05754) Complex EM visit Add On G2211 Diagnoses Osteoarthritis of left knee M17.12 Gluteal tendinitis, left hip M76.02 CPT Codes Coding - Joint 7: 84965 - Glenohumeral/Tronchanteric Bursa/Intraarticular ([id number])
[2024-11-10 09:40] VITALS: BMI 34.3
== END 2024-11-10 10:05 | disposition home or self-care (01) ==
LOC: HO.HOS 09:32
PROVIDERS: Visit Provider Physician Assistant
DX: M17.12 Unilateral primary osteoarthritis, left knee (principal); M76.02 Gluteal tendinitis, left hip
CPT/HCPCS: 20610; 99213

== ENCOUNTER → 2024-11-10 09:31 | Outpatient (BNVA) | payer MEDICARE, SELFPAY | PROVIDERS: Visit Provider Physician Assistant | DX: M25.562 Pain in left knee (principal); M17.12 Unilateral primary osteoarthritis, left knee | CPT/HCPCS: 20610; 99212; J1010; J2003 ==

== ENCOUNTER 2024-11-22 07:21 | Outpatient (REF) | payer MEDICARE, SELFPAY ==
--- OUTSIDE RECORDS SUMMARY | 2023-08-28 03:30 | XMS_ITS ---
Author Organization [facility] Address [address] [place] [address] Care Team Providers Care Shale Planer Operator Helper Name Role Phone Lyubov PICKARD, Pebbles Primary Care Provider [place] Charles [phone] REASON FOR VISIT positive cologuard Problems Problem Type SNOMED Code ICD Code Onset Dates Problem Status W/U Status Risk Notes Problem Diverticular disease of colon (931866924) Diverticulosis of large intestine without perforation or abscess without bleeding (K57.30) Active confirmed Encounters Encounter Location Date Provider Diagnosis [facility] Outpatient [address] [place], [place] [phone] 08/28/2023 Chap[place]ito Rico Colon polyps K63.5 ; Heme positive stool R19.5 ; Diarrhea R19.7 ; Diverticulosis of large intestine without perforation or abscess without bleeding K57.30 and Other hemorrhoids K64.8 Assessments Encounter Date Diagnosis (ICD Code) Assessment Notes Treatment Notes Treatment Clinical Notes Section Notes 08/28/2023 Colon polyps (ICD-10 - K63.5) 08/28/2023 Heme positive stool (ICD-10 - R19.5) 08/28/2023 Diarrhea (ICD-10 - R19.7) 08/28/2023 Diverticulosis of large intestine without perforation or abscess without bleeding (ICD-10 - K57.30) 08/28/2023 Other hemorrhoids (ICD-10 - K64.8) Plan Of Treatment No Information Progress Notes * KERI SANTIAGO JrDOB: [birth year] (79 yo M)Acc No.[id number]:08/28/2023 COLON WITH MAC Patient: KERI SAUL Jr Provider: Lamonte Rico MD :1945 A ge:78 Y S ex:Male Date:08/28/2023 Address:[address] [place], [place] [phone] Pcp:Pebbles Mcarthur MD Subjective: * Chief Complaints: * 1 . Positive cologuard. * Medical History: Objective: * Vitals: Assessment: * Assessment: 1. C olon polyps - K63.5 (Primary) 2 . H melanie positive stool - R19.5 ? 3 . D iarrhea - R19.7 4 . D iverticulosis of large intestine without perforation or abscess without bleeding - K57.30 5 . O ther hemorrhoids - K64.8 Plan: * Treatment: * Procedure Codes: 4 5385 LESION REMOVAL COLONOSCOPY, Modifiers: PT , 25469 COLONOSCOPY AND BIOPSY, Modifiers: 59 , PT, 0529F INTRVL 3+YRS PTS CLNSCP DOCD, Modifiers: 8P , 0528F RCMND FLW-UP 10 YRS DOCD, Modifiers: 1P * * The named appointment provid er may or may not be the originator of this progress note, and it is not deemed complete until electronically signed by the appointment provider. Sign off status: Pending * Provider: Lamonte Rico MD Date: 0 08/28/2023 Generated for Bigg jovel/Zamzam/Claraitting on: 0 11/22/2024 07:24 AM EDT
[2024-11-22 10:44] LABS: Alanine Aminotransferase 19 U/L (0-40); Anion Gap 11 (12-20); Aspartate Amino Transferase 25 U/L (5-37); Blood Urea Nitrogen 23 mg/dL (9-16); Calcium 9.2 mg/dL (8.4-10.2); Carbon Dioxide 25 mmol/L (22-29); Chloride 109 mmol/L (96-108); Cholesterol 176 mg/dL (<200); Estimated Glomerular Filt Rate > 60; HDL Cholesterol 44 mg/dL (>40); Potassium 4.3 mmol/L (3.3-5.1); Sodium 141 mmol/L (135-145); Triglycerides 207 mg/dL (<150)
[2024-11-22 10:51] LABS: Hemoglobin A1C 177.0121 umol/L; Total Hemoglobin (HGBA1C) 3417.7812 umol/L
== END 2024-11-22 07:22 | disposition home or self-care (01) ==
LOC: HO.HMGCLDS 07:21
PROVIDERS: PCP Internal Medicine; Referring Provider Internal Medicine Hypertension Specialist; Visit Provider Internal Medicine
DX: E11.29 Type 2 diabetes mellitus with other diabetic kidney complication (principal); E78.5 Hyperlipidemia, unspecified; R80.9 Proteinuria, unspecified
CPT/HCPCS: 36415; 80048; 80061; 83036; 84450; 84460

== ENCOUNTER 2024-11-23 09:01 | Outpatient (AMB) | payer MEDICARE, SELFPAY ==
--- OUTSIDE RECORDS SUMMARY | 2023-08-28 03:30 | XMS_ITS ---
Author Organization [facility] Address [address] [place] [address] Care Team Providers Care Technology Development Intern Name Role Phone Lyubov PICKARD, Pebbles Primary Care Provider [place] Charles [phone] REASON FOR VISIT positive cologuard Problems Problem Type SNOMED Code ICD Code Onset Dates Problem Status W/U Status Risk Notes Problem Diverticulosis o f large intestine without perforation or abscess without bleeding (K57.30) Active confirmed Encounters Encounter Location Date Provider Diagnosis [facility] Outpatient [address] [place] [phone] 08/28/2023 Chap[place] Rico Colon polyps K63.5 ; [...] KERI SANTIAGO JrDOB: [birth year] (79 yo M)Acc No.[id number]:08/28/2023 COLON WITH MAC Patient: KERI SAUL Jr Provider: Lamonte Rico MD :1945 A ge:78 Y S ex:Male Date:08/28/2023 Address:[address] [place], [place] [phone] Pcp:Pebbles Mcarthur MD Subjective: * Chief Complaints: [...] 5385 LESION REMOVAL COLONOSCOPY, Modifiers: PT , [address] COLONOSCOPY AND BIOPSY, Modifiers: 59 , PT, [...] 08/28/2023 Generated for Bigg jovel/Zamzam/Claraitting on: 0 11/23/2024 09:22 AM EDT
--- NOTE | 2024-11-23 09:13 | A.OFFPC_ITS ---
Vital Signs 11/23/24 09:14 Height 5 ft 9 in Weight 234 lb BMI 34.6 BP 138/68 Blood Pressure Location Rt brachial Position Sitting Respiration 16 Pulse 60 Pulse Source Pulse Oximeter Temp 98.2 F Temp Source Oral Pulse Oximetry (%) 96 Oxygen Delivery Method Room Air Intake Visit Reasons: 5m follow up Intake Note: Pt is here today for her 5mo. f/u Allergies diphenhydramine (From BENADRYL ALLERGY) Allergy (Unknown, Verified 11/23/24 09:49) HEART RACING AND TIREDNESS Medication List - Last Reconciled 11/23/24 by Pebbles Mcarthur MD amlodipine 5 mg PO DAILY blood sugar diagnostic As directed blood sugar diagnostic check blood sugar twice a day as directed blood sugar diagnostic (Scandiduch Ultra Test strips) As directed twice a day ac carvedilol (Coreg) 6.25 mg PO BID 90 days eplerenone 50 mg PO BID losartan 100 mg PO DAILY metformin 1,000 mg PO DAILY simvastatin 20 mg PO BEDTIME vitamins A,C,P-tyng-okcgne 4,296 mcg-226 mg-90 mg (PreserVision AREDS) 1 cap PO BID Tobacco use date assessed: 11/23/24 Fall risk assessment: No Falls in past year Last assessed Fall Risk: 11/23/24 Dental Screening Dental Screen Date: 11/23/24 Did you have a dental visit in the last 12 months?: Yes Did you have a dental problem in the last 6 months where you did not have access to dental care?: No Was dental information given to patient?: Patient has dentist HPI 5m follow up HPI Details 79-year-old male with history of diabete s mellitus, dyslipidemia, hypertension , bilateral adenoma, suspicious for primary hyperaldosteronism followed by Nephrology, microscopic colitis seen on colonoscopy, history of skin cancer followed by dermatology, age related macular degeneration wet on right eye and dry AMD on left eye followed by [facility],, here today for his follow-up visit. . He has been feeling well, just had cortisone injections again in his left knee and left gluteus muscle , which afforded pain relief. Patient already planning to resume playing golf again again next week, now that he can walk without any pain or instability in gait compliant with taking his medications, and adhering to healthy eating habits but admits to not getting any regular exercise this past few months due to knee and hip pain, which has now resolved. Just seen his automobile inspector with 8 actinic keratosis lesions removed. Had recent fasting labs done which showed hemoglobin A1c slightly higher than last check at 6.9% with fasting lipids within normal limits except for slightly elevated triglycerides. Urine microalbuminuria levels are improving on last check. Up-to-date with his diabetes retinopathy exam goes to [facility] who are treating him as well for macular degeneration in both eyes. He gets every 3 months dental cleaning. He is up-to-date with his colon cancer screening, with last colonoscopy done by Dr. Rico showing fragments of tubular adenoma but was told that he does not need any he had colonoscopy done. [facility] Medical History Bilateral adrenal adenomas Age-related macular degeneration, wet, right eye Sleep apnea History of ETT Kidney stones Diverticulosis 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 Right bundle branch block (RBBB) 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, without long-term current use of insulin Dyslipidemia Bilateral renal cysts Actinic keratosis Neuropathic arthritis Essential hypertension Surgical History History of surgical removal of skin lesion (~02/12/24) Hx of bilateral cataract extraction Hx of cervical discectomy History of esophagogastroduodenoscopy (EGD) Hx of LASIK Hx of colonoscopy Status post Mohs surgery Family History Mother Chronic kidney disease Cardiovascular disease Diabetes mellitus Brother Diabetes mellitus Skin cancer Social History Housing: House Alcohol intake: current Patient Tobacco Use Status: Never used Tobacco e-Cigarette/Vaping Use: Never Used service: No Current occupational status: retired Cognitive needs: No Hearing needs: No Vision needs: Yes Questionnaire Thrive Questionnaire Date Thrive assessed: 06/17/24 I am a: Patient What is your living situation today?: I have a steady place to live Within the past 12 months, did the food you bought not last and you didn't have the money to get more?: Never true Within the past 12 months, did you worry whether your food would run out before you got money to buy more?: Never true Do you have trouble paying for medicines?: No Do you have trouble getting transportation to medical appointments?: No Do you have trouble paying your heating and electricity bill?: No Do you have trouble taking care of your child, family member or friend?: No Do you have trouble with day-to-day activities such as bathing, preparing meals, shopping, managing finances, etc.?: No Are you currently unemployed and looking for a job?: No Are you interested in more education?: No Please select the resources that you would like help with: None Currently or been in a relationship where the following occur: No concerns reported THRIVE Score: 0 YAMILA-7 AMB Questionnaire YAMILA-7 Date YAMILA - 7 assessed: 06/24/24 Source: Developed by Drs. Chapincito Livingston, Natalie Shaw, Mnyor Nino and colleagues, with an educational pollo from [employer]. Review of Systems Const Denies daytime sleepiness, Denies fatigue, Denies frequent falls, Denies headache(s) and Denies weakness Eyes Details: Goes to [facility] Reports no additional complaints ENT Denies dizziness and Denies headache(s) Card Denies chest pain, Denies syncope, Denies rapid heart rate, Denies pedal edema, Denies lightheadedness, Denies dyspnea and Denies dyspnea on exertion Resp Denies cough, Denies dyspnea and Denies dyspnea on exertion GI Denies hematochezia and Denies change in stool character Reports no additional complaints Musc Reports as per HPI, Denies abnormal gait, Denies muscle cramps, Denies muscle weakness, Denies numbness, Denies radiating pain into limb and Denies tingling Skin/Breast Details: Followed by dermatology for skin cancer screening, no new lesion Neuro Denies abnormal gait, Denies dizziness, Denies syncope, Denies frequent falls, Denies headache(s), Denies numbness, Denies tingling and Denies weakness Psych Reports no additional complaints Endo Reports no additional complaints and Denies fatigue Kp/Lymph Reports no additional complaints Aller/Immun Reports no additional complaints Physical exam (Primary Care) Vital Signs: Last Vital Signs Temp 98.2 F 11/23/24 09:14 Pulse 60 11/23/24 09:14 Resp 16 11/23/24 09:14 BP 138/68 11/23/24 09:14 Pulse Ox 96 11/23/24 09:14 Oxygen Delivery Method Room Air 11/23/24 09:14 BMI result Body Mass Index 34.6 Tobacco/Smoking Status: Tobacco use Status Tobacco use date assessed 11/23/24 11/23/24 09:16 Patient Tobacco Use Status Never used Tobacco 11/23/24 09:13 e-Cigarette/Vaping Use Never Used 11/23/24 09:13 Thrive Assessment: Date of Thrive Assessment Date Thrive assessed 06/17/24 11/23/24 09:13 Currently or been in a relationship where the following occur: No concerns reported Advance Care Planning discussion: Completed/Scanned Date of discussion: 06/24/24 Who was present: Patient Forms completed: Health Care Proxy and MOLST Time spent: 16-45 minutes Actual minutes spent: 3 Const Other: Alert oriented x3, no acute distress noted ambulatory HENMT Head: Yes normocephalic Face and sinus: Yes face symmetric Mouth: Normal oral and palatal mucosa present and moist mucous membranes Eyes General: appearance normal, both eyes and all related structures Neck Other: Supple, no lymphadenopathy, thyroid gland nonpalpable Resp Auscultation: clear to auscultation bilaterally Cardio Other: S1-S2 present regular rate and rhythm with frequent skipped beats GI Other: Normal bowel sounds, soft, nontender, no mass palpated General: Yes no CVA tenderness Back/Spine/Pelvis Back: no CVA tenderness Neuro General: gait normal, tone normal, Normal light touch and pain sensation, no focal motor deficits and CN's II-XI intact bilaterally Extrem General: Yes no joint enlargement, Yes no clubbing, cyanosis or edema, Yes no pedal edema and Yes no calf tenderness Results Reviewed Results Reviewed: Name: Sadiq Middleton Jr Age/Sex: 79/M : 1945 Unit#: [id number] Attend Dr: Pebbles Mcarthur MD Re11/22/24 Status: DEP REF Location: [facility] Disch: SPEC : [id number] SUMMER: 11/22/24 STATUS: COMP REQ : [id number] RECD: 11/22/24-[address]: Pebbles Mcarthur MD COMP: 11/22/24-4 ENTERED: 11/22/24-[address] [facility] [address]: ORDERED: Met Prof Fast, AST, ALT, Lipid Panel Test Result Flag Reference Sodium 141 135-145 mmol/L Potassium 4.3 3.3-5.1 mmol/L CL 109 H 96-108 mmol/L CO2 25 22-29 mmol/L Gap 11 L 12-20 BUN 23 H 9-16 mg/dL Creat 1.03 0.5-1.4 mg/dL eGFR > 60 Chronic Kidney Disease: Estimated GFR < 60 mL/min/1.73m2 Severe Kidney Disease: Estimated GFR < 15 mL/min/1.73m2 FBS 124 H 60-99 mg/dL A fasting glucose from 100-125 mg/dl is considered impaired (pre-diabetes). CA 9.2 # 8.4-10.2 mg/dL AST (GOT) 25 5-37 U/L ALT (GPT) 19 0-40 U/L Triglyceride 207 H <150 mg/dL Desirable Triglyceride: less than 150 mg/dL Borderline High Triglyceride 150-199 mg/dL High Triglyceride: 200-499 mg/dL Very High Triglyceride: greater than or equal to 5OO mg/dL Cholesterol 176 <200 mg/dL Desirable Cholesterol: less than 200 mg/dL Borderline High Cholesterol: 200-239 mg/dL High Cholesterol: greater than 239 mg/dL LDL Calculated 91 <100 mg/dL Desirable LDL: less than 100 mg/dL Near Optimal/Above Optimal LDL: 110-129 mg/dL Borderline High LDL: 130-159 mg/dL High LDL: 160-189 mg/dL Very High LDL: greater than or equal to 190 mg/dL HDL 44 >40 mg/dL Desirable HDL: greater than 40 mg/dL Note: This HDL assay may give artificially low results in patients with liver disease. Laboratory Tests 11/22/24 07:33 Estimat Average Glucose 151 Hemoglobin A1c % 6.9 H Coding Level of Care Code Est Pt Level 4 (70359) Complex EM visit Add On G2211 Diagnoses Essential hypertension I10 Actinic keratosis L57.0 Dyslipidemia E78.5 Type 2 diabetes mellitus with microalbuminuria, without long-term current use of insulin E11.29; R80.9 Diabetes mellitus complication detail: with microalbuminuria Diabetes mellitus type: type 2 Atherosclerotic cardiovascular disease I25.10 Dry age-related macular degeneration H35.3190 TAURUS (obstructive sleep apnea) G47.33 Primary osteoarthritis of left knee M17.12 Osteoarthritis type: primary Additional Codes Vital Signs *Quality* - Advance Care Planning discussion: Completed/Scanned ([id number]) Vital Signs *Quality* - Time spent: 16-45 minutes ([id number]) Assessment & Plan Assessment & Plan (1) Essential hypertension: Code(s): I10 - Essential (primary) hypertension Category: Medical (2) Actinic keratosis: Comment: Followed by Dr. Allen Code(s): L57.0 - Actinic keratosis Category: Medical (3) Dyslipidemia: Code(s): E78.5 - Hyperlipidemia, unspecified Category: Medical (4) Diabetes mellitus with kidney complication, without long-term current use of insulin: Code(s): E11.29 - Type 2 diabetes mellitus with other diabetic kidney complication Category: Medical Qualifiers: Diabetes mellitus complication detail: with microalbuminuria Diabetes mellitus type: type 2 Qualified Code(s): E11.29 - Type 2 diabetes mellitus with other diabetic kidney complication; R80.9 - Proteinuria, unspecified (5) Atherosclerotic cardiovascular disease: Code(s): I25.10 - Atherosclerotic heart disease of [place] coronary artery without angina pectoris Category: Medical (6) Dry age-related macular degeneration: Comment: Bilateral, Follow[facility] Code(s): H35.3190 - Nonexudative age-related macular degeneration, unspecified eye, stage unspecified Category: Medical (7) TAURUS (obstructive sleep apnea): Code(s): G47.33 - Obstructive sleep apnea (adult) (pediatric) Category: Medical (8) Osteoarthritis of left knee: Code(s): M17.12 - Unilateral primary osteoarthritis, left knee Category: Medical Qualifiers: Osteoarthritis type: primary Qualified Code(s): M17.12 - Unilateral primary osteoarthritis, left knee Plan We reviewed latest lab results with patient, and noted recent increase in A1c levels and the potential impact of corticosteroid use. Continued on current medications, reinforced importance of following regular exercise regimen and healthy eating habits. The patient was advised to continue regular follow-ups with ophthalmology and dermatology for diabetic retinopathy and actinic keratosis/skin cancer screening, respectively. We also discussed the importance of maintaining a stable blood pressure and regular monitoring. The patient was informed about the option of receiving a COVID-19 booster and flu shot, up-to-date with the rest of his vaccination. See him back for follow-up visit in six-months, advised to do fasting labs prior to appointment. Orders: Orders Alanine Aminotransferase 6 Months E11. - Type 2 diabetes mellitus with other diabetic kidney complication, E78.5 - Hyperlipidemia, unspecified, G47.33 - Obstructive sleep apnea (adult) (pediatric), H35.3190 - Nonexudative age-related macular degeneration, unspecified eye, stage unspecified, I10 - Essential (primary) hypertension, I25.10 - Atherosclerotic heart disease of [place] coronary artery without angina pectoris, L57.0 - Actinic keratosis, M17.12 - Unilateral primary osteoarthritis, left knee, R80.9 - Proteinuria, unspecified, Z00.01 - Encounter for general adult medical examination with abnormal findings Basic Metabolic Panel Fasting 6 Months E11. - Type 2 diabetes mellitus with other diabetic kidney complication, E78.5 - Hyperlipidemia, unspecified, G47.33 - Obstructive sleep apnea (adult) (pediatric), H35.3190 - Nonexudative age-rel ated macular degeneration, unspecified eye, stage unspecified, I10 - Essential (primary) hypertension, I25.10 - Atherosclerotic heart disease of [place] coronary artery without angina pectoris, L57.0 - Actinic keratosis, M17.12 - Unilateral primary osteoarthritis, left knee, R80.9 - Proteinuria, unspecified, Z00.01 - Encounter for general adult medical examination with abnormal findings Lipid Panel 6 Months E11.29 - Type 2 diabetes mellitus with other diabetic kidney complication, E78.5 - Hyperlipidemia, unspecified, G47.33 - Obstructive sleep apnea (adult) (pediatric), H35.3190 - Nonexudative age-related macular degeneration, unspecified eye, stage unspecified, I10 - Essential (primary) hypertension, I25.10 - Atherosclerotic heart disease of [place] coronary artery without angina pectoris, L57.0 - Actinic keratosis, M17.12 - Unilateral primary osteoarthritis, left knee, R80.9 - Proteinuria, unspecified, Z00.01 - Encounter for general adult medical examination with abnormal findings Vitamin D 25-OH Total 6 Months E11.29 - Type 2 diabetes mellitus with other diabetic kidney complication, E78.5 - Hyperlipidemia, unspecified, G47.33 - Obstructive sleep apnea (adult) (pediatric), H35.3190 - Nonexudative age-related macular degeneration, unspecified eye, stage unspecified, I10 - Essential (primary) hypertension, I25.10 - Atherosclerotic heart disease of [place] coronary artery without angina pectoris, L57.0 - Actinic keratosis, M17.12 - Unilateral primary osteoarthritis, left knee, R80.9 - Proteinuria, unspecified, Z00.01 - Encounter for general adult medical examination with abnormal findings Hemoglobin A1c 6 Months E11.29 - Type 2 diabetes mellitus with other diabetic kidney complication, E78.5 - Hyperlipidemia, unspecified, G47.33 - Obstructive sleep apnea (adult) (pediatric), H35.3190 - Nonexudative age-related macular degeneration, unspecified eye, stage unspecified, I10 - Essential (primary) hypertension, I25.10 - Atherosclerotic heart disease of [place] coronary artery without angina pectoris, L57.0 - Actinic keratosis, M17.12 - Unilateral primary osteoarthritis, left knee, R80.9 - Proteinuria, unspecified, Z00.01 - Encounter for general adult medical examination with abnormal findings Aspartate Amino Transferase 6 Months E11.29 - Type 2 diabetes mellitus with other diabetic kidney complication, E78.5 - Hyperlipidemia, unspecified, G47.33 - Obstructive sleep apnea (adult) (pediatric), H35.3190 - Nonexudative age- related macular degeneration, unspecified eye, stage unspecified, I10 - Essential (primary) hypertension, I25.10 - Atherosclerotic heart disease of [place] coronary artery without angina pectoris, L57.0 - Actinic keratosis, M17.12 - Unilateral primary osteoarthritis, left knee, R80.9 - Proteinuria, unspecified, Z00.01 - Encounter for general adult medical examination with abnormal findings Microalbumin, Random (w Creat) 6 Months E11.29 - Type 2 diabetes mellitus with other diabetic kidney complication, E78.5 - Hyperlipidemia, unspecified, G47.33 - Obstructive sleep apnea (adult) (pediatric), H35.3190 - Nonexudative age- related macular degeneration, unspecified eye, stage unspecified, I10 - Essential (primary) hypertension, I25.10 - Atherosclerotic heart disease of [place] coronary artery without angina pectoris, L57.0 - Actinic keratosis, M17.12 - Unilateral primary osteoarthritis, left knee, R80.9 - Proteinuria, unspecified, Z00.01 - Encounter for general adult medical examination with abnormal findings PSA,Total (Free>4and<10) 6 Months E11.29 - Type 2 diabetes mellitus with other diabetic kidney complication, E78.5 - Hyperlipidemia, unspecified, G47.33 - Obstructive sleep apnea (adult) (pediatric), H35.3190 - Nonexudative age-related macular degeneration, unspecified eye, stage unspecified, I10 - Essential (primary) hypertension, I25.10 - Atherosclerotic heart disease of [place] coronary artery without angina pectoris, L57.0 - Actinic keratosis, M17.12 - Unilateral primary osteoarthritis, left knee, R80.9 - Proteinuria, unspecified, Z00.01 - Encounter for general adult medical examination with abnormal findings
[2024-11-23 09:14] VITALS: BP 138/68; PULSE 60; RESP 16; TEMP 36.8; O2SAT 96; BMI 34.6
--- OUTSIDE RECORDS SUMMARY | 2024-11-23 09:23 | XMS_ITS | Patient Health Record ---
Author Organization [facility] Address [address] [place] [address] Care Team Providers Care Weir Fisher Name Role Phone Lyubov PICKARD, Pebbles Primary Care Provider [place] Charles [phone] Allergies Allergen (clinical drug ingredient) Drug/Non Drug Allergy documented on EMR Reaction Allergy Type Onset Date Status diphenhydramine Benadryl (uncoded) Unknown Allergy Active Reason For Referral No Information Medications Medication [...] Problem Status W/U Status Risk Notes Problem [id number] Gastro-esophagea l reflux disease without esophagitis (K21.9) Active confirmed Problem 299273428 Encounter for screening for malignant neoplasm of colon (Z12.11) Active confirmed Problem 512704394 History of adenomatous polyp of colon (Z86.010) Active confirmed Problem Diverticulosis o f large intestine without perforation or abscess without bleeding (K57.30) Active confirmed Problem [id number] Preprocedural examination (Z01.818) Active confirmed Problem 865322133 Barretts esophagus without dysplasia (K22.70) Active confirmed Problem 745167377 Hx of adenomatou s colonic polyps (Z86.010) Active confirmed Problem Chronic diarrhea (975114899) Chronic diarrhea (K52.9) Active confirmed Problem Abnormal feces (803594839) Positive colorectal cancer screening using Cologuard test (R19.5) Active confirmed Vital Signs Blood pressure diastolic 00 mm Hg 01/29/2024 Height 69.75 in 01/29/2024 Blood pressure systolic 00 mm Hg 01/29/2024 Weight 229 lbs 01/29/2024 BMI 33.09 kg/m2 01/29/2024 Encounters Encounter Location Date Provider Diagnosis [facility] [address] [place] [address] 01/29/2024 [place] Jacky Colon polyps K63.5 and Diarrhea R19.7 Assessments Encounter Date Diagnosis (ICD Code) Assessment Notes Treatment Notes Treatment Clinical Notes Section Notes 01/29/2024 Diarrhea (ICD-10 - R19.7) Overall, Mr. [...] assistance in the future. Plan Of Treatment Pending Test Test Name [...] Date [employer] [address] [place] [phone] [id number] KERI MIDDLETON Self - patient is the insured Medical (General) History Medical History History ICD Code Tubular adenoma removed in --neg. colonoscopies in 2000 and 2005 except for hyperplastic polyps. Diverticulosis HTN Hyperlipidemia NIDDM Skin cancers-basal cell/squa mous cell-required XRT for one on the back of his neck Denies [place],CVA,Lung disease,renal disease Kidney stones Negative ETT in [...]
== END 2024-11-23 10:00 | disposition home or self-care (01) ==
LOC: HO.HMCC 09:02
PROVIDERS: PCP Internal Medicine; Visit Provider Internal Medicine
DX: I10 Essential (primary) hypertension (principal); L57.0 Actinic keratosis; E78.5 Hyperlipidemia, unspecified; E11.29 Type 2 diabetes mellitus with other diabetic kidney complication; R80.9 Proteinuria, unspecified; I25.10 Atherosclerotic heart disease of native coronary artery without angina pectoris; H35.3190 Nonexudative age-related macular degeneration, unspecified eye, stage unspecified; G47.33 Obstructive sleep apnea (adult) (pediatric); M17.12 Unilateral primary osteoarthritis, left knee; Z00.00 Encounter for general adult medical examination without abnormal findings

== ENCOUNTER → 2024-11-23 09:01 | Outpatient (BNVA) | payer MEDICARE, SELFPAY | PROVIDERS: PCP Internal Medicine; Visit Provider Internal Medicine | DX: E11.29 Type 2 diabetes mellitus with other diabetic kidney complication (principal); I10 Essential (primary) hypertension; E78.5 Hyperlipidemia, unspecified; L57.0 Actinic keratosis; R80.9 Proteinuria, unspecified; I25.10 Atherosclerotic heart disease of native coronary artery without angina pectoris; H35.3190 Nonexudative age-related macular degeneration, unspecified eye, stage unspecified; G47.33 Obstructive sleep apnea (adult) (pediatric); M17.12 Unilateral primary osteoarthritis, left knee | CPT/HCPCS: 99212 ==

== ENCOUNTER 2024-12-06 11:30 | Outpatient (AMB) | payer MEDICARE, SELFPAY ==
--- OUTSIDE RECORDS SUMMARY | 2023-08-28 03:30 | XMS_ITS ---
Author Organization [facility] Address [address] [place] [address] Care Team Providers Care Taxi Cab Driver Name Role Phone Lyubov PICKARD, Pebbles Primary Care Provider [place] Charles [phone] REASON FOR VISIT positive cologuard Problems Problem Type SNOMED Code ICD Code Onset Dates Problem Status W/U Status Risk Notes Problem Diverticular disease of colon (054558247) Diverticulosis of large intestine without perforation or abscess without bleeding (K57.30) Active confirmed Encounters Encounter Location Date Provider Diagnosis [facility] Out[place] [address] [place], [place] [phone] 08/28/2023 Chap[place]ito Rico Colon polyps K63.5 ; [...] KERI SANTIAGO JrDOB: [birth year] (79 yo M)Acc No.[id number]:08/28/2023 COLON WITH MAC Patient: KERI SAUL Jr Provider: Lamonte Rico MD :1945 A ge:78 Y S ex:Male Date:08/28/2023 Address:[address] [place], [place] [phone] Pcp:Pebbles Mcarthur MD Subjective: * Chief Complaints: [...] 5385 LESION REMOVAL COLONOSCOPY, Modifiers: PT , [address] COLONOSCOPY AND BIOPSY, Modifiers: 59 , PT, [...] 08/28/2023 Generated for Bigg jovel/Zamzam/Claraitting on: 0 12/06/2024 02:12 PM EDT
--- NOTE | 2024-12-06 11:37 | HO.NEPHOV_ITS ---
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 Accompanied by: Self / Same As Patient Allergies diphenhydramine (From BENADRYL ALLERGY) Allergy (Unknown, Verified 12/06/24 11:38) HEART RACING AND TIREDNESS Medication List - Last Reconciled 12/06/24 by Jin Sun MD amlodipine 5 mg PO DAILY blood sugar diagnostic As directed blood sugar diagnostic check blood sugar twice a day as directed blood sugar diagnostic ([employer] Ultra Test strips) As directed twice a day ac carvedilol (Coreg) 6.25 mg PO BID 90 days eplerenone 50 mg PO BID losartan 100 mg PO DAILY metformin 1,000 mg PO DAILY simvastatin 20 mg PO BEDTIME vitamins A,C,Y-yuga-fffpfe 4,296 mcg-226 mg-90 mg (PreserVision AREDS) 1 cap PO BID HPI Comments Details: Sadiq is a pleasant 78-year-old man with a history of hypertension for several years. Galen is on 3 anti hypertensives Until about 6 months ago, BP was acceptable Recently BP has been difficult to control Home SBP is aroud 150-160 mmHG Metoprolol was switched to Coreg yesterday due to nightmares Other meds include Amlodipine 10 mg and Losartan 100 mg QD He was on triamterene and this was stopped recently he has a h/o bilateral adrenal adenoma measuring 7.4 and 3.6 cm This was being followe dby urology for the past 4 years There has been a mild increase in size over the past few years Did not under go any biochemical work up thus far Interestingly he has unprovoked hypokalemia of 2.6 mmol in May 2023 with Alkalosis of 31 One episode of sweating while on Metoprolol. No significant palpitations or unexplained sweating h/o occational lightheadedness No h/o smoking Retired , used to work for [employer] 08/19/2023 Overall doing well from his previous visit. He has been monitoring blood pressure at home. Systolic blood pressure is I40 - 150 mm Hg despite 3 antihypertensives. 09/09/2023. Home blood pressure readings revealed systolic blood pressure in the range of 1 40-150. He is on eplerenone 25 mg. He underwent colonoscopy. Metformin has been decreased to 1000 mg a day. Diarrhea is improved. Colonoscopy did reveal microscopic colitis. 10/07/2023. Overall is doing well. Tolerating eplerenone 25 mg twice a day. Potassium is in normal range. All home blood pressure readings were reviewed in average systolic blood pressure around 140 mm Hg. 12/06/24 The patient is a 79-year-old male beig folllowed for HTN and adrenal adenomas, presenting with back pain and possible kidney stone stones Back pain has persisted for three months, with radiation to the legs, indicating sciatica. Orthopedic consultation is delayed until March; pain managed with ibuprofen, raising kidney concerns. Bilateral flank pain with cloudy urine suggests possible kidney stone. Pain resolved without intervention; no fever or dysuria reported. History of kidney stones noted; ultrasound planned to check for stones. Patient advised to maintain hydration to prevent concentrated urine. Medical History: - History of kidney stones Medications: - Ibuprofen for back pain management Social History: - The patient has quit golfing due to pain exacerbation when bending. - The patient was unable to travel due to discomfort while sitting for extended periods. [facility] Medical History Bilateral adrenal adenomas Age-related macular degeneration, wet, right eye Sleep apnea History of ETT Kidney stones Diverticulosis 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 Right bundle branch block (RBBB) 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, without long-term current use of insulin Dyslipidemia Bilateral renal cysts Actinic keratosis Neuropathic arthritis Essential hypertension Surgical History History of surgical removal of skin lesion (~02/12/24) Hx of bilateral cataract extraction Hx of cervical discectomy History of esophagogastroduodenoscopy (EGD) Hx of LASIK Hx of colonoscopy Status post Mohs surgery Family History Mother Chronic kidney disease Cardiovascular disease Diabetes mellitus Brother Diabetes mellitus Skin cancer Social History Housing: House Alcohol intake: current Patient Tobacco Use Status: Never used Tobacco e-Cigarette/Vaping Use: Never Used service: No Current occupational status: retired Cognitive needs: No Hearing needs: No Vision needs: Yes Physical Exam Vital Signs: Last Vital Signs Pulse 68 12/06/24 11:38 BP 128/78 12/06/24 11:38 Pulse Ox 97 12/06/24 11:38 Oxygen Delivery Method Room Air 12/06/24 11:38 BMI result Body Mass Index 33.1 Results Reviewed Nephrology Results: Sodium, (135-145) 141 mmol/L 11/22/24 Potassium, (3.3-5.1) 4.3 mmol/L 11/22/24 Chloride, (96-108) 109 mmol/L H 11/22/24 Carbon Dioxide, (22-29) 25 mmol/L 11/22/24 BUN, (9-16) 23 mg/dL H 11/22/24 Creatinine, (0.5-1.4) 1.03 mg/dL 11/22/24 Calcium, (8.4-10.2) 9.2 mg/dL Δ 11/22/24 Renal US 05/30/20 Assessment & Plan Assessment & Plan (1) Adrenal adenoma: Code(s): D35.00 - Benign neoplasm of unspecified adrenal gland Category: Medical (2) Hypokalemia: Code(s): E87.6 - Hypokalemia Category: Medical (3) Essential hypertension: Code(s): I10 - Essential (primary) hypertension Category: Medical (4) Bilateral renal cysts: Comment: 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 He is bilateral adrenal adenoma. The adenomas have gradually increased in size over the last 4 years. He has spontaneous hypokalemia and metabolic alkalosis in the setting of hypertension. PA/PRA is 52 ( elevated) suspicious for primary hyperaldosteronism. Pheochromocytoma seems less likely based on the clinical picture Aldosterone is elevated and PA/PRA ratio is elevated ; would require adrenal vein sampling to see if there is any lateralization. However since he has adenomas on both sides I am not sure if this will be of any clinical relevance. At this point I would try an aldosterone omega and monitor the adrenal adenomas closely. He has tenderness on the left breast therefore I will not use spironolactone. Based on home blood pressure readings Keep Eplerenone 50 mg twice a day Leg edema due to amlodipine 10 mg. Edema significantly improved after lowering to 5 mg. Keep amlodipine at 5 mg daily. Will obtain follow up USG Urine c/s Avoid NSAIDS Follow up with ortho Orders: Orders US renal BI Today N20.0 - Calculus of kidney, N28.1 - Cyst of kidney, acquired Basic Metabolic Panel Today N20.0 - Calculus of kidney, N28.1 - Cyst of kidney, acquired UA and rflx microscopic Today N20.0 - Calculus of kidney, N28.1 - Cyst of kidney, acquired Urine Culture Today N20.0 - Calculus of kidney, N28.1 - Cyst of kidney, acquired Coding Level of Care Code Est Pt Level 4 (15548) Diagnoses Adrenal adenoma D35.00 Hypokalemia E87.6 Essential hypertension I10 Bilateral renal cysts N28.1 Bilateral renal stones N20.0
[2024-12-06 11:38] VITALS: BP 128/78; PULSE 68; O2SAT 97; BMI 33.1
--- OUTSIDE RECORDS SUMMARY | 2024-12-06 14:13 | XMS_ITS | Patient Health Record ---
Author Organization [facility] Address [address] [place] [address] Care Team Providers Care Senior Clerk Name Role Phone Lyubov PICKARD, Pebbles Primary Care Provider [place] Charles [phone] Allergies Allergen (clinical drug ingredient) Drug/Non Drug [...] Problem Status W/U Status Risk Notes Problem 863653377 Gastro-esophagea l reflux disease without esophagitis (K21.9) Active confirmed Problem 653724911 Encounter for screening for malignant neoplasm of colon (Z12.11) Active confirmed Problem 903119574 History of adenomatous polyp of colon (Z86.010) Active confirmed Problem Diverticular disease of colon (090822487) Diverticulosis of large intestine without perforation or abscess without bleeding (K57.30) Active confirmed Problem 154197103586810 Preprocedural examination (Z01.818) Active confirmed Problem 937471626 Barretts esophagus without dysplasia (K22.70) Active confirmed Problem 482943207 Hx of adenomatou s colonic polyps (Z86.010) Active confirmed Problem Chronic diarrhea (538192528) Chronic diarrhea (K52.9) Active confirmed Problem Abnormal feces (920370585) Positive colorectal cancer screening using Cologuard test (R19.5) Active confirmed Vital Signs Blood pressure diastolic 00 mm Hg 01/29/2024 Height 69.75 in 01/29/2024 Blood pressure systolic 00 mm Hg 01/29/2024 Weight 229 lbs 01/29/2024 BMI 33.09 kg/m2 01/29/2024 Encounters Encounter Location Date Provider Diagnosis [facility] [address] [place] [address] 01/29/2024 [place] Colon polyps K63.5 and [...] Insured Coverage Start Date Coverage End Date MEDICARE SENIOR PLAN [address] [place] [address] [id number] KERI MIDDLETON Self - patient is the insured Medical (General) History Medical History History ICD Code Tubular adenoma removed in --neg. colonoscopies in 2000 and 2005 except for hyperplastic polyps. Diverticulosis HTN Hyperlipidemia NIDDM Skin cancers-basal cell/squa mous cell-required XRT for one on the back of his neck Denies DC,CVA,Lung disease,renal disease Kidney stones Negative ETT in [...]
== END 2024-12-06 11:50 | disposition home or self-care (01) ==
LOC: HO.HKA 11:30
PROVIDERS: PCP Internal Medicine; Visit Provider Internal Medicine Hypertension Specialist
DX: D35.00 Benign neoplasm of unspecified adrenal gland (principal); E87.6 Hypokalemia; I10 Essential (primary) hypertension; N28.1 Cyst of kidney, acquired; N20.0 Calculus of kidney
CPT/HCPCS: 99214

== ENCOUNTER → 2024-12-06 11:30 | Outpatient (BNVA) | payer MEDICARE, SELFPAY | PROVIDERS: PCP Internal Medicine; Visit Provider Internal Medicine Hypertension Specialist | DX: N20.0 Calculus of kidney (principal); N28.1 Cyst of kidney, acquired; I10 Essential (primary) hypertension; E87.6 Hypokalemia; D35.00 Benign neoplasm of unspecified adrenal gland | CPT/HCPCS: 99212 ==

== ENCOUNTER 2024-12-06 12:11 | Outpatient (REF) | payer MEDICARE, SELFPAY ==
[2024-12-06 12:59] LABS: Appearance Urine Clear; Glucose Urine UA Negative (Negative); PH 5.5 (5.0-9.0); Specific Gravity - Urine 1.025 (1.005-1.025); UMIC TRIGGER UA YES
[2024-12-06 13:35] LABS: Anion Gap 11 (12-20); Blood Urea Nitrogen 24 mg/dL (9-16); Calcium 9.8 mg/dL (8.4-10.2); Carbon Dioxide 27 mmol/L (22-29); Chloride 109 mmol/L (96-108); Estimated Glomerular Filt Rate > 60; Potassium 4.2 mmol/L (3.3-5.1); Sodium 143 mmol/L (135-145)
== END 2024-12-06 12:12 | disposition home or self-care (01) ==
LOC: HO.10HDL 12:11
PROVIDERS: Visit Provider Internal Medicine Hypertension Specialist
DX: N20.0 Calculus of kidney (principal); N28.1 Cyst of kidney, acquired
CPT/HCPCS: 36415; 80048; 81001; 81003; 87086

== ENCOUNTER 2024-12-09 08:27 | Outpatient (REF) | payer MEDICARE, SELFPAY ==
--- OUTSIDE RECORDS SUMMARY | 2023-08-28 03:30 | XMS_ITS ---
Author Organization [facility] Address [address] [place] [address] Care Team Providers Care Correspondent Name Role Phone Lyubov PICKARD, Pebbles Primary Care Provider [place] Charles [phone] REASON FOR VISIT positive cologuard Problems Problem Type SNOMED Code ICD Code Onset Dates Problem Status W/U Status Risk Notes Problem Diverticular disease of colon (144172510) Diverticulosis of large intestine without perforation or abscess without bleeding (K57.30) Active confirmed Encounters Encounter Location Date Provider Diagnosis [facility] Outpatient [address] [place], [place] [phone] 08/28/2023 Chap[place] Rico Colon polyps K63.5 ; [...] KERI SANTIAGO JrDOB: [birth year] (79 yo M)Acc No.[id number]:08/28/2023 COLON WITH MAC Patient: KERI SAUL Jr Provider: Lamonte Rico MD :1945 A ge:78 Y S ex:Male Date:08/28/2023 Address:[address] [place], [place] [phone] Pcp:Pebbles Mcarthur MD Subjective: * Chief Complaints: [...] 5385 LESION REMOVAL COLONOSCOPY, Modifiers: PT , [address] COLONOSCOPY AND BIOPSY, Modifiers: 59 , PT, [...] 08/28/2023 Generated for Bigg jovel/Zamzam/Claraitting on: 0 12/09/2024 09:28 AM EDT
--- NOTE | ~2024-12-09 | XR_ITS ---
EXAMINATION: XR LUMBOSACRAL SPINE CLINICAL INFORMATION: M54.16 RADICULOPATHY COMPARISON: Correlated to CT abdomen pelvis dated June 21, 2022 TECHNIQUE: AP and lateral views. FINDINGS: Multilevel syndesmophyte formation and marginal osteophyte formation and endplate sclerosis and decreased intervertebral disc height throughout the lower thoracic and lumbar spine. Grade 1 retrolisthesis L3-4. Facet joint hypertrophy at L5-S1 and to a lesser extent L4-5. No acute cortical disruption. No lytic or blastic lesions. Calcified plaques, likely aorta. XR/XR lumbar spine 2-3V IMPRESSION: Multilevel thoracolumbar spondylosis resulting in grade 1 retrolisthesis L3-4. 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 Atherosclerosis disease, aorta. Electronically signed by: Dangelo Luke MD 12/09/2024 08:55 AM EDT
--- OUTSIDE RECORDS SUMMARY | 2024-12-09 09:29 | XMS_ITS | Patient Health Record ---
Author Organization [facility] Address [address] [place] [address] Care Team Providers Care Thermo Processor Name Role Phone Lyubov PICKARD, Pebbles Primary Care Provider [place] Charles [phone] Allergies Allergen (clinical drug ingredient) Drug/Non Drug [...] Problem Status W/U Status Risk Notes Problem 438405304 Gastro-esophagea l reflux disease without esophagitis (K21.9) Active confirmed Problem 899601864 Encounter for screening for malignant neoplasm of colon (Z12.11) Active confirmed Problem 212034678 History of adenomatous polyp of colon (Z86.010) Active confirmed Problem Diverticular disease of colon (088649326) Diverticulosis of large intestine without perforation or abscess without bleeding (K57.30) Active confirmed Problem 681940043315690 Preprocedural examination (Z01.818) Active confirmed Problem 544689795 Barretts esophagus without dysplasia (K22.70) Active confirmed Problem 967214823 Hx of adenomatou s colonic polyps (Z86.010) Active confirmed Problem Chronic diarrhea (855184779) Chronic diarrhea (K52.9) Active confirmed Problem Abnormal feces (845642777) Positive colorectal cancer screening using Cologuard test (R19.5) Active confirmed Vital Signs Blood pressure diastolic 00 mm Hg 01/29/2024 Height 69.75 in 01/29/2024 Blood pressure systolic 00 mm Hg 01/29/2024 Weight 229 lbs 01/29/2024 BMI 33.09 kg/m2 01/29/2024 Encounters Encounter Location Date Provider Diagnosis [facility] [address] [place] [address] 01/29/2024 [place] Rico Colon polyps K63.5 and [...] End Date MEDICARE SENIOR PLAN [address] [place] [address] [id number] KERI MIDDLETON Self - patient is the insured Medical (General) History Medical History History ICD Code Tubular adenoma removed in --neg. colonoscopies in 2000 and 2005 except for hyperplastic polyps. Diverticulosis HTN Hyperlipidemia NIDDM Skin cancers-basal cell/squa mous cell-required XRT for one on the back of his neck Denies NM,CVA,Lung disease,renal disease Kidney stones Negative ETT in [...]
== END 2024-12-09 08:28 | disposition home or self-care (01) ==
LOC: HO.HMGCX 08:27
PROVIDERS: PCP Internal Medicine; Visit Provider Physician Assistant
DX: M54.16 Radiculopathy, lumbar region (principal); M46.1 Sacroiliitis, not elsewhere classified
CPT/HCPCS: 72100

== ENCOUNTER → 2024-12-09 08:38 | Outpatient (BNV) | payer MEDICARE, SELFPAY | PROVIDERS: PCP Internal Medicine; Visit Provider Radiology Diagnostic Radiology | DX: M47.817 Spondylosis without myelopathy or radiculopathy, lumbosacral region (principal) | CPT/HCPCS: 72100 ==

== ENCOUNTER 2024-12-21 08:00 | Outpatient (RCR) | payer MEDICARE, SELFPAY ==
--- NOTE | 2024-12-17 08:40 | MHC.PT.EP ---
[facility] [place] Office [place] Office [place] Office [address] Leon Bae [address] [phone] F: [phone] F: [phone] F: [phone] F: [phone] Physical Therapy Plan of Care Date of Evaluation: 12/17/24 Date of Surgery: n/a Diagnosis: gluteal tendonitis, L hip Assessment: Patient is a 79 year old male presenting to PT with complaints of pain in his L hip. Pt reports onset of pain began about 3 months ago due to insidious onset. He presents today with impairments in pain, lumbar ROM, hip strength, core strength. Pt's current occupation is retired, with baseline physical activities including ambulating, golf, ADLs, bending, lifting. 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 Clinical presentation today is most consistent with signs and sx associated with L hip pain and pt will benefit from skilled PT 2 week x 4 weeks to address the following problems and impairments noted upon evaluation: pain, lumbar ROM, hip strength, core strength. These problems limit the patient with the following functional activities: ambulating, golf, ADLs, bending, lifting. The prescribed treatment plan of care is medically necessary. Co-morbidities of hx skin cancer, DM, hx disc surgery neck 1980 were identified and taken into considerations of plan of care. Pt was educated on HEP, role of PT, prognosis, POC. Frequency and Duration: The patient will be seen 2 x week x 4 weeks Short Term Goals: Pt will demonstrate ability to move through available lumbar ROM with min to no pain in 2 weeks. Pt will demonstrate improved hip MMT strength by 1/3 grade in 2 weeks. Pt will demonstrate ability to perform PPT with good core control in 2 weeks. Clinical Engineering Director Goals: Pt will demonstrate improved LEFI score by 9 points in 4 weeks for improved functional mobility. Pt will demonstrate ability to bend and lift with min to no pain in 4 weeks for improved tolerance to ADLs. Treatment Plan: Modalities to reduce pain, spasms and effusion. Manual therapy to restore motion and function. Therapeutic exercise to improve strength and flexibility. Neuromuscular re-education for posture and balance. Therapeutic activities to return to functional activities of daily living. Electronically signed by: Polina Saxena, PT, DPT, ATC Please sign and return to therapist. Thank you for your referral.
--- NOTE | 2025-01-13 09:55 | MHC.PT.DC ---
[facility] [place] Office [place] Office [place] Office [address] Leon Bae [address] [phone] F: [phone] F: [phone] F: [phone] F: [phone] Physical Therapy Discharge Report Diagnosis: gluteal tendonitis, L hip Date of Surgery: n/a Date of Evaluation: 12/17/24 Date of Discharge: 01/13/25 Treatments to Date: 2 Cancellations to Date: 3 No Shows to Date: 0 Discharge Status: Patient Elected to Stop Discharge Summary: Pt cancelled all remaining appts. Pt to be d/c per his request. Electronically signed by: Polina Saxena, PT, DPT, ATC Please sign and return to therapist. Thank you for your referral.
== END 2025-01-13 09:56 | disposition home or self-care (01) ==
LOC: HO.PTCHIC 08:00
PROVIDERS: PCP Internal Medicine; Visit Provider Physician Assistant
DX: M76.02 Gluteal tendinitis, left hip (principal); M53.3 Sacrococcygeal disorders, not elsewhere classified; G89.29 Other chronic pain
CPT/HCPCS: 97110; 97161

== ENCOUNTER 2024-12-22 10:38 | Outpatient (REF) | payer MEDICARE, SELFPAY ==
--- OUTSIDE RECORDS SUMMARY | 2023-08-28 03:30 | XMS_ITS ---
Author Organization [facility] Address [address] [place] [address] Care Team Providers Care On Site Nurse Name Role Phone Lyubov PICKARD, Pebbles Primary Care Provider [place] Charles [phone] REASON FOR VISIT positive cologuard Problems Problem Type SNOMED Code ICD Code Onset Dates Problem Status W/U Status Risk Notes Problem Diverticular disease of colon (592461042) Diverticulosis of large intestine without perforation or abscess without bleeding (K57.30) Active confirmed Encounters Encounter Location Date Provider Diagnosis [facility] Outpatient [address] [place], [place] [phone] 08/28/2023 Chap[place] Rico Colon polyps K63.5 ; [...] KERI SANTIAGO JrDOB: [birth year] (79 yo M)Acc No.[id number]:08/28/2023 COLON WITH MAC Patient: KERI SAUL Jr Provider: Lamonte Rico MD :1945 A ge:78 Y S ex:Male Date:08/28/2023 Address:[address] [place], [place] [phone] Pcp:Pebbles Mcarthur MD Subjective: * Chief Complaints: [...] 5385 LESION REMOVAL COLONOSCOPY, Modifiers: PT , [address] COLONOSCOPY AND BIOPSY, Modifiers: 59 , PT, [...] 08/28/2023 Generated for Bigg jovel/Zamzam/Claraitting on: 0 12/22/2024 01:14 PM EDT
--- NOTE | ~2024-12-22 | US_ITS ---
EXAMINATION: US RETROPERITONEAL LIMITED (RENAL ONLY) CLINICAL INFORMATION: Bilateral kidney cysts and bilateral kidney stones. COMPARISON: 05/30/2020. Correlation made with MR abdomen 07/14/2023, and CT abdomen 06/21/2022. TECHNIQUE: Real-time imaging of the kidneys. FINDINGS: RIGHT KIDNEY: 12.2 x 6.0 x 6.9 cm (SAG x AP x TRV). The kidney is normal in size, contour, and echogenicity. Renal cortical thickness is normal. No calculi or suspicious focal parenchymal lesions. No hydronephrosis. There is a lower pole cyst with peripheral calcifications measuring 6 x 4 x 6 mm. There is a mid pole cyst with septation measuring 1.3 x 0.7 x 1.0 cm, stable from priors. LEFT KIDNEY: 13.1 x 7.1 x 6.6 cm (SAG x AP x TRV). The kidney is normal in size, contour, and echogenicity. Renal cortical thickness is normal. No calculi or suspicious focal parenchymal lesions. No hydronephrosis. There is an upper pole simple cyst measuring 3.2 x 2.9 x 3.9 cm. There is a mid pole cyst measuring 5.0 x 4.0 x 5.5 cm. There is a lower pole cyst measuring 1.0 cm. US/US renal BI IMPRESSION: 1. Mildly complicated but benign right renal cysts. These were evaluated on the prior MRI and are consistent with benign entities. 2. Several simple left renal cysts. 3. Otherwise normal kidneys.. Electronically signed by: Jacoby Washington MD 12/22/2024 12:01 PM EDT
--- OUTSIDE RECORDS SUMMARY | 2024-12-22 13:15 | XMS_ITS | Patient Health Record ---
Author Organization [facility] Address [address] [place] [address] Care Team Providers Care Motion Picture Director Name Role Phone Lyubov PICKARD, Pebbles Primary Care Provider [place] Charles [phone] Allergies Allergen (clinical drug ingredient) Drug/Non Drug [...] Problem Status W/U Status Risk Notes Problem 288126589 Gastro-esophagea l reflux disease without esophagitis (K21.9) Active confirmed Problem 425593965 Encounter for screening for malignant neoplasm of colon (Z12.11) Active confirmed Problem 682914062 History of adenomatous polyp of colon (Z86.010) Active confirmed Problem Diverticular disease of colon (767530866) Diverticulosis of large intestine without perforation or abscess without bleeding (K57.30) Active confirmed Problem 142877598155276 Preprocedural examination (Z01.818) Active confirmed Problem 163688207 Barretts esophagus without dysplasia (K22.70) Active confirmed Problem 086134479 Hx of adenomatou s colonic polyps (Z86.010) Active confirmed Problem Chronic diarrhea (180156589) Chronic diarrhea (K52.9) Active confirmed Problem Abnormal feces (210219855) Positive colorectal cancer screening using Cologuard test (R19.5) Active confirmed Vital Signs Blood pressure diastolic 00 mm Hg 01/29/2024 Height 69.75 in 01/29/2024 Blood pressure systolic 00 mm Hg 01/29/2024 Weight 229 lbs 01/29/2024 BMI 33.09 kg/m2 01/29/2024 Encounters Encounter Location Date Provider Diagnosis [facility] [address] [place] [address] 01/29/2024 [place] Rico Colon polyps K63.5 and [...] End Date MEDICARE SENIOR PLAN [address] [place] [address] [id number] KERI MIDDLETON Self - patient is the [...]
== END 2024-12-22 10:39 | disposition home or self-care (01) ==
LOC: HO.US 10:38
PROVIDERS: PCP Internal Medicine; Visit Provider Internal Medicine Hypertension Specialist
DX: N28.1 Cyst of kidney, acquired (principal); N20.0 Calculus of kidney
CPT/HCPCS: 76775

== ENCOUNTER → 2024-12-22 10:41 | Outpatient (BNV) | payer MEDICARE, SELFPAY | PROVIDERS: PCP Internal Medicine; Visit Provider Radiology Diagnostic Radiology | DX: N28.1 Cyst of kidney, acquired (principal); N20.0 Calculus of kidney | CPT/HCPCS: 76775 ==